=== PATIENT | female | born 1985 | race Caucasian/White ===

== ENCOUNTER 2024-10-08 09:02 | Outpatient (OUT) | payer BC, SELFPAY ==
--- NOTE | 2024-10-08 09:07 | US_ITS ---
[address] [address] Patient Name: JUAREZ LIMON MRN: [id number] date: 1985 Sex: F Assigned Patient Location: [facility] Current Patient Location: Accession/Order Number: [id number] Exam Date: 10/08/2024 09:07 Report Date: 10/09/2024 04:32 At the request of: GRACE LOVELL Procedure: US OB transvaginal EXAMINATION: US OB transvaginal HISTORY: MISSED MENSES COMPARISON: No relevant comparison available. FINDINGS: GESTATIONAL SAC: Present and normal appearing. YOLK SAC: Present and normal appearing. POLE: Present and normal appearing. CARDIAC: Present. UTERUS: Normal size and appearance. OVARIES: Right: Normal. Left: Not seen. CERVIX: 5.0 cm in length and closed. CUL-DE-SAC: Normal. OTHER: None. AGE BY LMP: 9 weeks 4 days MARIBETH BY LMP: 05/09/2025 AGE BY US CRL: 10 weeks 2 days MARIBETH BY US CRL: 05/04/2025 US/US OB transvaginal IMPRESSION: 1. Single live intrauterine . Electronically authenticated by: ANDREA AVERY Date: 10/09/2024 04:32
== END 2024-10-08 09:03 | disposition home or self-care (01) ==
LOC: NOMS 09:02
PROVIDERS: Visit Provider Obstetrics & Gynecology
DX: Z34.91 Encounter for supervision of normal pregnancy, unspecified, first trimester (principal); N92.6 Irregular menstruation, unspecified; Z3A.09 9 weeks gestation of pregnancy
CPT/HCPCS: 76817

== ENCOUNTER 2024-11-23 11:42 | Outpatient (OUT) | payer BC, SELFPAY ==
--- OUTSIDE RECORDS SUMMARY | 2024-11-23 11:59 | XMS_ITS | CCD ---
Author Organization [facility] Care Team Providers [employer] Name Role Phone GLENNA MCINTYRE Admitting Unavailable GLENNA MCINTYRE Attending Unavailable GLENNA MCINTYRE Consulting Unavailable NORM ASENCIO Admitting Unavailable NORM ASENCIO Attending Unavailable NORM ASENCIO Consulting Unavailable ANDREA AVERY Consulting Unavailable Norm Asencio MD Primary Care Provider [phone] GRACE REDDING Attending Unavailable Allergies Allergy Classification Reported Allergen(s) Allergy Type Date of Onset Reaction(s) Facility (1 source) Desonide Drug Allergy [facility] Rep[facility] Medications Current Medications Medication Drug Class(es) Dates Sig (Normalized) Sig (Original) ondansetron 4 mg disintegrating oral tablet (1 source) Serotonin-3 Receptor Antagonist Start: 09-20-2024 End: 10-20-2024 take 1 tablet by mouth every six hours as needed for nausea and vomiting and nausea and nausea ondansetron ODT (Zofran-ODT) 4 MG disintegrating tablet Indications: Nausea Take 1 tablet (4 mg) by mouth every 6 (six) hours if needed for nausea or vomiting 30 tablet 2 09/20/2024 10/20/2024 Active phenazopyridine hydrochloride 100 mg oral tablet (3 sources) Start: 10-25-2024 End: 11-09-2024 phenazopyridine (Pyridium) 100 MG tablet Indications: Urinary tract infection without hematuria, site unspecified Take 1 tablet (100 mg) by mouth 3 (three) times a day as needed for bladder spasms for up to 9 doses 9 tablet 10/25/2024 11/09/2024 Discontinued (Therapy completed) Problems Active Problems Problem Classification Problem Date Documented Date Episodic/Chronic Contraceptive and procreative management (2 sources) Sterilization requested; Translations: [Encounter for sterilization] 11-09-2024 Episodic Menstrual disorders (1 source) Missed period; Translations: [Irregular menstruation, unspecified] 10-08-2024 Chronic Other connective tissue disease (4 sources) Pain in left lower leg; Translations: [PAIN IN LEFT LOWER LEG] Onset: 05-15-2020 Episodic Other and delivery including normal (4 sources) ; Translations: [Encounter for supervision of normal , unspecified, unspecified trimester] 10-08-2024 Episodic Residual codes; unclassified (2 sources) Gestation period, 14 weeks; Translations: [14 weeks gestation of ] 11-09-2024 Episodic Urinary tract infections (3 sources) Urinary tract infectious disease; Translations: [Urinary tract infection, site not specified] Onset: 10-25-2024 10-25-2024 Episodic Past or Other Problems Problem Classification Problem Date Documented Date Episodic/Chronic Other female genital disorders (4 sources) Other specified noninflammatory disorders of vagina; Translations: [OTH SPEC NONINFLAMMATORY D/O VAGINA] Onset: 08-06-2019 Episodic Results Test Name Value Interpretation Reference Range Facil ity Urinalysis macro (dipstick) panel (U)on 11-09-2024 Bilirubin, UA Negative Negative - 4(70) +++ mg/dL [facility] Blood, UA Negative Negative - 50 Venu/mcL [facility] Clarity, UA Clear [facility] re Color, UA Yellow [facility] Glucose, UA Negative Negative - 1999(110) ++++ mg/dL [facility] Interpretation and review of laboratory results Normal [facility] Ketones, UA Negative Negative - 160(16) ++++ mg/dL [facility] Leukocytes, UA Negative Negative - 500+++ Michael/mcL [facility] Nitrite, UA Negative Negative - Positive [facility] pH, UA 6.5 5 - 9 [facility] e Protein, UA Negative Negative - 1999(20) ++++ mg/dL [facility] Spec Grav, UA 1.015 1 - 1.03 [facility] Urobilinogen, UA 0.2 0.2 - 12 mg/dL [facility] HCG ( test) Ql (U)o n 10-08-2024 Interpretation and review of laboratory results Abnormal [facility] Preg Test, Ur Positive Negative [facility] Urinalysis macro (dipstick) panel (U)on 10-08-2024 Bilirubin, UA Negative Negative - 4(70) +++ mg/dL [facility] Blood, UA Negative Negative - 50 Venu/mcL [facility] Clarity, UA Clear [facility] re Color, UA Yellow [facility] Glucose, UA Negative Negative - 1999(110) ++++ mg/dL [facility] Interpretation and review of laboratory results Normal [facility] Ketones, UA Negative Negative - 160(16) ++++ mg/dL [facility] Leukocytes, UA Negative Negative - 500+++ Michael/mcL [facility] Nitrite, UA Negative Negative - Positive [facility] pH, UA 5.5 5 - [address] [facility] e Protein, UA Negative Negative - 1999(20) ++++ mg/dL [facility] Spec Grav, UA 1.01 1 - 1.03 [facility] Urobilinogen, UA 0.2 0.2 - 12 mg/dL [facility] US CARROLL DOP LEG LTon 05-15-20 20 US CARROLL DOP LEG LT EXAMINATION: US CARROLL DOP LEG LT HISTORY: Pain in limb COMPARISON: No relevant comparison available. FINDINGS: REGION: THROMBI: None. COMPRESSIBILITY: Normal compressibility. FLOW: Normal waveform and antegrade flow between 5 and 20 cm/s. OTHER: None. IMPRESSION: 1. No deep vein thrombus within the left lower extremity. Electronically authenticated by: ANDREA AVERY Date: 2020-05-15 15:51 Normal [facility] VAGINITIS/VAGINOSIS DNA PROB Will 08-07-2019 Coreen species Positive Abnormal Negative [facility] Comment on above: Performed By: #### V AGINT #### [facility] [address] [place] [address] Tolu Schultz Gardnerella vaginalis Negative Normal Negative [facility] Comment on above: Performed By: #### V AGINT #### [facility] [address] [address] Tolu Schultz Trichomonas vaginalis Negative Normal Negative [facility] Comment on above: Performed By: #### V AGINT #### [facility] [address] [id number] Tolu Schultz Vital Signs Date Time Vital Sign Value Performing Clinician Faci lity 11-09-2024 11:10-0500 Body weight 67.13 kg Grace Miladis DO Work Phone: [facility] 11-09-2024 11:10-0500 Diastolic blood pressure 68 mm[Hg] Grace Miladis DO Work Phone: [facility] 11-09-2024 11:10-0500 Systolic blood pressure 108 mm[Hg] Grace Miladis DO Work Phone: [facility] 10-08-2024 10:17-0500 Body weight 64.86 kg [facility] Healthcare Encounters Encounter Date Encounter Type Care Provider Facility Start: 11-09-2024 End: 11-09-2024 Bamboo flowsheet Grace Miladis DO Work Phone: [facility] Start: 11-09-2024 End: 11-09-2024 Bamboo flowsheet Grace Miladis DO Work Phone: [facility] Start: 11-09-2024 End: 11-09-2024 flow sheet Grace Miladis DO Work Phone: [facility] Comment on above: Second trimester pre gnancy; 14 weeks gestation of ; Request for sterilization Start: 11-09-2024 End: 11-09-2024 ambulatory GRACE MILADIS Not Available Start: 10-08-2024 End: 10-08-2024 ambulatory [facility] Miladis Nurse [facility] Start: 05-15-2020 End: 05-16-2020 Patient encounter procedure NORM ASENCIO Facility:[facility] Start: 08-06-2019 End: 08-06-2019 Patient encounter procedure GLENNA MCINTYRE Facility:[facility] Procedures Date Procedure Procedure Detail Performing Clinician Start: 11-09-2024 Urnls dip stick/tabl et rgnt non-auto w/o micrscp Grace Miladis DO Work Phone: Start: 10-08-2024 End: 10-08-2024 Urnls dip stick/tablet rgnt non-auto w/o micrscp Grace Miladis DO Work Phone: Plan of Treatment Date Care Activity Detail Author Start: 12-08-2024 End: 12-08-2024 Patient encounter procedure 12/08/2024 3:10 PM EST Routine [facility] [address] [place] [id number] Monika Figueroa PA [address] [place] [address] [facility] Start: 11-09-2024 End: 11-09-2024 Patient encounter procedure [facility] Comment on above: Arrived Start: 10-08-2024 End: 10-08-2025 ABO/Rh ABO/Rh Lab Routine Missed menses , unspecified gestational age Expected: 10/08/2024 (Approximate), Expires: 10/08/2025 [facility] Healthcare Comment on above: Expected: 10/08/2024 (Approximate), Expires: 10/08/2025 Start: 10-08-2024 End: 10-08-2025 Blood type and Indirect antibody screen panel - Blood Type and screen Lab Routine Missed menses , unspecified gestational age Expected: 10/08/2024 (Approximate), Expires: 10/08/2025 [facility] Work Phone: Comment on above: Expected: 10/08/2024 (Approximate), Expires: 10/08/2025 Start: 10-08-2024 End: 10-08-2025 Drugs of abuse panel - Urine by Screen method Rapid drug screen, urine Lab Routine , unspecified gestational age Encounter for supervision of normal first in first trimester Expected: 10/08/2024 (Approximate), Expires: 10/08/2025 [facility] Comment on above: Expected: 10/08/2024 (Approximate), Expires: 10/08/2025 Start: 10-08-2024 End: 10-08-2025 US Pelvis transvaginal US OB transvaginal Imaging Routine Missed menses Expected: 10/08/2024 (Approximate), Expires: 10/08/2025 [facility] Comment on above: Expected: 10/08/2024 (Approximate), Expires: 10/08/2025 Bacteria identified in Urine by Culture Urine culture Microbiology Routine Missed menses Ordered: 10/08/2024 [facility] Comment on above: Ordered: 10/08/2024 CBC W Auto Different ial panel - Blood CBC and differential Lab Routine Missed menses , unspecified gestational age Ordered: 10/08/2024 [facility] Comment on above: Ordered: 10/08/2024 Hemoglobin A1c/Hemoglobin.total in Blood Hemoglobin A1c Lab Routine Missed menses , unspecified gestational age Ordered: 10/08/2024 [facility] Comment on above: Ordered: 10/08/2024 Hepatitis B virus surface Ag [Presence] in Serum or Plasma by Immunoassay Hepatitis B surface antigen Lab Routine Missed menses , unspecified gestational age Ordered: 10/08/2024 [facility] Comment on above: Ordered: 10/08/2024 Hepatitis C virus Ab [Presence] in Serum or Plasma by Immunoassay Hepatitis C antibody Lab Routine Missed menses , unspecified gestational age Ordered: 10/08/2024 [facility] Comment on above: Ordered: 10/08/2024 HIV-1/HIV-2 antigen/antibody combination immunoassay HIV-1 and HIV-2 antibodies Lab Routine Missed menses , unspecified gestational age Ordered: 10/08/2024 [facility] Comment on above: Ordered: 10/08/2024 Reagin Ab [Presence] in Serum by RPR RPR Lab Routine Missed menses , unspecified gestational age Ordered: 10/08/2024 [facility] Comment on above: Ordered: 10/08/2024 Rubella antibody, IgG Rubella an tibody, IgG Lab Routine Missed menses , unspecified gestational age Ordered: 10/08/2024 [facility] Comment on above: Ordered: 10/08/2024 Payers Date Payer Category [facility] [id number] 2021 Unknown [id number] 1985 Unknown [id number] 1985 Unknown [id number] 1985 Unknown [id number] 1985 Unknown [id number] 1957 Private Health Insurance [id number] Social History Date Type Detail Facility Tobacco smoking stat [facility] Tobacco smoking consumption unknown [facility] Start: 1985 Sex assigned at Not on file [facility] Gender identity Not on file [facility] Start: 08-16-2024 [facility] History of Present illness Narrative 11-09-2024 Marion Lerner LPN - 11/09/2024 10:50 AM EST Note Date & Type Note Facility 11-09-2024 History of Presen t illness Narrative Reason for Appointment: Patient ID: Yessi Limon is a 39 y.o. female who presents for Routine Visit Patient presents today for Return OB appointment. MEDICATIONS No current outpatient medications ALLERGIES No Known Allergies PROBLEMS Active Ambulatory Problems Diagnosis Date Noted Urinary tract infection without hematuria 10/25/2024 Resolved Ambulatory Problems Diagnosis Date Noted No Resolved Ambulatory Problems No Additional Past Medical History HISTORY PAST MEDICAL HISTORY SOCIAL HISTORY No past medical history on file. Social History Tobacco Use Smoking status: Not on file Smokeless tobacco: Not on file Substance Use Topics Alcohol use: Not on file Drug use: Not on file FAMILY HISTORY No family history on file. SURGICAL HISTORY History reviewed. No pertinent surgical history. REVIEW OF SYSTEMS Review of Systems: Review of Systems Constitutional: Negative. HENT: Negative. Eyes: Negative. Respiratory: Negative. Cardiovascular: Negative. Gastrointestinal: Negative. Genitourinary: Negative. Musculoskeletal: Negative. Skin: Negative. Neurological: Negative. All other systems reviewed and are negative. Hematological: Negative. Endocrine: Negative. Allergic/Immunologic: Negative. OBJECTIVE Objective: Physical Exam Constitutional: Appearance: Normal appearance. She is well-developed. Cardiovascular: Rate and Rhythm: Normal rate and regular rhythm. Pulmonary: Effort: Pulmonary effort is normal. Breath sounds: Normal breath sounds. Abdominal: General: Bowel sounds are normal. There is no distension. Palpations: Abdomen is soft. Tenderness: There is no abdominal tenderness. There is no guarding or rebound. Musculoskeletal: General: No swelling. Normal range of motion. Right lower leg: No edema. Left lower leg: No edema. Neurological: Mental Status: She is alert and oriented to person, place, and time. Skin: General: Skin is warm and dry. Psychiatric: Mood and Affect: Mood normal. Behavior: Behavior normal. Vitals and nursing note reviewed. Exam conducted with a change advisor present. Vitals: There is no height or weight on file to calculate BMI. BP: 108/68 Patient's last menstrual period was 08/02/2024 (exact date). ASSESSMENT & PLAN ICD-10-CM 1. Second trimester Z34.92 POCT urinalysis dipstick manually resulted 2. 14 weeks gestation of Z3A.14 3. Request for sterilization Z30.2 New OB: Patient presents today for 1st time obstetrics appointment with provider. Patient is currently 14w1d . Patients history has been reviewed in great detail including any potential risks. Patient stated she currently has no complaints. Expectations throughout regarding labs, ultrasounds, and appointments have been discussed with the patient in detail. It was reiterated that the patient is to drink 6-8 glasses of water a day, eat 6 small meals a day, do not consume raw or undercooked meat, and stay away from [facility]. Patient has been consulted regarding any further do's and don'ts of . Patient voiced understanding and all questions and concerns were answered. D/t AMA MFM referral for level II ultrasound offered- pt declined. Pt advised to take 81 mg aspirin daily. Orders Placed This Encounter Procedures POCT urinalysis dipstick manually resulted Follow Up: Patient is to return in 4 weeks for routine OB appointment. Documented by Marion Lerner LPN on behalf of: Grace Redding DO documented in this encounter [facility] History of Present illness Narrative 10-08-2024 Maria Guadalupe Hernandez MA - 10/08/2024 9:30 AM EST Note Date & Type Note Facility 10-08-2024 History of Presen t illness Narrative Reason for Appointment: Patient ID: Yessi Petros Limon is a 39 y.o. female who presents for Amenorrhea Patient presents today for a Nurse OB Intake appointment. Patient is Unknown with a Estimated Date of Delivery: None noted. OB History Para Term AB Living 7 6 7 SAB IAB Ectopic Multiple Live Births 1 7 # Outcome Date GA Lbr Shoaib/2nd Weight Sex Type Anes PTL Lv 7 Current 6 Para 04/06/18 M CS-LTranv MIMI 5A Para 03/16/15 7 lb F CS-LTranv N MIMI 5B Para 03/16/15 7 lb M CS-LTranv N MIMI 4 Para 07/10/12 M Vag-Spont MIMI 3 Para 11/12/10 F Vag-Spont MIMI 2 Para 07/12/08 M Vag-Spont MIMI 1 Para 02/18/07 Vag-Spont MIMI Current Medications: has a current medication list which includes the following prescription(s): ondansetron odt. Medical History: Active Ambulatory Problems Diagnosis Date Noted No Active Ambulatory Problems Resolved Ambulatory Problems Diagnosis Date Noted No Resolved Ambulatory Problems No Additional Past Medical History No family history on file. Social History Tobacco Use Smoking status: Not on file Smokeless tobacco: Not on file Substance Use Topics Alcohol use: Not on file Drug use: Not on file No past surgical history on file. No Known Allergies Vitals: There is no height or weight on file to calculate BMI. BP: No LMP recorded. Patient is . Assessment/Plan Diagnoses and all orders for this visit: Missed menses - Type and screen; Future - ABO/Rh; Future - CBC and differential - Hemoglobin A1c - RPR - Rubella antibody, IgG - Hepatitis B surface antigen - Hepatitis C antibody - HIV-1 and HIV-2 antibodies - Urine culture - US OB transvaginal; Future - POCT , urine manually resulted - POCT urinalysis dipstick manually resulted , unspecified gestational age - Type and screen; Future - ABO/Rh; Future - CBC and differential - Hemoglobin A1c - RPR - Rubella antibody, IgG - Hepatitis B surface antigen - Hepatitis C antibody - HIV-1 and HIV-2 antibodies - Rapid drug screen, urine; Future Encounter for supervision of normal first in first trimester - Rapid drug screen, urine; Future Nurse Note: OB Intake: Patient presents today for first OB visit. Patients history has been reviewed in great detail including any potential risks. Patient signed consent forms and patient desires testing in both trimesters. Patient currently has no complaints and has been advised to drink 6-8 glasses of water a day, eat no raw or undercooked meat, and stay away from [facility]. Patient has also been advised to not change litter boxes and eat 6 small meals a day. Patient has been consulted regarding the do's and don'ts of . Patient was given labs and all questions and concerns were answered. Follow Up: Patient is to return in 4 weeks for routine OB appointment. Follow Up: Patient is to have labs drawn at directed and return to office for initial OB appointment with provider. Patient may call office as needed with any concerns or questions. Nurse Visit Completed by: Maria Guadalupe Hernandez MA documented in this encounter [facility] Evaluation note Note Date & Type Note Facility Evaluation note Diagnosis Missed menses , unspecified gestational age Encounter for supervision of normal first in first trimester documented in this encounter [facility] Evaluation note Note Date & Type Note Facility Evaluation note Diagnosis Second trimester state, incidental 14 weeks gestation of Request for sterilization documented in this encounter [facility] Summary Purpose Family History No Family History Records FoundNo Family History Records Found Advance Directives No Advanced Directives Records FoundNo Advanced Directives Records Found Additional Source Comments INFORMATION SOURCE (unrecogn ized section and content) DATE CREATED AUTHOR 05/26/2020 Ermelinda patterson DATE CREATED AUTHOR AUTHOR'S ORGANIZ ATION 11/15/2024 [facility] EPIC Reason for Visit (unrecogniz ed section and content) Reason Comments Amenorrhea Reason Comments Routine Visit Care Teams (unrecognized sec tion and content) [employer] Relationship Specialty Start Date End Date Norm Asencio MD [address] [place] [facility] [address] PCP - General Family Medicine 10/08/24 [employer] Relationship Specialty Start Date End Date Norm Asencio MD [address] [place] [facility] [address] PCP - General Family Medicine 10/08/24 [employer] Relationship Specialty Start Date End Date Norm Asencio MD [address] [place] [facility] [phone] PCP - General Family Medicine 10/08/24 FOR RECORDS PERTAINING TO PATIENTS WHO ARE OR HAVE BEEN ENROLLED IN A CHEMICAL DEPENDENCY/SUBSTANCEABUSE PROGRAM, SOME INFORMATION MAY BE OMITTED. This clinical summary was aggregated from multiple sources. Caution should be exercised in using it in the provision of clinical care. This summary normalizes information from multiple sources, and as a consequence, information in this document may materially change the coding, format and clinical context of patient data. In addition, data may be omitted in some cases. CLINICAL DECISIONS SHOULD BE BASED ON THE PRIMARY CLINICAL RECORDS. [employer] [facility] provides no warranty or guarantee of the accuracy or completeness of information in this document.
[2024-11-23 12:28] LABS: Basophils Percent Auto 0.2 % (0.2-2.0); Eosinophils Absolute Auto 0.1 10^3/uL (0.0-0.7); Hematocrit 37.5 % (36.0-48.0); Hemoglobin 12.5 g/dL (12.0-16.0); Immature Granulocytes Abs Auto 0.15 10^3/uL (0.00-0.03); Immature Granulocytes Pct Auto 1.9 % (0.0-0.5); Lymphocytes Absolute Auto 1.7 10^3/uL (1.2-3.8); Lymphocytes Percent Auto 20.4 % (20.5-60.0); Mean Corpuscular HGB Conc 33.3 g/dL (29.9-35.2); Mean Corpuscular Hemoglobin 30.3 pg (26.7-34.0); Mean Corpuscular Volume 90.8 fL (81.0-99.0); Mean Platelet Volume 9.9 fL (9.5-13.5); Monocytes Absolute Auto 0.5 10^3/uL (0.3-0.8); Monocytes Percent Auto 5.6 % (1.7-12.0); Neutrophils Absolute Auto 5.8 10^3/uL (1.4-6.5); Neutrophils Percent Auto 70.9 % (43.0-75.0); Platelet Count 170 10^3/uL (150-450); Red Blood Count 4.13 10^6/uL (4.20-5.40); Red Cell Distribution Width 13.6 % (11.0-15.0); White Blood Count 8.1 10^3/uL (4.0-11.0)
[2024-11-23 13:12] LABS: Amphetamine Screen Urine NEGATIVE (NEGATIVE); Barbiturates Screen Urine NEGATIVE (NEGATIVE); Benzodiazepines Screen Urine NEGATIVE (NEGATIVE); Buprenorphine Screen Urine NEGATIVE (NEGATIVE); Cannabinoid Screen Urine NEGATIVE (NEGATIVE); Cocaine Screen Urine NEGATIVE (NEGATIVE); Methadone Screen Urine NEGATIVE (NEGATIVE); Methamphetamines Screen Urine NEGATIVE (NEGATIVE); Opiate Screen Urine NEGATIVE (NEGATIVE); Oxycodone Screen Urine NEGATIVE (NEGATIVE); Phencyclidine Screen Urine NEGATIVE (NEGATIVE); Tricyclic Antidepressant Urine NEGATIVE (NEGATIVE)
[2024-11-23 14:01] LABS: Estimated Average Glucose 85 mg/dL; Glycohemoglobin A1C 4.6 % (4.5-6.2)
[2024-11-24 06:08] LABS: HBsAg Screen Negative (Negative); HCV Ab Non Reactive (Non Reactive); HIV Ab/p24 Ag Screen Non Reactive (Non Reactive)
[2024-11-24 07:07] LABS: Rubella Antibodies, IgG 2.49 index (Immune >0.99)
[2024-11-24 12:07] LABS: Rapid Plasma Reagin, Quant Non Reactive titer (NonRea<1:1)
== END 2024-11-23 11:43 | disposition home or self-care (01) ==
LOC: LAB 11:43
PROVIDERS: Visit Provider Obstetrics & Gynecology
DX: Z34.01 Encounter for supervision of normal first pregnancy, first trimester (principal); N92.6 Irregular menstruation, unspecified
CPT/HCPCS: 36415; 80307; 83036; 85025; 86592; 86762; 86803; 86850; 86900; 86901; 87086; 87150; 87340; 87389

== ENCOUNTER 2024-12-23 16:54 | Outpatient (OUT) | payer BC, SELFPAY ==
--- NOTE | 2024-12-23 16:56 | US_ITS ---
The [address] [address] Patient Name: JUAREZ LIMON MRN: [id number] date: 1985 Sex: F Assigned Patient Location: Current Patient Location: Accession/Order Number: [id number] Exam Date: 12/24/2024 09:49 Report Date: 12/24/2024 10:03 At the request of: VIMAL FRIED Procedure: US OB cervical length CLINICAL DATA: anatomy and cervix screening ULTRASOUND OB ANATOMY COMPARISON: 10/08/2024 There is a single live intrauterine gestation in variable presentation. The amniotic fluid volume is subjectively normal. The placenta is anterior and within normal limits for appearance and position. There is cardiac and somatic activity with heart rate of 145 bpm. The cervix is closed with estimated length of 4.6 cm using transvaginal probe. The neural axis and all 4 extremities were surveyed by the vessel scrapper helper. No abnormalities were detected. The stomach, kidneys, bladder, three-vessel cord with insertion, diaphragm, four-chamber heart and facial features are seen. The following measurements were obtained: Biparietal diameter 4.8 cm 20 weeks 4 days 53% Head circumference 18.1 cm 20 weeks 3 days 44% Abdominal circumference 16.2 cm 20 weeks 2 days 72% Femur length 3.6 cm 21 weeks 2 days 71% The composite ultrasound age based on these measurements is 20 weeks 6 days +/- 1 week 3 days. US/US OB cervical length IMPRESSION: SINGLE LIVE INTRAUTERINE GESTATION WITH ULTRASOUND AGE OF 20 WEEKS 6 DAYS. UNREMARKABLE ANATOMY SURVEY. OB CERVICAL LENGTH COMPARISON: 10/08/2024 The cervix was evaluated using a transvaginal probe. The cervix is closed and the length is estimated at 4.6 cm. IMPRESSION: NORMAL APPEARANCE OF THE CERVIX. Impression dictated by: Marion Flaherty M.D.12/24/2024 10:03 AM Dictation Location: [email or web address] Electronically authenticated by: [id number] Date: 12/24/2024 10:03
--- OUTSIDE RECORDS SUMMARY | 2024-12-23 17:05 | XMS_ITS | CCD ---
Author Organization [facility] Care Team Providers Care Director [facility] Name Role Phone GLENNA MCINTYRE Admitting Unavailable GLENNA MCINTYRE Attending Unavailable GLENNA MCINTYRE Consulting Unavailable NORM ASENCIO Admitting Unavailable NORM ASENCIO Attending Unavailable NORM ASENCIO Consulting Unavailable ANDREA AVERY Consulting Unavailable Norm Asencio MD Primary Care Provider [phone] MONIKA FRIED Attending Unavailable GRACE REDDING Attending Unavailable Allergies Allergy Classification Reported Allergen(s) Allergy Type Date of Onset Reaction(s) Facility (1 source) Desonide Drug Allergy [facility] Repository Medications Current Medications Medication Drug [...] 05-15-2020 Episodic Other and delivery including normal (6 sources) ; Translations: [Encounter for supervision of normal , unspecified, unspecified trimester] 10-08-2024 Episodic Other screening for suspected conditions (not mental disorders or infectious disease) (2 sources) Patient encounter status; Translations: [Encounter for other specified screening] 12-08-2024 Episodic Residual codes; unclassified (2 sources) Gestation period, 14 weeks; Translations: [14 weeks gestation of ] 11-09-2024 Episodic Residual codes; unclassified (2 sources) Gestation period, 18 weeks; Translations: [18 weeks gestation of ] 12-08-2024 Episodic Urinary tract infections (7 sources) Urinary tract infectious disease; Translations: [Urinary tract infection, site not specified] Onset: 10-25-2024 10-25-2024 Episodic Past or Other Problems Problem Classification Problem Date Documented Date Episodic/Chronic Other female genital disorders (4 sources) Other specified noninflammatory disorders of vagina; Translations: [OTH SPEC NONINFLAMMATORY D/O VAGINA] Onset: 08-06-2019 Episodic Results Test Name Value Interpretation Reference Range Facil ity Urinalysis macro (dipstick) panel (U)on 12-08-2024 Bilirubin, UA Negative Negative - 4(70) +++ mg/dL [facility] Blood, UA Negative Negative - 50 Venu/mcL [facility] Clarity, UA Clear [facility] Color, UA Yellow [facility] Glucose, UA Negative Negative - 1999(110) ++++ mg/dL [facility] Interpretation and review of laboratory results Normal [facility] Ketones, UA Negative Negative - 160(16) ++++ mg/dL [facility] Leukocytes, UA Negative Negative - 500+++ Michael/mcL [facility] Nitrite, UA Negative Negative - Positive [facility] pH, UA 7 5 - 9 [facility], UA Negative Negative - 1999(20) ++++ mg/dL [facility] Spec Grav, UA 1.025 1 - 1.03 [facility] Urobilinogen, UA 1.0 0.2 - 12 mg/dL [facility] e ALL CBC WITH AUTO DIFFon BASOPHILS ABSOLUTE AUTO 0 [facility] Basophils/100 WBC (Bld) 0.2 % 0.2 - 2.0 % [facility] Eosinophils/100 WBC (Bld) 1 % 0.9 - 7.0 % [facility] Erythrocyte distribution width (RBC) [Ratio] 13.6 % 11.0 - 15.0 % [facility] Hematocrit (Bld) [Volume fraction] 37.5 % 36.0 - 48.0 % [facility] e Hemoglobin (Bld) [Mass/Vol] 12.5 g/dL 12.0 - 16.0 g/dL [facility] IMMATURE GRANULOCYTES ABS AUTO 0.15 High [facility] Immature granulocytes/100 WBC (Bld) 1.9 % High 0.0 - 0.5 % [facility] Interpretation and review of laboratory results Abnormal [facility] LYMPHOCYTES ABSOLUTE AUTO 1.7 [facility] Lymphocytes/100 WBC (Bld) 20.4 % Low 20.5 - 60.0 % [facility] MCH (RBC) [Entitic mass] 30.3 pg 26.7 - 34.0 pg [facility] MCHC (RBC) [Mass/Vol] 33.3 g/dL 29.9 - 35.2 g/dL [facility] MCV (RBC) [Entitic vol] 90.8 fL 81.0 - 99.0 fL [facility] MONOCYTES ABSOLUTE AUTO 0.5 [facility] Monocytes/100 WBC (Bld) 5.6 % 1.7 - 12.0 % [facility] NEUTROPHILS ABSOLUTE AUTO 5.8 [facility] Neutrophils/100 WBC (Bld) 70.9 % 43.0 - 75.0 % [facility] Platelet mean volume (Bld) [Entitic vol] 9.9 fL 9.5 - 13.5 fL [facility] EO # 0.1 [facility] TB PLT 170 [facility] e TB RBC 4.13 Low [facility] e TB WBC 8.1 [facility] Urinalysis macro (dipstick) panel (U)on 11-09-2024 Bilirubin, UA Negative Negative - 4(70) +++ mg/dL [facility] Healthcare Blood, UA Negative Negative - 50 Venu/mcL [facility] Healthcare Clarity, UA Clear [facility] re Color, UA Yellow [facility] Health[facility] Glucose, UA Negative Negative - 1999(110) ++++ mg/dL [facility] Interpretation and review of laboratory results Normal [facility] Ketones, UA Negative Negative - 160(16) ++++ mg/dL [facility] Healthcare Leukocytes, UA Negative Negative - 500+++ Michael/mcL [facility] Healthcare Nitrite, UA Negative Negative - Positive [facility] pH, UA 6.5 5 - 9 [facility] Protein, UA Negative Negative - 1999(20) ++++ mg/dL [facility] Healthcare Spec Grav, UA 1.015 1 - 1.03 [facility] Health care Urobilinogen, UA 0.2 0.2 - 12 mg/dL [facility] HCG ( test) Ql (U)o n 10-08-2024 Interpretation and review of laboratory results Abnormal [facility] Preg Test, Ur Positive Negative [facility] Health care [facility] Urinalysis macro (dipstick) panel (U)on 10-08-2024 Bilirubin, UA Negative Negative - 4(70) +++ mg/dL [facility] Blood, UA Negative Negative - 50 Venu/mcL [facility] Healthcare Clarity, UA Clear [facility] re Color, UA Yellow [facility] Glucose, UA Negative Negative - 1999(110) ++++ mg/dL [facility] Interpretation and review of laboratory results Normal [facility] Ketones, UA Negative Negative - 160(16) ++++ mg/dL [facility] Leukocytes, UA Negative Negative - 500+++ Michael/mcL [facility] Healthcare Nitrite, UA Negative Negative - Positive [facility] pH, UA 5.5 5 - 9 [facility] Protein, UA Negative Negative - 1999(20) ++++ mg/dL [facility] Healthcare Spec Grav, UA 1.01 1 - 1.03 [facility] Health care Urobilinogen, UA 0.2 0.2 - 12 mg/dL [facility] US CARROLL DOP LEG LTon [...] ANDREA AVERY Date: 2020-05-15 15:51 Normal [facility] VAGINITIS/VAGINOSIS DNA PROB Will 08-07-2019 Coreen species Positive Abnormal Negative [facility] Comment on above: Performed By: #### V AGINT #### [facility] [address] [place] [address] Gardnerella vaginalis Negative Normal Negative [facility] Comment on above: Performed By: #### V AGINT #### [facility] [address] [place] [address] Tolu Marion Trichomonas vaginalis Negative Normal Negative [facility] Comment on above: Performed By: #### V AGINT #### [facility] [address] [place], [place] [id number] Tolu Marion Vital Signs Date Time Vital Sign Value Performing Clinician Faci lity 12-08-2024 15:59-0500 Body weight 70.94 kg Monika WEEKS Work Phone: [facility] 12-08-2024 15:59-0500 Diastolic blood pressure 72 mm[Hg] Monika WEEKS Work Phone: [facility] 12-08-2024 15:59-0500 Systolic blood pressure 110 mm[Hg] Monika WEEKS Work Phone: [facility] 11-09-2024 11:10-0500 Body weight 67.13 kg Grace Miladis DO Work Phone: [facility] 11-09-2024 11:10-0500 Diastolic blood pressure 68 mm[Hg] Grace Miladis DO Work Phone: [facility] 11-09-2024 11:10-0500 Systolic blood pressure 108 mm[Hg] Grace Miladis DO Work Phone: [facility] 10-08-2024 10:17-0500 Body weight 64.86 kg Noms Nurse [facility] Encounters Encounter Date Encounter Type Care Provider Facility Start: 12-08-2024 End: 12-08-2024 flow sheet Monika WEEKS Work Phone: [facility] Comment on above: Second trimester pre gnancy; 18 weeks gestation of ; Screening, , for anatomic survey Start: 12-08-2024 End: 12-08-2024 ambulatory MONIKA FRIED Not Available Start: 12-08-2024 End: 12-08-2024 Bamboo flowsheet Monika WEEKS Work Phone: [facility] Start: 12-08-2024 End: 12-08-2024 Bamboo flowsheet Monika WEEKS Work Phone: [facility] Start: 11-23-2024 End: 11-23-2024 [facility] Result Encounter Grace Miladis DO Work Phone: [facility] Unsolicited Start: 11-23-2024 End: 11-23-2024 [facility] Result Encounter Grace Miladis DO Work Phone: [facility] Unsolicited Start: 11-09-2024 End: 11-09-2024 Bamboo flowsheet Grace Miladis DO Work Phone: [facility] Start: 11-09-2024 End: 11-09-2024 Bamboo flowsheet Grace Miladis DO Work Phone: [facility] Start: 11-09-2024 End: 11-09-2024 flow sheet Grace Miladis DO Work Phone: [facility] Comment on above: Second trimester pre gnancy; 14 weeks gestation of ; Request for sterilization Start: 11-09-2024 End: 11-09-2024 ambulatory GRACE MILADIS Not Available Start: 10-08-2024 End: 10-08-2024 ambulatory [facility] Miladis Nurse [facility] Start: 05-15-2020 End: 05-16-2020 Patient encounter procedure NORM ASENCIO Facility: Start: 08-06-2019 End: 08-06-2019 Patient encounter procedure GLENNA MCINTYRE Facility:[facility]1 Procedures Date Procedure Procedure Detail Performing Clinician Start: 12-08-2024 Urnls dip stick/tabl et rgnt non-auto w/o micrscp Monika WEEKS Work Phone: Start: 11-23-2024 ALL CBC WITH AUTO DIFF Grace Miladis DO Work Phone: Start: 11-09-2024 Urnls dip stick/tabl et rgnt non-auto w/o micrscp Grace Miladis DO Work Phone: Start: 10-08-2024 End: 10-08-2024 Urnls dip stick/tablet rgnt non-auto w/o micrscp Grace Miladis DO Work Phone: Plan of Treatment Date Care Activity Detail Author Start: 01-05-2025 End: 01-05-2025 Patient encounter procedure 01/05/2025 3:50 PM EST Routine [facility] [address] [place] [id number] Grace Redding, DO [address] [place] [address] [facility] Start: 12-08-2024 End: 12-08-2024 Patient encounter procedure [facility] Comment on above: Arrived Start: 12-08-2024 End: 06-07-2025 Alpha fetoprotein, maternal Alpha fetoprotein, maternal Lab Routine Second trimester 18 weeks gestation of Expected: 12/08/2024 (Approximate), Expires: 06/07/2025 [facility] Comment on above: Expected: 12/08/2024 (Approximate), Expires: 06/07/2025 Start: 12-08-2024 End: 12-08-2025 US for US OB 14+ weeks anatomy scan Imaging Routine Screening, , for anatomic survey Expected: 12/08/2024, Expires: 12/08/2025 [facility] Work Phone: Comment on above: Expected: 12/08/2024 , Expires: 12/08/2025 Start: 11-09-2024 End: 11-09-2024 Patient encounter procedure [facility] Comment on above: Arrived Start: 10-08-2024 End: 10-08-2025 ABO/Rh ABO/Rh Lab Routine Missed menses , unspecified gestational age Expected: 10/08/2024 (Approximate), Expires: 10/08/2025 [facility] Comment on above: Expected: 10/08/2024 (Approximate), Expires: 10/08/2025 Start: 10-08-2024 End: 10-08-2025 Blood type and Indirect antibody screen panel - Blood Type and screen Lab Routine Missed menses , unspecified gestational age Expected: 10/08/2024 (Approximate), Expires: 10/08/2025 [facility] Work Phone: Comment on above: Expected: 10/08/2024 (Approximate), Expires: 10/08/2025 Start: 10-08-2024 End: 10-08-2025 Drugs of abuse panel - Urine by Screen method Rapid drug screen, urine Lab Routine , unspecified gestational age Encounter for supervision of normal first in first trimester Expected: 10/08/2024 (Approximate), Expires: 10/08/2025 [facility] Comment on above: Expected: 10/08/2024 (Approximate), Expires: 10/08/2025 Start: 10-08-2024 End: 10-08-2025 US Pelvis transvaginal US OB transvaginal Imaging Routine Missed menses Expected: 10/08/2024 (Approximate), Expires: 10/08/2025 [facility] Comment on above: Expected: 10/08/2024 (Approximate), Expires: 10/08/2025 Bacteria identified in Urine by Culture Urine culture Microbiology Routine Missed menses Ordered: 10/08/2024 [facility] Comment on above: Ordered: 10/08/2024 CBC W Auto Different ial panel - Blood CBC and differential Lab Routine Missed menses , unspecified gestational age Ordered: 10/08/2024 [facility] Comment on above: Ordered: 10/08/2024 Hemoglobin A1c/Hemoglobin.total in Blood Hemoglobin A1c Lab Routine Missed menses , unspecified gestational age Ordered: 10/08/2024 [facility] Comment on above: Ordered: 10/08/2024 Hepatitis B virus surface Ag [Presence] in Serum or Plasma by Immunoassay Hepatitis B surface antigen Lab Routine Missed menses , unspecified gestational age Ordered: 10/08/2024 [facility] Comment on above: Ordered: 10/08/2024 Hepatitis C virus Ab [Presence] in Serum or Plasma by Immunoassay Hepatitis C antibody Lab Routine Missed menses , unspecified gestational age Ordered: 10/08/2024 [facility] Comment on above: Ordered: 10/08/2024 HIV-1/HIV-2 antigen/antibody combination immunoassay HIV-1 and HIV-2 antibodies Lab Routine Missed menses , unspecified gestational age Ordered: 10/08/2024 [facility] Comment on above: Ordered: 10/08/2024 Reagin Ab [Presence] in Serum by RPR RPR Lab Routine Missed menses , unspecified gestational age Ordered: 10/08/2024 [facility] Comment on above: Ordered: 10/08/2024 Rubella antibody, IgG Rubella an tibody, IgG Lab Routine Missed menses , unspecified gestational age Ordered: 10/08/2024 [facility] Comment on above: Ordered: 10/08/2024 Payers Date Payer Category Payer [facility] er [id number] 2021 Unknown [id number] 1987 Unknown [id number] 1987 Unknown [id number] 1987 Unknown [id number] 1987 Unknown [id number] 1987 Unknown [id number] 1959 Private Health Insurance [id number] Social History Date Type Detail Facility Tobacco smoking stat [facility] Tobacco smoking consumption unknown [facility] Start: 1985 Sex assigned at Not on file [facility] Gender identity Not on file [facility] Start: 08-16-2024 [facility] History of Present illness Narrative 12-08-2024 DESI Wilson - 12/08/2024 3:20 PM EST Note Date & Type Note Facility 12-08-2024 History of Presen t illness Narrative Reason [...] No family history on file. SURGICAL HISTORY No past surgical history on file. REVIEW OF SYSTEMS Review of Systems: Review of Systems Constitutional: Negative. HENT: Negative. Eyes: Negative. Respiratory: Negative. Cardiovascular: Negative. Gastrointestinal: Negative. Genitourinary: Negative. Musculoskeletal: Negative. Skin: Negative. Neurological: Negative. All other systems reviewed and are negative. Hematological: Negative. Endocrine: Negative. Allergic/Immunologic: Negative. OBJECTIVE Objective: Physical Exam Constitutional: Appearance: Normal appearance. She is normal weight. HENT: Head: Normocephalic. Cardiovascular: Rate and Rhythm: Normal rate. Pulses: Normal pulses. Pulmonary: Effort: Pulmonary effort is normal. Breath sounds: Normal breath sounds. Abdominal: Palpations: Abdomen is soft. Musculoskeletal: General: Normal range of motion. Neurological: General: No focal deficit present. Mental Status: She is alert and oriented to person, place, and time. Psychiatric: Mood and Affect: Mood normal. Behavior: Behavior normal. Thought Content: Thought content normal. Judgment: Judgment normal. Vitals and nursing note reviewed. Vitals: There is no height or weight on file to calculate BMI. BP: 110/72 Patient's last menstrual period was 08/02/2024 (exact date). ASSESSMENT & PLAN ICD-10-CM 1. Second trimester Z34.92 POCT urinalysis dipstick manually resulted Alpha fetoprotein, maternal Alpha fetoprotein, maternal 2. 18 weeks gestation of Z3A.18 POCT urinalysis dipstick manually resulted Alpha fetoprotein, maternal Alpha fetoprotein, maternal 3. Screening, , for anatomic survey Z36.89 US OB 14+ weeks anatomy scan Return OB: Patient presents today for a routine obstetrics appointment. Patient is currently 18w2d . Patient states she is doing well but has complaints of being tired due to current . Orders Placed This Encounter Procedures US OB 14+ weeks anatomy scan Alpha fetoprotein, maternal POCT urinalysis dipstick manually resulted Follow Up: Patient is to return to office in 2 week for routine OB appointment. Documented by DESI Wilson on behalf of: DESI Wilson documented in this encounter [facility] History of Present illness Narrative 11-09-2024 Marion [...] nursing note reviewed. Exam conducted with a industrial sociologist present. Vitals: There is no height or [...] or undercooked meat, and stay away from [facility]. Patient has been consulted regarding any [...] of Present illness Narrative 10-08-2024 Maria Guadalupe HernandezRAFITA - 10/08/2024 9:30 AM EST Note Date [...] or undercooked meat, and stay away from [facility]. Patient has also been advised to [...] Guadalupe Hernandez MA documented in this encounter [facility] Evaluation note Note Date & Type Note Facility Evaluation note Diagnosis Missed menses , unspecified gestational age Encounter for supervision of normal first in first trimester documented in this encounter [facility] Evaluation note Note Date & Type Note Facility Evaluation note Diagnosis Second trimester state, incidental 14 weeks gestation of Request for sterilization documented in this encounter [facility] Evaluation note Note Date & Type Note Facility Evaluation note Diagnosis Second trimester state, incidental 18 weeks gestation of Screening, , for anatomic survey Encounter for anatomic survey documented in this encounter [facility] Summary Purpose Family History No Family History Records FoundNo Family History Records Found Advance Directives No Advanced Directives Records FoundNo Advanced Directives Records Found Additional Source Comments INFORMATION SOURCE (unrecogn ized section and content) DATE CREATED AUTHOR 05/26/2020 [facility] DATE CREATED AUTHOR AUTHOR'S ORGANMAILE ATION 12/11/2024 [facility] EPIC Reason for Visit (unrecogniz ed section and content) Reason Comments Amenorrhea Reason Comments Routine Visit Care Teams (unrecognized sec tion and content) [facility] Relationship Specialty Start Date End Date Norm Asencio MD [address] [place] [address] PCP - General Family Medicine 10/08/24 [facility] Relationship Specialty Start Date End Date Norm Asencio MD [address] [place] [facility] [place] [address] PCP - General Family Medicine 10/08/24 [facility] Relationship Specialty Start Date End Date Norm Asencio MD [address] [place] [place] [address] PCP - General Family Medicine 10/08/24 [facility] Relationship Specialty Start Date End Date Norm Asencio MD [address] [place] [place] [address] PCP - General Family Medicine 10/08/24 [facility] Relationship Specialty Start Date End Date Norm Asencio MD [address] [place] [place] [address] PCP - General Family Medicine 10/08/24 FOR [...] BE BASED ON THE PRIMARY CLINICAL RECORDS. [employer] [facility]. provides no warranty or guarantee of the accuracy or completeness of information in this document.
== END 2024-12-23 16:55 | disposition home or self-care (01) ==
LOC: US 16:54
PROVIDERS: Visit Provider Physician Assistant
DX: Z36.89 Encounter for other specified antenatal screening (principal); Z3A.20 20 weeks gestation of pregnancy
CPT/HCPCS: 76805; 76817

== ENCOUNTER 2025-01-05 19:44 | Outpatient (REF) | payer BC, SELFPAY ==
--- OUTSIDE RECORDS SUMMARY | 2025-01-05 19:48 | XMS_ITS | CCD ---
Author Organization [facility] Care Team Providers Care Process Maintenance Technician Name Role Phone GLENNA MCINTYRE Admitting Unavailable GLENNA MCINTYRE Attending Unavailable GLENNA MCINTYRE Consulting Unavailable NORM ASENCIO Admitting Unavailable NORM ASENCIO Attending Unavailable NORM ASENCIO Consulting Unavailable ANDREA AVERY Consulting Unavailable Norm Asencio MD Primary Care Provider [phone] MONIKA FRIED Attending Unavailable GRACE REDDING Attending Unavailable Allergies Allergy Classification Reported Allergen(s) Allergy Type Date of Onset Reaction(s) Facility (1 source) Desonide Drug Allergy [facility] Repository Medications Current Medications Medication [...] of ] 12-08-2024 Episodic Urinary tract infections (9 sources) Urinary tract infectious disease; Translations: [Urinary tract infection, site not specified] Onset: 10-25-2024 10-25-2024 Episodic Past or Other Problems Problem Classification Problem Date Documented Date Episodic/Chronic Other female genital disorders (4 sources) Other specified noninflammatory disorders of vagina; Translations: [OTH SPEC NONINFLAMMATORY D/O VAGINA] Onset: 08-06-2019 Episodic Results Test Name Value Interpretation Reference Range Facil ity US OB ANATOMYon 12-29-2024 [place] [id number] Ultrasound Report Signed Patient: YESSI LIMON MR#: [id number] : 1985 Acct:[id number] Age/Sex: 39 / F ADM Date: 12/23/24 Loc: US Attending Dr: Monika Fried Ordering Physician: Monika Fried Date of Service: 12/23/24 Procedure(s): US OB anatomy Accession Number(s): [id number] cc: Monika Fried; Physician,Non-Staff [facility] [address] [address] Patient Name: YESSI LIMON MRN: [id number]:[id number] date: 1985 Sex: F Assigned Patient Location: US Current Patient Location: US Accession/Order Number: [id number] Exam Date: 12/24/2024 09:49 Report Date: 12/24/2024 10:03 At the request of: MONIKA FRIED Procedure: US OB cervical length CLINICAL DATA: anatomy and cervix screening ULTRASOUND OB ANATOMY COMPARISON: 10/08/2024 There is a single live intrauterine gestation in variable presentation. The amniotic fluid volume is subjectively normal. The placenta is anterior and within normal limits for appearance and position. There is cardiac and somatic activity with heart rate of 145 bpm. The cervix is closed with estimated length of 4.6 cm using transvaginal probe. The neural axis and all 4 extremities were surveyed by the arc and gas welder. No abnormalities were detected. The stomach, kidneys, bladder, three-vessel cord with insertion, diaphragm, four-chamber heart and facial features are seen. The following measurements were obtained: Biparietal diameter 4.8 cm 20 weeks 4 days 53% Head circumference 18.1 cm 20 weeks 3 days 44% Abdominal circumference 16.2 cm 20 weeks 2 days 72% Femur length 3.6 cm 21 weeks 2 days 71% The composite ultrasound age based on these measurements is 20 weeks 6 days +/- 1 week 3 days. US/US OB anatomy IMPRESSION: SINGLE LIVE INTRAUTERINE GESTATION WITH ULTRASOUND AGE OF 20 WEEKS 6 DAYS. UNREMARKABLE ANATOMY SURVEY. OB CERVICAL LENGTH COMPARISON: 10/08/2024 The cervix was evaluated using a transvaginal probe. The cervix is closed and the length is estimated at 4.6 cm. IMPRESSION: NORMAL APPEARANCE OF THE CERVIX. Impression dictated by: Marion Flaherty M.D.12/24/2024 10:03 AM Dictation Location: [place] [address] Electronically authenticated by: [id number] Y Date: 12/24/2024 10:03 Dictated By: Marion Flaherty M.D. Signed By: 12/29/24 1035 DD/ 1003 TD/TT: Corporate Auditor: [facility] Radiology, Radiologist, - 12/29/2024 [place] [address] Ultrasound Report Signed Patient: YESSI LIMON MR#: [id number] : 1985 Acct:[id number] Age/Sex: 39 / F ADM Date: 12/23/24 Loc: US Attending Dr: Monika Fried Ordering Physician: Monika Fried Date of Service: 12/23/24 Procedure(s): US OB anatomy Accession Number(s): [id number] cc: Monika Fried; Physician,Non-Staff [place] [id number] Patient Name: YESSI LIMON MRN: [facility]:[id number] date: 1985 Sex: F Assigned Patient Location: US Current Patient Location: US Accession/Order Number: [id number] Exam Date: 12/24/2024 09:49 Report Date: 12/24/2024 10:03 At the request of: MONIKA FRIED Procedure: US OB cervical length CLINICAL DATA: anatomy and cervix screening ULTRASOUND OB ANATOMY COMPARISON: 10/08/2024 There is a single live intrauterine gestation in variable presentation. The amniotic fluid volume is subjectively normal. The placenta is anterior and within normal limits for appearance and position. There is cardiac and somatic activity with heart rate of 145 bpm. The cervix is closed with estimated length of 4.6 cm using transvaginal probe. The neural axis and all 4 extremities were surveyed by the arc and gas welder. No abnormalities were detected. The stomach, kidneys, bladder, three-vessel cord with insertion, diaphragm, four-chamber heart and facial features are seen. The following measurements were obtained: Biparietal diameter 4.8 cm 20 weeks 4 days 53% Head circumference 18.1 cm 20 weeks 3 days 44% Abdominal circumference 16.2 cm 20 weeks 2 days 72% Femur length 3.6 cm 21 weeks 2 days 71% The composite ultrasound age based on these measurements is 20 weeks 6 days +/- 1 week 3 days. US/US OB anatomy IMPRESSION: SINGLE LIVE INTRAUTERINE GESTATION WITH ULTRASOUND AGE OF 20 WEEKS 6 DAYS. UNREMARKABLE ANATOMY SURVEY. OB CERVICAL LENGTH COMPARISON: 10/08/2024 The cervix was evaluated using a transvaginal probe. The cervix is closed and the length is estimated at 4.6 cm. IMPRESSION: NORMAL APPEARANCE OF THE CERVIX. Impression dictated by: Marion Flaherty M.D.12/24/2024 10:03 AM Dictation Location: [place] [address] Electronically authenticated by: [id number] Y Date: 12/24/2024 10:03 Dictated By: Marion Flaherty M.D. Signed By: 12/29/24 1035 DD/ 1003 TD/TT: Corporate Auditor: [facility] Phorest US OB ANATOMYOrdered By: Lul kesslerogyesenia Radiology on 12-29-2024 [facility]: No Panel Informationon 12-24 Radiology Study observation (narrative) [facility] US OB CERVICAL LENGTHon 12-[address] [address] Ultrasound Report Signed Patient: YESSI LIMON MR#: [id number] : 1985 Acct:[id number] Age/Sex: 39 / F ADM Date: 12/23/24 Loc: US Attending Dr: Monika Fried Ordering Physician: Monika Fried Date of Service: 12/23/24 Procedure(s): US OB cervical length Accession Number(s): [id number] cc: Monika Fried; Physician,Non-Staff Marielle [address] [address] Patient Name: YESSI LIMON MRN: [id number]:[id number] date: 1985 Sex: F Assigned Patient Location: Current Patient Location: Accession/Order Number: [id number] Exam Date: 12/24/2024 09:49 Report Date: 12/24/2024 10:03 At the request of: MONIKA FRIED Procedure: US OB cervical length CLINICAL DATA: anatomy and cervix screening ULTRASOUND OB ANATOMY COMPARISON: 10/08/2024 There is a single live intrauterine gestation in variable presentation. The amniotic fluid volume is subjectively normal. The placenta is anterior and within normal limits for appearance and position. There is cardiac and somatic activity with heart rate of 145 bpm. The cervix is closed with estimated length of 4.6 cm using transvaginal probe. The neural axis and all 4 extremities were surveyed by the arc and gas welder. No abnormalities were detected. The stomach, kidneys, bladder, three-vessel cord with insertion, diaphragm, four-chamber heart and facial features are seen. The following measurements were obtained: Biparietal diameter 4.8 cm 20 weeks 4 days 53% Head circumference 18.1 cm 20 weeks 3 days 44% Abdominal circumference 16.2 cm 20 weeks 2 days 72% Femur length 3.6 cm 21 weeks 2 days 71% The composite ultrasound age based on these measurements is 20 weeks 6 days +/- 1 week 3 days. US/US OB cervical length IMPRESSION: SINGLE LIVE INTRAUTERINE GESTATION WITH ULTRASOUND AGE OF 20 WEEKS 6 DAYS. UNREMARKABLE ANATOMY SURVEY. OB CERVICAL LENGTH COMPARISON: 10/08/2024 The cervix was evaluated using a transvaginal probe. The cervix is closed and the length is estimated at 4.6 cm. IMPRESSION: NORMAL APPEARANCE OF THE CERVIX. Impression dictated by: Marion Flaherty M.D.12/24/2024 10:03 AM Dictation Location: [place] [address] Electronically authenticated by: [id number] Y Date: 12/24/2024 10:03 Dictated By: Marion Flaherty M.D. Signed By: 12/24/24 1005 DD/ 1003 TD/TT: Corporate Auditor: [facility] Radiology, Radiologist, MD - 12/24/[address] [address] Ultrasound Report Signed Patient: YESSI LIMON MR#: [id number] : 1985 Acct:[id number] Age/Sex: 39 / F ADM Date: 12/23/24 Loc: US Attending Dr: Monika Fried Ordering Physician: Monika Fried Date of Service: 12/23/24 Procedure(s): US OB cervical length Accession Number(s): [id number] cc: Monika Fried; Physician,Non-Staff Marielle The [address] [address] Patient Name: YESSI LIMON MRN: [facility]:[id number] date: 1985 Sex: F Assigned Patient Location: US Current Patient Location: Accession/Order Number: [id number] Exam Date: 12/24/2024 09:49 Report Date: 12/24/2024 10:03 At the request of: MONIKA FRIED Procedure: US OB cervical length CLINICAL DATA: anatomy and cervix screening ULTRASOUND OB ANATOMY COMPARISON: 10/08/2024 There is a single live intrauterine gestation in variable presentation. The amniotic fluid volume is subjectively normal. The placenta is anterior and within normal limits for appearance and position. There is cardiac and somatic activity with heart rate of 145 bpm. The cervix is closed with estimated length of 4.6 cm using transvaginal probe. The neural axis and all 4 extremities were surveyed by the arc and gas welder. No abnormalities were detected. The stomach, kidneys, bladder, three-vessel cord with insertion, diaphragm, four-chamber heart and facial features are seen. The following measurements were obtained: Biparietal diameter 4.8 cm 20 weeks 4 days 53% Head circumference 18.1 cm 20 weeks 3 days 44% Abdominal circumference 16.2 cm 20 weeks 2 days 72% Femur length 3.6 cm 21 weeks 2 days 71% The composite ultrasound age based on these measurements is 20 weeks 6 days +/- 1 week 3 days. US/US OB cervical length IMPRESSION: SINGLE LIVE INTRAUTERINE GESTATION WITH ULTRASOUND AGE OF 20 WEEKS 6 DAYS. UNREMARKABLE ANATOMY SURVEY. OB CERVICAL LENGTH COMPARISON: 10/08/2024 The cervix was evaluated using a transvaginal probe. The cervix is closed and the length is estimated at 4.6 cm. IMPRESSION: NORMAL APPEARANCE OF THE CERVIX. Impression dictated by: Marion Flaherty M.D.12/24/2024 10:03 AM Dictation Location: [place] [address] Electronically authenticated by: [id number] Y Date: 12/24/2024 10:03 Dictated By: Marion Flaherty M.D. Signed By: 12/24/24 1005 DD/ 1003 TD/TT: Corporate Auditor: [facility] Phorest OB CERVICAL LENGTHOrdered By: Radiologist Radiology on 12-24-2024 [facility] SABIA e Work Phone: Urinalysis macro (dipstick) panel (U)on 12-08-2024 Bilirubin, UA Negative Negative - 4(70) +++ mg/dL [facility] Blood, UA Negative Negative - 50 Venu/mcL [facility] Clarity, UA Clear [facility] re Color, UA Yellow [facility] Glucose, UA Negative Negative - 1999(110) ++++ mg/dL [facility] Interpretation and review of laboratory results Normal [facility] Ketones, UA Negative Negative - 160(16) ++++ mg/dL [facility] Leukocytes, UA Negative Negative - 500+++ Michael/mcL [facility] Nitrite, UA Negative Negative - Positive [facility] pH, UA 7 5 - 9 [facility] e Protein, UA Negative Negative - 1999(20) ++++ mg/dL [facility] Spec Grav, UA 1.025 1 - 1.03 [facility] Urobilinogen, UA 1.0 0.2 - 12 mg/dL [facility] ALL CBC WITH AUTO DIFFon BASOPHILS ABSOLUTE AUTO 0 [facility] Basophils/100 WBC (Bld) 0.2 % 0.2 - 2.0 % [facility] Eosinophils/100 WBC (Bld) 1 % 0.9 - 7.0 % [facility] Erythrocyte distribution width (RBC) [Ratio] 13.6 % 11.0 - 15.0 % [facility] Hematocrit (Bld) [Volume fraction] 37.5 % 36.0 - 48.0 % [facility] Hem[facility] (Bld) [Mass/Vol] 12.5 g/dL 12.0 - 16.0 g/dL [facility] IMMATURE GRANULOCYTES ABS AUTO 0.15 High [facility] Immature granulocytes/100 WBC (Bld) 1.9 % High 0.0 - 0.5 % [facility] Interpretation and review of laboratory results Abnormal [facility] LYMPHOCYTES ABSOLUTE AUTO 1.7 [facility] Lymphocytes/100 WBC (Bld) 20.4 % Low 20.5 - 60.0 % [facility] MCH (RBC) [Entitic mass] 30.3 pg 26.7 - 34.0 pg [facility] MCHC (RBC) [Mass/Vol] 33.3 g/dL 29.9 - 35.2 g/dL [facility] MCV (RBC) [Entitic vol] 90.8 fL 81.0 - 99.0 fL [facility] MONOCYTES ABSOLUTE AUTO 0.5 [facility] Monocytes/100 WBC (Bld) 5.6 % 1.7 - 12.0 % [facility] NEUTROPHILS ABSOLUTE AUTO 5.8 [facility] Neutrophils/100 WBC (Bld) 70.9 % 43.0 - 75.0 % [facility] Platelet mean volume (Bld) [Entitic vol] 9.9 fL 9.5 - 13.5 fL [facility] are [facility] EO # 0.1 [facility] e TB PLT 170 [facility] e TB RBC 4.13 Low [facility] e TB WBC 8.1 [facility] Urinalysis macro (dipstick) panel (U)on 11-09-2024 Bilirubin, UA Negative Negative - 4(70) +++ mg/dL [facility] Blood, UA Negative Negative - 50 Venu/mcL [facility] Clarity, UA Clear [facility], UA Yellow [facility] e Glucose, UA Negative Negative - 1999(110) ++++ mg/dL [facility] Interpretation and review of laboratory results Normal [facility] Ketones, UA Negative Negative - 160(16) ++++ mg/dL [facility] Leukocytes, UA Negative Negative - 500+++ Michael/mcL [facility] Nitrite, UA Negative Negative - Positive [facility] pH, UA 6.5 5 - 9 [facility] Protein, UA Negative Negative - 1999(20) ++++ mg/dL [facility] Spec Grav, UA 1.015 1 - 1.03 [facility] Urobilinogen, UA 0.2 0.2 - 12 mg/dL [facility] HCG ( test) Ql (U)o n 10-08-2024 Interpretation and review of laboratory results Abnormal [facility] Preg Test, Ur Positive Negative [facility] Urinalysis macro (dipstick) panel (U)on 10-08-2024 Bilirubin, UA Negative Negative - 4(70) +++ mg/dL [facility] Blood, UA Negative Negative - 50 Venu/mcL [facility] Clarity, UA Clear [facility] re Color, UA Yellow [facility] e Glucose, UA Negative Negative - 1999(110) ++++ mg/dL [facility] Interpretation and review of laboratory results Normal [facility] Ketones, UA Negative Negative - 160(16) ++++ mg/dL [facility] Leukocytes, UA Negative Negative - 500+++ Michael/mcL [facility] Nitrite, UA Negative Negative - Positive [facility] pH, UA 5.5 5 - 9 [facility] e Protein, UA Negative Negative - 1999(20) ++++ mg/dL [facility] Spec Grav, UA 1.01 1 - 1.03 [facility] Urobilinogen, UA 0.2 0.2 - 12 mg/dL [facility] US CARROLL DOP LEG LTon [...] left lower extremity. Electronically authenticated by: ANDREA AVREY Date: 2020-05-15 15:51 Normal [facility] VAGINITIS/VAGINOSIS DNA PROB Will 08-07-2019 Coreen species Positive Abnormal Negative [facility] Comment on above: Performed By: #### V AGINT #### [facility] [address] Gardnerella vaginalis Negative Normal Negative [facility] Comment on above: Performed By: #### V AGINT #### [facility] [address] Trichomonas vaginalis Negative Normal Negative [facility] Comment on above: Performed By: #### V AGINT #### [facility] [address] Vital Signs Date Time Vital Sign Value Performing Clinician Faci lity 12-08-2024 15:59-0500 Body weight 70.94 kg Monika WEEKS Work Phone: [facility] 12-08-2024 15:59-0500 Diastolic blood pressure 72 mm[Hg] Monika WEEKS Work Phone: [facility] 12-08-2024 15:59-0500 Systolic blood pressure 110 mm[Hg] Monika WEEKS Work Phone: [facility] 11-09-2024 11:10-0500 Body weight 67.13 kg Grace Miladis DO Work Phone: [facility] 11-09-2024 11:10-0500 Diastolic blood pressure 68 mm[Hg] Grace Miladis DO Work Phone: [facility] 11-09-2024 11:10-0500 Systolic blood pressure 108 mm[Hg] Grace Miladis DO Work Phone: [facility] 10-08-2024 10:17-0500 Body weight 64.86 kg Noms Nurse [facility] Encounters Encounter Date Encounter Type Care Provider Facility Start: 12-24-2024 End: 12-29-2024 Clinisync Result Encounter Monika WEEKS Work Phone: [facility] External Department Unsolicited Start: 12-24-2024 End: 12-29-2024 Clinisync Result Encounter Monika WEEKS Work Phone: [facility] External Department Unsolicited Start: 12-08-2024 End: 12-08-2024 flow sheet Monika WEEKS Work Phone: [facility] Comment on above: Second trimester pre gnancy; 18 weeks gestation of ; Screening, , for anatomic survey Start: 12-08-2024 End: 12-08-2024 ambulatory MONIKA FRIED Not Available Start: 12-08-2024 End: 12-08-2024 Bamboo flowsheet Monika WEEKS Work Phone: [facility] Start: 12-08-2024 End: 12-08-2024 Bamboo flowsheet Monika WEEKS Work Phone: [facility] Start: 11-23-2024 End: 11-23-2024 Clinisync [...] 05-15-2020 End: 05-16-2020 Patient encounter procedure NORM ELIF Facility: Start: 08-06-2019 End: 08-06-2019 Patient encounter procedure GLENNA MCINTYRE Facility:[facility]1 Procedures Date Procedure Procedure Detail Performing Clinician Start: 12-24-2024 US OB ANATOMY Monika WEEKS Work Phone: Start: 12-24-2024 US OB CERVICAL LENGTH A derick WEEKS Work Phone: Start: 12-08-2024 Urnls dip stick/tabl et rgnt [...] PM EST Routine [facility] [address] [place] [id number] Grace Redding DO [address] [place] [address] [facility] Start: 12-08-2024 End: 12-08-2024 Patient encounter procedure [facility] Comment on above: Arrived Start: 12-08-2024 End: 06-07-2025 Alpha fetoprotein, maternal Alpha fetoprotein, maternal Lab Routine Second trimester 18 weeks gestation of Expected: 12/08/2024 (Approximate), Expires: 06/07/2025 [facility] Comment on above: Expected: 12/08/2024 (Approximate), Expires: 06/07/2025 Start: 12-08-2024 End: 12-08-2025 US for US OB 14+ weeks anatomy scan Imaging Routine Screening, , for anatomic survey Expected: 12/08/2024, Expires: 12/08/2025 [facility] Work Phone: Comment on above: Expected: 12/08/2024 , Expires: 12/08/2025 Start: 11-09-2024 End: 11-09-2024 Patient encounter procedure [facility] Comment on above: Arrived Start: 10-08-2024 End: 10-08-2025 ABO/Rh ABO/Rh Lab Routine Missed menses , unspecified gestational age Expected: 10/08/2024 (Approximate), Expires: 10/08/2025 [facility] Comment on above: Expected: 10/08/2024 (Approximate), [...] first trimester Expected: 10/08/2024 (Approximate), Expires: 10/08/2025 [facility] Comment on above: Expected: 10/08/2024 (Approximate), Expires: 10/08/2025 Start: 10-08-2024 End: 10-08-2025 US Pelvis transvaginal US OB transvaginal Imaging Routine Missed menses Expected: 10/08/2024 (Approximate), Expires: 10/08/2025 [facility] Comment on above: Expected: 10/08/2024 (Approximate), Expires: 10/08/2025 Bacteria identified in Urine by Culture Urine culture Microbiology Routine Missed menses Ordered: 10/08/2024 [facility] Comment on above: Ordered: 10/08/2024 CBC W Auto Different ial panel - Blood CBC and differential Lab Routine Missed menses , unspecified gestational age Ordered: 10/08/2024 [facility] Comment on above: Ordered: 10/08/2024 Hemoglobin A1c/Hemoglobin.total in Blood Hemoglobin A1c Lab Routine Missed menses , unspecified gestational age Ordered: 10/08/2024 [facility] Comment on above: Ordered: 10/08/2024 Hepatitis B virus surface Ag [Presence] in Serum or Plasma by Immunoassay Hepatitis B surface antigen Lab Routine Missed menses , unspecified gestational age Ordered: 10/08/2024 [facility] Comment on above: Ordered: 10/08/2024 Hepatitis C virus Ab [Presence] in Serum or Plasma by Immunoassay Hepatitis C antibody Lab Routine Missed menses , unspecified gestational age Ordered: 10/08/2024 [facility] Comment on above: Ordered: 10/08/2024 HIV-1/HIV-2 antigen/antibody combination immunoassay HIV-1 and HIV-2 antibodies Lab Routine Missed menses , unspecified gestational age Ordered: 10/08/2024 [facility] Comment on above: Ordered: 10/08/2024 Reagin Ab [Presence] in Serum by RPR RPR Lab Routine Missed menses , unspecified gestational age Ordered: 10/08/2024 [facility] Comment on above: Ordered: 10/08/2024 Rubella antibody, IgG Rubella an tibody, IgG Lab Routine Missed menses , unspecified gestational age Ordered: 10/08/2024 [facility] Comment on above: Ordered: 10/08/2024 Payers Date Payer Category Payer [facility] BCBS [id number] 2021 Unknown [id number] 1985 Unknown [id number] 1985 Unknown [id number] 1985 Unknown [id number] 1985 Unknown [id number] 1985 Unknown [id number] 1957 Private Health Insurance [id number] Social History Date Type Detail Facility Tobacco smoking stat [facility] Tobacco smoking consumption unknown [facility] Start: [...] of: DESI Wilson documented in this encounter [facility] History of Present illness Narrative 11-09-2024 Marion Lerner, [employer] OPERATOR - 11/09/2024 10:50 AM EST Note Date [...] nursing note reviewed. Exam conducted with a plastic process technician present. Vitals: There is no height or [...] or undercooked meat, and stay away from [facility]. Patient has been consulted regarding any further [...] illness Narrative Reason for Appointment: Patient ID: February Petros Limon is a 39 y.o. female [...] or undercooked meat, and stay away from [facility]. Patient has also been advised to not [...] Guadalupe Hernandez MA documented in this encounter [facility] Evaluation note Note Date & Type Note Facility Evaluation note Diagnosis Missed menses , unspecified gestational age Encounter for supervision of normal first in first trimester documented in this encounter [facility] Evaluation note Note Date & Type Note Facility Evaluation note Diagnosis Second trimester state, incidental 14 weeks gestation of Request for sterilization documented in this encounter [facility] Evaluation note Note Date & Type Note Facility Evaluation note Diagnosis Second trimester state, incidental 18 weeks gestation of Screening, , for anatomic survey Encounter for anatomic survey documented in this encounter [facility] Summary Purpose Family History No Family History Records FoundNo Family History Records Found Advance Directives No Advanced Directives Records FoundNo Advanced Directives Records Found Additional Source Comments INFORMATION SOURCE (unrecogn ized section and content) DATE CREATED AUTHOR 05/26/2020 [facility] DATE CREATED AUTHOR AUTHOR'S ORGANIZ ATION 12/11/2024 [facility] EPIC Reason for Visit (unrecogniz ed section and content) Reason Comments Amenorrhea Reason Comments Routine Visit Care Teams (unrecognized sec tion and content) Process Maintenance Technician Relationship Specialty Start Date End Date Norm Asencio MD [address] [facility] [place] [address] PCP - General Family Medicine 10/08/24 Process Maintenance Technician Relationship Specialty Start Date End Date Norm Asencio MD [address] [facility] [place] [address] PCP - General Family Medicine 10/08/24 Process Maintenance Technician Relationship Specialty Start Date End Date Norm Asencio MD [address] [place] [address] PCP - General [facility] 10/08/24 Process Maintenance Technician Relationship Specialty Start Date End Date Norm Asencio MD [address] [place] [address] PCP - General Family [facility] 10/08/24 Process Maintenance Technician Relationship Specialty Start Date End Date Norm Asencio MD [address] [place] [address] PCP - General Family Medicine 10/08/24 FOR [...] BE BASED ON THE PRIMARY CLINICAL RECORDS. [facility]. provides no warranty or guarantee of the accuracy or completeness of information in this document.
[2025-01-10 15:08] LABS: Age Gdln ACOG Testing Note (.); HPV Aptima Negative (Negative); IGP, Aptima HPV, rfx 16/18,45 Note (.)
== END 2025-01-05 19:45 | disposition home or self-care (01) ==
LOC: LAB 19:44
PROVIDERS: Visit Provider Obstetrics & Gynecology
DX: Z01.419 Encounter for gynecological examination (general) (routine) without abnormal findings (principal)
CPT/HCPCS: 87624; 88175

== ENCOUNTER 2025-03-11 20:57 | Emergency (ER) | payer BC, SELFPAY ==
[2025-03-11 21:02] VITALS: BP 119/80; PULSE 100; TEMP 36.6; O2SAT 98; BMI 28.7
--- OUTSIDE RECORDS SUMMARY | 2025-03-11 21:04 | XMS_ITS | CCD ---
Author Organization [facility] Care Team Providers Care Deck Hand Name Role Phone GLENNA MCINTYRE Admitting Unavailable GLENNA MCINTYRE Attending Unavailable GLENNA MCINTYRE Consulting Unavailable NORM PONCE Admitting Unavailable NORM PONCE Attending Unavailable NORM PONCE Consulting Unavailable ANDREA AVERY Consulting Unavailable Norm Ponce MD Primary Care Provider [phone] Norm Ponce MD Primary Care Provider [phone] MONIKA FRIED Attending Unavailable GRACE REDDING Attending Unavailable MONIKA FRIED Attending Unavailable GRACE REDDING Attending Unavailable GRACE REDDING Attending Unavailable GRACE REDDING Attending Unavailable Allergies Allergy Classification Reported Allergen(s) Allergy Type Date of Onset Reaction(s) Facility (1 source) Desonide Drug Allergy [facility] Repository Medications Current Medications Medication Drug Class(es) Dates Sig (Normalized) Sig (Original) azithromycin 250 mg oral tablet (2 sources) Macrolide Antimicrobial Start: 03-07-2025 azithromycin (Zithromax Z-Francis) 250 MG tablet Indications: Upper respiratory tract infection, unspecified type As directed 6 tablet 03/07/2025 Active codeine phosphate 2 mg/ml / guaiFENesin 20 mg/ml oral solution (2 sources) Opioid Agonist Start: 03-07-2025 End: 03-12-2025 take 5 mL by mouth four times daily as needed for cough guaiFENesin-codeine (Robitussin-AC) 100-10 MG/5ML syrup Indications: Upper respiratory tract infection, unspecified type Take 5 mL by mouth 4 (four) times a day as needed for cough for up to 5 days 237 mL 03/07/2025 03/12/2025 Active ondansetron 4 mg disintegrating oral tablet (1 [...] requested; Translations: [Encounter for sterilization] 11-09-2024 Episodic Immunizations and screening for infectious disease (2 sources) Exposure to sexually transmissible disorder; Translations: [Contact with and (suspected) exposure to infections with a predominantly sexual mode of transmission] 01-05-2025 Episodic Menstrual disorders (1 source) Missed period; Translations: [Irregular menstruation, unspecified] 10-08-2024 Chronic Other complications of (2 sources) size does not accord with dates; Translations: [Uterine size-date discrepancy, third trimester] 02-21-2025 Episodic Other complications of (2 sources) Multigravida of advanced maternal age; Translations: [Supervision of elderly multigravida, third trimester] 03-07-2025 Episodic Other connective tissue disease (4 sources) Pain in left lower leg; Translations: [PAIN IN LEFT LOWER LEG] Onset: 05-15-2020 Episodic Other and delivery including normal (14 sources) ; Translations: [Encounter for supervision of normal , unspecified, unspecified trimester] 10-08-2024 Episodic Other screening for suspected conditions (not mental disorders or infectious disease) (4 sources) Patient encounter status; Translations: [Encounter for other specified screening] 12-08-2024 Episodic Other upper respiratory infections (2 sources) Upper respiratory infection; Translations: [Acute upper respiratory infection, unspecified] 03-07-2025 Episodic Residual codes; unclassified (2 sources) Gestation period, 14 weeks; Translations: [14 weeks gestation of ] 11-09-2024 Episodic Residual codes; unclassified (2 sources) Gestation period, 18 weeks; Translations: [18 weeks gestation of ] 12-08-2024 Episodic Residual codes; unclassified (2 sources) Gestation period, 22 weeks; Translations: [22 weeks gestation of ] 01-05-2025 Episodic Residual codes; unclassified (2 sources) Gestation period, 26 weeks; Translations: [26 weeks gestation of ] 02-02-2025 Episodic Residual codes; unclassified (2 sources) Gestation period, 29 weeks; Translations: [29 weeks gestation of ] 02-21-2025 Episodic Residual codes; unclassified (2 sources) Gestation period, 31 weeks; Translations: [31 weeks gestation of ] 03-07-2025 Episodic Past or Other Problems Problem Classification Problem Date Documented Date Episodic/Chronic Other female genital disorders (4 sources) Other specified noninflammatory disorders of vagina; Translations: [OTH SPEC NONINFLAMMATORY D/O VAGINA] Onset: 08-06-2019 Episodic Urinary tract infections (20 sources) Urinary tract infectious disease; Translations: [Urinary tract infection, site not specified] Onset: 10-25-2024 10-25-2024 Episodic Results Test Name Value Interpretation Reference Range Facility US OB FOLLOW UP TRANSABDOMIN AL APPROACHon 03-07-2025 OB FOLLOW UP TRANSABDOMINAL APPROACH EXAM: US OB FOLLOW UP TRANSABDOMINAL APPROACH HISTORY: Inconsistent size. MARIBETH 05/09/2025. - twins. x3. Vaginal delivery x4. COMPARISON: U/S OB 10/08/2024 TECHNIQUE: Two-dimensional transabdominal grayscale ultrasound imaging of the pelvis was performed. FINDINGS: Gestation: Single Presentation: Breech Cardiac Activity: 138 beats per minute Placental Location: Anterior with no sonographic abnormalities identified. Distance from Placental Tip to Cervix: Not visualized Cervical Length: Obscured by overlying fetus Amniotic Fluid Index: 16.6 cm; MVP 5.3 cm MEASUREMENTS: BPD: 7.6 cm EGA: 30 weeks 2 days HC: 28.8 cm EGA: 31 weeks 5 days AC: 27.2 cm EGA: 31 weeks 2 days FL: 6.1 cm EGA: 31 weeks 4 days HC/AC Ratio: 1.06 (0.96 -1.16) Gestational age by today's ultrasound is 31 weeks 2 days (+/- 15 days gestation). Estimated Weight: 1739 grams, +/- 261 grams ( 3 lb 13 oz). Weight Percentile for gestational age: 48 % IMPRESSION: 1. Single, live intrauterine gestation 31 weeks, 0 days by LMP. Today's ultrasound measurements correlate with a gestational age of 31 weeks 2 days. Fetus is in the 48th percentile for weight. Interpreted by: Electronically signed by BENSON NELSON II, MD, PHD at 09-Mar-2025 08:42:20 AM [facility] Normal Not Available Comment on above: Order Comment: US OB SCAN FOR GROWTH Estimated Date of Delivery: 05/09/25 Gestational Age as of 02/21/2025: 29w0d Urinalysis macro (dipstick) panel (U)on 03-07-2025 Bilirubin, UA Negative Negative - 4(70) +++ mg/dL [facility] Blood, UA Negative Negative - 50 Venu/mcL [facility] Clarity, UA Clear [facility] re Color, UA Yellow [facility] Glucose, UA Negative Negative - 1999(110) ++++ mg/dL [facility] Interpretation and review of laboratory results Normal [facility] Ketones, UA Negative Negative - 160(16) ++++ mg/dL [facility] Leukocytes, UA Negative Negative - 500+++ Michael/mcL [facility] Nitrite, UA Negative Negative - Positive [facility] pH, UA 6 5 - 9 [facility] Protein, UA Negative Negative - 1999(20) ++++ mg/dL [facility] Spec Grav, UA 1.015 1 - 1.03 [facility] care Urobilinogen, UA 0.2 0.2 - 12 mg/dL [facility] Urinalysis macro (dipstick) panel (U)on 02-21-2025 Bilirubin, UA Negative Negative - 4(70) +++ mg/dL [facility] Blood, UA Negative Negative - 50 Venu/mcL [facility] Clarity, UA Clear [facility] re Color, UA Yellow [facility] Glucose, UA Negative Negative - 1999(110) ++++ mg/dL [facility] Interpretation and review of laboratory results Abnormal [facility] Ketones, UA Negative Negative - 160(16) ++++ mg/dL [facility] Leukocytes, UA Trace Negative - 500+++ Michael/mcL [facility] Nitrite, UA Negative Negative - Positive [facility] pH, UA 7 5 - 9 [facility] Protein, UA Positive Negative - 1999(20) ++++ mg/dL [facility] Comment on above: 30mg/dL Spec Grav, UA 1.025 1 - 1.03 [facility] Urobilinogen, UA 4.0 0.2 - 12 mg/dL [facility] Urinalysis macro (dipstick) panel (U)on 02-02-2025 Bilirubin, UA Negative Negative - 4(70) +++ mg/dL [facility] Blood, UA Negative Negative - 50 Venu/mcL [facility] Clarity, UA Clear [facility] re Color, UA Yellow [facility] e Glucose, UA Negative Negative - 1999(110) ++++ mg/dL [facility] Interpretation and review of laboratory results Abnormal [facility] Ketones, UA Negative Negative - 160(16) ++++ mg/dL [facility] Leukocytes, UA Trace Negative - 500+++ Michael/mcL [facility] Nitrite, UA Negative Negative - Positive [facility] pH, UA 7 5 - 9 [facility] e Protein, UA Negative Negative - 1999(20) ++++ mg/dL [facility] Spec Grav, UA 1.02 1 - 1.03 [facility] Urobilinogen, UA 1.0 0.2 - 12 mg/dL [facility] IGP,APTIMA HPV,AGE GDLNon AGE GDLN ACOG TESTING Note . [facility] Comment on above: TESTS RESULT FLAG UN ITS REF RANGE LAB Clinician Provided Cytology Information Source.............Cervix No. of containers..01 ThinPrep Vial Age Frances DENG Sushma... 32 FLAG LEGEND: L-Low Normal,H-High Normal,LL-Alert Low,HH-Alert High <-Panic Low,>-Panic High,A-Abnormal,AA-Critical Abnormal Performed at: 01 =[address] [address] Enma Todd MD, HPV APTIMA Negative Negative [facility] Comment on above: This nucleic acid am plification test detects fourteen high- risk HPV types (16,18,31,33,35,39,45,51,52,56,58,59,66,68) without differentiation. Performed at: =[address] [id number] Landing Support Specialist: Enma Todd MD, Phone: [phone] Performed at: [address] [id number] Landing Support Specialist: Enma Todd MD, Phone: [phone] IGP, APTIMA HPV, RFX 16/18,45 Note . [facility] Comment on above: TESTS RESULT FLAG UN ITS REF RANGE LAB DIAGNOSIS: 02 NEGATIVE FOR INTRAEPITHELIAL LESION OR MALIGNANCY. FUNGAL ORGANISMS MORPHOLOGICALLY CONSISTENT WITH COREEN SPECIES ARE PRESENT. Specimen adequacy: 02 Satisfactory for evaluation. No endocervical component is identified. Performed by: 02 Breanna Hollie Lucero, Card Boxer . 02 Note: Note 02 The Pap smear is a screening test designed to aid in the detection of premalignant and malignant conditions of the uterine cervix. It is not a diagnostic procedure and should not be used as the sole means of detecting cervical cancer. Both false-positive and false-negative reports do occur. Test Methodology: Note 02 This liquid based ThinPrep(R) pap test was screened with the use of an image guided system. HPV Genotype Reflex Note 02 Criteria not met, HPV Genotype not performed. FLAG LEGEND: L-Low Normal,H-High Normal,LL-Alert Low,HH-Alert High <-Panic Low,>-Panic High,A-Abnormal,AA-Critical Abnormal Performed at: [address] [address] Enma Todd MD, SPATULA-ALONE CERVIX [facility] Urinalysis macro (dipstick) panel (U)on 01-05-2025 Bilirubin, UA Negative Negative - 4(70) +++ mg/dL [facility] Blood, UA Negative Negative - 50 Venu/mcL [facility] Clarity, UA Clear [facility] re Color, UA Yellow [facility] Glucose, UA Negative Negative - 1999(110) ++++ mg/dL [facility] Interpretation and review of laboratory results Normal [facility] [employer] Ketones, UA Negative Negative - 160(16) ++++ mg/dL [facility] Leukocytes, UA Negative Negative - 500+++ Michael/mcL [facility] [employer] [employer] [facility] Nitrite, UA Negative Negative - Positive [facility] pH, UA 5.5 5 - 9 [facility] Protein, UA Negative Negative - 1999(20) ++++ mg/dL [facility] Spec Grav, UA 1.01 1 - 1.03 [facility] Urobilinogen, UA 0.2 0.2 - 12 mg/dL [facility] US OB ANATOMYon 12-29-[address] [address] Ultrasound Report Signed Patient: YESSI AGEE MR#: [id number] : 1985 Acct:[id number] Age/Sex: 39 / F ADM Date: 12/23/24 Loc: US Attending Dr: Monika Fried Ordering Physician: Monika Fried Date of Service: 12/23/24 Procedure(s): US OB anatomy Accession Number(s): [id number] cc: Monika Fried; Physician,Non-Staff Marielle [address] [address] Patient Name: YESSI AGEE MRN: [id number] date: 1985 Sex: F Assigned Patient Location: US Current Patient Location: US Accession/Order Number: [id number] Exam Date: 12/24/2024 09:49 Report Date: 12/24/2024 [...] all 4 extremities were surveyed by the drill runner helper. No abnormalities were detected. The stomach, kidneys, [...] Marion Flaherty M.D.12/24/2024 10:03 AM Dictation [facility] Electron[facility] authenticated by: [id number] Y Date: 12/24/2024 10:03 Dictated By: Marion Flaherty M.D. Signed By: 12/29/24 1035 DD/ 1003 TD/TT: Lodging Facilities Attendant: [facility] Radiology, Radiologist, MD - 12/29/2024 [place] [address] Ultrasound Report Signed Patient: YESSI AGEE MR#: [id number] : 1985 Acct:[id number] Age/Sex: 39 / F ADM Date: 12/23/24 Loc: US Attending Dr: Monika Fried Ordering Physician: Monika Fried Date of Service: 12/23/24 Procedure(s): US OB anatomy Accession Number(s): [id number] cc: Monika Fried; Physician,Non-Staff Marielle The [address] [address] Patient Name: YESSI AGEE MRN: [facility]:[id number] date: 1985 Sex: F Assigned Patient Location: US Current Patient Location: US Accession/Order Number: [id number] Exam Date: 12/24/2024 09:49 Report Date: 12/24/2024 [...] all 4 extremities were surveyed by the drill runner helper. No abnormalities were detected. The stomach, kidneys, [...] Marion Flaherty M.D.12/24/2024 10:03 AM Dictation Location: [employer] Electronically authenticated by: [id number] Y Date: 12/24/2024 10:03 Dictated By: Marion Flaherty M.D. Signed By: 12/29/24 1035 DD/ 1003 TD/TT: Lodging Facilities Attendant: [facility] OB ANATOMYOrdered By: Lul kesslerogyesenia Radiology on 12-29-2024 [facility] Work Phone: No Panel Informationon 12-24 Radiology Study observation (narrative) [facility] OB CERVICAL LENGTHon 12-05 [place] [address] Ultrasound Report Signed Patient: YESSI AGEE MR#: [id number] : 1985 Acct:[id number] Age/Sex: 39 / F ADM Date: 12/23/24 Loc: US Attending Dr: Monika Fried Ordering Physician: Monika Fried Date of Service: 12/23/24 Procedure(s): US OB cervical length Accession Number(s): [id number] cc: Monika Fried; Physician,Non-Staff Marielle The [place] [id number] Patient Name: YESSI AGEE MRN: [id number] date: 1985 Sex: F Assigned Patient Location: Current Patient Location: Accession/Order Number: [id number] Exam Date: 12/24/2024 09:49 Report Date: 12/24/2024 [...] all 4 extremities were surveyed by the drill runner helper. No abnormalities were detected. The stomach, kidneys, [...] Marion Flaherty M.D.12/24/2024 10:03 AM Dictation [facility] authenticated by: [id number] Y Date: 12/24/2024 10:03 Dictated By: Marion Flaherty M.D. Signed By: 12/24/24 1005 DD/ 1003 TD/TT: Lodging Facilities Attendant: [facility] Radiology, Radiologist, MD - 12/24/[address] [address] Ultrasound Report Signed Patient: YESSI AGEE MR#: [id number] : 1985 Acct:[id number] Age/Sex: 39 / F ADM Date: 12/23/24 Loc: US Attending Dr: Monika Fried Ordering Physician: Monika Fried Date of Service: 12/23/24 Procedure(s): US OB cervical length Accession Number(s): [id number] cc: Monika Fried; Physician,Non-Staff [facility] The [address] [address] Patient Name: YESSI AGEE MRN: [facility]:[id number] date: 1985 Sex: F Assigned Patient Location: US Current Patient Location: Accession/Order Number: [id number] Exam Date: 12/24/2024 09:49 Report Date: 12/24/2024 [...] all 4 extremities were surveyed by the drill runner helper. No abnormalities were detected. The stomach, kidneys, [...] Marion Flaherty M.D.12/24/2024 10:03 AM Dictation Location: [employer] Electronically authenticated by: [id number] Y Date: 12/24/2024 10:03 Dictated By: Marion Flaherty M.D. Signed By: 12/24/24 1005 DD/ 1003 TD/TT: Lodging Facilities Attendant: [facility] OB CERVICAL LENGTHOrdered By: Radiologist Radiology on 12-24-2024 [facility] Work Phone: Urinalysis macro (dipstick) panel (U)on 12-08-2024 Bilirubin, UA Negative Negative - 4(70) +++ mg/dL [facility] Blood, UA Negative Negative - 50 Venu/mcL [facility] Clarity, UA Clear [facility] re Color, UA Yellow [facility] Glucose, UA Negative Negative - 1999(110) ++++ mg/dL [facility] Interpretation and review of laboratory results Normal [facility] Ketones, UA Negative Negative - 160(16) ++++ mg/dL [facility] Leukocytes, UA Negative Negative - 500+++ Michael/mcL [facility] Nitrite, UA Negative Negative - Positive [facility] pH, UA 7 5 - 9 [facility] Protein, UA Negative Negative - 1999(20) ++++ mg/dL [facility] Spec Grav, UA 1.025 1 - 1.03 [facility] Urobilinogen, UA 1.0 0.2 - 12 mg/dL [facility] ALL CBC WITH AUTO DIFFon BASOPHILS ABSOLUTE AUTO 0 [facility] Basophils/100 WBC (Bld) 0.2 % 0.2 - 2.0 % [facility] Eosinophils/100 WBC (Bld) 1 % 0.9 - 7.0 % [facility] Erythrocyte distribution width (RBC) [Ratio] 13.6 % 11.0 - 15.0 % [facility] Hematocrit (Bld) [Volume fraction] 37.5 % 36.0 - 48.0 % [facility] Hemoglobin (Bld) [Mass/Vol] 12.5 g/dL 12.0 - 16.0 g/dL [facility] IMMATURE GRANULOCYTES ABS AUTO 0.15 High [facility] Immature granulocytes/100 WBC (Bld) 1.9 % High 0.0 - 0.5 % [facility] Interpretation and review of laboratory results Abnormal [facility] LYMPHOCYTES ABSOLUTE AUTO 1.7 [facility] Lymphocytes/100 WBC (Bld) 20.4 % Low 20.5 - 60.0 % [facility] MCH (RBC) [Entitic mass] 30.3 pg 26.7 - 34.0 pg [facility] MCHC (RBC) [Mass/Vol] 33.3 g/dL 29.9 - 35.2 g/dL [facility] MCV (RBC) [Entitic vol] 90.8 fL 81.0 - 99.0 fL [facility] MONOCYTES ABSOLUTE AUTO 0.5 [facility] Monocytes/100 WBC (Bld) 5.6 % 1.7 - 12.0 % [facility] NEUTROPHILS ABSOLUTE AUTO 5.8 [facility] Neutrophils/100 WBC (Bld) 70.9 % 43.0 - 75.0 % [facility] Platelet mean volume (Bld) [Entitic vol] 9.9 fL 9.5 - 13.5 fL [facility] EO # 0.1 [facility] TB PLT 170 [facility] RBC 4.13 Low [facility] TB WBC 8.1 [facility] Urinalysis macro (dipstick) panel (U)on 11-09-2024 Bilirubin, UA Negative Negative - 4(70) +++ mg/dL [facility] Blood, UA Negative Negative - 50 Venu/mcL [facility] Clarity, UA Clear [facility] re Color, UA Yellow [facility] e Glucose, UA Negative Negative - 2000(110) ++++ mg/dL [facility] Interpretation and review of laboratory results Normal [facility] Ketones, UA Negative Negative - 160(16) ++++ mg/dL [facility] Leukocytes, UA Negative Negative - 500+++ Michael/mcL [facility] Nitrite, UA Negative Negative - Positive [facility] pH, UA 6.5 5 - 9 [facility] Protein, UA Negative Negative - 1999(20) ++++ mg/dL [facility] Spec Grav, UA 1.015 1 - 1.03 [facility] Urobilinogen, UA 0.2 0.2 - 12 mg/dL [facility] HCG ( test) Ql (U)o n 10-08-2024 Interpretation and review of laboratory results Abnormal [facility] Preg Test, Ur Positive Negative [facility] care [facility] Urinalysis macro (dipstick) panel (U)on 10-08-2024 Bilirubin, UA Negative Negative - 4(70) +++ mg/dL [facility] Blood, UA Negative Negative - 50 Venu/mcL [facility] Clarity, UA Clear [facility] re Color, UA Yellow [facility] Glucose, UA Negative Negative - 1999(110) ++++ mg/dL [facility] Interpretation and review of laboratory results Normal [facility] Ketones, UA Negative Negative - 160(16) ++++ mg/dL [facility] Leukocytes, UA Negative Negative - 500+++ Michael/mcL [facility] Nitrite, UA Negative Negative - Positive [facility] pH, UA 5.5 5 - 9 [facility] Protein, UA Negative Negative - 1999(20) ++++ mg/dL [facility] Spec Grav, UA 1.01 1 - 1.03 [facility] Urobilinogen, UA 0.2 0.2 - 12 mg/dL [facility] US CARROLL DOP LEG LTon [...] ANDREA AVERY Date: 2020-05-15 15:51 Normal [facility] VAGINITIS/VAGINOSIS DNA PROB Will 08-07-2019 Coreen species Positive Abnormal Negative The [facility] Comment on above: Performed By: #### V AGINT #### [facility] [address], [place] [address] Tolu Schultz Gardnerella vaginalis Negative Normal Negative [facility] Comment on above: Performed By: #### V AGINT #### [facility] [address] [place], [place] [address] Tolu Schultz Trichomonas vaginalis Negative Normal Negative [facility] Comment on above: Performed By: #### V AGINT #### [facility] [address] [place], [place] [address] Tolu Schultz Vital Signs Date Time Vital Sign Value Performing Clinician Faci lity 03-07-2025 15:44-0400 Body weight 73.48 kg Grace Miladis DO Work Phone: [facility] 03-07-2025 15:44-0400 Diastolic blood pressure 72 mm[Hg] Grace Miladis DO Work Phone: [facility] 03-07-2025 15:44-0400 Systolic blood pressure 118 mm[Hg] Grace Miladis DO Work Phone: [facility] 02-21-2025 08:33-0400 Body weight 73.37 kg Grace Miladis DO Work Phone: [facility] 02-21-2025 08:33-0400 Diastolic blood pressure 74 mm[Hg] Grace Miladis DO Work Phone: [facility] 02-21-2025 08:33-0400 Systolic blood pressure 116 mm[Hg] Grace Miladis DO Work Phone: [facility] 02-02-2025 15:42-0400 Body weight 73.14 kg Monika WEEKS Work Phone: [facility] 02-02-2025 15:42-0400 Diastolic blood pressure 76 mm[Hg] Monika WEEKS Work Phone: [facility] 02-02-2025 15:42-0400 Systolic blood pressure 116 mm[Hg] Monika WEEKS Work Phone: [facility] 01-05-2025 16:05-0500 Body weight 71.22 kg Grace Miladis DO Work Phone: [facility] 01-05-2025 16:05-0500 Diastolic blood pressure 72 mm[Hg] Grace Miladis DO Work Phone: [facility] 01-05-2025 16:05-0500 Systolic blood pressure 118 mm[Hg] Grace Miladis DO Work Phone: [facility] 12-08-2024 15:59-0500 Body weight 70.94 kg Monika WEEKS Work Phone: [facility] 12-08-2024 15:59-0500 Diastolic blood pressure 72 mm[Hg] Monika WEEKS Work Phone: [facility] 12-08-2024 15:59-0500 Systolic blood pressure 110 mm[Hg] Monika WEEKS Work Phone: [facility] 11-09-2024 11:10-0500 Body weight 67.13 kg Grace Miladis DO Work Phone: [facility] 11-09-2024 11:10-0500 Diastolic blood pressure 68 mm[Hg] Grace Miladis DO Work Phone: [facility] 11-09-2024 11:10-0500 Systolic blood pressure 108 mm[Hg] Grace Miladis DO Work Phone: [facility] 10-08-2024 10:17-0500 Body weight 64.86 kg [facility] Encounters Encounter Date Encounter Type Care Provider Facility Start: 03-07-2025 End: 03-07-2025 flow sheet Grace Miladis DO Work Phone: [facility] Comment on above: Upper respiratory tr act infection, unspecified type (Primary Dx); Third trimester ; 31 weeks gestation of ; Multigravida of advanced maternal age in third trimester Start: 03-07-2025 End: 03-07-2025 ambulatory GRACE MILADIS Not Available Start: 02-21-2025 End: 02-21-2025 Bamboo flowsheet Grace Miladis DO Work Phone: [facility] Start: 02-21-2025 End: 02-21-2025 Bamboo flowsheet Grace Miladis DO Work Phone: [facility] Start: 02-21-2025 End: 02-21-2025 flow sheet Grace Miladis DO Work Phone: [facility] Comment on above: Third trimester preg brody; 29 weeks gestation of ; Size of fetus inconsistent with dates in third trimester Start: 02-21-2025 End: 02-21-2025 ambulatory GRACE MILADIS Not Available Start: 02-02-2025 End: 02-02-2025 flow sheet Monika WEEKS Work Phone: [facility] Comment on above: Second trimester pre gnancy; 26 weeks gestation of Start: 02-02-2025 End: 02-02-2025 ambulatory MONIKA FRIED Not Available Start: 02-02-2025 End: 02-02-2025 Bamboo flowsheet Monika WEEKS Work Phone: [facility] Start: 02-02-2025 End: 02-02-2025 Bamboo flowsheet Monika WEEKS Work Phone: [facility] Start: 01-05-2025 End: 01-05-2025 Patient encounter procedure Grace Miladis DO Work Phone: [facility] Start: 01-05-2025 End: 01-05-2025 Periodic preventive med est patient 18-39 yrs Grace Miladis DO Work Phone: [facility] Comment on above: Well woman exam with routine gynecological exam; Exposure to STD; Second trimester ; 22 weeks gestation of ; Diabetes mellitus screening Start: 01-05-2025 End: 01-05-2025 ambulatory GRACE MILADIS Not Available Start: 01-05-2025 End: 01-05-2025 Bamboo flowsheet Grace Miladis DO Work Phone: [facility] Start: 01-05-2025 End: 01-10-2025 Bamboo flowsheet Grace Miladis DO Work Phone: [facility] Start: 01-05-2025 End: 01-10-2025 Clinisync Result Encounter Grace Miladis DO Work Phone: [facility] Unsolicited Start: 12-24-2024 End: 12-29-2024 Clinisync Result Encounter Monika WEEKS Work Phone: [facility]solicited Start: 12-24-2024 End: 12-29-2024 Clinisync Result Encounter Monika WEEKS Work Phone: [facility] Unsolicited Start: 12-08-2024 End: 12-08-2024 flow sheet Monika WEEKS Work Phone: [facility] Comment on above: Second trimester pre gnancy; 18 weeks gestation of ; Screening, , for anatomic survey Start: 12-08-2024 End: 12-08-2024 ambulatory MONIKA FIRED Not Available Start: 12-08-2024 End: 12-08-2024 Bamboo [...] 05-15-2020 End: 05-16-2020 Patient encounter procedure NORM PONCE Facility:[facility] Start: 08-06-2019 End: 08-06-2019 Patient encounter procedure GLENNA MCINTYRE Facility:[facility] Procedures Date Procedure Procedure Detail Performing Clinician Start: 03-07-2025 Urnls dip stick/tabl et rgnt non-auto w/o micrscp Grace Miladis DO Work Phone: Start: 02-21-2025 Urnls dip stick/tabl et rgnt non-auto w/o micrscp Grace Miladis DO Work Phone: Start: 02-02-2025 Urnls dip stick/tabl et rgnt non-auto w/o micrscp Monika WEEKS Work Phone: Start: 01-05-2025 Urnls dip stick/tabl et rgnt non-auto w/o micrscp Grace Miladis DO Work Phone: Start: 01-05-2025 IGP,APTIMA HPV,AGE GDLN Grace Miladis DO Work Phone: Start: 12-24-2024 US OB ANATOMY Monika WEEKS [...] Treatment Date Care Activity Detail Author Start: 03-23-2025 End: 03-23-2025 Patient encounter procedure 03/23/2025 3:50 PM EDT Routine [facility] [address] [place] [address] Monika Fried PA [address] [place], [place] [id number] [facility] Start: 03-07-2025 End: 03-07-2025 Patient encounter procedure 03/07/2025 3:30 PM EDT Routine [facility] [address] [place] [id number] Grace Redding, DO [address] [place], [place] [id number] [facility] Start: 03-07-2025 End: 03-07-2025 Professional / ancillary services management 03/07/2025 3:00 PM EDT Ancillary Procedure [facility] [address] [place] [address] [facility] Start: 03-07-2025 End: 09-07-2025 US biophysical profile w non stress test US biophysical profile w non stress test Imaging Routine Multigravida of advanced maternal age in third trimester Expected: 03/07/2025 (Approximate), Expires: 09/07/2025 [facility] Work Phone: Comment on above: Expected: 03/07/2025 (Approximate), Expires: 09/07/2025 Start: 03-02-2025 End: 03-02-2025 Patient encounter procedure 03/02/2025 2:50 PM EDT Routine [facility] [address] [facility] [address] [address] [address] Grace Redding, [facility] [place] [address] [facility] Start: 02-21-2025 End: 06-23-2025 US for US OB follow up transabdominal approach Imaging Routine Size of fetus inconsistent with dates in third trimester Expected: 02/21/2025, Expires: 06/23/2025 [facility] Work Phone: Comment on above: Expected: 02/21/2025 , Expires: 06/23/2025 Start: 02-21-2025 End: 02-21-2025 Patient encounter procedure 02/21/2025 8:30 AM EDT Routine [facility] [address] [facility] [place] [address] Grace Redding, [address] [place] [address] Arrived [facility] Comment on above: Arrived Start: 02-02-2025 End: 02-02-2025 Patient encounter procedure [facility] Comment on above: Arrived Start: 01-05-2025 End: 01-05-2025 Patient encounter procedure [facility] Comment on above: Arrived Start: 01-05-2025 End: 01-05-2026 CBC panel - Blood by Automated count CBC Lab Routine Diabetes mellitus screening Expected: 01/05/2025 (Approximate), Expires: 01/05/2026 [facility] Comment on above: Expected: 01/05/2025 (Approximate), Expires: 01/05/2026 Start: 12-08-2024 End: 12-08-2024 Patient encounter procedure [facility] Comment on above: Arrived Start: 12-08-2024 End: 06-07-2025 Alpha fetoprotein, maternal Alpha fetoprotein, maternal Lab Routine Second trimester 18 weeks gestation of Expected: 12/08/2024 (Approximate), Expires: 06/07/2025 [facility] Comment on above: Expected: 12/08/2024 (Approximate), Expires: 06/07/2025 Start: 12-08-2024 End: 12-08-2025 US for US OB 14+ weeks anatomy scan Imaging Routine Screening, , for anatomic survey Expected: 12/08/2024, Expires: 12/08/2025 [facility] Work Phone: Comment on above: Expected: 12/08/2024 , Expires: 12/08/2025 Start: 11-09-2024 End: 11-09-2024 Patient encounter procedure [facility] Comment on above: Arrived Start: 10-08-2024 End: 10-08-2025 ABO/Rh ABO/Rh Lab Routine Missed menses , unspecified gestational age Expected: 10/08/2024 (Approximate), Expires: 10/08/2025 [facility] Comment on above: Expected: 10/08/2024 (Approximate), Expires: 10/08/2025 Start: 10-08-2024 End: 10-08-2025 Blood type and Indirect antibody screen panel - Blood Type and screen Lab Routine Missed menses , unspecified gestational age Expected: 10/08/2024 (Approximate), Expires: 10/08/2025 [facility] Work Phone: Comment on above: Expected: 10/08/2024 (Approximate), Expires: 10/08/2025 Start: 10-08-2024 End: 10-08-2025 Drugs of abuse panel - Urine by Screen method Rapid drug screen, urine Lab Routine , unspecified gestational age Encounter for supervision of normal first in first trimester Expected: 10/08/2024 (Approximate), Expires: 10/08/2025 [facility] Comment on above: Expected: 10/08/2024 (Approximate), Expires: 10/08/2025 Start: 10-08-2024 End: 10-08-2025 US Pelvis transvaginal US OB transvaginal Imaging Routine Missed menses Expected: 10/08/2024 (Approximate), Expires: 10/08/2025 [facility] Comment on above: Expected: 10/08/2024 (Approximate), Expires: 10/08/2025 Bacteria identified in Urine by Culture Urine culture Microbiology Routine Missed menses Ordered: 10/08/2024 [facility] Comment on above: Ordered: 10/08/2024 CBC W Auto Different ial panel - Blood CBC and differential Lab Routine Missed menses , unspecified gestational age Ordered: 10/08/2024 [facility] Comment on above: Ordered: 10/08/2024 CHLAMYDIA TRACHOMATI S (GENITO/STI) CHLAMYDIA TRACHOMATIS (GENITO/STI) Lab Routine Exposure to STD Ordered: 01/05/2025 [facility] Comment on above: Ordered: 01/05/2025 Cytology Cervical or vaginal smear or scraping study Pap Smear Pathology and Cytology Routine Well woman exam with routine gynecological exam Ordered: 01/05/2025 [facility] Comment on above: Ordered: 01/05/2025 Hemoglobin A1c/Hemoglobin.total in Blood Hemoglobin A1c Lab Routine Missed menses , unspecified gestational age Ordered: 10/08/2024 [facility] Comment on above: Ordered: 10/08/2024 Hemoglobin A1c/Hemoglobin.total in Blood Hemoglobin A1c Lab Routine Diabetes mellitus screening Ordered: 01/05/2025 [facility] Comment on above: Ordered: 01/05/2025 Hepatitis B virus surface Ag [Presence] in Serum or Plasma by Immunoassay Hepatitis B surface antigen Lab Routine Missed menses , unspecified gestational age Ordered: 10/08/2024 [facility] Comment on above: Ordered: 10/08/2024 Hepatitis C virus Ab [Presence] in Serum or Plasma by Immunoassay Hepatitis C antibody Lab Routine Missed menses , unspecified gestational age Ordered: 10/08/2024 [facility] Comment on above: Ordered: 10/08/2024 HIV-1/HIV-2 antigen/antibody combination immunoassay HIV-1 and HIV-2 antibodies Lab Routine Missed menses , unspecified gestational age Ordered: 10/08/2024 [facility] Comment on above: Ordered: 10/08/2024 Human papilloma viru s DNA [Presence] in Unspecified specimen by Probe with amplification HPV DNA probe, amplified Microbiology Routine Well woman exam with routine gynecological exam Ordered: 01/05/2025 [facility] Comment on above: Ordered: 01/05/2025 Neisseria gonorrhoea e DNA [Presence] in Unspecified specimen by NERIS with probe detection Neisseria gonorrhea DNA probe, direct Lab Routine Exposure to STD Ordered: 01/05/2025 [facility] Comment on above: Ordered: 01/05/2025 Reagin Ab [Presence] in Serum by RPR RPR Lab Routine Missed menses , unspecified gestational age Ordered: 10/08/2024 [facility] Comment on above: Ordered: 10/08/2024 Rubella antibody, IgG Rubella an tibody, IgG Lab Routine Missed menses , unspecified gestational age Ordered: 10/08/2024 [facility] Comment on above: Ordered: 10/08/2024 SURESWAB(R) ADVANCED VAGINITIS PLUS, TMA SURESWAB(R) ADVANCED VAGINITIS PLUS, TMA Pathology and Cytology Routine Exposure to STD Ordered: 01/05/2025 [facility] Work Phone: Comment on above: Ordered: 01/05/2025 Payers Date Payer Category [facility] [id number] 2021 Unknown [id number] 1987 Unknown [id number] .[id number] 1987 Unknown [id number] .[id number] 1987 Unknown [id number] 2..[id number] .[id number] 1987 Unknown [id number] [id number] .2.9 1987 Unknown [id number] [id number] .2.9 1987 Unknown [id number] [id number] .2.9 1987 Unknown [id number] [id number] .2.1258 1987 Unknown [id number] [id number] .2.9 1987 Unknown [id number] [id number] .2.9 1987 Unknown [id number] .[id number] 1959 Private Health Insurance [id number] Social History Date Type Detail Facility Tobacco smoking stat [facility] Tobacco smoking consumption unknown [facility] Start: 1985 Sex assigned at Not on file [facility] Gender identity Not [facility] file [facility] Start: 08-16-2024 [facility] Clinical Notes 10-08-2024 to 03-07-2025 Isabel Camara NP - 03/07/2025 3:30 PM Richard Lees LPN - 02/21/2025 8:30 AM Madison Camara NP - 02/02/2025 3:40 PM Ana Lerenr LPN - 01/05/2025 3:50 PM EST Note Date & Type Note Facility 03-07-2025 History of Presen t illness Narrative Reason for Appointment: Patient ID: Yessi Agee is a 40 y.o. female who presents for Routine Visit [...] SYSTEMS Review of Systems: Review of Systems HENT: Positive for congestion, postnasal drip, sinus pain and sneezing. OBJECTIVE Objective: OBGyn Exam Vitals: There is no height or weight on file to calculate BMI. BP: 118/72 Patient's last menstrual period was 08/02/2024 (exact date). ASSESSMENT & PLAN ICD-10-CM 1. Third trimester Z34.93 POCT urinalysis dipstick manually resulted 2. 31 weeks gestation of Z3A.31 Return OB: Patient presents today for a routine obstetrics appointment. Patient is currently 31w0d . Patient states she is doing well but has complaints of being tired due to current . Patient has verbalizes frequent movement. labor precautions was discussed/given and patient was instructed to perform kick counts three times a day. Orders Placed This Encounter Procedures POCT urinalysis dipstick manually resulted Follow Up: Patient with recent URI symptoms, cough, congestion, fatigue and difficulty sleeping. Azithromycin and Robitussin AC is sent in for the patient. Given her AMA she will also begin NST/BPP at 32 weeks. Patient to call if she is having any worsening URI symptoms or concerns. Patient is to return to office in 2 week for routine OB appointment. Documented by Isabel Camara NP on behalf of: Grace Redding DO documented in this encounter [facility] 02-21-2025 History of Presen t illness Narrative Reason for Appointment: Patient ID: Yessi Agee is a 40 y.o. female who presents for Routine Visit [...] nursing note reviewed. Exam conducted with a pin inserter regulator present. Vitals: There is no height or weight on file to calculate BMI. BP: 116/74 Patient's last menstrual period was 08/02/2024 (exact date). ASSESSMENT & PLAN ICD-10-CM 1. Third trimester Z34.93 POCT urinalysis dipstick manually resulted 2. 29 weeks gestation of Z3A.29 Patient presents today for a routine obstetrics appointment. Patient is currently 29w0d with a Estimated Date of Delivery: 05/09/25. Patient called [facility] once for elevated BP and pressures have since been good. Patient to return to clinic in 2 weeks for routine OB appointment. Discussed antibiotic at time of delivery along with tubal ligation. Patient to have growth scan prior to next appointment. Documented by Bekah Lees LPN on behalf of: Grace Redding DO documented in this encounter [facility] 02-02-2025 History of Presen t illness Narrative Reason for Appointment: Patient ID: Yessi Agee is a 39 y.o. female who presents [...] Cardiovascular: Negative. Gastrointestinal: Negative. Genitourinary: Negative. Musculoskeletal: Positive for back pain. Skin: Negative. Neurological: Negative. All other systems [...] nursing note reviewed. Exam conducted with a pin inserter regulator present. Vitals: There is no height or weight on file to calculate BMI. BP: 116/76 Patient's last menstrual period was 08/02/2024 (exact date). ASSESSMENT & PLAN ICD-10-CM 1. Second trimester Z34.92 POCT urinalysis dipstick manually resulted 2. 26 weeks gestation of Z3A.26 Return OB: Patient presents today for a routine obstetrics appointment. Patient is currently 26w2d . Patient states she is doing well but has complaints of being tired due to current . Patient has verbalizes frequent movement. labor precautions was discussed/given and patient was instructed to perform kick counts three times a day. Patient with complaints of low back pain and discomfort. Discussed use of belly band with shoulder supports and stretching. She is going to obtain belly band. Orders Placed This Encounter Procedures POCT urinalysis dipstick manually resulted Follow Up: Patient is to return to office in 4 week for routine OB appointment. Documented by Isabel Camara NP on behalf of: DESI Wilson documented in this encounter [facility] 01-05-2025 History of Presen t illness Narrative Reason for Appointment: Patient ID: Yessi Agee is a 39 y.o. female who presents for Routine Visit Patient presents today for Annual Exam., STD Check., and Return OB appointment. MEDICATIONS No current outpatient [...] Constitutional: Appearance: Normal appearance. She is well-developed. Genitourinary: Vulva normal. Cardiovascular: Rate and Rhythm: Normal rate and [...] nursing note reviewed. Exam conducted with a pin inserter regulator present. Vitals: There is no height or weight on file to calculate BMI. BP: 118/72 Patient's last menstrual period was 08/02/2024 (exact date). ASSESSMENT & PLAN ICD-10-CM 1. Well woman exam with routine gynecological exam Z01.419 Pap Smear HPV DNA probe, amplified 2. Exposure to STD Z20.2 SURESWAB(R) ADVANCED VAGINITIS PLUS, TMA CHLAMYDIA TRACHOMATIS (GENITO/STI) Neisseria gonorrhea DNA probe, direct 3. Second trimester Z34.92 4. 22 weeks gestation of Z3A.22 POCT urinalysis dipstick manually resulted 5. Diabetes mellitus screening Z13.1 CBC Glucose tolerance, 1 hour CBC Glucose tolerance, 1 hour Return OB/Annual Exam: Patient presents today for a annual exam/routine obstetrics appointment. Patient is currently 22w2d . Patient states she is doing well but has complaints of nausea in the morning. Pap and cultures was obtained without difficulty and patient was given orders for HGBA1C and CBC to be obtained. Pt refusing breast exam and refusing glucose and CBC. Orders Placed This Encounter Procedures HPV DNA probe, amplified CHLAMYDIA TRACHOMATIS (GENITO/STI) Neisseria gonorrhea DNA probe, direct CBC Hemoglobin A1c POCT urinalysis dipstick manually resulted Follow Up: Patient is to schedule annual exam for next year and return to office in 4 weeks for OB appointment. Documented by Marion Lerner LPN on behalf of: Grace Redding DO documented in this encounter [facility] 12-08-2024 History of Presen t illness Narrative Reason for Appointment: Patient ID: Yessi Agee is a 39 y.o. female who presents [...] of: DESI Wilson documented in this encounter [facility] 11-09-2024 History of Presen t illness Narrative Reason for Appointment: Patient ID: Yessi Agee is a 39 y.o. female who presents [...] nursing note reviewed. Exam conducted with a pin inserter regulator present. Vitals: There is no height or [...] or undercooked meat, and stay away from [facility]. Patient has been consulted regarding any [...] Grace Redding DO documented in this encounter [facility] 10-08-2024 History of Presen t illness Narrative Reason for Appointment: Patient ID: Yessi Agee is a 39 y.o. female who presents [...] or undercooked meat, and stay away from [facility]. Patient has also been advised to [...] in this encounter [facility] Evaluation note Diagnosis Missed menses , unspecified gestational age Encounter for supervision of normal first in first trimester [facility] Diagnosis Second trimester state, incidental 14 weeks gestation of Request for sterilization [facility] Diagnosis Second trimester state, incidental 18 weeks gestation of Screening, , for anatomic survey Encounter for anatomic survey [facility] Diagnosis Well woman exam with routine gynecological exam Routine gynecological examination Exposure to STD Second trimester state, incidental 22 weeks gestation of Diabetes mellitus screening Screening for diabetes mellitus [facility]* Diagnosis Second trimester state, incidental 26 weeks gestation of documented [facility]* Diagnosis Third trimester state, incidental 29 weeks gestation of Size of fetus inconsistent with dates in third trimester [facility] Diagnosis Upper respiratory tract infection, unspecified type- Primary Third trimester state, incidental 31 weeks gestation of Multigravida of advanced maternal age in third trimester documented in this encounter [facility] Summary Purpose Family History No Family History Records FoundNo Family History Records Found Advance Directives No Advanced Directives Records FoundNo Advanced Directives Records Found Additional Source Comments INFORMATION SOURCE (unrecogn ized section and content) DATE CREATED AUTHOR 05/26/2020 Malika Shah [facility] DATE CREATED AUTHOR AUTHOR'S ORGANIZ ATION 03/10/2025 [facility] EPIC Reason for Visit (unrecogniz ed section and content) Reason Comments Amenorrhea Reason Comments Routine Visit Care Teams (unrecognized sec tion and content) Deck Hand Relationship Specialty Start Date End Date Norm Ponce MD [address] [place] [address] PCP - General Family Medicine 10/08/24 Deck Hand Relationship Specialty Start Date End Date Norm Ponce MD [address] [place] [address] PCP - General Family Medicine 10/08/24 Deck Hand Relationship Specialty Start Date End Date Norm Ponce MD [address] [place] [facility] [place] [address] PCP - General Family Medicine 10/08/24 Deck Hand Relationship Specialty Start Date End Date Norm Ponce MD [address] [place] [facility] [place] [address] PCP - General Family Medicine 10/08/24 Deck Hand Relationship Specialty Start Date End Date Nomr Ponce MD [address] [place] [facility] [place] [address] PCP - General Family Medicine 10/08/24 Deck Hand Relationship Specialty Start Date End Date Norm Ponce MD [address] [place] [facility] [place] [address] PCP - General Family Medicine 10/08/24 Deck Hand Relationship Specialty Start Date End Date Norm Ponce MD [address] [place] [facility] [place] [address] PCP - General Family Medicine 10/08/24 Deck Hand Relationship Specialty Start Date End Date Norm Ponce MD [address] [place] [facility] [place] [address] PCP - General Family Medicine 10/08/24 Deck Hand Relationship Specialty Start Date End Date Norm Ponce MD PCP - General Family Medicine 10/08/24 FOR [...] BE BASED ON THE PRIMARY CLINICAL RECORDS. [facility] [employer] [facility]. provides no warranty or guarantee of the accuracy or completeness of information in this document.
--- NOTE | 2025-03-11 21:22 | ED.SOB1 ---
Documented by User: DESI Lott 03/11/25 21:33 HPI - SOB/Dyspnea General Chief Complaint: Shortness of Breath/Dyspnea Stated Complaint: SOB, COUGHING, WHEEZING Time Seen by Provider: 03/11/25 21:02 Source: patient Mode of arrival: walk-in Limitations: no limitations History of Present Illness HPI Narrative: Patient is a 40-year-old female with a history of asthma who presents to the emergency department for increasing shortness of breath, coughing and wheezing. She has been sick for the last week. She saw her ASSISTED LIVING HOUSEKEEPER for regular checkup on Friday, she is 32 weeks . She states she finished a Z-Francis yesterday that she was prescribed for walking pneumonia . No diagnostics were performed from the office. She has not had any fevers, chest pain, hemoptysis. She states she feels tight and can hear herself wheezing. She has been using her rescue inhaler without improvement. She was also given Robitussin with codeine and Sudafed which she states she stopped yesterday because they were making her feel drowsy. She states today the cough seems to be breaking up sputum in her chest although she is not having any significant sputum production. Related Data Allergies Allergy/AdvReac Type Severity Reaction Status Date / Time No Known Drug Allergies Allergy Verified 03/11/25 21:02 Review of Systems ROS Constitutional Denies: fever or chills Ears, nose, mouth, and throat Reports: nasal congestion; Denies: throat pain Cardiovascular Denies: chest pain Respiratory Reports: shortness of breath, cough, wheezing and chest congestion; Denies: change in phlegm color or coughing up blood Gastrointestinal Denies: abdominal pain, nausea or vomiting Integumentary/Breast Denies: rash Neurological Denies: numbness in extremities or weakness in extremities Hematologic/Lymphatic Denies: easy bruising or easy bleeding PFSH PFSH Social History Little interest or pleasure in doing things: not at all Feeling down, depressed, or hopeless: not at all Exam Narrative Exam Narrative: Gen.: Awake, alert, in no distress Head: Normocephalic, atraumatic ENT: Moist mucous membranes Respiratory: No respiratory distress, faint expiratory wheeze in the bilateral bases. Patient speaking in full sentences Cardio: Regular rate and rhythm Gastrointestinal: Gravid abdomen Extremities: Moves extremities equally Psych: Normal mood and affect Neuro: No focal neuro deficit Skin: Warm, dry, intact Constitutional Vital Signs, click to edit/add: Last Vital Signs Temp 97.9 F 03/11/25 21:02 Pulse 96 H 03/11/25 22:50 Resp 16 03/11/25 22:50 BP 98/70 03/11/25 22:50 Pulse Ox 99 03/11/25 22:50 O2 Del Method Room Air 03/11/25 22:50 Course Vital Signs Vital signs: Vital Signs Temperature 97.9 F 03/11/25 21:02 Pulse Rate 100 H 03/11/25 21:02 Respiratory Rate 19 03/11/25 21:02 Blood Pressure 119/80 03/11/25 21:02 Pulse Oximetry 98 03/11/25 21:02 Oxygen Delivery Method Room Air 03/11/25 21:02 Temperature 97.9 F 03/11/25 21:02 Pulse Rate 96 H 03/11/25 22:50 Respiratory Rate 16 03/11/25 22:50 Blood Pressure 98/70 03/11/25 22:50 Pulse Oximetry 99 03/11/25 22:50 Oxygen Delivery Method Room Air 03/11/25 22:50 MDM - SOB/Dyspnea MDM Narrative Medical decision making narrative: Discussed with Dr. Redding on arrival, he is comfortable with the patient receiving steroids. She was treated with Solu-Medrol, nebulizer treatment, workup ordered to include nasal swabs and blood work with chest x-ray. Patient refused respiratory swab testing. 2131: Labs, xrays and reevaluation pending. Case is turned over to attending physician at this time for reevaluation and disposition. SHARED APC VISIT, PHYSICIAN ATTESTATION: [id number] I performed a substantive part of the MDM during the patient?s E/M visit. I personally evaluated and examined the patient. I personally made or approved the documented management plan and acknowledge its risk of complications. Medical Records Attestation: I reviewed the patient's medical records. Lab Data Attestation: I reviewed the patient's lab results. Labs: Lab Results 03/11/25 Range/Units 21:26 WBC 4.7 (4.0-11.0) 10^3/uL RBC 3.72 L (4.20-5.40) 10^6/uL Hgb 11.5 L (12.0-16.0) g/dL Hct 33.9 L (36.0-48.0) % MCV 91.1 (81.0-99.0) fL MCH 30.9 (26.7-34.0) pg MCHC 33.9 (29.9-35.2) g/dL RDW 13.2 (11.0-15.0) % Plt Count 155 (150-450) 10^3/uL MPV 10.0 (9.5-13.5) fL Seg Neuts % (Manual) 60.0 (43.0-75.0) Lymphocytes % (Manual) 36.0 (20.5-60.0) % Monocytes % (Manual) 4.0 (1.7-12.0) % Eosinophils % (Manual) 0.0 L (0.9-7.0) % Basophils % (Manual) 0.0 L (0.2-2.0) % Neutrophils # (Manual) 2.82 (1.4-6.5) 10^3/uL Lymphocytes # (Manual) 1.69 (1.20-3.80) 10^3/uL Monocytes # (Manual) 0.18 L (0.30-0.80) 10^3/uL Eosinophils # (Manual) 0.00 (0.00-0.70) 10^3/uL Basophils # (Manual) 0.00 (0.00-0.10) 10^3/uL VBG pH 7.441 H (7.330-7.430) VBG pCO2 37.7 L (40.0-52.0) mmHg Sodium 135 L (136-145) mmol/L Potassium 3.1 L (3.5-5.1) mmol/L Chloride 101 (98-107) mmol/L Carbon Dioxide 25.0 (21.0-32.0) mmol/L Anion Gap 12.1 BUN 7.0 (7.0-18.0) mg/dL Creatinine 0.53 L (0.55-1.02) mg/dL Est GFR ( Amer) >60 (>=60 mL/min/1.73m^2) Est GFR (Non-Af Amer) >60 (>=60 mL/min/1.73m^2) BUN/Creatinine Ratio 13.2 Glucose 103 (74-106) mg/dL Calcium 8.3 L (8.5-10.1) mg/dL Total Bilirubin 0.3 (0.2-1.0) mg/dL AST 25 (15-37) U/L ALT 25 (14-59) U/L Alkaline Phosphatase 96 (46-116) U/L Troponin I High Sens <4.0 L (4.0-51.3) pg/mL NT-Pro-B Natriuret Pep 12.0 (<=450.0) pg/mL Total Protein 6.5 (6.4-8.2) g/dL Albumin 2.5 L (3.4-5.0) g/dL Globulin 4.0 g/dL Albumin/Globulin Ratio 0.6 Discharge Plan Discharge Chief Complaint: Shortness of Breath/Dyspnea Clinical Impression: Acute upper respiratory infection, Asthma exacerbation Patient Disposition: Home, Self-Care Condition: Good Mode of Transportation: Private Vehicle Print Language: Jordanian Instructions: Asthma (ED), Upper Respiratory Infection (ED) Additional Instructions: follow up with Dr Ponce in next 2-3 days Referrals: Codey Ponce MD [Primary Care Provider, Family Practice] - 1 week Discharge Date/Time: 03/11/25 23:08 Documented by User: Ronnie Delgadillo MD 03/12/25 21:22 HPI - SOB/Dyspnea General Chief Complaint: Shortness of Breath/Dyspnea Stated Complaint: SOB, COUGHING, WHEEZING Time Seen by Provider: 03/11/25 21:02 Related Data Allergies Allergy/AdvReac Type Severity Reaction Status Date / Time No Known Drug Allergies Allergy Verified 03/11/25 21:02 [facility] Social History Little interest or pleasure in doing things: not at all Feeling down, depressed, or hopeless: not at all Exam Constitutional Vital Signs, click to edit/add: Last Vital Signs Temp 97.9 F 03/11/25 21:02 Pulse 96 H 03/11/25 22:50 Resp 16 03/11/25 22:50 BP 98/70 03/11/25 22:50 Pulse Ox 99 03/11/25 22:50 O2 Del Method Room Air 03/11/25 22:50 Course Vital Signs Vital signs: Vital Signs Temperature 97.9 F 03/11/25 21:02 Pulse Rate 100 H 03/11/25 21:02 Respiratory Rate 19 03/11/25 21:02 Blood Pressure 119/80 03/11/25 21:02 Pulse Oximetry 98 03/11/25 21:02 Oxygen Delivery Method Room Air 03/11/25 21:02 Temperature 97.9 F 03/11/25 21:02 Pulse Rate 96 H 03/11/25 22:50 Respiratory Rate 16 03/11/25 22:50 Blood Pressure 98/70 03/11/25 22:50 Pulse Oximetry 99 03/11/25 22:50 Oxygen Delivery Method Room Air 03/11/25 22:50 MDM - SOB/Dyspnea MDM Narrative Medical decision making narrative: Discussed with Dr. Redding on arrival, he is comfortable with the patient receiving steroids. She was treated with Solu-Medrol, nebulizer treatment, workup ordered to include nasal swabs and blood work with chest x-ray. Patient refused respiratory swab testing. 2131: Labs, xrays and reevaluation pending. Case is turned over to attending physician at this time for reevaluation and disposition. cxray returned as normal. Patient states she is feeling better. Exam without wheeze but does cough with deep breath. History of asthma. Discharged with steroids and to continue her inhaler SHARED APC VISIT, PHYSICIAN ATTESTATION: [id number] I performed a substantive part of the MDM during the patient?s E/M visit. I personally evaluated and examined the patient. I personally made or approved the documented management plan and acknowledge its risk of complications. Lab Data Labs: Lab Results 03/11/25 Range/Units 21:26 WBC 4.7 (4.0-11.0) 10^3/uL RBC 3.72 L (4.20-5.40) 10^6/uL Hgb 11.5 L (12.0-16.0) g/dL Hct 33.9 L (36.0-48.0) % MCV 91.1 (81.0-99.0) fL MCH 30.9 (26.7-34.0) pg MCHC 33.9 (29.9-35.2) g/dL RDW 13.2 (11.0-15.0) % Plt Count 155 (150-450) 10^3/uL MPV 10.0 (9.5-13.5) fL Seg Neuts % (Manual) 60.0 (43.0-75.0) Lymphocytes % (Manual) 36.0 (20.5-60.0) % Monocytes % (Manual) 4.0 (1.7-12.0) % Eosinophils % (Manual) 0.0 L (0.9-7.0) % Basophils % (Manual) 0.0 L (0.2-2.0) % Neutrophils # (Manual) 2.82 (1.4-6.5) 10^3/uL Lymphocytes # (Manual) 1.69 (1.20-3.80) 10^3/uL Monocytes # (Manual) 0.18 L (0.30-0.80) 10^3/uL Eosinophils # (Manual) 0.00 (0.00-0.70) 10^3/uL Basophils # (Manual) 0.00 (0.00-0.10) 10^3/uL VBG pH 7.441 H (7.330-7.430) VBG pCO2 37.7 L (40.0-52.0) mmHg Sodium 135 L (136-145) mmol/L Potassium 3.1 L (3.5-5.1) mmol/L Chloride 101 (98-107) mmol/L Carbon Dioxide 25.0 (21.0-32.0) mmol/L Anion Gap 12.1 BUN 7.0 (7.0-18.0) mg/dL Creatinine 0.53 L (0.55-1.02) mg/dL Est GFR ( Amer) >60 (>=60 mL/min/1.73m^2) Est GFR (Non-Af Amer) >60 (>=60 mL/min/1.73m^2) BUN/Creatinine Ratio 13.2 Glucose 103 (74-106) mg/dL Calcium 8.3 L (8.5-10.1) mg/dL Total Bilirubin 0.3 (0.2-1.0) mg/dL AST 25 (15-37) U/L ALT 25 (14-59) U/L Alkaline Phosphatase 96 (46-116) U/L Troponin I High Sens <4.0 L (4.0-51.3) pg/mL NT-Pro-B Natriuret Pep 12.0 (<=450.0) pg/mL Total Protein 6.5 (6.4-8.2) g/dL Albumin 2.5 L (3.4-5.0) g/dL Globulin 4.0 g/dL Albumin/Globulin Ratio 0.6 Discharge Plan Discharge Chief Complaint: Shortness of Breath/Dyspnea Clinical Impression: Acute upper respiratory infection, Asthma exacerbation Patient Disposition: Home, Self-Care Condition: Good Mode of Transportation: Private Vehicle Print Language: Jordanian Instructions: Asthma (ED), Upper Respiratory Infection (ED) Additional Instructions: follow up with Dr Ponce in next 2-3 days Referrals: Codey Ponce MD [Primary Care Provider, Family Practice] - 1 week Discharge Date/Time: 03/11/25 23:08
[2025-03-11 21:33] LABS: PCO2 VBG 37.7 mmHg (40.0-52.0); pH VBG 7.441 (7.330-7.430)
--- NOTE | 2025-03-11 21:34 | PC.NURSE ---
Faint exp wheeze on right lee
[2025-03-11 21:38] LABS: Hematocrit 33.9 % (36.0-48.0); Hemoglobin 11.5 g/dL (12.0-16.0); Mean Corpuscular HGB Conc 33.9 g/dL (29.9-35.2); Mean Corpuscular Hemoglobin 30.9 pg (26.7-34.0); Mean Corpuscular Volume 91.1 fL (81.0-99.0); Platelet Count 155 10^3/uL (150-450); Red Blood Count 3.72 10^6/uL (4.20-5.40); Red Cell Distribution Width 13.2 % (11.0-15.0); White Blood Count 4.7 10^3/uL (4.0-11.0)
[2025-03-11] MEDS: ALBUTEROL SULFATE 2.5 MG/3 ML VIAL NEB IH (21:44)
[2025-03-11 21:46] VITALS: PULSE 110; O2SAT 97
[2025-03-11] MEDS: METHYLPREDNISOLONE SOD SUCC PF 125 MG/2 ML VIAL IVP (21:55)
[2025-03-11 21:57] LABS: Alanine Aminotransferase 25 U/L (14-59); Albumin Globulin Ratio 0.6; Albumin Level 2.5 g/dL (3.4-5.0); Alkaline Phosphatase 96 U/L (46-116); Anion Gap 12.1; Aspartate Amino Transferase 25 U/L (15-37); BUN Creatinine Ratio 13.2; Bilirubin Total 0.3 mg/dL (0.2-1.0); Calcium 8.3 mg/dL (8.5-10.1); Chloride 101 mmol/L (98-107); Estimated GFR (African America >60 (>=60 mL/min/1.73m^2); Estimated GFR (Non-African Ame >60 (>=60 mL/min/1.73m^2); Glucose 103 mg/dL (74-106); Potassium 3.1 mmol/L (3.5-5.1); Sodium 135 mmol/L (136-145); Total Protein 6.5 g/dL (6.4-8.2); Troponin I High Sensitivity <4.0 pg/mL (4.0-51.3)
[2025-03-11 21:59] LABS: Lymphocytes Absolute Manual 1.69 10^3/uL (1.20-3.80); Monocytes Absolute Manual 0.18 10^3/uL (0.30-0.80); Segmented Neut Absolute Manual 2.82 10^3/uL (1.4-6.5)
[2025-03-11 22:50] VITALS: BP 98/70; PULSE 96; O2SAT 99
--- NOTE | 2025-03-11 22:51 | PC.NURSE ---
Faint exp wheeze in left base
== END 2025-03-11 23:08 | disposition home or self-care (01) ==
PROVIDERS: Physician Assistant; Emergency Provider Internal Medicine; PCP Family Medicine
DX: O99.513 Diseases of the respiratory system complicating pregnancy, third trimester (principal); J45.901 Unspecified asthma with (acute) exacerbation; J06.9 Acute upper respiratory infection, unspecified; Z3A.32 32 weeks gestation of pregnancy
CPT/HCPCS: 36415; 71045; 80053; 82800; 83880; 84484; 85007; 85027; 87804; 87811; 94640; 96374; 99284; J2919

== ENCOUNTER 2025-03-23 20:43 | Observation (INO) | payer BC, SELFPAY ==
--- OUTSIDE RECORDS SUMMARY | 2024-09-28 04:50 | XMS_ITS ---
Author Organization The [facility] in [place] Address [address] [place] [address] Care Team Providers Care Semiconductor Wafer Inspector Name Role Phone Anuj Ponce Primary Care Provider REASON FOR VISIT Proair question Encounters Encounter Location Date Provider Diagnosis [facility] [address] [place] [address] 09/28/2024 Anuj Ponce Plan Of Treatment Medication Medication Name Sig Start Date Stop Date Notes ProAir RespiClick 108 (90 Base) MCG/ACT 1 puff as needed Inhalation every 4 hrs 09/24/2024 Progress Notes * LIMONFebruaryDOB:1985 ( 39 yo F)Acc No.[id number]:09/28/2024 Patient: Madison LARKIN February :1985 A ge:39 Y S ex:Female Address:[address], [place], [address] * Refills Stop ProAir RespiClick Aerosol Powder Breath Activated, 108 (90 Base) MCG/ACT, Inhalation, 1 puff as needed, every 4 hrs * true * Date: Generated for Printi ng/Faxing/eTransmitting on: 0 03/23/2025 04:44 PM EDT
--- OUTSIDE RECORDS SUMMARY | 2025-03-11 10:38 | XMS_ITS ---
Author Organization The [facility] in [place] Address [address] [place] [address] Care Team Providers Care Flue Dust Laborer Name Role Phone Anuj Ponce Primary Care Provider REASON FOR VISIT walking pneumonia Medications Medication SIG (Take, Route, Fr equency, Duration) Notes Start Date End Date Status Cefdinir 300 MG 2 capsules Orally on ce daily for 10 days 03/11/2025 Active Encounters Encounter Location Date Provider Diagnosis [facility] [address] [place] [address] 03/11/2025 Anuj Ponce Plan Of Treatment Medication Medication Name Sig Start Date Stop Date Notes Cefdinir 300 MG 2 capsules Orally once daily for 10 days 0 03/11/2025 Progress Notes * ASHLY FebruaryDOB:1985 ( 40 yo F)Acc No.[id number]:03/11/2025 Patient: Madison LARKIN February :1985 A ge:40 Y S ex:Female Address:[address], [place], [address] * Refills Start Cefdinir Capsule, 300 MG, Orally, 20, 2 capsules, once daily, 10 days, Refills=0 * true * Date: Generated for Abdoulaye ann/Maria Ines/eTransmitting on: 0 03/23/2025 04:43 PM EDT
--- OUTSIDE RECORDS SUMMARY | 2025-03-13 13:41 | XMS_ITS ---
Author Organization The [facility] in [place] Address [address] [place] [address] Care Team Providers Care Header Setup Operator Name Role Phone Anuj Ponce Primary Care Provider REASON FOR VISIT er fu Encounters Encounter Location Date Provider Diagnosis [facility] [address] [place] [address] 03/13/2025 Anuj Ponce Plan Of Treatment No Information Progress Notes * FebruaryDOB:1985 ( 40 yo F)Acc No.[id number]:03/13/2025 Patient: Madison LARKIN February :1985 A ge:40 Y S ex:Female Address:[address], [place], [address] * true * Date: Generated for Maryi ng/Faangg/eTransmitting on: 0 03/23/2025 03:42 PM EDT
--- OUTSIDE RECORDS SUMMARY | 2025-03-23 15:42 | XMS_ITS ---
Author Name Auto Generated Organization [facility] Care Team Providers Care Corporate Development Intern Name Role Phone VIMAL FRIED Attending Unavailable LILIYA, GRACE Attending Unavailable VIMAL FRIED Attending Unavailable LILIYA, GRACE Attending Unavailable LILIYA, GRACE Attending Unavailable LILIYA, GRACE Attending Unavailable VIMAL FRIED Attending Unavailable PROBLEMS No Problem Records Found PROCEDURES No Procedure Records Found RESULTS US OB FOLLOW UP TRANSABDOMINAL APPROACH Observed: 03/07/2025 2:48 PM Status: F Source: [facility] EPIC Order Comment: US OB [...] II, MD, PHD at 09-Mar-2025 08:42:20 AM [facility] ALLERGIES No Allergies Records Found ENCOUNTERS ADMIT/DISCHARGE ACCOUNT NUMBER ADMITTING ENCOUNTER CLASS LOCATION SOURCE 03/23/2025/ 5 [id number] Ambulatory Building:[facility] 03/07/2025/ 5 [id number] Ambulatory Building:[facility] 03/07/2025/ 5 [id number] Ambulatory Building:[facility] 02/21/2025/ 5 [id number] Ambulatory Building:[facility] 02/02/2025/ 5 [id number] Ambulatory Building:[facility] 01/05/2025/ 5 [id number] Ambulatory Building:[facility] 12/08/2024/ 5 [id number] Ambulatory Building:[facility] 11/09/2024/ 5 [id number] Ambulatory Building:[facility] 10/08/2024/ 4 [id number] Ambulatory Building:[facility] EPIC PAYERS ENCOUNTER GUARANTOR PAYER SUBSCRIBER SOURCE 03/23/2025February Petros LIMONDOB: [place], [place] [address]Dsp: (HP) Primary Insurance:BCBSPo licy Number: [id number] ctive Date:2021-12-10 CHRISTOPHER BARRETTKEYLADOB: [id number] [place] [address] [facility] EPIC 03/07/2025February Petros BAUERDOB: [place], [place] [address]Gdr: (HP) Primary Insurance:BCBSPo licy Number: [id number] ctive Date:2021-12-10 CHRISTOPHER BARRETTKEYLADOB: [id number] [place] [address] [facility] EPIC 03/07/2025February Petros BAUERDOB: [place], [place] [address]Ulw: (HP) Primary Insurance:BCBSPo licy Number: [id number] ctive Date:2021-12-10 CHRISTOPHER LIMONDOB: [id number] [place] [address] [facility] EPIC 02/21/2025February Petros BAUERDOB: [place], [place] [address]Lpw: (HP) Primary Insurance:BCBSPo licy Number: [id number] ctive Date:2021-12-10 CHRISTOPHER BARRETTUERDOB: [id number] [place] [address] [facility] EPIC 02/02/2025February Petros BAUERDOB: [place], [place] [address]Agc: (HP) Primary Insurance:BCBSPo licy Number: [id number] ctive Date:2021-12-10 CHRISTOPHER LIMONDOB: [id number] [place] [address] [facility] EPIC 01/05/2025February Petros BARRETTUERDOB: [place], [place] [address]Ffw: (HP) Primary Insurance:BCBSPo licy Number: [id number] ctive Date:2021-12-10 CHRISTOPHER BARRETTUERDOB: [id number] [place] [address] [facility] EPIC 12/08/2024February Petros BARRETTUERDOB: [place], [place] [address]Jhz: (HP) Primary Insurance:BCBSPo licy Number: [id number] ctive Date:2021-12-10 CHRISTOPHER LIMONDOB: [id number] [place] [address] [facility] EPIC 11/09/2024February Petros LIMONDOB: [place], [place] [address]Usm: (HP) Primary Insurance:BCBSPo licy Number: [id number] ctive Date:2021-12-10 CHRISTOPHER LIMONDOB: [id number] [place] [address] [facility] EPIC 10/08/2024February Petros BAUERDOB: [place], [place] [address]Fuv: (HP) Primary Insurance:BCBSPo licy Number: [id number] ctive Date:2021-12-10 CHRISTOPHER LIMONDOB: [id number] [place] [address] [facility] EPIC
--- OUTSIDE RECORDS SUMMARY | 2025-03-23 15:42 | XMS_ITS ---
Author Name Auto Generated Organization OHIP Care Team Providers Care Sider Name Role Phone VIMAL FRIED Attending Unavailable LILIYA, GRACE Attending Unavailable VIMAL FRIED Attending Unavailable LILIYA, GRACE Attending Unavailable LILIYA, GRACE Attending Unavailable LILIYA, GRACE Attending Unavailable VIMAL FRIED Attending Unavailable PROBLEMS No Problem Records Found PROCEDURES No Procedure Records Found RESULTS US OB FOLLOW UP TRANSABDOMINAL APPROACH Observed: 03/07/2025 2:48 PM Status: F Source: [facility] EPIC Order Comment: [...] II, MD, PHD at 09-Mar-2025 08:42:20 AM [facility] ALLERGIES No Allergies Records Found ENCOUNTERS ADMIT/DISCHARGE ACCOUNT NUMBER ADMITTING ENCOUNTER CLASS LOCATION SOURCE 03/23/2025/ 5 [id number] Ambulatory Building:[facility] 03/07/2025/ 5 [id number] Ambulatory Building:[facility] 03/07/2025/ 5 [id number] Ambulatory Building:[facility] 02/21/2025/ 5 [id number] Ambulatory Building:[facility] 02/02/2025/ 5 [id number] Ambulatory Building:[facility] 01/05/2025/ 5 [id number] Ambulatory Building:[facility] 12/08/2024/ 5 [id number] Ambulatory Building:[facility] 11/09/2024/ 5 [id number] Ambulatory Building:[facility] 10/08/2024/ 4 [id number] Ambulatory Building:[facility] EPIC PAYERS ENCOUNTER GUARANTOR PAYER SUBSCRIBER SOURCE 03/23/2025February Petros LIMONDOB: [place], [place] [address]Vdl: (HP) Primary Insurance:BCBSPo licy Number: [id number] ctive Date:2021-12-10 CHRISTOPHER BARRETTKEYLADOB: [id number] [place] [address] [facility] EPIC 03/07/2025February Petros BAUERDOB: [place], [place] [address]Uqz: (HP) Primary Insurance:BCBSPo licy Number: [id number] ctive Date:2021-12-10 CHRISTOPHER BARRETTKEYLADOB: [id number] [place] [address] [facility] EPIC 03/07/2025February Petros BAUERDOB: [place], [place] [address]Duo: (HP) Primary Insurance:BCBSPo licy Number: [id number] ctive Date:2021-12-10 CHRISTOPHER LIMONDOB: [id number] [place] [address] [facility] EPIC 02/21/2025February Petros BAUERDOB: [place], [place] [address]Bgr: (HP) Primary Insurance:BCBSPo licy Number: [id number] ctive Date:2021-12-10 CHRISTOPHER BARRETTUERDOB: [id number] [place] [address] [facility] EPIC 02/02/2025February Petros BAUERDOB: [place], [place] [address]Kpu: (HP) Primary Insurance:BCBSPo licy Number: [id number] ctive Date:2021-12-10 CHRISTOPHER LIMONDOB: [id number] [facility] [place] [address] [facility] EPIC 01/05/2025February Petros BARRETTUERDOB: [place], [place] [address]Puh: (HP) Primary Insurance:BCBSPo licy Number: [id number] ctive Date:2021-12-10 CHRISTOPHER BARRETTUERDOB: [id number] [place] [address] [facility] EPIC 12/08/2024February Petros BARRETTUERDOB: [place], [place] [address]Bar: (HP) Primary Insurance:BCBSPo licy Number: [id number] ctive Date:2021-12-10 CHRISTOPHER LIMONDOB: [id number] [facility] [place] [address] [facility] EPIC 11/09/2024February Petros LIMONDOB: [place], [place] [address]Sro: (HP) Primary Insurance:BCBSPo licy Number: [id number] ctive Date:2021-12-10 CHRISTOPHER LIMONDOB: [id number] [place] [address] [facility] EPIC 10/08/2024February Petros BAUERDOB: [place], [place] [address]Dzt: (HP) Primary Insurance:BCBSPo licy Number: [id number] ctive Date:2021-12-10 CHRISTOPHER LIMONDOB: [id number] [place] [address] [facility] EPIC
--- OUTSIDE RECORDS SUMMARY | 2025-03-23 15:50 | XMS_ITS | Encounter Summary ---
Author Organization [facility] Address [address] [place] [address] Care Team Providers Care Water Pump Installer Name Role Phone Codey Ponce MD Primary Care Provider [phone] Reason for Visit * Reason Comments Routine Visit Encounter Details Date Type Department Care Team (Late st Contact Info) Description 03/23/2025 3:50 PM EDT Routine [facility] B[facility] OB [address] [facility] [place] [phone] Monika Figueroa PA [address] [facility] [address] [place], [place] [phone] Third trimester ; 33 weeks gestation of [...] Index - - documented in this encounter Plan of Treatment [...] trimester documented in this encounter Care Teams Water Pump Installer Relationship Specialty Start Date End Date Codey Ponce MD PCP - General Family Medicine 10/08/24 documented as of this encounter
--- OUTSIDE RECORDS SUMMARY | 2025-03-23 16:44 | XMS_ITS | Patient Health Record ---
Author Organization [facility] [place] Address [address] [place] [address] Care Team Providers Care Director Nurses' Registry Name Role Phone Anuj Ponce Primary Care Provider Allergies No Known Allergies Results Component Value Reference Range Notes CBC AUTO DIFF Reviewed date:03/13/2025 05:41:45 PM Interpretation: Performing Lab: Notes/Report: [facility] , White Blood Count 4.7 4.0-11.0 10 3/uL Red Blood Count 3.72 4.20-5.40 10 6/uL Hemoglobin 11.5 12.0-16.0 g/dL Hematocrit 33.9 36.0-48.0 % Mean Corpuscular Volume 91.1 81.0-99.0 fL Mean Corpuscular Hemoglobin 30.9 26.7-34.0 pg Mean Corpuscular HGB Conc 33.9 29.9-35.2 g/dL Red Cell Distribution Width 13.2 11.0-15.0 % Platelet Count 155 150-450 10 3/uL Mean Platelet Volume 10.0 9.5-13.5 fL Performing Lab: see note ML - [facility] LB Manual Differential Reviewed date:03/13/2025 05:41:45 PM Interpretation: Performing Lab: Notes/Report: [facility] , Segmented Neutrophils % Manual 60.0 43.0-75.0 Lymphocytes Percent Manual 36.0 20.5-60.0 % F ew reactive lymphocytes Monocytes Percent Manual 4.0 1.7-12.0 % Eosinophils Percent Manual 0.0 0.9-7.0 % Basophils Percent Manual 0.0 0.2-2.0 % Segmented Neut Absolute Manual 2.82 1.4-6.5 10 3/uL Lymphocytes Absolute Manual 1.69 1.20-3.80 10 3/uL Monocytes Absolute Manual 0.18 0.30-0.80 10 3/ uL Eosinophils Absolute Manual 0.00 0.00-0.70 10 3/uL Basophils Abs Manual 0.00 0.00-0.10 10 3/uL Performing Lab: see note ML - [facility] LB Troponin I High Sensitivity Reviewed date:03/13/2025 05:41:45 PM Interpretation: Performing Lab: Notes/Report: [facility] , Troponin I High Sensitivity <4.0 4.0-51.3 pg/m L CUT-OFF POINTS HAVE BEEN ESTABLISHED BASED ON THE FOURTH UNIVERSAL DEFINITION OF MYOCARDIAL INFARCTION. THE UPPER REFERENCE LIMIT (URL) OF TROPONIN, DEFINED THE 99TH PERCENTILE OF cTnI DISTRIBUTION IN A REFERENCE POPULATION, HAS BEEN CONFIRMED THE DECISION THRESHOLD FOR ND DIAGNOSIS. 99TH PERCENTILE = 51.4 PG/ML NOTE: HIGH-SENSITIVITY TROPONIN ASSAY IS NOT INTENDED TO BE USED IN ISOLATION BUT SHOULD BE INTERPRETED IN CONJUNCTION WITH OTHER DIAGNOSTIC AND CLINICAL INFORMATION. Performing Lab: see note ML - [facility] Venous Blood Gas Reviewed date:03/13/2025 05:41:45 PM Interpretation: Performing Lab: Notes/Report: [facility] , pH VBG 7.441 7.330-7.430 PCO2 VBG 37.7 40.0-52.0 mmHg Performing Lab: see note - [facility] PROF 14(COMP METB) Reviewed date:03/13/2025 05:41:45 PM Interpretation: Performing Lab: Notes/Report: [facility] , Sodium 135 136-145 mmol/L Potassium 3.1 3.5-5.1 mmol/L Chloride 101 98-107 mmol/L Carbon Dioxide 25.0 21.0-32.0 mmol/L Anion Gap 12.1 Glucose 103 74-106 mg/dL Blood Urea Nitrogen 7.0 7.0-18.0 mg/dL Creatinine 0.53 0.55-1.02 mg/dL Estimated GFR ( Erika >60 >=60 mL/mi n/1.73m 2 Estimated GFR (Non- Vanna >60 >=60 mL/mi n/1.73m 2 BUN Creatinine Ratio 13.2 Calcium 8.3 8.5-10.1 mg/dL Bilirubin Total 0.3 0.2-1.0 mg/dL Aspartate Amino Transferase 25 15-37 U/L Alanine Aminotransferase 25 14-59 U/L Alkaline Phosphatase 96 46-116 U/L Total Protein 6.5 6.4-8.2 g/dL Albumin Level 2.5 3.4-5.0 g/dL Globulin 4.0 Albumin Globulin Ratio 0.6 Performing Lab: see note ML - [facility] LB BNP Reviewed date:03/13/2025 05:41:45 PM Interpretation: Performing Lab: Notes/Report: [facility] , NT Pro B Type Natriuretic Pept 12.0 <=450.0 pg /mL Performing Lab: see note ML - [facility] LB Reason For Referral No Information Medications Medication SIG (Take, Route, Frequency, Duration) Notes Start Date End Date Status Albuterol Sulfate HFA 108 (90 Base) MCG/ACT 1 puff as needed Inhalation every 4 hrs for 30 days Active Cephalexin 500 MG 2 capsule Orally twi ce daily for 10 days 09/22/2024 Active Cefdinir 300 MG 2 capsules Orally on ce daily for 10 days 03/11/2025 Active Social History Tobacco Use: Social History Observation Description Date Details (start date - stop date) Never Smoker NA - NA Tobacco Control (Standard) Question Answer Notes Tobacco use: Nonsmoker AUDIT-C (Standard) Question Answer Notes Did you have a drink containing alcohol in the p ast year? No Points 0 Interpretation Negative Vital Signs Blood pressure diastolic 70 mm Hg 09/22/2024 Height 63 in 09/22/2024 Blood pressure systolic 108 mm Hg 09/22/2024 Weight 144.6 lbs 09/22/2024 BMI 25.61 kg/m2 09/22/2024 Encounters Encounter Location Date Provider Diagnosis [facility] [address] [facility] [place] [address] 09/22/2024 Anuj Ponce [facility] [address] [place] [address] 09/22/2024 Anuj Ponce Acute bronchitis, unspecified organism J20.9 [facility] [address] [place] [address] 09/23/2024 Anuj Ponce [facility] [address] [place] [address] 09/23/2024 Anuj Hoanh Acute bronchitis, unspecified organism J20.9 [facility] [address] [facility] [place] [address] 09/24/2024 Anuj Hoy Acute bronchitis, unspecified organism J20.9 [facility] [address] [place] [place] [place] [address] 09/28/2024 Anuj Ponce [facility] [address] [place] [address] 03/11/2025 Anuj Ponce [facility] [address] [place] [address] 03/13/2025 Anuj Ponce [facility] [address] [place] [address] 09/22/2024 Anuj Hoy Acute bronchitis, unspecified organism J20.9 Assessments Encounter Date Diagnosis (ICD Code) Assessment Notes Treatment Notes Treatment Clinical Notes Section Notes 09/22/2024 Acute bronchitis, unspecified organism (ICD-10 - J20.9) Rest and drink more liquids, especially water. You may use a humidifier or vaporizer to help keep the drainage moist. Ssaw-asv-tmrjupa Nasal Saline may help the stuffy and runny nose. Use Ibuprofen and or Tylenol as needed for fever, chills, body aches or pain. Children 5 years old should not be given zbmv-dzx-snrbhaj cough and cold medications such as guaifenesin and dextromethorphan. If you're over age 5, you may try eabi-cus-sqrdlmo cold medications such as guaifenesin and dextromethorphan, or multi-symptom cold reliever such as Dayquil to help reduce the symptoms. Antibiotics have been prescribed. You should take these until completed and follow the directions. Antibiotics can sometimes cause upset stomach, and in rare cases, serious allergic reactions or serious gastrointestinal problems. If you start having severe abdominal pain, severe vomiting, or bloody diarrhea, you should be reevaluated by your physician or urgent care immediately. Follow up with your Primary Care Provider or return to clinic if symptoms do not improve within 3-5 days. If you develop severe symptoms such as shortness of breath, repeated vomiting, coughing up blood, or chest pain you should go to the emergency room or call 911 09/22/2024 Acute bronchitis, unspecified organism (ICD-10 - J20.9) 09/23/2024 Acute bronchitis, unspecified organism (ICD-10 - J20.9) 09/24/2024 Acute bronchitis, unspecified organism (ICD-10 - J20.9) Plan Of Treatment No Information Insurance Providers Payer Name Payer Address Payer Phone Subscriber Number Group Number Insured Name Patient Relationship to Insured Coverage Start Date Coverage End Date [employer] [address] [place] [phone] [id number] 8 February Self - patient is the insured Medical (General) History Surgical History Surgery Date(Month/Year) rt knee meniscus repair left eye surgery 1991
--- OUTSIDE RECORDS SUMMARY | 2025-03-23 16:44 | XMS_ITS | Encounter Summary ---
Author Organization [facility] Address [address] [place] [address] Care Team Providers Care Cattle Tester Name Role Phone Codey Ponce MD Primary Care Provider [phone] Encounter Details Date Type Department Care Team (Late st Contact Info) Description 10/09/2024 Clinisync Result Encounter [facility] External Department Unsolicited Grace Redding, DO [address] [facility] [place] [address] Social History Tobacco Use Types Packs/Day Years [...] on file documented as of this encounter Plan of Treatment Not on file documented as of this encounter Procedures Procedure Name Priority Date/Time Associated Diagnosis Comments US OB TRANSVAGINAL 10/09/2024 4: 32 AM EST documented in this encounter Results * US OB TRANSVAGINAL (10/09/2024 4:32 AM EST) Anatomical Region Laterality Modality Other 10/09/2024 4:32 AM EST Narrative 10/09/2024 4:35 AM EST The [address] [address] Ultrasound Report Signed Patient: Yessi Limon MR#: [id number] : 1985 Acct:[id number] Age/Sex: 39 / F ADM Date: 10/08/24 Loc: [facility] Attending Dr: Grace Redding D.O. Ordering Physician: Grace Redding D.O. Date of Service: 10/08/24 Procedure(s): US OB transvaginal Accession Number(s): [id number] cc: Grace Redding D.O.; Physician,Non-Staff Marielle The [address] [address] Patient Name: YESSI LIMON MRN: [id number] date: 1985 Sex: F Assigned Patient Location: [facility] Current Patient Location: Accession/Order Number: [id number] Exam Date: 10/08/2024 09:07 Report Date: 10/09/2024 04:32 At the request of: GRACE REDDING Procedure: US OB transvaginal EXAMINATION: US OB transvaginal HISTORY: MISSED MENSES COMPARISON: No relevant comparison available. FINDINGS: GESTATIONAL SAC: Present and normal appearing. YOLK SAC: Present and normal appearing. POLE: Present and normal appearing. CARDIAC: Present. UTERUS: Normal size and appearance. OVARIES: Right: Normal. Left: Not seen. CERVIX: 5.0 cm in length and closed. CUL-DE-SAC: Normal. OTHER: None. AGE BY LMP: 9 weeks 4 days MARIBETH BY LMP: 05/09/2025 AGE BY US CRL: 10 weeks 2 days MARIBETH BY US CRL: 05/04/2025 US/US OB transvaginal IMPRESSION: 1. Single live intrauterine . Electronically authenticated by: OLIVIER SANCHEZ Date: 10/09/2024 04:32 Dictated By: Olivier Sanchez M.D. Signed By: 10/09/24434 DD/ 1 TD/TT: Access Rn: Procedure Note Radiology, Radiologist, - 10/09/[address] [address] Ultrasound Report Signed Patient: Yessi Limon MMR#: [id number] : 1985Acct:[id number] Age/Sex: 39 / FADM Date: 10/08/24 Loc: [facility] Attending Dr: Grace Redding D.O. Ordering Physician: Grace Redding D.O. Date of Service: 10/08/24 Procedure(s): US OB transvaginal Accession Number(s): [id number] cc: Grace Redding D.O.; Physician,Non-Staff Marielle [place] [id number] Patient Name: YESSI LIMON MRN: [id number] date: 1985 Sex: F Assigned Patient Location: [facility] Current Patient Location: Accession/Order Number: [id number] Exam Date: 10/08/2024 09:07 Report Date: 10/09/2024 04:32 At the request of: GRACE REDDING Procedure: US OB transvaginal EXAMINATION: US OB transvaginal HISTORY: MISSED MENSES COMPARISON: No relevant comparison available. FINDINGS: GESTATIONAL SAC: Present and normal appearing. YOLK SAC: Present and normal appearing. POLE: Present and normal appearing. CARDIAC: Present. UTERUS: Normal size and appearance. OVARIES: Right: Normal. Left: Not seen. CERVIX: 5.0 cm in length and closed. CUL-DE-SAC: Normal. OTHER: None. AGE BY LMP: 9 weeks 4 days MARIBETH BY LMP: 05/09/2025 AGE BY US CRL: 10 weeks 2 days MARIBETH BY US CRL: 05/04/2025 US/US OB transvaginal IMPRESSION: 1. Single live intrauterine . Electronically authenticated by: OLIVIER SANCHEZ Date: 10/09/2024 04:32 Dictated By: Olivier Sanchez M.D. Signed By:10/09/24434 DD/ 1 TD/TT: Access Rn: us Grace Redding DO [facility] Final Result documented in this encounter Visit Diagnoses Not on filedocumented in this encounter Care Teams Cattle Tester Relationship Specialty Start Date End Date Codey Ponce MD PCP - General Family Medicine 10/08/24 documented as of this encounter
--- OUTSIDE RECORDS SUMMARY | 2025-03-23 16:44 | XMS_ITS | Encounter Summary ---
Author Organization [facility] Address [address] [facility] [place] [address] Care Team Providers Care Lockstitch Tunnel Elastic Operator Name Role Phone Codey Ponce MD Primary Care Provider [phone] Encounter Details Date Type Department Care Team (Late st Contact Info) Description 01/18/2025 Orders Only [facility] [address] [place] [id number] Maria Guadalupe Hernandez PR [address] [place] [address] Social History Tobacco Use Types Packs/Day Years [...] Procedure Name Priority Date/Time Associated Diagnosis Comments PAP SMEAR Routine 01/05/2025 12:00 AM EST documented in this encounter Results * Pap Smear (01/05/2025 12:00 AM EST) Swab Cervical swab / Unknown us Henry Miladis DO LAB CYTOLOGY ORDERABLES Final Re sult EXTERNAL LAB documented in this encounter Visit Diagnoses Not on filedocumented in this encounter Care Teams Lockstitch Tunnel Elastic Operator Relationship Specialty Start Date End Date Codey Ponce MD PCP - General Family Medicine 10/08/24 documented as of this encounter
--- OUTSIDE RECORDS SUMMARY | 2025-03-23 16:44 | XMS_ITS | Encounter Summary ---
Author Organization [facility] Address [address] [facility] [place] [address] Care Team Providers Care Stem Shaper Name Role Phone Codey Ponce MD Primary Care Provider [phone] Encounter Details Date Type Department Care Team (Late st Contact Info) Description 03/23/2025 Bamboo flowsheet [facility] [address] [facility] [place] [phone] Monika Figueroa PA [address] [facility] [address] [place], [place] [phone] Social History Tobacco Use Types Packs/Day Years [...] on file documented as of this encounter Visit Diagnoses Not on filedocumented in this encounter Care Teams Stem Shaper Relationship Specialty Start Date End Date Codey Ponce MD PCP - General Family Medicine 10/08/24 documented as of this encounter
--- OUTSIDE RECORDS SUMMARY | 2025-03-23 16:44 | XMS_ITS | Encounter Summary ---
Author Organization [facility] Address [address] [place] [address] Care Team Providers Care Fuel Agent Name Role Phone Codey Ponce MD Primary Care Provider [phone] Encounter Details Date Type Department Care Team (Late st Contact Info) Description 11/23/2024 Abstract [facility] [address] [place] [phone] Henry Redding, DO [address] [place], [place] [id number] Social History Tobacco Use Types Packs/Day Years [...] on filedocumented in this encounter Care Teams Fuel Agent Relationship Specialty Start Date End Date Codey Ponce MD PCP - General Family Medicine 10/08/24 documented as of this encounter
--- OUTSIDE RECORDS SUMMARY | 2025-03-23 16:44 | XMS_ITS | Encounter Summary ---
Author Organization [facility] Address [address] [place] [address] Care Team Providers Care Resident Care Director Name Role Phone Codey Ponce MD Primary Care Provider [phone] Encounter Details Date Type Department Care Team (Late st Contact Info) Description 10/08/2024 Abstract [facility] [address] [facility] [place] [phone] Henry Redding, DO [address] [place], [place] [id number] Social History Tobacco Use Types Packs/Day Years [...] on filedocumented in this encounter Care Teams Resident Care Director Relationship Specialty Start Date End Date Codey Ponce MD PCP - General Family Medicine 10/08/24 documented as of this encounter
[2025-03-23 16:54] VITALS: BP 133/86; PULSE 106
--- OUTSIDE RECORDS SUMMARY | 2025-03-23 16:58 | XMS_ITS | CCD ---
Author Organization [facility] Care Team Providers Care Supervisory Lifeguard Name Role Phone GLENNA MCINTYRE Admitting Unavailable GLENNA MCINTYRE Attending Unavailable GLENNA MCINTYRE Consulting Unavailable NORM PONCE Admitting Unavailable NORM PONCE Attending Unavailable NORM PONCE Consulting Unavailable ANDREA AVERY Consulting Unavailable Norm Ponce MD Primary Care Provider [phone] Norm Ponce MD Primary Care Provider [phone] MONIKA FRIED Attending Unavailable GRACE REDDING Attending Unavailable MONIKA FRIED Attending Unavailable GRACE REDDING Attending Unavailable GRACE REDDING Attending Unavailable GRACE REDDING Attending Unavailable Allergies Allergy Classification Reported Allergen(s) Allergy Type Date of Onset Reaction(s) Facility (1 source) Desonide Drug Allergy [facility] Repository Medications Current Medications Medication Drug [...] II, MD, PHD at 09-Mar-2025 08:42:[address] [facility] Normal Not Available Comment on above: Order Comment: US OB SCAN FOR GROWTH Estimated Date of Delivery: 05/09/25 Gestational Age as of 02/21/2025: 29w0d Urinalysis macro (dipstick) panel (U)on 03-07-2025 Bilirubin, UA Negative Negative - 4(70) +++ mg/dL [facility] Blood, UA Negative Negative - 50 Venu/mcL [facility] Healthcare Clarity, UA Clear [facility] re Color, UA Yellow [facility] Glucose, UA Negative Negative - 1999(110) ++++ mg/dL [facility] Interpretation and review of laboratory results Normal [facility] Ketones, UA Negative Negative - 160(16) ++++ mg/dL [facility] Leukocytes, UA Negative Negative - 500+++ Michael/mcL [facility] Nitrite, UA Negative Negative - Positive [facility] pH, UA 6 5 - 9 [facility] Protein, UA Negative Negative - 1999(20) ++++ mg/dL [facility] Spec Grav, UA 1.015 1 - 1.03 [facility] care Urobilinogen, UA 0.2 0.2 - 12 mg/dL [facility] Urinalysis macro (dipstick) panel (U)on 02-21-2025 Bilirubin, UA Negative Negative - 4(70) +++ mg/dL [facility] Blood, UA Negative Negative - 50 Venu/mcL [facility] Clarity, UA Clear [facility] re Color, UA Yellow [facility] Glucose, UA Negative Negative - 1999(110) ++++ mg/dL [facility] Interpretation and review of laboratory results Abnormal [facility] Ketones, UA Negative Negative - 160(16) ++++ mg/dL [facility] Leukocytes, UA Trace Negative - 500+++ Michael/mcL [facility] Nitrite, UA Negative Negative - Positive [facility] pH, UA 7 5 - 9 [facility] Protein, UA Positive Negative - 1999(20) ++++ mg/dL [facility] Comment on above: 30mg/dL Spec Grav, UA 1.025 1 - 1.03 [facility] Urobilinogen, UA 4.0 0.2 - 12 mg/dL [facility] Urinalysis macro (dipstick) panel (U)on 02-02-2025 Bilirubin, UA Negative Negative - 4(70) +++ mg/dL [facility] Blood, UA Negative Negative - 50 Venu/mcL [facility] Clarity, UA Clear [facility] re Color, UA Yellow [facility] e Glucose, UA Negative Negative - 1999(110) ++++ mg/dL [facility] Interpretation and review of laboratory results Abnormal [facility] Ketones, UA Negative Negative - 160(16) ++++ mg/dL [facility] Leukocytes, UA Trace Negative - 500+++ Michael/mcL [facility] Nitrite, UA Negative Negative - Positive [facility] pH, UA 7 5 - 9 [facility] e Protein, UA Negative Negative - 1999(20) ++++ mg/dL [facility] Spec Grav, UA 1.02 1 - 1.03 [facility] Urobilinogen, UA 1.0 0.2 - 12 mg/dL [facility] IGP,APTIMA HPV,AGE GDLNon AGE GDLN ACOG TESTING Note . [facility] Comment on above: TESTS RESULT FLAG UN ITS REF RANGE LAB Clinician Provided Cytology Information Source.............Cervix No. of containers..01 ThinPrep Vial Age Frances DENG Sushma... 32 FLAG LEGEND: L-Low Normal,H-High Normal,LL-Alert Low,HH-Alert High <-Panic Low,>-Panic High,A-Abnormal,AA-Critical Abnormal Performed at: 01 =[address] [address] Enma Todd MD, HPV APTIMA Negative Negative [facility] Comment on above: This nucleic acid am plification test detects fourteen high- risk HPV types (16,18,31,33,35,39,45,51,52,56,58,59,66,68) without differentiation. Performed at: =[address] [id number] Steel Box Toe Inserter: Enma Todd MD, Phone: [phone] Performed at: [address] [id number] [employer] Box [employer] Inserter: Enma Todd MD, Phone: [phone] IGP, APTIMA HPV, RFX 16/18,45 Note . [facility] Comment on above: TESTS RESULT FLAG UN ITS REF RANGE LAB DIAGNOSIS: 02 NEGATIVE FOR INTRAEPITHELIAL LESION OR MALIGNANCY. FUNGAL ORGANISMS MORPHOLOGICALLY CONSISTENT WITH COREEN SPECIES ARE PRESENT. Specimen adequacy: 02 Satisfactory for evaluation. No endocervical component is identified. Performed by: 02 Breanna Hollie Lucero, Employee Relations Consultant . 02 Note: Note 02 The Pap [...] Low,>-Panic High,A-Abnormal,AA-Critical Abnormal Performed at: [address] [address] nEma Todd MD, SPATULA-ALONE CERVIX [facility] Urinalysis macro (dipstick) panel (U)on 01-05-2025 Bilirubin, UA Negative Negative - 4(70) +++ mg/dL [facility] Blood, UA Negative Negative - 50 Venu/mcL [facility] Clarity, UA Clear [facility] re Color, UA Yellow [facility] Glucose, UA Negative Negative - 1999(110) ++++ mg/dL [facility] Interpretation and review of laboratory results Normal [facility] Ketones, UA Negative Negative - 160(16) ++++ mg/dL [facility] Leukocytes, UA Negative Negative - 500+++ Michael/mcL [facility] Nitrite, UA Negative Negative - Positive [facility] pH, UA 5.5 5 - 9 [facility] Protein, UA Negative Negative - 1999(20) ++++ mg/dL [facility] Spec Grav, UA 1.01 1 - 1.03 [facility] Urobilinogen, UA 0.2 0.2 - 12 mg/dL [facility] US OB ANATOMYon 12-29-[address] [address] Ultrasound Report Signed Patient: YESSI AGEE MR#: [id number] : 1985 Acct:[id number] Age/Sex: 39 / F ADM Date: 12/23/24 Loc: US Attending Dr: Monika Fried Ordering Physician: Monika Fried Date of Service: 12/23/24 Procedure(s): US OB anatomy Accession Number(s): [id number] cc: Monika Fried; Physician,Non-Staff Marielle [address] [address] Patient Name: YESSI AGEE MRN: [id number] date: 1985 Sex: F Assigned Patient Location: US Current Patient Location: US Accession/Order Number: [id number] Exam Date: 12/24/2024 09:49 Report Date: 12/24/2024 [...] all 4 extremities were surveyed by the coil connector repairer. No abnormalities were detected. The stomach, kidneys, [...] Marion Flaherty M.D.12/24/2024 10:03 AM Dictation Location[facility] Electronically authenticated by: [id number] Y Date: 12/24/2024 10:03 Dictated By: Marion Flaherty M.D. Signed By: 12/29/24 1035 DD/ 1003 TD/TT: Siebel Architect: [facility] Radiology, Radiologist, MD - 12/29/2024 [place] [address] Ultrasound Report Signed Patient: YESSI AGEE MR#: [id number] : 1985 Acct:[id number] Age/Sex: 39 / F ADM Date: 12/23/24 Loc: US Attending Dr: Monika Fried Ordering Physician: Monika Fried Date of Service: 12/23/24 Procedure(s): US OB anatomy Accession Number(s): [id number] cc: Monika Fried; Physician,Non-Staff Marielle The [address] [address] Patient Name: YESSI AGEE MRN: [facility]:[id number] date: 1985 Sex: F Assigned Patient Location: US Current Patient Location: US Accession/Order Number: [id number] Exam Date: 12/24/2024 09:49 Report Date: 12/24/2024 [...] all 4 extremities were surveyed by the coil connector repairer. No abnormalities were detected. The stomach, kidneys, [...] Marion Flaherty M.D.12/24/2024 10:03 AM Dictation Location: [facility] Electronically authenticated by: [id number] Y Date: 12/24/2024 10:03 Dictated By: Marion Flaherty M.D. Signed By: 12/29/24 1035 DD/ 1003 TD/TT: Siebel Architect: [facility] OB ANATOMYOrdered By: Lul kesslerogyesenia Radiology on 12-29-2024 [facility] Work Phone: No Panel Informationon 12-24 Radiology Study observation (narrative) [facility] OB CERVICAL LENGTHon 12-05 [place] [address] Ultrasound Report Signed Patient: YESSI AGEE MR#: [id number] : 1985 Acct:[id number] Age/Sex: 39 / F ADM Date: 12/23/24 Loc: US Attending Dr: Monika Fried Ordering Physician: Monika Fried Date of Service: 12/23/24 Procedure(s): US OB cervical length Accession Number(s): [id number] cc: Monika Fried; Physician,Non-Staff Marielle The [place] [id number] Patient Name: YESSI AGEE MRN: [id number] date: 1985 Sex: F Assigned Patient Location: Current Patient Location: Accession/Order Number: [id number] Exam Date: 12/24/2024 09:49 Report Date: 12/24/2024 [...] all 4 extremities were surveyed by the coil connector repairer. No abnormalities were detected. The stomach, kidneys, [...] Marion Flaherty M.D.12/24/2024 10:03 AM Dictation Location[facility] Electronically authenticated by: [id number] Y Date: 12/24/2024 10:03 Dictated By: Marion Flaherty M.D. Signed By: 12/24/24 1005 DD/ 1003 TD/TT: Siebel Architect: [facility] Radiology, Radiologist, MD - 12/24/[address] [address] Ultrasound Report Signed Patient: YESSI AGEE MR#: [id number] : 1985 Acct:[id number] Age/Sex: 39 / F ADM Date: 12/23/24 Loc: US Attending Dr: Monika Fried Ordering Physician: Monika Fried Date of Service: 12/23/24 Procedure(s): US OB cervical length Accession Number(s): [id number] cc: Monika Fried; Physician,Non-Staff [facility] The [address] [address] Patient Name: YESSI AGEE MRN: [facility]:[id number] date: 1985 Sex: F Assigned Patient Location: US Current Patient Location: Accession/Order Number: [id number] Exam Date: 12/24/2024 09:49 Report Date: 12/24/2024 [...] all 4 extremities were surveyed by the coil connector repairer. No abnormalities were detected. The stomach, kidneys, [...] Marion Flaherty M.D.12/24/2024 10:03 AM Dictation Location: [facility] Electronically authenticated by: [id number] Y Date: 12/24/2024 10:03 Dictated By: Marion Flaherty M.D. Signed By: 12/24/24 1005 DD/ 1003 TD/TT: Siebel Architect: [facility] OB CERVICAL LENGTHOrdered By: Radiologist Radiology on 12-24-2024 [facility] [employer] Work Phone: Urinalysis macro (dipstick) panel (U)on 12-08-2024 Bilirubin, UA Negative Negative - 4(70) +++ mg/dL [facility] Blood, UA Negative Negative - 50 Venu/mcL [facility] Clarity, UA Clear [facility] re Color, UA Yellow [facility] Glucose, UA Negative Negative - 1999(110) ++++ mg/dL [facility] Interpretation and review of laboratory results Normal [facility] Ketones, UA Negative Negative - 160(16) ++++ mg/dL [facility] Leukocytes, UA Negative Negative - 500+++ Michael/mcL [facility] Nitrite, UA Negative Negative - Positive [facility] pH, UA 7 5 - 9 [facility] Protein, UA Negative Negative - 1999(20) ++++ mg/dL [facility] Spec Grav, UA 1.025 1 - 1.03 [facility] Urobilinogen, UA 1.0 0.2 - 12 mg/dL [facility] ALL CBC WITH AUTO DIFFon BASOPHILS ABSOLUTE AUTO 0 [facility] Basophils/100 WBC (Bld) 0.2 % 0.2 - 2.0 % [facility] Eosinophils/100 WBC (Bld) 1 % 0.9 - 7.0 % [facility] Erythrocyte distribution width (RBC) [Ratio] 13.6 % 11.0 - 15.0 % [facility] Hematocrit (Bld) [Volume fraction] 37.5 % 36.0 - 48.0 % [facility] Hemoglobin (Bld) [Mass/Vol] 12.5 g/dL 12.0 - 16.0 g/dL [facility] IMMATURE GRANULOCYTES ABS AUTO 0.15 High [facility] Immature granulocytes/100 WBC (Bld) 1.9 % High 0.0 - 0.5 % [facility] Interpretation and review of laboratory results Abnormal [facility] LYMPHOCYTES ABSOLUTE AUTO 1.7 [facility] Lymphocytes/100 WBC (Bld) 20.4 % Low 20.5 - 60.0 % [facility] MCH (RBC) [Entitic mass] 30.3 pg 26.7 - 34.0 pg [facility] MCHC (RBC) [Mass/Vol] 33.3 g/dL 29.9 - 35.2 g/dL [facility] MCV (RBC) [Entitic vol] 90.8 fL 81.0 - 99.0 fL [facility] MONOCYTES ABSOLUTE AUTO 0.5 [facility] Monocytes/100 WBC (Bld) 5.6 % 1.7 - 12.0 % [facility] NEUTROPHILS ABSOLUTE AUTO 5.8 [facility] Neutrophils/100 WBC (Bld) 70.9 % 43.0 - 75.0 % [facility] Platelet mean volume (Bld) [Entitic vol] 9.9 fL 9.5 - 13.5 fL [facility] EO # 0.1 [facility] TB PLT 170 [facility] RBC 4.13 Low [facility] TB WBC 8.1 [facility] Urinalysis macro (dipstick) panel (U)on 11-09-2024 Bilirubin, UA Negative Negative - 4(70) +++ mg/dL [facility] Blood, UA Negative Negative - 50 Venu/mcL [facility] Clarity, UA Clear [facility] re Color, UA Yellow [facility] Glucose, UA Negative Negative - 2000(110) ++++ mg/dL [facility] Interpretation and review of laboratory results Normal [facility] Ketones, UA Negative Negative - 160(16) ++++ mg/dL [facility] Leukocytes, UA Negative Negative - 500+++ Michael/mcL [facility] Nitrite, UA Negative Negative - Positive [facility] pH, UA 6.5 5 - 9 [facility] Protein, UA Negative Negative - 1999(20) ++++ mg/dL [facility] Healthcare Spec Grav, UA 1.015 1 - 1.03 [facility] Urobilinogen, UA 0.2 0.2 - 12 mg/dL [facility] HCG ( test) Ql (U)o n 10-08-2024 Interpretation and review of laboratory results Abnormal [facility] Preg Test, Ur Positive Negative [facility] care [facility] Urinalysis macro (dipstick) panel (U)on 10-08-2024 Bilirubin, UA Negative Negative - 4(70) +++ mg/dL [facility] Blood, UA Negative Negative - 50 Venu/mcL [facility] Clarity, UA Clear [facility] re Color, UA Yellow [facility] Glucose, UA Negative Negative - 1999(110) ++++ mg/dL [facility] Interpretation and review of laboratory results Normal [facility] Ketones, UA Negative Negative - 160(16) ++++ mg/dL [facility] Leukocytes, UA Negative Negative - 500+++ Michael/mcL [facility] Nitrite, UA Negative Negative - Positive [facility] pH, UA 5.5 5 - 9 [facility] Protein, UA Negative Negative - 1999(20) ++++ mg/dL [facility] Spec Grav, UA 1.01 1 - 1.03 [facility] Urobilinogen, UA 0.2 0.2 - 12 mg/dL [facility] US CARROLL DOP LEG [...] ANDREA AVERY Date: 2020-05-15 15:51 Normal [facility] VAGINITIS/VAGINOSIS DNA PROB Will 08-07-2019 Coreen species Positive Abnormal Negative [facility] Comment on above: Performed By: #### V AGINT #### [facility] [address], [place] [address] Toul Schultz Gardnerella vaginalis Negative Normal Negative [facility] Comment on above: Performed By: #### V AGINT #### [facility] [address] [place], [place] [address] Tolu Schultz Trichomonas vaginalis Negative Normal Negative [facility] Comment on above: Performed By: #### V AGINT #### [facility] [address] [place], [place] [address] Tolu Schultz Vital Signs Date Time Vital Sign Value Performing Clinician Faci lity 03-07-2025 15:44-0400 Body weight 73.48 kg Grace Miladis DO Work Phone: [facility] 03-07-2025 15:44-0400 Diastolic blood pressure 72 mm[Hg] Grace Miladis DO Work Phone: [facility] 03-07-2025 15:44-0400 Systolic blood pressure 118 mm[Hg] Grace Miladis DO Work Phone: [facility] 02-21-2025 08:33-0400 Body weight 73.37 kg Grace Miladis DO Work Phone: [facility] 02-21-2025 08:33-0400 Diastolic blood pressure 74 mm[Hg] Grace Miladis DO Work Phone: [facility] 02-21-2025 08:33-0400 Systolic blood pressure 116 mm[Hg] Grace Miladis DO Work Phone: [facility] 02-02-2025 15:42-0400 Body weight 73.14 kg Monika WEEKS Work Phone: [facility] 02-02-2025 15:42-0400 Diastolic blood pressure 76 mm[Hg] Monika WEEKS Work Phone: [facility] 02-02-2025 15:42-0400 Systolic blood pressure 116 mm[Hg] Monika WEEKS Work Phone: [facility] 01-05-2025 16:05-0500 Body weight 71.22 kg Grace Miladis DO Work Phone: [facility] 01-05-2025 16:05-0500 Diastolic blood pressure 72 mm[Hg] Grace Miladis DO Work Phone: [facility] 01-05-2025 16:05-0500 Systolic blood pressure 118 mm[Hg] Grace Miladis DO Work Phone: [facility] 12-08-2024 15:59-0500 Body weight 70.94 kg Monika WEEKS Work Phone: [facility] 12-08-2024 15:59-0500 Diastolic blood pressure 72 mm[Hg] Monika WEEKS Work Phone: [facility] 12-08-2024 15:59-0500 Systolic blood pressure 110 mm[Hg] Monika WEEKS Work Phone: [facility] 11-09-2024 11:10-0500 Body weight 67.13 kg Grace Miladis DO Work Phone: [facility] 11-09-2024 11:10-0500 Diastolic blood pressure 68 mm[Hg] Grace Miladis DO Work Phone: [facility] 11-09-2024 11:10-0500 Systolic blood pressure 108 mm[Hg] Grace Miladis DO Work Phone: [facility] 10-08-2024 10:17-0500 Body weight 64.86 kg Noms Nurse [facility] Encounters Encounter Date Encounter Type Care Provider Facility Start: 03-07-2025 End: 03-07-2025 flow sheet Grace Miladis DO Work Phone: [facility] Comment on above: Upper respiratory [...] encounter procedure Grace Miladis DO Work Phone: [facility] Start: 01-05-2025 End: 01-05-2025 Periodic preventive med [...] Routine [facility] [address] [place] [address] Monika Fried PA [address] [place], [place] [id number] [facility] Start: 03-07-2025 End: 03-07-2025 Patient encounter procedure 03/07/2025 3:30 PM EDT Routine [facility] [address] [place] [id number] Grace Redding, DO [address] [place], [place] [id number] [facility] Start: 03-07-2025 End: 03-07-2025 Professional / ancillary services management 03/07/2025 3:00 PM EDT Ancillary Procedure [facility] [address] [place] [address] [facility] Start: 03-07-2025 End: [...] PM EDT Routine [facility] [address] [facility] [place] [address] Grace Redding, [facility] [place] [address] [facility] Start: 02-21-2025 End: 06-23-2025 US for US OB follow up transabdominal approach Imaging Routine Size of fetus inconsistent with dates in third trimester Expected: 02/21/2025, Expires: 06/23/2025 [facility] Work Phone: Comment on above: Expected: 02/21/2025 , Expires: 06/23/2025 Start: 02-21-2025 End: 02-21-2025 Patient encounter procedure 02/21/2025 8:30 AM EDT Routine [facility] [address] [facility] [place] [address] Grace Redding, [address] [place] [address] Arrived [facility] Comment on above: [...] gestation of Expected: 12/08/2024 (Approximate), Expires: 06/07/2025 [facility] Healthcare Comment on above: Expected: 12/08/2024 (Approximate), [...] gestational age Expected: 10/08/2024 (Approximate), Expires: 10/08/2025 [facility] Healthcare Comment on above: Expected: 10/08/2024 (Approximate), Expires: 10/08/2025 Start: 10-08-2024 End: 10-08-2025 Blood type and Indirect antibody screen panel - Blood Type and screen Lab Routine Missed menses , unspecified gestational age Expected: 10/08/2024 (Approximate), Expires: 10/08/2025 [facility] Work Phone: Comment on above: Expected: 10/08/2024 (Approximate), Expires: 10/08/2025 Start: 10-08-2024 End: 10-08-2025 Drugs of abuse panel - Urine by Screen method Rapid drug screen, urine Lab Routine , unspecified gestational age Encounter for supervision of normal first in first trimester Expected: 10/08/2024 (Approximate), Expires: 10/08/2025 [facility] Healthcare Comment on above: Expected: 10/08/2024 (Approximate), Expires: 10/08/2025 Start: 10-08-2024 End: 10-08-2025 US Pelvis transvaginal US OB transvaginal Imaging Routine Missed menses Expected: 10/08/2024 (Approximate), Expires: 10/08/2025 [facility] Healthcare Comment on above: Expected: 10/08/2024 (Approximate), Expires: 10/08/2025 Bacteria identified in Urine by Culture Urine culture Microbiology Routine Missed menses Ordered: 10/08/2024 [facility] Comment on above: Ordered: 10/08/2024 CBC W Auto Different ial panel - Blood CBC and differential Lab Routine Missed menses , unspecified gestational age Ordered: 10/08/2024 [facility] Comment on above: Ordered: 10/08/2024 CHLAMYDIA TRACHOMATI S (GENITO/STI) CHLAMYDIA TRACHOMATIS (GENITO/STI) Lab Routine Exposure to STD Ordered: 01/05/2025 [facility] Comment on above: Ordered: 01/05/2025 Cytology Cervical or vaginal smear or scraping study Pap Smear Pathology and Cytology Routine Well woman exam with routine gynecological exam Ordered: 01/05/2025 [facility] Comment on above: Ordered: 01/05/2025 Hemoglobin A1c/Hemoglobin.total in Blood Hemoglobin A1c Lab Routine Missed menses , unspecified gestational age Ordered: 10/08/2024 [facility] Comment on above: Ordered: 10/08/2024 Hemoglobin A1c/Hemoglobin.total in Blood Hemoglobin A1c Lab Routine Diabetes mellitus screening Ordered: 01/05/2025 [facility] Comment on above: Ordered: 01/05/2025 Hepatitis B virus surface Ag [Presence] in Serum or Plasma by Immunoassay Hepatitis B surface antigen Lab Routine Missed menses , unspecified gestational age Ordered: 10/08/2024 [facility] Comment on above: Ordered: 10/08/2024 Hepatitis C virus Ab [Presence] in Serum or Plasma by Immunoassay Hepatitis C antibody Lab Routine Missed menses , unspecified gestational age Ordered: 10/08/2024 [facility] [facility] Comment on above: Ordered: 10/08/2024 HIV-1/HIV-2 antigen/antibody combination immunoassay HIV-1 and HIV-2 antibodies Lab Routine Missed menses , unspecified gestational age Ordered: 10/08/2024 [facility] Comment on above: Ordered: 10/08/2024 Human papilloma viru s DNA [Presence] in Unspecified specimen by Probe with amplification HPV DNA probe, amplified Microbiology Routine Well woman exam with routine gynecological exam Ordered: 01/05/2025 [facility] Comment on above: Ordered: 01/05/2025 Neisseria gonorrhoea e DNA [Presence] in Unspecified specimen by NERIS with probe detection Neisseria gonorrhea DNA probe, direct Lab Routine Exposure to STD Ordered: 01/05/2025 [facility] Comment on above: Ordered: 01/05/2025 Reagin Ab [Presence] in Serum by RPR RPR Lab Routine Missed menses , unspecified gestational age Ordered: 10/08/2024 [facility] Comment on above: Ordered: 10/08/2024 Rubella antibody, IgG Rubella an tibody, IgG Lab Routine Missed menses , unspecified gestational age Ordered: 10/08/2024 [facility] Comment on above: Ordered: 10/08/2024 SURESWAB(R) ADVANCED VAGINITIS PLUS, TMA SURESWAB(R) ADVANCED VAGINITIS PLUS, TMA Pathology and Cytology Routine Exposure to STD Ordered: 01/05/2025 [facility] Work Phone: Comment on above: Ordered: 01/05/2025 Payers Date Payer Category Payer [facility] [id number] 2021 Unknown [id number] 1985 Unknown [id number] .2.593 1985 Unknown [id number] 2.840.1.491769.3.579 .2.593 1987 Unknown [id number] 2..840.1.034919.3.579 .2.1259 1987 Unknown [id number] 2.16.840.1.413288.3.579 .2.9 1987 Unknown [id number] 2.16.840.1.392205.3.579 .2.9 1987 Unknown [id number] 2.16.840.1.560271.3.579 .2.9 1987 Unknown [id number] 2.16.840.1.312638.3.579 .2.1258 1987 Unknown [id number] 2.16.840.1.388874.3.579 .2.9 1987 Unknown [id number] 2.16.840.1.897678.3.579 .2.9 1987 Unknown [id number] 2.16.840.1.588213.3.579 .2.1259 1957 Private Health Insurance [id number] Social History Date Type Detail Facility Tobacco smoking stat [facility] Tobacco smoking consumption unknown [facility] Start: 1985 Sex assigned at Not on file [facility] Gender identity Not [facility] Start: 08-16-2024 [facility] Clinical Notes 10-08-2024 to 03-07-2025 Isabel Camara NP - 03/07/2025 3:30 PM Richard Lees LPN - 02/21/2025 8:30 AM Madison Camara NP - 02/02/2025 3:40 PM Ana Lerner LPN - 01/05/2025 3:50 PM EST Note [...] Grace Redding DO documented in this encounter [facility] 02-21-2025 History of Presen t illness Narrative [...] nursing note reviewed. Exam conducted with a alarm adjuster present. Vitals: There is no height or [...] Grace Redding DO documented in this encounter [facility] 02-02-2025 History of Presen t illness Narrative [...] nursing note reviewed. Exam conducted with a alarm adjuster present. Vitals: There is no height or [...] of: DESI Wilson documented in this encounter [facility] 01-05-2025 History of Presen t illness Narrative [...] nursing note reviewed. Exam conducted with a alarm adjuster present. Vitals: There is no height or [...] Grace Redding DO documented in this encounter [facility] 12-08-2024 History of Presen t illness Narrative [...] of: DESI Wilson documented in this encounter [facility] 11-09-2024 History of Presen t illness Narrative [...] nursing note reviewed. Exam conducted with a alarm adjuster present. Vitals: There is no height or [...] undercooked meat, and stay away from [facility]. Patient has been consulted regarding any [...] Grace Redding DO documented in this encounter [facility] 10-08-2024 History of Presen t illness Narrative [...] undercooked meat, and stay away from [facility]. Patient has also been advised to [...] in third trimester documented in this encounter [facility] Healthcare Summary Purpose Family History No Family History Records FoundNo Family History Records Found Advance Directives No Advanced Directives Records FoundNo Advanced Directives Records Found Additional Source Comments INFORMATION SOURCE (unrecogn ized section and content) DATE CREATED AUTHOR 05/26/2020 Malika Shah [facility] DATE CREATED AUTHOR AUTHOR'S ORGANIZ ATION 03/10/2025 [facility] Reason for Visit (unrecogniz ed section and content) Reason Comments Amenorrhea Reason Comments Routine Visit Care Teams (unrecognized sec tion and content) Supervisory Lifeguard Relationship Specialty Start Date End Date Norm Ponce MD [address] [place] [address] PCP - General Family Medicine 10/08/24 Supervisory Lifeguard Relationship Specialty Start Date End Date Norm Ponce MD [address] [place] [address] PCP - General Family Medicine 10/08/24 Supervisory Lifeguard Relationship Specialty Start Date End Date Norm Ponce MD [address] [facility] [place] [address] PCP - General Family Medicine 10/08/24 Supervisory Lifeguard Relationship Specialty Start Date End Date Norm Ponce MD [address] [facility] [place] [address] PCP - General Family Medicine 10/08/24 Supervisory Lifeguard Relationship Specialty Start Date End Date Norm Ponce MD [address] [facility] [place] [address] PCP - General Family Medicine 10/08/24 Supervisory Lifeguard Relationship Specialty Start Date End Date Norm Ponce MD [address] [facility] [place] [address] PCP - General Family Medicine 10/08/24 Supervisory Lifeguard Relationship Specialty Start Date End Date Norm Ponce MD [address] [facility] [place] [address] PCP - General Family Medicine 10/08/24 Supervisory Lifeguard Relationship Specialty Start Date End Date Norm Ponce MD [address] [facility] [place] [address] PCP - General Family Medicine 10/08/24 Supervisory Lifeguard Relationship Specialty Start Date End Date Norm [...] BE BASED ON THE PRIMARY CLINICAL RECORDS. [facility] [employer] [facility]. provides no warranty or guarantee of the accuracy or completeness of information in this document.
[2025-03-23 17:14] LABS: Bilirubin Urine NEGATIVE (NEGATIVE); Blood Urine NEGATIVE (NEGATIVE); Clarity Urine CLEAR (CLEAR); Color Urine LT. YELLOW (YELLOW); Glucose Urine UA NEGATIVE (NEGATIVE); Ketones Urine NEGATIVE (NEGATIVE); Leukocyte Esterase Urine NEGATIVE (NEGATIVE); Nitrite Urine NEGATIVE (NEGATIVE); Protein Urine NEGATIVE (NEG/TRACE); Specific Gravity Urine <=1.005 (1.005-1.025); Urobilinogen Urine 0.2 EU/dL (0.2-1.0)
[2025-03-23] MEDS: 0.9 % SODIUM CHLORIDE 1,000 ML 999 ML IV (17:18)
[2025-03-23 17:25] VITALS: BP 123/73; PULSE 81
[2025-03-23 17:26] LABS: Urine Microscopic Indicated NO
--- NOTE | 2025-03-23 17:34 | US_ITS ---
[place] [id number] Patient Name: JUAREZ LIMON MRN: [id number] date: 1985 Sex: F Assigned Patient Location: [facility] Current Patient Location: [facility] Accession/Order Number: [id number] Exam Date: 03/23/2025 18:26 Report Date: 03/23/2025 18:27 At the request of: GRACE LOVELL DO Procedure: US OB cervical length Limited ultrasound HISTORY: Contractions since 4:15 PM Fetus in cephalic presentation with longitudinal lie. Amniotic fluid subjectively normal. heart rate 142 bpm. The cervical length is 3.9 cm. Cervical os is closed. US/US OB cervical length IMPRESSION: Single live intrauterine gestation. Cervical length 3.9 cm with os closed. Impression dictated by: Jhon Gould M.D. 03/23/2025 6:27 PM Dictation Location: [employer] Electronically authenticated by: [id number] Y Date: 03/23/2025 18:27
[2025-03-23] MEDS: NIFEdipine 10 MG CAPSULE PO (18:43)
[2025-03-23 20:53] VITALS: BP 107/65
[2025-03-23] MEDS: NIFEdipine 10 MG CAPSULE 20 MG PO (20:53)
[2025-03-23 20:55] VITALS: BP 107/65; PULSE 83
[2025-03-23] MEDS: BETAMETHASONE ACE/BETAMETHASONE SOD PHOS 30 MG/5 ML 12 MG IM (20:56)
[2025-03-23] MEDS: ACETAMINOPHEN 500 MG TABLET 1000 MG PO (22:38)
[2025-03-24 00:55] VITALS: BP 102/57; PULSE 84; TEMP 35.8
[2025-03-24 03:01] VITALS: BP 103/51
[2025-03-24] MEDS: NIFEdipine 10 MG CAPSULE 20 MG PO ×2 (03:01→09:06)
[2025-03-24 03:02] VITALS: BP 103/51; PULSE 74
[2025-03-24] MEDS: ACETAMINOPHEN 500 MG TABLET 1000 MG PO (05:10)
[2025-03-24 09:08] VITALS: BP 104/58; PULSE 84
== END 2025-03-24 12:44 | disposition home or self-care (01) ==
LOC: FBC 03-24 08:37 → FBCO 03-24 09:41 → FBC 03-24 09:42
PROVIDERS: Admitting Provider Obstetrics & Gynecology; PCP Family Medicine; Visit Provider Obstetrics & Gynecology
DX: O47.03 False labor before 37 completed weeks of gestation, third trimester (principal); Z3A.33 33 weeks gestation of pregnancy
CPT/HCPCS: 59025; 76817; 81003; 96372; G0378; G0379; J0702

== ENCOUNTER 2025-03-24 20:41 | Outpatient (OUT) | payer BC, SELFPAY ==
--- OUTSIDE RECORDS SUMMARY | 2024-09-28 04:50 | XMS_ITS ---
Author Organization The [facility] in [place] Address [address] [place] [address] Care Team Providers Care Tanning Salon Attendant Name Role Phone Anuj Ponce Primary Care Provider REASON FOR VISIT Proair question Encounters Encounter Location Date Provider Diagnosis [facility] [address] [place] [address] 09/28/2024 Anuj Ponce Plan Of Treatment Medication Medication Name Sig Start Date Stop Date Notes ProAir RespiClick 108 (90 Base) MCG/ACT 1 puff as needed Inhalation every 4 hrs 09/24/2024 Progress Notes * LIMONFebruaryDOB:1985 ( 39 yo F)Acc No.[id number]:09/28/2024 Patient: Madison LARKIN February :1985 A ge:39 Y S ex:Female Address:[address], [place], [address] * Refills Stop ProAir RespiClick Aerosol Powder Breath Activated, 108 (90 Base) MCG/ACT, Inhalation, 1 puff as needed, every 4 hrs * true * Date: Generated for Printi ng/Faxing/eTransmitting on: 0 03/24/2025 08:43 PM EDT
--- OUTSIDE RECORDS SUMMARY | 2025-03-11 10:38 | XMS_ITS ---
Author Organization [facility] in [place] Address [address] [place] [address] Care Team Providers Care Field Administrative Assistant Name Role Phone Anuj Ponce Primary Care Provider REASON FOR VISIT walking pneumonia Medications Medication SIG (Take, Route, Fr equency, Duration) Notes Start Date End Date Status Cefdinir 300 MG 2 capsules Orally on ce daily for 10 days 03/11/2025 Active Encounters Encounter Location Date Provider Diagnosis [facility] [address] [place] [address] 03/11/2025 Anuj Ponce Plan Of Treatment Medication Medication Name Sig Start Date Stop Date Notes Cefdinir 300 MG 2 capsules Orally once daily for 10 days 0 03/11/2025 Progress Notes * ASHLY FebruaryDOB:1985 ( 40 yo F)Acc No.[id number]:03/11/2025 Patient: Madison LARKIN February :1985 A ge:40 Y S ex:Female Address:[address], [place], [address] * Refills Start Cefdinir Capsule, 300 MG, Orally, 20, 2 capsules, once daily, 10 days, Refills=0 * true * Date: Generated for Abdoulaye ann/Maria Ines/eTransmitting on: 0 03/24/2025 08:43 PM EDT
--- OUTSIDE RECORDS SUMMARY | 2025-03-13 13:41 | XMS_ITS ---
Author Organization The [facility] in [place] Address [address] [place] [address] Care Team Providers Care Stake Driver Name Role Phone Anuj Ponce Primary Care Provider [phone] REASON FOR VISIT er fu Encounters Encounter Location Date Provider Diagnosis [facility] [address] [place] [address] 03/13/2025 Anuj Ponce Plan Of Treatment No Information Progress Notes * FebruaryDOB:1985 ( 40 yo F)Acc No.[id number]:03/13/2025 Patient: Madison LARKIN February :1985 A ge:40 Y S ex:Female Address:[address], [place], [address] * true * Date: Generated for Maryi ng/Faangg/eTransmitting on: 0 03/24/2025 08:43 PM EDT
--- OUTSIDE RECORDS SUMMARY | 2025-03-23 15:42 | XMS_ITS ---
Author Name Auto Generated Organization [facility] Care Team Providers Care Grinder Lap Name Role Phone VIMAL FIRED Attending Unavailable LILIYA, GRACE Attending Unavailable VIMAL FRIED Attending Unavailable LILIYA, GRACE Attending Unavailable LILIYA, GRACE Attending Unavailable LILIYA, GRACE Attending Unavailable VIMAL FRIED Attending Unavailable PROBLEMS No Problem Records Found PROCEDURES No Procedure Records Found RESULTS US OB FOLLOW UP TRANSABDOMINAL APPROACH Observed: 03/07/2025 2:48 PM Status: F Source: [facility] EPIC Order Comment: US OB SCAN FO R GROWTH Estimated Date of Delivery: 05/09/25 Gestational Age as of 02/21/2025: 29w0d EXAM: US OB FOLLOW UP TRANSA BDOMINAL APPROACH HISTORY: Inconsistent size. MARIBETH 05/09/2025. - [...] II, MD, PHD at 09-Mar-2025 08:42:20 AM [facility] ALLERGIES No Allergies Records Found ENCOUNTERS ADMIT/DISCHARGE ACCOUNT NUMBER ADMITTING ENCOUNTER CLASS LOCATION SOURCE 03/23/2025/ 5 [id number] Ambulatory Building:[facility] 03/07/2025/ 5 [id number] Ambulatory Building:[facility] 03/07/2025/ 5 [id number] Ambulatory Building:[facility] 02/21/2025/ 5 [id number] Ambulatory Building:[facility] 02/02/2025/ 5 [id number] Ambulatory Building:[facility] 01/05/2025/ 5 [id number] Ambulatory Building:[facility] 12/08/2024/ 5 [id number] Ambulatory Building:[facility] 11/09/2024/ 5 [id number] Ambulatory Building:[facility] 10/08/2024/ 4 [id number] Ambulatory Building:[facility] EPIC PAYERS ENCOUNTER GUARANTOR PAYER SUBSCRIBER SOURCE 03/23/2025February Petros LIMONDOB: [place], [place] [address]Oly: (HP) Primary Insurance:BCBSPo licy Number: [id number] ctive Date:2021-12-10 CHRISTOPHER BARRETTKEYLADOB: [id number] [place] [address] [facility] EPIC 03/07/2025February Petros BAUERDOB: [place], [place] [address]Ppy: (HP) Primary Insurance:BCBSPo licy Number: [id number] ctive Date:2021-12-10 CHRISTOPHER BARRETTKEYLADOB: [id number] [place] [address] [facility] EPIC 03/07/2025February Petros BAUERDOB: [place], [place] [address]Oss: (HP) Primary Insurance:BCBSPo licy Number: [id number] ctive Date:2021-12-10 CHRISTOPHER LIMONDOB: [id number] [place] [address] [facility] EPIC 02/21/2025February Petros BAUERDOB: [place], [place] [address]Rfs: (HP) Primary Insurance:BCBSPo licy Number: [id number] ctive Date:2021-12-10 CHRISTOPHER BARRETTUERDOB: [id number] [place] [address] [facility] EPIC 02/02/2025February Petros BAUERDOB: [place], [place] [address]Inz: (HP) Primary Insurance:BCBSPo licy Number: [id number] ctive Date:2021-12-10 CHRISTOPHER LIMONDOB: [id number] [place] [address] [facility] EPIC 01/05/2025February Petros BARRETTUERDOB: [place], [place] [address]Rxo: (HP) Primary Insurance:BCBSPo licy Number: [id number] ctive Date:2021-12-10 CHRISTOPHER BARRETTUERDOB: [id number] [place] [address] [facility] EPIC 12/08/2024February Petros BARRETTUERDOB: [place], [place] [address]Mzx: (HP) Primary Insurance:BCBSPo licy Number: [id number] ctive Date:2021-12-10 CHRISTOPHER LIMONDOB: [id number] [place] [address] [facility] EPIC 11/09/2024February Petros LIMONDOB: [place], [place] [address]Fdh: (HP) Primary Insurance:BCBSPo licy Number: [id number] ctive Date:2021-12-10 CHRISTOPHER LIMONDOB: [id number] [place] [address] [facility] EPIC 10/08/2024February Petros BAUERDOB: [place], [place] [address]Kis: (HP) Primary Insurance:BCBSPo licy Number: [id number] ctive Date:2021-12-10 CHRISTOPHER LIMONDOB: [id number] [place] [address] [facility] EPIC
--- OUTSIDE RECORDS SUMMARY | 2025-03-23 15:50 | XMS_ITS | Encounter Summary ---
Author Organization [facility] Address [address] [place] [address] Care Team Providers Care Brake Engineer Name Role Phone Codey Ponce MD Primary Care Provider [phone] Reason for Visit * Reason Comments Routine Visit Encounter Details Date Type Department Care Team (Late st Contact Info) Description 03/23/2025 3:50 PM EDT Routine [facility] B[facility] OB [address] [facility] [place] [phone] Monika Figueroa PA [address] [facility] [address] [place], [place] [phone] Third trimester ; 33 weeks gestation of [...] documented in this encounter Plan of Treatment Scheduled Orders Name Type Priority Associated Diagnoses [...] trimester documented in this encounter Care Teams Brake Engineer Relationship Specialty Start Date End Date Codey Ponce MD PCP - General Family Medicine 10/08/24 documented as of this encounter
--- OUTSIDE RECORDS SUMMARY | 2025-03-24 20:43 | XMS_ITS | Encounter Summary ---
Author Organization [facility] Address [address] [place] [address] Care Team Providers Care Chair Name Role Phone Codey Ponce MD Primary Care Provider [phone] Encounter Details Date Type Department Care Team (Late st Contact Info) Description 03/23/2025 Bamboo flowsheet [facility] [address] [id number] Monika Figueroa PA [address] [place], [place] [id number] Social History Tobacco Use Types Packs/Day Years [...] on filedocumented in this encounter Care Teams Chair Relationship Specialty Start Date End Date Codey Ponce MD PCP - General Family Medicine 10/08/24 documented as of this encounter
--- OUTSIDE RECORDS SUMMARY | 2025-03-24 20:43 | XMS_ITS | Encounter Summary ---
Author Organization [facility] Address [address] [place] [address] Care Team Providers Care Collet Making Machine Operator Name Role Phone Codey Ponce MD Primary Care Provider [phone] Encounter Details Date Type Department Care Team (Late st Contact Info) Description 10/08/2024 Abstract [facility] [address] [place] [phone] Henry Redding, DO [address] [place], [place] [id number] Social History Tobacco Use Types Packs/Day Years [...] on filedocumented in this encounter Care Teams Collet Making Machine Operator Relationship Specialty Start Date End Date Codey Ponce MD PCP - General Family Medicine 10/08/24 documented as of this encounter
--- OUTSIDE RECORDS SUMMARY | 2025-03-24 20:43 | XMS_ITS | Clinical Summary ---
Author Organization [facility] Address [address] [place] [address] Care Team Providers Care Medical Pathology Teacher Name Role Phone Codey Ponce MD Primary Care Provider [phone] Allergies No known active allergies Medications azithromycin (Zithromax Z-Francis) 250 MG tabletIndication s:Upper respiratory tract infection, unspecified type As directed 6 tablet 5 Active guaiFENesin-code ine (Robitussin-AC) 100-10 MG/5ML syrupIndications :Upper respiratory tract infection, unspecified type Take 5 mL by mouth 4 (four) times a day as needed for cough for up to 5 days 237 mL 5 03/12/20 25 Active Problems Problem Noted Date Diagnosed Date Urinary tract infection without hematuria 2023 Estimated Date of Delivery Comme nts Yes 05/09/2025 Based on last me nstrual period of 08/02/2024 (Exact Date) Encounters Date Type Department Care Team Description 03/23/2025 3:50 PM EDT Routine [facility] [address] [place] [address] Monika Figueroa PA Third trimester ; 33 weeks gestation of ; Multigravida of advanced maternal age in third trimester 03/23/2025 Clinisync Result Encounter [facility] External Department Unsolicited Grace Redding, DO 03/23/2025 Clinisync Result Encounter [facility] External Department Unsolicited MiladisGrace gotti, DO 03/23/2025 Bamboo flowsheet [facility] OB [address] [place] [address] Monika Figueroa PA 03/07/2025 3:30 PM EDT Routine [facility] OB [address] [facility] [place] [address] Grace Redding DO Upper respiratory tract infection, unspecified type (Primary Dx); Third trimester ; 31 weeks gestation of ; Multigravida of advanced maternal age in third trimester 03/07/2025 3:00 PM EDT Ancillary Procedure [facility] [address] [facility] [place] [address] Size of fetus inconsistent with dates in third trimester 02/21/2025 8:30 AM EDT Routine [facility] OB [address] [facility] [place] [address] Grace Redding DO Third trimester ; 29 weeks gestation of ; Size of fetus inconsistent with dates in third trimester 02/21/2025 Bamboo flowsheet [facility] OB [address] [facility] [place] [address] Grace Redding DO 02/15/2025 Telephone [facility] OB [address] [facility] [place] [address] Grace Redding DO 02/02/2025 3:40 PM EDT Routine [facility] OB [address] [facility] [place] [address] Monika Figueroa PA Second trimester ; 26 weeks gestation of 02/02/2025 Bamboo flowsheet [facility] OB [address] [facility] [place] [address] Monika Figueroa PA 01/18/2025 Orders Only [facility] OB [address] [facility] [place] [address] Maria Guadalupe Hernandez MA 01/07/2025 Telephone [facility] OB [address] [facility] [place] [address] Monika Figueroa PA 01/05/2025 3:50 PM EST Routine [facility] OB [address] [facility] [place] [address] Grace Redding DO Well woman exam with routine gynecological exam; Exposure to STD; Second trimester ; 22 weeks gestation of ; Diabetes mellitus screening 01/05/2025 Clinisync Result Encounter [facility] External Department Unsolicited Grace Redding, 01/05/2025 External Result Encounter [facility] External Department Unsolicited Grace Redding, 01/05/2025 Bamboo flowsheet [facility] OB [address] [place] [address] [place] [address] Grace Redding DO from Last 3 Months Social History Tobacco Use Types Packs/Day Years Used Date Smoking Tobacco: Never Assessed Estimated Date of Delivery Comme nts Yes 05/09/2025 Based on last me nstrual period of 08/02/2024 (Exact Date) Sex and Gender Information Value Date Recorded Sex Assigned at Not on file Legal Sex Female 7:12 PM EDT Gender Identity Not on file Sexual Orientation Not on file Last Filed Vital Signs Vital Sign Reading Time Taken Comments Blood Pressure 128/80 03/23/2025 4:22 PM EDT Pulse - - Temperature - - Respiratory Rate - - Oxygen Saturation - - Inhaled Oxygen Concentration - - Weight 74.4 kg (164 lb) 03/23/2025 4:22 PM EDT Height - - Body Mass Index - - Plan of Treatment Not on file Procedures Procedure Name Priority Date/Time Associated Diagnosis Comments US OB CERVICAL LENGTH 03/23/2025 6:27 PM EDT [facility] UA (CLEAN/CATCH) PROSECUTING ATTORNEY/MICRO IF IND. Routine 03/23/2025 4:55 PM EDT POCT URINALYSIS DIPSTICK Routine 03/23/2025 4:29 PM EDT Third trimester POCT URINALYSIS DIPSTICK Routine 03/07/2025 3:51 PM EDT Third trimester US OB FOLLOW UP TRANSABDOMINAL APPROACH Routine 03/07/2025 3:15 PM EDT Size of fetus inconsistent with dates in third trimester POCT URINALYSIS DIPSTICK Routine 02/21/2025 8:43 AM EDT Third trimester POCT URINALYSIS DIPSTICK Routine 02/02/2025 3:48 PM EDT Second trimester RECURRENT VAGINITIS (HTRX) Routine 01/05/2025 4:50 PM EST POCT URINALYSIS DIPSTICK Routine 01/05/2025 4:16 PM EST 22 weeks gestation of IGP,APTIMA HPV,AGE GDLN Routine 01/05/2025 3:57 PM EST PAP SMEAR Routine 01/05/2025 12:00 AM EST from Last 3 Months Results * US OB CERVICAL LENGTH (03/23/2025 6:27 PM EDT) Anatomical Region Laterality Modality Other 03/23/2025 6:27 PM EDT Narrative 03/23/2025 6:29 [place] [address] Ultrasound Report Signed Patient: YESSI LIMON MR#: [id number] : 1985 Acct:[id number] Age/Sex: 40 / F ADM Date: 03/23/25 Loc: [facility] 250-[address]: Grace Redding D.O. Ordering Physician: Grace Redding D.O. Date of Service: 03/23/25 Procedure(s): US OB cervical length Accession Number(s): [id number] cc: Grace Redding D.O.; Codey Ponce M.D. [address] [address] Patient Name: YESSI LIMON MRN: [id number] date: 1985 Sex: F Assigned Patient Location: [facility] Current Patient Location: [facility] Accession/Order Number: [id number] Exam Date: 03/23/2025 18:26 Report Date: 03/23/2025 18:27 At the request of: GRACE REDDING DO Procedure: US OB cervical length Limited ultrasound HISTORY: Contractions since 4:15 PM Fetus in cephalic presentation with longitudinal lie. Amniotic fluid subjectively normal. heart rate 142 bpm. The cervical length is 3.9 cm. Cervical os is closed. US/US OB cervical length IMPRESSION: Single live intrauterine gestation. Cervical length 3.9 cm with os closed. Impression dictated by: Jhon Gould M.D. 03/23/2025 6:27 PM Dictation Location: [place] [address] Electronically authenticated by: [id number] Y Date: 03/23/2025 18:27 Dictated By: Jhon Gould D.O. Signed By: 03/23/251828 DD/ 26 TD/TT: Margin Analyst: Procedure Note Radiology, Radiologist, MD - 03/23/2025 [place] [address] Ultrasound Report Signed Patient: YESSI LIMON#: [id number] : 1985Acct:[id number] Age/Sex: 40 / FADM Date: 03/23/25 Loc: [place] [address]: Grace Redding D.O. Ordering Physician: Grace Redding D.O. Date of Service: 03/23/25 Procedure(s): US OB cervical length Accession Number(s): [id number] cc: Grace Redding D.O.; Codey Ponce M.D. The [place] [id number] Patient Name: YESSI LIMON MRN: [id number] date: 1985 Sex: F Assigned Patient Location: [facility] Current Patient Location: [facility] Accession/Order Number: [id number] Exam Date: 03/23/2025 18:26 Report Date: 03/23/2025 18:27 At the request of: GRACE REDDING DO Procedure: US OB cervical length Limited ultrasound HISTORY: Contractions since 4:15 PM Fetus in cephalic presentation with longitudinal lie. Amniotic fluid subjectively normal. heart rate 142 bpm. Thecervical length is 3.9 cm. Cervical os is closed. US/US OB cervical length IMPRESSION: Single live intrauterine gestation. Cervical length 3.9 cmwith os closed. Impression dictated by: Jhon Gould M.D. 03/23/2025 6:27 PM [facility]ictation [facility] Electronically authenticated by: [id number] Y Date: 8:27 Dictated By: Jhon Guold D.O. Signed By:03/23/251828 DD/ 26 TD/TT: Margin Analyst: us Grace Miladis DO [facility] Final Result * (ABNORMAL) TBH UA (CLEAN/CATCH) PROSECUTING ATTORNEY/MICRO IF IND. (03/23/2025 4:55 PM EDT) COLOR URINE LT. YELLOW YELLOW TBH CLARITY URINE CLEAR CLEAR TBH SPECIFIC GRAVITY URINE <=1.005(A) 1.005 - 1.025 TBH PH URINE 7.0 5.0 - 9.0 TBH PROTEIN URINE NEGATIVE NEG/TRACE mg/dL TBH GLUCOSE URINE UA NEGATIVE NEGATIVE mg/dL TBH BILIRUBIN URINE NEGATIVE NEGATIVE TBH KETONES URINE NEGATIVE NEGATIVE mg/dL TBH BLOOD URINE NEGATIVE NEGATIVE TBH NITRITE URINE NEGATIVE NEGATIVE TBH UROBILINOGEN URINE 0.2 0.2 - 1.0 EU/dL TBH LEUKOCYTE ESTERASE URINE NEGATIVE NEGATIVE TBH URINE MICROSCOPIC INDICATED NO TBH 03/23/2025 4:55 PM EDT 03/23/2025 5:11 PM EDT Narrative [facility] - 03/23/2025 5:26 PM EDT us Grace Miladis DO [facility] Final Result [facility] TB * POCT urinalysis dipstick manually resulted (03/23/2025 4:29 PM EDT) Only the most recent of5 resultswithin the time period is included. Color, UA Yellow Clarity, UA Clear Glucose, UA Negative Negative - 2000(110) ++++ mg/dL Bilirubin, UA Negative Negative - 4(70) +++ mg/dL Ketones, UA Negative Negative - 160(16) ++++ mg/dL Spec Grav, UA 1.015 1 - 1.03 Blood, UA Negative Negative - 50 Venu/mcL pH, UA 7.0 5 - 9 Protein, UA Negative Negative - 1999(20) ++++ mg/dL Urobilinogen, UA 1.0 0.2 - 12 mg/dL Leukocytes, UA Negative Negative - 500+++ Michael/mcL Nitrite, UA Negative Negative - Positive Urine 03/23/2025 4:29 PM EDT Monika WEEKS POINT OF CARE TEST ENTER/EDIT OR DERABLES Final Result * US OB follow up transabdominal approach (03/07/2025 3:15 PM EDT) Anatomical Region Laterality Modality Body Ultrasound 03/09/2025 8:44 AM EDT Narrative 03/09/2025 8:44 AM EDT EXAM: US OB FOLLOW UP TRANSABDOMINAL APPROACH [...] II, MD, PHD at 09-Mar-2025 08:42:20 AM [facility] Procedure Note Benson Nelson MD - 03/09/2025 EXAM: US OB FOLLOW UP TRANSABDOMINAL APPROACH HISTORY: Inconsistent size. MARIBETH 05/09/2025. - twins. x3. Vaginal delivery x4. COMPARISON: U/S OB 10/08/2024 TECHNIQUE: Two-dimensional transabdominal grayscale ultrasound imaging ofthe pelvis was performed. FINDINGS: Gestation: Single Presentation: Breech Cardiac Activity: 138 beats per minute Placental Location: Anterior with no sonographic abnormalitiesidentified. Distance from Placental Tip to Cervix: Not [...] is 31 weeks 2 days (+/- 15 daysgestation). Estimated Weight: 1739 grams, +/- 261 grams ( 3 lb 13 oz). Weight Percentile for gestational age: 48 % IMPRESSION: 1. Single, live intrauterine gestation 31 weeks, 0 days by LMP. Today'sultrasound measurements correlate with a gestational age of 31 weeks 2days. Fetus is in the 48th percentile for weight. Interpreted by: Electronically signed by BENSON NELSON II, MD, PHD [id number] 08:42:20 AM [facility] us Grace Redding DO [facility] OB US PROCEDURES Final Resul t * (ABNORMAL) RECURRENT VAGINITIS (HTRX) (01/05/2025 4:50 PM EST) [facility] ATOPOBIUM VAGINAE 0.000 19.961 - 24.689 ppm 01/07/2025 7:11 AM EST [facility] ATOPOBIUM VAGINAE Not Detected 19.961 - 24.689 ppm 01/07/2025 7:11 AM EST [facility] BVAB 2,3 (BACTERIAL VAGINOSIS ASSOCIATED BACTERIA 2, 3); MOBILUNCUS SPP 0.000 19.961 - 24.689 ppm 01/07/2025 7:11 AM EST [facility] BVAB 2,3 (BACTERIAL VAGINOSIS ASSOCIATED BACTERIA 2, 3); MOBILUNCUS SPP Not Detected 19.961 - 24.689 ppm 01/07/2025 7:11 AM EST [facility] BOOKER ALBICANS, PARAPSILOSIS, TROPICALIS 28.029(A) 19.961 - 30.770 ppm 01/07/2025 7:11 AM EST [facility] BOOKER ALBICANS, PARAPSILOSIS, TROPICALIS Detected(A) 19.961 - 30.770 ppm 01/07/2025 7:11 AM EST [facility] BOOKER GLABRATA 0.000 23.000 - 32.138 ppm 01/07/2025 7:11 AM EST [facility] BOOKER GLABRATA Not Detected 23.000 - 32.138 ppm 01/07/2025 7:11 AM EST [facility] BOOKER KRUSEI 0.000 23.000 - 32.271 ppm 01/07/2025 7:11 AM EST [facility] BOOKER KRUSEI Not Detected 23.000 - 32.271 ppm 01/07/2025 7:11 AM EST [facility] CHLAMYDIA TRACHOMATIS 0.000 23.000 - 31.467 ppm 01/07/2025 7:11 AM EST [facility] CHLAMYDIA TRACHOMATIS Not Detected 23.000 - 31.467 ppm 01/07/2025 7:11 AM EST [facility] GARDNERELLA VAGINALIS 0.000 19.961 - 24.689 ppm 01/07/2025 7:11 AM EST [facility] GARDNERELLA VAGINALIS Not Detected 19.961 - 24.689 ppm 01/07/2025 7:11 AM EST [facility] MEGASPHAERA (TYPES 1, 2) 0.000 19.961 - 24.689 ppm 01/07/2025 7:11 AM EST [facility] MEGASPHAERA (TYPES 1, 2) Not Detected 19.961 - 24.689 ppm 01/07/2025 7:11 AM EST [facility] NEISSERIA GONORRHOEAE 0.000 23.000 - 32.117 ppm 01/07/2025 7:11 AM EST [facility] NEISSERIA GONORRHOEAE Not Detected 23.000 - 32.117 ppm 01/07/2025 7:11 AM EST [facility] TRICHOMONAS VAGINALIS 0.000 23.000 - 32.119 ppm 01/07/2025 7:11 AM EST [facility] TRICHOMONAS VAGINALIS Not Detected 23.000 - 32.119 ppm 01/07/2025 7:11 AM EST [facility] MYCOPLASMA GENITALIUM 0.000 19.961 - 24.689 ppm 01/07/2025 7:11 AM EST [facility] MYCOPLASMA GENITALIUM Not Detected 19.961 - 24.689 ppm 01/07/2025 7:11 AM EST [facility] Tissue 01/05/2025 4:50 PM EST 01/07/2025 2:22 AM EST us Grace Redding DO LAB BLOOD ORDERABLES Final Resul t [facility] [address] [place] [address] * IGP,APTIMA HPV,AGE GDLN (01/05/2025 3:57 PM EST) AGE GDLN ACOG TESTING Note . TB Comment: TESTS RESULT FLAG UNITS REF RANGE LAB Clinician Provided Cytology Information Source.............Cervix No. of containers..01 ThinPrep Vial Age Frances [facility] Sushma... 3065 FLAG LEGEND: L-Low Normal,H-High Normal,LL-Alert Low,HH-Alert High <-Panic Low,>-Panic High,A-Abnormal,AA-Critical Abnormal Performed at: 01 =G [facility] [address] [place] [address] Enma Todd MD, IGP, APTIMA HPV, RFX 16/18,45 Note . [facility] Comment: TESTS RESULT FLAG UNITS REF RANGE LAB DIAGNOSIS: 02 NEGATIVE FOR INTRAEPITHELIAL LESION OR MALIGNANCY. FUNGAL ORGANISMS MORPHOLOGICALLY CONSISTENT WITH BOOKER SPECIES ARE PRESENT. Specimen adequacy: 02 Satisfactory for evaluation. No endocervical component is identified. Performed by: 02 Breanna Lucero, Pull Up Hand . 02 Note: Note 02 The Pap [...] <-Panic Low,>-Panic High,A-Abnormal,AA-Critical Abnormal Performed at: [address] [address] Enma Todd MD, HPV APTIMA Negative Negative [facility] Comment: This nucleic acid amplification test detects fourteen high- risk HPV types (16,18,31,33,35,39,45,51,52,56,58,59,66,68) without differentiation. Performed at: =[address] [id number] Truck Manager: Enma Todd MD, Phone: [phone] Performed at: [address] [id number] Truck Manager: Enma Todd MD, Phone: [phone] 01/05/2025 3:57 PM EST 01/05/2025 8:18 PM EST Narrative JAIME - 01/10/2025 3:08 PM EDT SPATULA-ALONE CERVIX us Grace Redding DO LAB BLOOD ORDERABLES Final Resul t [facility] * Pap Smear (01/05/2025 12:00 AM EST) Swab Cervical swab / Unknown us Grace Redding DO LAB CYTOLOGY ORDERABLES Final Re sult EXTERNAL LAB from Last 3 Months Insurance Care Teams Medical Pathology Teacher Relationship Specialty Start Date End Date Codey Ponce MD PCP - General Family Medicine 10/08/24
--- OUTSIDE RECORDS SUMMARY | 2025-03-24 20:43 | XMS_ITS | Encounter Summary ---
Author Organization [facility] Address [address] [place] [address] Care Team Providers Care Surgical Technician Name Role Phone Codey Ponce MD Primary Care Provider [phone] Encounter Details Date Type Department Care Team (Late st Contact Info) Description 11/23/2024 Abstract [facility] OB [address] [place] [address] Henry Redding, DO [address] [place], [place] [id number] Social History Tobacco Use Types Packs/Day Years [...] on filedocumented in this encounter Care Teams Surgical Technician Relationship Specialty Start Date End Date Codey Ponce MD PCP - General Family Medicine 10/08/24 documented as of this encounter
--- OUTSIDE RECORDS SUMMARY | 2025-03-24 20:43 | XMS_ITS | Encounter Summary ---
Author Organization [facility] Address [address] [place] [address] Care Team Providers Care Sand Screener Operator Name Role Phone Codey Ponce MD Primary Care Provider [phone] Encounter Details Date Type Department Care Team (Late st Contact Info) Description 03/23/2025 Clinisync Result Encounter [facility] External Department Unsolicited Grace Redding, DO [address] [facility] [place] [address] Social History Tobacco Use Types Packs/Day Years [...] OB CERVICAL LENGTH 03/23/2025 6:27 PM EDT documented in this encounter Results * US OB CERVICAL LENGTH (03/23/2025 6:27 PM EDT) Anatomical Region Laterality Modality Other 03/23/2025 6:27 PM EDT Narrative 03/23/2025 6:29 PM EDT The [address] [address] Ultrasound Report Signed Patient: YESSI LIMON MR#: [id number] : 1985 Acct:[id number] Age/Sex: 40 / F ADM Date: 03/23/25 Loc: [facility] 250-[address]: Grace Redding D.O. Ordering Physician: Grace Redding D.O. Date of Service: 03/23/25 Procedure(s): US OB cervical length Accession Number(s): [id number] cc: Grace Redding D.O.; Codey Ponce M.D. The [address] [address] Patient Name: YESSI LIMON MRN: [id number] date: 1985 Sex: F Assigned Patient Location: [facility] Current Patient Location: [facility] Accession/Order Number: [id number] Exam Date: 03/23/2025 18:26 Report Date: 03/23/2025 [...] Gould M.D. 03/23/2025 6:27 PM Dictation Location: [place] [address] Electronically authenticated by: [id number] Y Date: 03/23/2025 18:27 Dictated By: Jhon Gould D.O. Signed By: 03/23/251828 DD/ 26 TD/TT: Poultry Boner: Procedure Note Radiology, Radiologist, MD - 03/23/2025 [place] [address] Ultrasound Report Signed Patient: YESSI LIMON#: [id number] : 1985Acct:[id number] Age/Sex: 40 / FADM Date: 03/23/25 Loc: [facility] 250-[address]: Grace Redding D.O. Ordering Physician: Grace Redding D.O. Date of Service: 03/23/25 Procedure(s): US OB cervical length Accession Number(s): [id number] cc: Grace Redding D.O.; Codey Ponce M.D. [place] [id number] Patient Name: YESSI LIMON MRN: [id number] date: 1985 Sex: F Assigned Patient Location: [facility] Current Patient Location: [facility] Accession/Order Number: [id number] Exam Date: 03/23/2025 18:26 Report Date: 03/23/2025 [...] Gould M.D. 03/23/2025 6:27 PM Dictation Location: [place] [address] Electronically authenticated by: [id number] Y Date: 8:27 Dictated By: Jhon Gould D.O. Signed By:03/23/251828 DD/ 26 TD/TT: Poultry Boner: Grace Redding DO [facility] Final Result documented in this encounter Visit Diagnoses Not on filedocumented in this encounter Care Teams Sand Screener Operator Relationship Specialty Start Date End Date Codey Ponce MD PCP - General Family Medicine 10/08/24 documented as of this encounter
--- OUTSIDE RECORDS SUMMARY | 2025-03-24 20:43 | XMS_ITS | Encounter Summary ---
Author Organization [facility] Address [address] [facility] [place] [address] Care Team Providers Care Steel Inspector Name Role Phone Codey Ponce MD Primary Care Provider [phone] Encounter Details Date Type Department Care Team (Late st Contact Info) Description 01/18/2025 Orders Only [facility] BCP OB [address] [facility] [address] Maria Guadalupe Hernandez [place] [address] [place] [address] Social History Tobacco Use Types Packs/Day Years [...] on filedocumented in this encounter Care Teams Steel Inspector Relationship Specialty Start Date End Date Codey Ponce MD PCP - General Family Medicine 10/08/24 documented as of this encounter
--- OUTSIDE RECORDS SUMMARY | 2025-03-24 20:43 | XMS_ITS | Patient Health Record ---
Author Organization The [facility] in [place] Address [address] [place] [address] Care Team Providers Care Seo Professional Name Role Phone Anuj Ponce Primary Care Provider Allergies No Known Allergies Results Component Value Reference Range Notes UA (CLEAN or CATCH) WINDOWS ARCHITECT or M ICRO IF IND. Reviewed date:03/23/2025 05:42:48 PM Interpretation: Performing Lab: Notes/Report: , [facility] Color Urine LT. YELLOW YELLOW Clarity Urine CLEAR CLEAR Specific Clemmons Urine <=1.005 1.005-1.025 pH Urine 7.0 5.0-9.0 Protein Urine NEGATIVE NEG/TRACE mg/dL Glucose Urine UA NEGATIVE NEGATIVE mg/dL Bilirubin Urine NEGATIVE NEGATIVE Ketones Urine NEGATIVE NEGATIVE mg/dL Blood Urine NEGATIVE NEGATIVE Nitrite Urine NEGATIVE NEGATIVE Urobilinogen Urine 0.2 0.2-1.0 EU/dL Leukocyte Esterase Urine NEGATIVE NEGATIVE Urine Microscopic Indicated NO Performing Lab: see note ML - The [facility] LB US OB cervical length Reviewed date:03/23/2025 06:32:52 PM Interpretation: Performing Lab: Notes/Report: Source Facility: [facility]-[address] [place] [address] Ultrasound Report Signed Patient: YESSI LIMON MR#: [id number] : 1985 Acct:[id number] Age/Sex: 40 / F ADM Date: 03/23/25 Loc: [facility] 250-[address]: Grace Redding D.O. Ordering Physician: Grace Redding D.O. Date of Service: 03/23/25 Procedure(s): US OB cervical length Accession Number(s): [id number] cc: Grace Redding D.O.; Codey Ponce M.D. [address] [address] Patient Name: YESSI LIMON MRN: [id number] date: 1985 Sex: F Assigned Patient Location: [facility] Current Patient Location: [facility] Accession/Order Number: [id number] Exam Date: 03/23/2025 18:26 Report Date: 03/23/2025 [...] Gould M.D. 03/23/2025 6:27 PM Dictation Location: [place] [address] Electronically authenticated by: [id number] Y Date: 03/23/2025 18:27 Dictated By: Jhon Gould D.O. Signed By: 03/23/251828 DD/ 26 TD/TT: Vessel Traffic Officer: [place] [address] Ultrasound Report Signed Patient: YESSI LIMON MR#: [id number] : 1985 Acct:[id number] Age/Sex: 40 / F ADM Date: 03/23/25 Loc: [facility] 250- Attending Dr: Grace Redding D.O. Ordering Physician: Grace Redding D.O. Date of Service: 03/23/25 Procedure(s): US OB cervical length Accession Number(s): [id number] cc: Grace Redding D.O. ; Codey Ponce M.D. [address] [address] Patient Name: YESSI LIMON MRN: [id number] date: 1985 Sex: F Assigned Patient Location: [facility] Current Patient Location: [facility] Accession/Order Numb er: [id number] Exam Date: 03/23/2025 18:26 Report Date: 03/23/2025 18:27 At the request of: GRACE REDDING DO Procedure: US OB cervical length Limited ultrasound HISTORY: Contraction s since 4:15 PM Fetus in cephalic presentation with longitudinal lie. Amniotic fluid subjectively normal. heart rate 142 bpm. The cervical length is 3.9 cm. Cervical os is closed. US/US OB cervical length IMPRESSION: Single l conrado intrauterine gestation. Cervical length 3.9 cm with os closed. Impression dictated by: Jhon Gould M.D. 03/23/2025 6:27 PM [facility] authenticated by: [id number] Y Date: 03/23/2025 18:27 Dictated By: Jhno Gould D.O. Signed By: 03/23/251828 DD/ 26 TD/TT: Vessel Traffic Officer: BNP Reviewed date:03/13/2025 05:41:45 PM Interpretation: Performing Lab: Notes/Report: , [facility] NT Pro B Type Natriuretic Pept 12.0 <=450.0 pg/mL Performing Lab: see note ML - [facility] PROF 14(COMP METB) Reviewed date:03/13/2025 05:41:45 PM Interpretation: Performing Lab: Notes/Report: The [facility] , Sodium 135 136-145 mmol/L Potassium 3.1 3.5-5.1 mmol/L Chloride 101 98-107 mmol/L Carbon Dioxide 25.0 21.0-32.0 mmol/L Anion Gap 12.1 Glucose 103 74-106 mg/dL Blood Urea Nitrogen 7.0 7.0-18.0 mg/dL Creatinine 0.53 0.55-1.02 mg/dL Estimated GFR ( Erika >60 >=60 mL/min/1.73m 2 Estimated GFR (Non- Vanna >60 >=60 mL/min/1.73m 2 BUN Creatinine Ratio 13.2 Calcium 8.3 8.5-10.1 mg/dL Bilirubin Total 0.3 0.2-1.0 mg/dL Aspartate Amino Transferase 25 15-37 U/L Alanine Aminotransferase 25 14-59 U/L Alkaline Phosphatase 96 46-116 U/L Total Protein 6.5 6.4-8.2 g/dL Albumin Level 2.5 3.4-5.0 g/dL Globulin 4.0 Albumin Globulin Ratio 0.6 Performing Lab: see note ML - [facility] LB Troponin I High Sensitivity Reviewed date:03/13/2025 05:41:45 PM Interpretation: Performing Lab: Notes/Report: [facility] , Troponin I High Sensitivity <4.0 4.0-51.3 pg/mL CUT-OFF POINTS HAVE BEEN ESTABLISHED BASED ON THE FOURTH UNIVERSAL DEFINITION OF MYOCARDIAL INFARCTION. THE UPPER REFERENCE LIMIT (URL) OF TROPONIN, DEFINED THE 99TH PERCENTILE OF cTnI DISTRIBUTION IN A REFERENCE POPULATION, HAS BEEN CONFIRMED THE DECISION THRESHOLD FOR NC DIAGNOSIS. 99TH PERCENTILE = 51.4 PG/ML NOTE: HIGH-SENSITIVITY TROPONIN ASSAY IS NOT INTENDED TO BE USED IN ISOLATION BUT SHOULD BE INTERPRETED IN CONJUNCTION WITH OTHER DIAGNOSTIC AND CLINICAL INFORMATION. Performing Lab: see note ML - [facility] LB CBC AUTO DIFF Reviewed date:03/13/2025 05:41:45 PM Interpretation: Performing Lab: Notes/Report: [facility] , White Blood Count 4.7 4.0-11.0 [...] fL Performing Lab: see note ML - [facility] Manual Differential Reviewed date:03/13/2025 05:41:45 PM Interpretation: Performing Lab: Notes/Report: [facility] , Segmented Neutrophils % Manual 60.0 43.0-75.0 Lymphocytes Percent Manual 36.0 20.5-60.0 % Few reactive lymphocytes Monocytes Percent Manual 4.0 1.7-12.0 % Eosinophils Percent Manual 0.0 0.9-7.0 % Basophils Percent Manual 0.0 0.2-2.0 % Segmented Neut Absolute Manual 2.82 1.4-6.5 10 3/uL Lymphocytes Absolute Manual 1.69 1.20-3.80 10 3/uL Monocytes Absolute Manual 0.18 0.30-0.80 10 3/ uL Eosinophils Absolute Manual 0.00 0.00-0.70 10 3/uL Basophils Abs Manual 0.00 0.00-0.10 10 3/uL Performing Lab: see note - [facility] Venous Blood Gas Reviewed date:03/13/2025 05:41:45 PM Interpretation: Performing Lab: Notes/Report: [facility] , pH VBG 7.441 7.330-7.430 PCO2 VBG 37.7 40.0-52.0 mmHg Performing Lab: see note - [facility] Reason For Referral No Information Medications [...] 09/22/2024 Encounters Encounter Location Date Provider Diagnosis [facility] Medicine [address] [place] [address] 09/22/2024 Anuj Ponce Acute bronchitis, unspecified organism J20.9 [facility] [address] [place] [address] 09/22/[address] [facility] [place] [address] [place] [facility] [place] [address] 09/22/2024 Anuj Hoy Acute bronchitis, unspecified organism J20.9 [facility] [place] [address] [place] [facility] [place] [address] 09/23/[address] [facility] [place] [address] [place] [facility] [place] [address] 09/23/2024 Anuj Hoy Acute bronchitis, unspecified organism J20.9 [facility] [place] [address] [place] [facility] [place] [address] 09/24/2024 Anuj Hoy Acute bronchitis, unspecified organism J20.9 [facility] [place] [address] [place] [facility] [place] [address] 09/28/[address] [facility] [place] [address] [place] [facility] [place] [address] 03/11/[address] [facility] [place] [address] [place] [facility] [place] [address] 03/13/2025 Anuj Ponce Assessments Encounter Date Diagnosis (ICD Code) Assessment Notes Treatment Notes Treatment Clinical Notes Section Notes 09/22/2024 Acute bronchitis, unspecified organism (ICD-10 - J20.9) Rest and drink more liquids, especially water. You may use a humidifier or vaporizer to help keep the drainage moist. Yhjg-rfm-vydhdpj Nasal Saline may help the stuffy and runny nose. Use Ibuprofen and or Tylenol as needed for fever, chills, body aches or pain. Children 5 years old should not be given wvcb-dww-zobnkdz cough and cold medications such as guaifenesin and dextromethorphan. If you're over age 5, you may try aife-cvk-irvzbmm cold medications such as guaifenesin and dextromethorphan, [...] Coverage End Date [employer] [address] [place] [address] [id number] 8 February Self - patient is the insured Medical (General) History Surgical History Surgery Date(Month/Year) rt knee meniscus repair left eye surgery 1991
--- OUTSIDE RECORDS SUMMARY | 2025-03-24 20:43 | XMS_ITS | Encounter Summary ---
Author Organization [facility] Address [address] [place] [address] Care Team Providers Care Residential Designer Name Role Phone Codey Ponce MD Primary Care Provider [phone] Encounter Details Date Type Department Care Team (Late st Contact Info) Description 10/09/2024 Clinisync Result Encounter [facility] External Department Unsolicited Grace Redding, DO [address] [facility] [address] [place] [address] Social History Tobacco Use Types Packs/Day Years [...] EST Narrative 10/09/2024 4:35 AM EST The [address] [address] Ultrasound Report Signed Patient: Yessi Limon MR#: [id number] : 1985 Acct:[id number] Age/Sex: 39 / F ADM Date: 10/08/24 Loc: [facility] Attending Dr: Grace Redding D.O. Ordering Physician: Grace Redding D.O. Date of Service: 10/08/24 Procedure(s): US OB transvaginal Accession Number(s): [id number] cc: Grace Redding D.O.; Physician,Non-Staff Marielle The [address] [address] Patient Name: YESSI LIMON MRN: [id number] date: 1985 Sex: F Assigned Patient Location: [facility] Current Patient Location: Accession/Order Number: [id number] Exam Date: 10/08/2024 09:07 Report Date: 10/09/2024 [...] M.D. Signed By: 10/09/24434 DD/ 1 TD/TT: Director Global Medical Affairs: Procedure Note Radiology, Radiologist, - 10/09/[address] [address] Ultrasound Report Signed Patient: Ysesi Limon MMR#: [id number] : 1985Acct:[id number] Age/Sex: 39 / FADM Date: 10/08/24 Loc: [facility] Attending Dr: Grace Redding D.O. Ordering Physician: Grace Redding D.O. Date of Service: 10/08/24 Procedure(s): US OB transvaginal Accession Number(s): [id number] cc: Grace Redding D.O.; Physician,Non-Staff Marielle [place] [id number] Patient Name: YESSI LIMON MRN: [id number] date: 1985 Sex: F Assigned Patient Location: [facility] Current Patient Location: Accession/Order Number: [id number] Exam Date: 10/08/2024 09:07 Report Date: 10/09/2024 [...] Sanchez M.D. Signed By:10/09/24434 DD/ 1 TD/TT: Director Global Medical Affairs: us Grace Redding DO [facility] Final Result documented in this encounter Visit Diagnoses Not on filedocumented in this encounter Care Teams Residential Designer Relationship Specialty Start Date End Date Codey Ponce MD PCP - General Family Medicine 10/08/24 documented as of this encounter
[2025-03-24 20:50] VITALS: TEMP 36.6
[2025-03-24 21:00] VITALS: BP 113/71; PULSE 77
[2025-03-24] MEDS: BETAMETHASONE ACE/BETAMETHASONE SOD PHOS 30 MG/5 ML 12 MG IM (21:00)
== END 2025-03-24 21:15 | disposition home or self-care (01) ==
LOC: FBCO 20:41 → FBC 20:43
PROVIDERS: PCP Family Medicine; Visit Provider Obstetrics & Gynecology
DX: O26.899 Other specified pregnancy related conditions, unspecified trimester (principal)
CPT/HCPCS: J0702

== ENCOUNTER 2025-04-01 02:28 | Observation (INO) | payer BC, SELFPAY ==
--- OUTSIDE RECORDS SUMMARY | 2024-09-28 04:50 | XMS_ITS ---
Author Organization The [facility] in [place] Address [address] [place] [address] Care Team Providers Care Primary Special Educator Name Role Phone Anuj Ponce Primary Care Provider REASON FOR VISIT Proair question Encounters Encounter Location Date Provider Diagnosis [facility] [address] [place] [address] 09/28/2024 Anuj Ponce Plan Of Treatment Medication Medication Name Sig Start Date Stop Date Notes ProAir RespiClick 108 (90 Base) MCG/ACT 1 puff as needed Inhalation every 4 hrs 09/24/2024 Progress Notes * LIMONFebruaryDOB:1985 ( 39 yo F)Acc No.[id number]:09/28/2024 Patient: Madison LARKIN February :1985 A ge:39 Y S ex:Female Address:[address], [place], [address] * Refills Stop ProAir RespiClick Aerosol Powder Breath Activated, 108 (90 Base) MCG/ACT, Inhalation, 1 puff as needed, every 4 hrs * true * Date: Generated for Printi ng/Faxing/eTransmitting on: 0 04/01/2025 02:32 AM EDT
--- OUTSIDE RECORDS SUMMARY | 2025-03-11 10:38 | XMS_ITS ---
Author Organization [facility] in [place] Address [address] [place] [address] Care Team Providers Care Hematologist Oncologist Name Role Phone Anuj Ponce Primary Care Provider REASON FOR VISIT walking pneumonia Medications Medication SIG (Take, Route, Fr equency, Duration) Notes Start Date End Date Status Cefdinir 300 MG 2 capsules Orally on ce daily for 10 days 03/11/2025 Active Encounters Encounter Location Date Provider Diagnosis [facility] [address] [place] [address] 03/11/2025 Anuj Ponce Plan Of Treatment Medication Medication Name Sig Start Date Stop Date Notes Cefdinir 300 MG 2 capsules Orally once daily for 10 days 0 03/11/2025 Progress Notes * ASHLY FebruaryDOB:1985 ( 40 yo F)Acc No.[id number]:03/11/2025 Patient: Madison LARKIN February :1985 A ge:40 Y S ex:Female Address:[address], [place], [address] * Refills Start Cefdinir Capsule, 300 MG, Orally, 20, 2 capsules, once daily, 10 days, Refills=0 * true * Date: Generated for Abdoulaye ann/Maria Ines/eTransmitting on: 0 04/01/2025 02:32 AM EDT
--- OUTSIDE RECORDS SUMMARY | 2025-03-13 13:41 | XMS_ITS ---
Author Organization The [facility] in [place] Address [address] [place] [address] Care Team Providers Care Nuclear Engineer Name Role Phone Anuj Ponce Primary Care Provider REASON FOR VISIT er fu Encounters Encounter Location Date Provider Diagnosis [facility] [address] [place] [address] 03/13/2025 Anuj Ponce Plan Of Treatment No Information Progress Notes * FebruaryDOB:1985 ( 40 yo F)Acc No.[id number]:03/13/2025 Patient: Madison LARKIN February :1985 A ge:40 Y S ex:Female Address:[address], [place], [address] * true * Date: Generated for Maryi ng/Faangg/eTransmitting on: 0 04/01/2025 02:32 AM EDT
--- OUTSIDE RECORDS SUMMARY | 2025-03-23 15:50 | XMS_ITS | Encounter Summary ---
Author Organization [facility] Address [address] [place] [address] Care Team Providers Care Electrical Estimator Name Role Phone Codey Ponce MD Primary Care Provider [phone] Reason for Visit * Reason Comments Routine Visit Encounter Details Date Type Department Care Team (Late st Contact Info) Description 03/23/2025 3:50 PM EDT Routine [facility] OB [address] [facility] [place] [phone] Monika Figueroa PA [address] [facility] [address] [place], [place] [phone] Third trimester ; 33 weeks gestation of [...] PM EDT Routine [facility] BCP OB [address] [facility] [place] [address] MiladisHenry gotti, DO [address] [facility] [place] [address] Scheduled Orders Name Type Priority Associated [...] trimester documented in this encounter Care Teams Electrical Estimator Relationship Specialty Start Date End Date Codey Ponce MD PCP - General Family Medicine 10/08/24 documented as of this encounter
--- OUTSIDE RECORDS SUMMARY | 2025-04-01 02:32 | XMS_ITS | Clinical Summary ---
Author Organization [facility] Address [address] [place] [address] Care Team Providers Care Research Food Technologist Name Role Phone Codey Ponce MD Primary Care Provider [phone] Allergies No known active allergies Medications azithromycin [...] Description 03/23/2025 3:50 PM EDT Routine [facility] OB [address] [place] [address] Monika [...] PM EDT Routine [facility] OB [address] [place] [place] [address] Grace Redding DO Upper respiratory tract infection, unspecified type (Primary Dx); Third trimester ; 31 weeks gestation of ; Multigravida of advanced maternal age in third trimester 03/07/2025 3:00 PM EDT Ancillary Procedure [facility] [address] [place] [address] Size of fetus inconsistent with dates in third trimester 02/21/2025 8:30 AM EDT Routine [facility] OB [address] [place] [place] [address] Grace Redding DO Third trimester ; 29 weeks gestation of ; Size of fetus inconsistent with dates in third trimester 02/21/2025 Bamboo flowsheet [facility] OB [address] [place] [place] [address] Grace Redding DO 02/15/2025 Telephone [facility] OB [address] [place] [address] Grace Redding DO 02/02/2025 3:40 PM EDT Routine [facility] OB [address] [place] [address] Monika Figueroa PA Second trimester ; 26 weeks gestation of 02/02/2025 Bamboo flowsheet [facility] [address] [place] [place] [address] Monika Figueroa PA 01/18/2025 Orders Only [facility] OB [address] [place] [address] Maria Guadalupe Hernandez MA 01/07/2025 Telephone [facility] OB [address] [place] [address] Monika Figueroa PA 01/05/2025 3:50 PM EST Routine [facility] OB [address] [place] [address] Grace Redding DO Well woman exam with routine gynecological exam; Exposure to STD; Second trimester ; 22 weeks gestation of ; Diabetes mellitus screening 01/05/2025 Clinisync Result Encounter [facility] External Department Unsolicited Grace Redding, 01/05/2025 External Result Encounter [facility] External Department Unsolicited Grace Redding DO 01/05/2025 Bamboo flowsheet [facility] OB [address] [place] [address] [place] [address] Grace Redding DO from Last 3 Months [...] Mass Index - - Plan of Treatment Upcoming Encounters Date Type Department Care Team (Late st Contact Info) Description 04/13/2025 2:10 PM EDT Routine [facility] OB [facility] [place] [address] Grace Redding DO [address] [place] [address] [place] [address] Procedures Procedure Name Priority Date/Time Associated Diagnosis Comments US OB CERVICAL LENGTH 03/23/2025 6:27 PM EDT [facility] UA (CLEAN/CATCH) PROFESSOR OF EARLY CHILDHOOD EDUCATION/MICRO IF IND. Routine 03/23/2025 4:55 PM EDT [...] PM EDT Narrative 03/23/2025 6:29 [place] [address] Ultrasound Report Signed Patient: YESSI LIMON MR#: [id number] : 1985 Acct:[id number] Age/Sex: 40 / F ADM Date: 03/23/25 Loc: [facility] 250-[address]: Grace Redding D.O. Ordering Physician: Grace Redding D.O. Date of Service: 03/23/25 Procedure(s): US OB cervical length Accession Number(s): [id number] cc: Grace Redding D.O.; Codey Ponce M.D. The [address] [address] Patient Name: YESSI LIMON MRN: [id number] date: 1985 Sex: F Assigned Patient Location: [facility] Current Patient Location: [facility] Accession/Order Number: [id number] Exam Date: 03/23/2025 18:26 Report Date: 03/23/2025 [...] Gould M.D. 03/23/2025 6:27 PM Dictation Location: [place] [address] Electronically authenticated by: [id number] Y Date: 03/23/2025 18:27 Dictated By: Jhon Gould D.O. Signed By: 03/23/251828 DD/ 26 TD/TT: Vacuum Cleaner Mechanic: Procedure Note Radiology, Radiologist, MD - 03/23/2025 [place] [address] Ultrasound Report Signed Patient: YESSI LIMON#: [id number] : 1985Acct:[id number] Age/Sex: 40 / FADM Date: 03/23/25 Loc: [facility] 250-[address]: Grace Redding D.O. Ordering Physician: Grace Redding D.O. Date of Service: 03/23/25 Procedure(s): US OB cervical length Accession Number(s): [id number] cc: Grace Redding D.O.; Codey Ponce M.D. The [address] [address] Patient Name: YESSI LIMON MRN: [id number] date: 1985 Sex: F Assigned Patient Location: [facility] Current Patient Location: [facility] Accession/Order Number: [id number] Exam Date: 03/23/2025 18:26 Report Date: 03/23/2025 [...] Gould M.D. 03/23/2025 6:27 PM Dictation Location: [place] [address] Electronically authenticated by: [id number] Y Date: 8:27 Dictated By: Jhon Gould D.O. Signed By:03/23/251828 DD/ 26 TD/TT: Vacuum Cleaner Mechanic: us Grace Redding DO [facility] Final Result * (ABNORMAL) [facility] UA (CLEAN/CATCH) PROFESSOR OF EARLY CHILDHOOD EDUCATION/MICRO IF IND. (03/23/2025 4:55 PM EDT) COLOR [...] us Grace Miladis DO [facility] Final Result AJIME [facility] * POCT urinalysis dipstick manually resulted (03/23/2025 [...] II, MD, PHD at 09-Mar-2025 08:42:20 AM [facility] Procedure Note Benson Nelson MD - [...] signed by BENSON NELSON II, MD, PHD [id number] 08:42:20 AM [facility] us Grace Miladis DO IMG OB US PROCEDURES Final Resul t * (ABNORMAL) RECURRENT VAGINITIS (HTRX) (01/05/2025 4:50 PM EST) [facility] ATOPOBIUM VAGINAE 0.000 19.961 - 24.689 ppm 01/07/2025 7:11 AM EST [facility] ATOPOBIUM VAGINAE Not Detected 19.961 - 24.689 ppm 01/07/2025 7:11 AM EST [facility] BVAB 2,3 (BACTERIAL VAGINOSIS ASSOCIATED BACTERIA 2, 3); MOBILUNCUS SPP 0.000 19.961 - 24.689 ppm 01/07/2025 7:11 AM EST [facility] BVAB 2,3 (BACTERIAL VAGINOSIS ASSOCIATED BACTERIA 2, 3); MOBILUNCUS SPP Not Detected 19.961 - 24.689 ppm 01/07/2025 7:11 AM EST [facility] BOOKER ALBICANS, PARAPSILOSIS, TROPICALIS 28.029(A) 19.961 - 30.770 ppm 01/07/2025 7:11 AM EST [facility] BOOKER ALBICANS, PARAPSILOSIS, TROPICALIS Detected(A) 19.961 - 30.770 ppm 01/07/2025 7:11 AM EST [facility] BOOKER GLABRATA 0.000 23.000 - 32.138 ppm 01/07/2025 7:11 AM EST [facility] BOOKER GLABRATA Not Detected 23.000 - 32.138 ppm 01/07/2025 7:11 AM EST [facility] BOOKER KRUSEI 0.000 23.000 - 32.271 ppm 01/07/2025 7:11 AM EST [facility] BOOKER KRUSEI Not Detected 23.000 - 32.271 ppm 01/07/2025 7:11 AM EST [facility] CHLAMYDIA TRACHOMATIS 0.000 23.000 - 31.467 ppm 01/07/2025 7:11 AM EST [facility] CHLAMYDIA TRACHOMATIS Not Detected 23.000 - 31.467 ppm 01/07/2025 7:11 AM EST [facility] GARDNERELLA VAGINALIS 0.000 19.961 - 24.689 ppm 01/07/2025 7:11 AM EST [facility] GARDNERELLA VAGINALIS Not Detected 19.961 - 24.689 ppm 01/07/2025 7:11 AM EST [facility] MEGASPHAERA (TYPES 1, 2) 0.000 19.961 - 24.689 ppm 01/07/2025 7:11 AM EST [facility] MEGASPHAERA (TYPES 1, 2) Not Detected 19.961 - 24.689 ppm 01/07/2025 7:11 AM EST [facility] NEISSERIA GONORRHOEAE 0.000 23.000 - 32.117 ppm 01/07/2025 7:11 AM EST [facility] NEISSERIA GONORRHOEAE Not Detected 23.000 - 32.117 ppm 01/07/2025 7:11 AM EST [facility] TRICHOMONAS VAGINALIS 0.000 23.000 - 32.119 ppm 01/07/2025 7:11 AM EST [facility] TRICHOMONAS VAGINALIS Not Detected 23.000 - 32.119 ppm 01/07/2025 7:11 AM EST [facility] MYCOPLASMA GENITALIUM 0.000 19.961 - 24.689 ppm 01/07/2025 7:11 AM EST [facility] MYCOPLASMA GENITALIUM Not Detected 19.961 - 24.689 ppm 01/07/2025 7:11 AM EST [facility] Tissue 01/05/2025 4:50 PM EST 01/07/2025 2:22 AM EST Grace Miladis DO LAB BLOOD ORDERABLES Final Resul t [facility] [address] [place] [address] * IGP,APTIMA HPV,AGE GDLN (01/05/2025 3:57 PM EST) AGE GDLN ACOG TESTING Note . [facility] Comment: TESTS RESULT FLAG UNITS REF RANGE LAB Clinician Provided Cytology Information Source.............Cervix No. of containers..01 ThinPrep Vial Age Algo ACOG Sushma... 30-65 01 FLAG LEGEND: L-Low Normal,H-High Normal,LL-Alert Low,HH-Alert High <-Panic Low,>-Panic High,A-Abnormal,AA-Critical Abnormal Performed at: 01 =[address] [facility] [place] [address] Enma Todd MD, IGP, APTIMA HPV, RFX 16/18,45 Note . [facility] Comment: TESTS RESULT FLAG UNITS REF RANGE LAB DIAGNOSIS: 02 NEGATIVE FOR INTRAEPITHELIAL LESION OR MALIGNANCY. FUNGAL ORGANISMS MORPHOLOGICALLY CONSISTENT WITH BOOKER SPECIES ARE PRESENT. Specimen adequacy: 02 Satisfactory for evaluation. No endocervical component is identified. Performed by: 02 Breanna Lucero Human Services Supervisor . 02 Note: Note 02 The Pap [...] High <-Panic Low,>-Panic High,A-Abnormal,AA-Critical Abnormal Performed at: [address] [place] [id number] Enma Todd MD, HPV APTIMA Negative Negative [facility] Comment: This nucleic acid amplification test detects fourteen high- risk HPV types (16,18,31,33,35,39,45,51,52,56,58,59,66,68) without differentiation. Performed at: =[address] [id number] Railway Station Manager: Enma Todd MD, Phone: [phone] Performed at: [address] [id number] Railway Station Manager: Enma Todd MD, Phone: [phone] 01/05/2025 3:57 PM EST 01/05/2025 8:18 PM EST Narrative [facility] - 01/10/2025 3:08 PM EDT SPATULA-ALONE CERVIX us Grace Miladis DO LAB BLOOD ORDERABLES Final Resul t [facility] * Pap Smear (01/05/2025 12:00 AM EST) Swab Cervical swab / Unknown us Grace Miladis DO LAB CYTOLOGY ORDERABLES Final Re sult EXTERNAL LAB from Last 3 Months Insurance Care Teams Research Food Technologist Relationship Specialty Start Date End Date Codey Ponce MD PCP - General Family Medicine 10/08/24
--- OUTSIDE RECORDS SUMMARY | 2025-04-01 02:32 | XMS_ITS | Encounter Summary ---
Author Organization [facility] Address [address] [facility] [place] [address] Care Team Providers Care Medium Cycle Salesperson Name Role Phone Codey Ponce MD Primary Care Provider [phone] Encounter Details Date Type Department Care Team (Late st Contact Info) Description 03/23/2025 Bamboo flowsheet [facility] [address] [place] [address] Monika Figueroa PA [address] [place] [address] Dr [place], [facility]11 Social History Tobacco Use Types Packs/Day Years [...] as of this encounter Plan of Treatment Upcoming Encounters Date Type Department Care Team (Late st Contact Info) Description 04/13/2025 2:10 PM EDT Routine [facility] [address] [place] [address] Henry Redding DO [address] [place] [address] Dr [place], [facility]11 documented as of this encounter Visit Diagnoses Not on filedocumented in this encounter Care Teams Medium Cycle Salesperson Relationship Specialty Start Date End Date Codey Ponce MD PCP - General Family Medicine 12/6/24 documented as of this encounter
--- OUTSIDE RECORDS SUMMARY | 2025-04-01 02:32 | XMS_ITS | Encounter Summary ---
Author Organization [facility] Address [address] [place] [address] Care Team Providers Care Email Marketing Processor Name Role Phone Codey Ponce MD Primary Care Provider [phone] Encounter Details Date Type Department Care Team (Late st Contact Info) Description 03/23/2025 Clinisync Result Encounter [facility] External Department Unsolicited Grace Redding, DO [address] [place] [address] Social History Tobacco Use Types Packs/Day Years [...] Routine [facility] [address] [place] [phone] Grace Redding DO [address] [place] [address] documented as of this encounter Procedures Procedure Name Priority Date/Time Associated Diagnosis Comments US OB CERVICAL LENGTH 03/23/2025 6:27 PM EDT documented in this encounter Results * US OB CERVICAL LENGTH (03/23/2025 6:27 PM EDT) Anatomical Region Laterality Modality Other 03/23/2025 6:27 PM EDT Narrative 03/23/2025 6:29 PM EDT [address] [address] Ultrasound Report Signed Patient: YESSI LIMON MR#: [id number] : 1985 Acct:[id number] Age/Sex: 40 / F ADM Date: 03/23/25 Loc: [facility] 250-[address]: Grace Redding D.O. Ordering Physician: Grace Redding D.O. Date of Service: 03/23/25 Procedure(s): US OB cervical length Accession Number(s): [id number] cc: Grace Redding D.O.; Codey Ponce M.D. The [address] [address] Patient Name: YESSI LIMON MRN: [id number] date: 1985 Sex: F Assigned Patient Location: [facility] Current Patient Location: [facility] Accession/Order Number: [id number] Exam Date: 03/23/2025 18:26 Report Date: 03/23/2025 [...] Gould M.D. 03/23/2025 6:27 PM Dictation Location: [place] [address] Electronically authenticated by: [id number] Y Date: 03/23/2025 18:27 Dictated By: Jhon Gould D.O. Signed By: 03/23/25 182 DD/ 26 TD/TT: Director Global Sales: Procedure Note Radiology, Radiologist, - 03/23/[address] [address] Ultrasound Report Signed Patient: YESSI LIMON#: [id number] : 1985Acct:[id number] Age/Sex: 40 / FADM Date: 03/23/25 Loc: [facility] 250-[address]: Grace Redding D.O. Ordering Physician: Grace Redding D.O. Date of Service: 03/23/25 Procedure(s): US OB cervical length Accession Number(s): [id number] cc: Grace Redding D.O.; Codey Ponce M.D. The [address] [id number] Patient Name: YESSI LIMON MRN: [id number] date: 1985 Sex: F Assigned Patient Location: [facility] Current Patient Location: [facility] Accession/Order Number: [id number] Exam Date: 03/23/2025 18:26 Report Date: 03/23/2025 [...] Gould M.D. 03/23/2025 6:27 PM Dictation Location: [place] [address] Electronically authenticated by: [id number] Y Date: 8:27 Dictated By: Jhon Gould D.O. Signed By:03/23/251828 DD/ 26 TD/TT: Director Global Sales: Grace Redding DO [facility] Final Result documented in this encounter Visit Diagnoses Not on filedocumented in this encounter Care Teams Email Marketing Processor Relationship Specialty Start Date End Date Codey Ponce MD PCP - General Family Medicine 10/08/24 documented as of this encounter
--- OUTSIDE RECORDS SUMMARY | 2025-04-01 02:32 | XMS_ITS | CCD ---
Author Organization [facility] Care Team Providers Care Manufacturing Maintenance Technician Name Role Phone GLENNA MCINTYRE Admitting Unavailable GLENNA MCINTYRE Attending Unavailable GLENNA MCINTYRE Consulting Unavailable NORM PONEC Admitting Unavailable NORM PONCE Attending Unavailable NORM PONCE Consulting Unavailable ANDREA AVERY Consulting Unavailable Norm Ponce MD Primary Care Provider [phone] Norm Ponce MD Primary Care Provider [phone] MONIKA FRIED Attending Unavailable GRACE REDDING Attending Unavailable MONIKA FRIED Attending Unavailable GRACE REDDING Attending Unavailable GRACE REDDING Attending Unavailable GRACE REDDING Attending Unavailable MONIKA FRIED Attending Unavailable Allergies Allergy Classification Reported Allergen(s) Allergy Type Date of Onset Reaction(s) Facility (1 source) Desonide Drug Allergy [facility] Repository Medications Current Medications Medication Drug Class(es) Dates Sig (Normalized) Sig (Original) azithromycin 250 mg oral tablet (7 sources) Macrolide Antimicrobial Start: 03-07-2025 azithromycin (Zithromax [...] third trimester] 02-21-2025 Episodic Other complications of (4 sources) Multigravida of advanced maternal age; Translations: [Supervision of elderly multigravida, third trimester] 03-07-2025 Episodic Other connective tissue disease (4 sources) Pain in left lower leg; Translations: [PAIN IN LEFT LOWER LEG] Onset: 05-15-2020 Episodic Other and delivery including normal (16 sources) ; Translations: [Encounter for supervision of [...] [31 weeks gestation of ] 03-07-2025 Episodic Residual codes; unclassified (2 sources) Gestation period, 33 weeks; Translations: [33 weeks gestation of ] 03-23-2025 Episodic Past or Other Problems Problem Classification Problem Date Documented Date Episodic/Chronic Other female genital disorders (4 sources) Other specified noninflammatory disorders of vagina; Translations: [OTH SPEC NONINFLAMMATORY D/O VAGINA] Onset: 08-06-2019 Episodic Urinary tract infections (20 sources) Urinary tract infectious disease; Translations: [Urinary tract infection, site not specified] Onset: 10-25-2024 10-25-2024 Episodic Results Test Name Value Interpretation Reference Range Facility [facility] UA (CLEAN/CATCH) HAND MOLDER/EILEEN RO IF IND.on 03-23-2025 BILIRUBIN URINE Negative NEGATIVE [facility]care BLOOD URINE Negative NEGATIVE [facility] Clarity (U) CLEAR CLEAR [facility] Color (U) LT. YELLOW YELLOW [facility] GLUCOSE URINE UA Negative NEGATIVE mg/dL [facility] Interpretation and review of laboratory results Abnormal [facility] Ketones Ql (U) Negative NEGATIVE mg/dL [facility] Leukocyte esterase Test strip Ql (U) Negative NEGATIVE [facility] NITRITE URINE Negative NEGATIVE [facility] pH (U) 7.0 [pH] 5.0 - 9.0 [facility] PROTEIN URINE Negative NEG/TRACE mg/dL [facility] SPECIFIC GRAVITY URINE <=1.005 Abnormal 1.005 - 1.025 [facility] URINE MICROSCOPIC INDICATED NO [facility] UROBILINOGEN URINE 0.2 EU/dL 0.2 - 1.0 EU/dL [facility] US OB CERVICAL LENGTHon 03-04 [place] [address] Ultrasound Report Signed Patient: YESSI AGEE MR#: [id number] : 1985 Acct:[id number] Age/Sex: 40 / F ADM Date: 03/23/25 Loc: [facility] 250-[address]: Graec Redding D.O. Ordering Physician: Graec Redding D.O. Date of Service: 03/23/25 Procedure(s): US OB cervical length Accession Number(s): [id number] cc: Grace Redding D.O.; Norm Ponce M.D. [place] [address] Patient Name: YESSI AGEE MRN: [id number]:[id number] date: 1985 Sex: F Assigned Patient Location: [facility] Current Patient Location: [facility] Accession/Order Number: [id number] Exam Date: 03/23/2025 18:26 Report Date: 03/23/2025 [...] Gould M.D. 03/23/2025 6:27 PM Dictation Location: [facility] [employer] Electronically authenticated by: [id number] Y Date: 03/23/2025 18:27 Dictated By: Jhon Gould D.O. Signed By: 03/23/251828 DD/ 26 TD/TT: Delivery Sales Worker: [facility] Radiology, Radiologist, - 03/23/2025 [place] [address] Ultrasound Report Signed Patient: YESSI AGEE MR#: [id number] : 1985 Acct:[id number] Age/Sex: 40 / F ADM Date: 03/23/25 Loc: [place] [address]- Attending Dr: Grace Redding D.O. Ordering Physician: Grace Redding D.O. Date of Service: 03/23/25 Procedure(s): US OB cervical length Accession Number(s): [id number] cc: Grace Redding D.O.; oNrm Ponce M.D. The [place] [address] Patient Name: YESSI AGEE MRN: [facility]:[id number] date: 1985 Sex: F Assigned Patient Location: [facility] Current Patient Location: [facility] Accession/Order Number: [id number] Exam Date: 03/23/2025 18:26 Report Date: 03/23/2025 [...] Gould M.D. 03/23/2025 6:27 PM Dictation Location: [place] [address] Electronically authenticated by: [id number] Y Date: 03/23/2025 18:27 Dictated By: Jhon Gould D.O. Signed By: 03/23/251828 DD/ 26 TD/TT: Delivery Sales Worker: [facility] Radiology Study observation (narrative) [facility] US OB CERVICAL LENGTHOrdered By: Radiologist Radiology on 03-23-2025 [facility] Work Phone: Urinalysis macro (dipstick) panel (U)on 03-23-2025 Bilirubin, UA Negative Negative - 4(70) +++ mg/dL [facility] Blood, UA Negative Negative - 50 Venu/mcL [facility] Clarity, UA Clear [facility] [employer] re Color, UA Yellow [facility] [employer] [facility] Glucose, UA Negative Negative - 1999(110) ++++ mg/dL [facility] Interpretation and review of laboratory results Normal [facility] Ketones, UA Negative Negative - 160(16) ++++ mg/dL [facility] Leukocytes, UA Negative Negative - 500+++ Michael/mcL [facility] Nitrite, UA Negative Negative - Positive [facility] pH, UA 7 5 - 9 [facility] [employer] e Protein, UA Negative Negative - 1999(20) ++++ mg/dL [facility] Spec Grav, UA 1.015 1 - 1.03 [facility] Urobilinogen, UA 1.0 0.2 - 12 mg/dL [facility] US OB FOLLOW UP TRANSABDOMIN AL APPROACHon 03-07-2025 US OB FOLLOW UP TRANSABDOMINAL APPROACH EXAM: US [...] II, MD, PHD at 09-Mar-2025 08:42:20 AM [facility] Normal Not Available Comment on above: Order Comment: US OB SCAN FOR GROWTH Estimated Date of Delivery: 05/09/25 Gestational Age as of 02/21/2025: 29w0d Urinalysis macro (dipstick) panel (U)on 03-07-2025 Bilirubin, UA Negative Negative - 4(70) +++ mg/dL [facility] Blood, UA Negative Negative - 50 Venu/mcL [facility] Healthcare Clarity, UA Clear [facility] Color, UA Yellow [facility] Glucose, UA Negative Negative - 1999(110) ++++ mg/dL [facility] Interpretation and review of laboratory results Normal [facility] Ketones, UA Negative Negative - 160(16) ++++ mg/dL [facility] Leukocytes, UA Negative Negative - 500+++ Michael/mcL [facility] Healthcare Nitrite, UA Negative Negative - Positive [facility] pH, UA 6 5 - 9 [facility] Protein, UA Negative Negative - 1999(20) ++++ mg/dL [facility] Spec Grav, UA 1.015 1 - 1.03 [facility] care Urobilinogen, UA 0.2 0.2 - 12 mg/dL [facility] Urinalysis macro (dipstick) panel (U)on 02-21-2025 Bilirubin, UA Negative Negative - 4(70) +++ mg/dL [facility] Blood, UA Negative Negative - 50 Venu/mcL [facility] Healthcare Clarity, UA Clear [facility] Color, UA Yellow [facility] Glucose, UA Negative Negative - 1999(110) ++++ mg/dL [facility] Interpretation and review of laboratory results Abnormal [facility] Ketones, UA Negative Negative - 160(16) ++++ mg/dL [facility] Healthcare Leukocytes, UA Trace Negative - 500+++ Michael/mcL [facility] Healthcare Nitrite, UA Negative Negative - Positive [facility] pH, UA 7 5 - 9 [facility] Protein, UA Positive Negative - 1999(20) ++++ mg/dL [facility] Comment on above: 30mg/dL Spec Grav, UA 1.025 1 - 1.03 [facility] Urobilinogen, UA 4.0 0.2 - 12 mg/dL [facility] Urinalysis macro (dipstick) panel (U)on 02-02-2025 Bilirubin, UA Negative Negative - 4(70) +++ mg/dL [facility] Blood, UA Negative Negative - 50 Venu/mcL [facility] Clarity, UA Clear [facility] re Color, UA Yellow [facility] Glucose, UA Negative Negative - 1999(110) ++++ mg/dL [facility] Interpretation and review of laboratory results Abnormal [facility] Ketones, UA Negative Negative - 160(16) ++++ mg/dL [facility] Leukocytes, UA Trace Negative - 500+++ Michael/mcL [facility] Nitrite, UA Negative Negative - Positive [facility] pH, UA 7 5 - 9 [facility] Protein, UA Negative Negative - 1999(20) ++++ mg/dL [facility] Spec Grav, UA 1.02 1 - 1.03 [facility] Urobilinogen, UA 1.0 0.2 - 12 mg/dL [facility] IGP,APTIMA HPV,AGE GDLNon AGE GDLN ACOG TESTING Note . [facility] Comment on above: TESTS RESULT FLAG U NITS REF RANGE LAB Clinician Provided Cytology Information Source.............Cervix No. of containers..01 ThinPrep Vial Age Algo ACOG Sushma... FLAG LEGEND: L-Low Normal,H-High Normal,LL-Alert Low,HH-Alert High <-Panic Low,>-Panic High,A-Abnormal,AA-Critical Abnormal Performed at: 01 =[address] [address] Enma Todd MD, HPV APTIMA Negative Negative [facility] Comment on above: This nucleic acid am plification test detects fourteen high- risk HPV types (16,18,31,33,35,39,45,51,52,56,58,59,66,68) without differentiation. Performed at: =[facility] [id number] Stand Grinder: Enma Todd MD, Phone: [phone] Performed at: [facility] [id number] Stand Grinder: Enma Todd MD, Phone: [phone] IGP, APTIMA HPV, RFX 16/18,45 Note . [facility] Comment on above: TESTS RESULT FLAG UN ITS REF RANGE LAB DIAGNOSIS: 02 NEGATIVE FOR INTRAEPITHELIAL LESION OR MALIGNANCY. FUNGAL ORGANISMS MORPHOLOGICALLY CONSISTENT WITH COREEN SPECIES ARE PRESENT. Specimen adequacy: 02 Satisfactory for evaluation. No endocervical component is identified. Performed by: Christian Lucero, Account Resolution Specialist . 02 Note: Note 02 The Pap [...] Low,>-Panic High,A-Abnormal,AA-Critical Abnormal Performed at: [address] [facility] [address] [address] Enma Todd MD, SPATULA-ALONE CERVIX [facility] Urinalysis macro (dipstick) panel (U)on 01-05-2025 Bilirubin, UA Negative Negative - 4(70) +++ mg/dL [facility] Blood, UA Negative Negative - 50 Venu/mcL [facility] Clarity, UA Clear [facility] re Color, UA Yellow [facility] [employer] e Glucose, UA Negative Negative - 1999(110) ++++ mg/dL [facility] Interpretation and review of laboratory results Normal [facility] Ketones, UA Negative Negative - 160(16) ++++ mg/dL [facility] Leukocytes, UA Negative Negative - 500+++ Michael/mcL [facility] Nitrite, UA Negative Negative - Positive [facility] pH, UA 5.5 5 - 9 [facility] [employer] Protein, UA Negative Negative - 1999(20) ++++ mg/dL [facility] Spec Grav, UA 1.01 1 - 1.03 [facility] care Urobilinogen, UA 0.2 0.2 - 12 mg/dL [facility] US OB ANATOMYon 12-29-2024 The [place] [id number] Ultrasound Report Signed Patient: YESSI AGEE MR#: [id number] : 1985 Acct:[id number] Age/Sex: 39 / F ADM Date: 12/23/24 Loc: US Attending Dr: Monika Fried Ordering Physician: Monika Fried Date of Service: 12/23/24 Procedure(s): US OB anatomy Accession Number(s): [id number] cc: Monika Fried; Physician,Non-Staff M.D. [place] [address] Patient Name: YESSI AGEE MRN: [id number]:[id number] date: 1985 Sex: F Assigned Patient Location: US Current Patient Location: US Accession/Order Number: [id number] Exam Date: 12/24/2024 09:49 Report Date: 12/24/2024 [...] all 4 extremities were surveyed by the store mgr. No abnormalities were detected. The stomach, kidneys, [...] Marion Flaherty M.D.12/24/2024 10:03 AM Dictation Location: [place] [address] Electronically authenticated by: [id number] Y Date: 12/24/2024 10:03 Dictated By: Marion Flaherty M.D. Signed By: 12/29/24 1035 DD/ 1003 TD/TT: Delivery Sales Worker: [facility] Radiology, Radiologist, MD - 12/29/2024 [place] [address] Ultrasound Report Signed Patient: YESSI AGEE MR#: [id number] : 1985 Acct:[id number] Age/Sex: 39 / F ADM Date: 12/23/24 Loc: US Attending Dr: Monika Fried Ordering Physician: Monika Fried Date of Service: 12/23/24 Procedure(s): US OB anatomy Accession Number(s): [id number] cc: Monika Fried; Physician,Non-Staff Marielle The [place] [id number] Patient Name: YESSI AGEE MRN: [facility]:[id number] date: 1985 Sex: F Assigned Patient Location: Current Patient Location: US Accession/Order Number: [id number] Exam Date: 12/24/2024 09:49 Report Date: 12/24/2024 [...] all 4 extremities were surveyed by the store mgr. No abnormalities were detected. The stomach, kidneys, [...] Marion Flaherty M.D.12/24/2024 10:03 AM Dictation Location: [place] [address] Electronically authenticated by: [id number] Y Date: 12/24/2024 10:03 Dictated By: Marion Flaherty M.D. Signed By: 12/29/24 1035 DD/ 1003 TD/TT: Delivery Sales Worker: [facility] [employer] OB ANATOMYOrdered By: Lul anne Radiology on 12-29-2024 [facility] [employer] Work Phone: No Panel Informationon 12-24 Radiology Study observation (narrative) [facility] OB CERVICAL LENGTHon 12-05 The [place] [id number] Ultrasound Report Signed Patient: YESSI AGEE MR#: [id number] : 1985 Acct:[id number] Age/Sex: 39 / F ADM Date: 12/23/24 Loc: US Attending Dr: Monika Fried Ordering Physician: Monika Fried Date of Service: 12/23/24 Procedure(s): US OB cervical length Accession Number(s): [id number] cc: Monika Fried; Physician,Non-Staff Marielle The [address] [address] Patient Name: YESSI AGEE MRN: [facility]:[id number] date: 1985 Sex: F Assigned Patient Location: Current Patient Location: Accession/Order Number: [id number] Exam Date: 12/24/2024 09:49 Report Date: 12/24/2024 [...] all 4 extremities were surveyed by the store mgr. No abnormalities were detected. The stomach, kidneys, [...] Marion Flaherty M.D.12/24/2024 10:03 AM Dictation Location: [facility] Electronically authenticated by: [id number] Y Date: 12/24/2024 10:03 Dictated By: Marion Flaherty M.D. Signed By: 12/24/24 1005 DD/ 1003 TD/TT: Delivery Sales Worker: [facility] Radiology, Radiologist, - 12/24/2024 [place] [address] Ultrasound Report Signed Patient: YESSI AGEE MR#: [id number] : 1985 Acct:[id number] Age/Sex: 39 / F ADM Date: 12/23/24 Loc: US Attending Dr: Monika Fried Ordering Physician: Monika Fried Date of Service: 12/23/24 Procedure(s): US OB cervical length Accession Number(s): [id number] cc: Monika Fried; Physician,Non-Staff [place] [id number] Patient Name: YESSI AGEE MRN: [id number]:[id number] date: 1985 Sex: F Assigned Patient Location: US Current Patient Location: Accession/Order Number: [id number] Exam Date: 12/24/2024 09:49 Report Date: 12/24/2024 [...] all 4 extremities were surveyed by the store mgr. No abnormalities were detected. The stomach, kidneys, [...] Marion Flaherty M.D.12/24/2024 10:03 AM Dictation Location: [place] [address] Electronically authenticated by: [id number] Y Date: 12/24/2024 10:03 Dictated By: Marion Flaherty M.D. Signed By: 12/24/24 1005 DD/ 1003 TD/TT: Delivery Sales Worker: [facility] US OB CERVICAL LENGTHOrdered By: Radiologist Radiology on 12-24-2024 [facility] Work Phone: Urinalysis macro (dipstick) panel (U)on 12-08-2024 Bilirubin, UA Negative Negative - 4(70) +++ mg/dL [facility] Blood, UA Negative Negative - 50 Venu/mcL [facility] Clarity, UA Clear [facility] re Color, UA Yellow [facility] Glucose, UA Negative Negative - 2000(110) ++++ mg/dL [facility] Interpretation and review of laboratory results Normal [facility] Ketones, UA Negative Negative - 160(16) ++++ mg/dL [facility] Leukocytes, UA Negative Negative - 500+++ Michael/mcL [facility] Nitrite, UA Negative Negative - Positive [facility] pH, UA 7 5 - 9 [facility] e Protein, UA Negative Negative - 2000(20) ++++ mg/dL [facility] Spec Grav, UA 1.025 1 - 1.03 [facility] Urobilinogen, UA 1.0 0.2 - 12 mg/dL [facility] ALL CBC WITH AUTO DIFFon BASOPHILS ABSOLUTE AUTO 0 [facility] Basophils/100 WBC (Bld) 0.2 % 0.2 - 2.0 % [facility] Eosinophils/100 WBC (Bld) 1 % 0.9 - 7.0 % [facility] Erythrocyte distribution width (RBC) [Ratio] 13.6 % 11.0 - 15.0 % [facility] Hematocrit (Bld) [Volume fraction] 37.5 % 36.0 - 48.0 % [facility] Hemoglobin (Bld) [Mass/Vol] 12.5 g/dL 12.0 - 16.0 g/dL [facility] IMMATURE GRANULOCYTES ABS AUTO 0.15 High [facility] Immature granulocytes/100 WBC (Bld) 1.9 % High 0.0 - 0.5 % [facility] Interpretation and review of laboratory results Abnormal [facility] LYMPHOCYTES ABSOLUTE AUTO 1.7 [facility] Lymphocytes/100 WBC (Bld) 20.4 % Low 20.5 - 60.0 % [facility] MCH (RBC) [Entitic mass] 30.3 pg 26.7 - 34.0 pg [facility] MCHC (RBC) [Mass/Vol] 33.3 g/dL 29.9 - 35.2 g/dL [facility] MCV (RBC) [Entitic vol] 90.8 fL 81.0 - 99.0 fL [facility] MONOCYTES ABSOLUTE AUTO 0.5 [facility] Monocytes/100 WBC (Bld) 5.6 % 1.7 - 12.0 % [facility] NEUTROPHILS ABSOLUTE AUTO 5.8 [facility] Neutrophils/100 WBC (Bld) 70.9 % 43.0 - 75.0 % [facility] Platelet mean volume (Bld) [Entitic vol] 9.9 fL 9.5 - 13.5 fL [facility] EO # 0.1 [facility] TB PLT 170 [facility] e TB RBC 4.13 Low [facility] TB WBC 8.1 [facility] Urinalysis macro (dipstick) panel (U)on 11-09-2024 Bilirubin, UA Negative Negative - 4(70) +++ mg/dL [facility] Blood, UA Negative Negative - 50 Venu/mcL [facility] Clarity, UA Clear [facility] re Color, UA Yellow [facility] e Glucose, UA Negative Negative - 1999(110) ++++ mg/dL [facility] Interpretation and review of laboratory results Normal [facility] Ketones, UA Negative Negative - 160(16) ++++ mg/dL [facility] Leukocytes, UA Negative Negative - 500+++ Michael/mcL [facility] Nitrite, UA Negative Negative - Positive [facility] pH, UA 6.5 5 - 9 [facility] e Protein, UA Negative Negative - 1999(20) ++++ mg/dL [facility] Spec Grav, UA 1.015 1 - 1.03 [facility] Urobilinogen, UA 0.2 0.2 - 12 mg/dL [facility] HCG ( test) Ql (U)o n 10-08-2024 Interpretation and review of laboratory results Abnormal [facility] Preg Test, Ur Positive Negative [facility] Urinalysis macro (dipstick) panel (U)on 10-08-2024 Bilirubin, UA Negative Negative - 4(70) +++ mg/dL [facility] Blood, UA Negative Negative - 50 Venu/mcL [facility] Clarity, UA Clear [facility] re Color, UA Yellow [facility] [employer] Glucose, UA Negative Negative - 1999(110) ++++ mg/dL [facility] Interpretation and review of laboratory results Normal [facility] Ketones, UA Negative Negative - 160(16) ++++ mg/dL [facility] Leukocytes, UA Negative Negative - 500+++ Michael/mcL [facility] Nitrite, UA Negative Negative - Positive [facility] pH, UA 5.5 5 - 9 [facility] Protein, UA Negative Negative - 1999(20) ++++ mg/dL [facility] Spec Grav, UA 1.01 1 - 1.03 [facility] Urobilinogen, UA 0.2 0.2 - 12 mg/dL [facility] US CARROLL DOP LEG [...] ANDREA AVERY Date: 2020-05-15 15:51 Normal [facility] VAGINITIS/VAGINOSIS DNA PROB Will 08-07-2019 Coreen species Positive Abnormal Negative [facility] Comment on above: Performed By: #### V AGINT #### [facility] [address] [place] [address] Tolu Schultz Gardnerella vaginalis Negative Normal Negative [facility] Comment on above: Performed By: #### V AGINT #### [facility] [address] [place] [address] Tolu Schultz Trichomonas vaginalis Negative Normal Negative [facility] Comment on above: Performed By: #### V AGINT #### [facility] [address] [place], [place] [address] Tolu Schultz Vital Signs Date Time Vital Sign Value Performing Clinician Nighat vee 03-23-2025 16:22-0400 Body weight 74.39 kg Monika WEEKS Work Phone: [facility] 03-23-2025 16:22-0400 Diastolic blood pressure 80 mm[Hg] Monika WEEKS Work Phone: [facility] 03-23-2025 16:22-0400 Systolic blood pressure 128 mm[Hg] Monika WEEKS Work Phone: [facility] 03-07-2025 15:44-0400 Body weight 73.48 kg Grace Miladis DO Work Phone: [facility] 03-07-2025 15:44-0400 Diastolic blood pressure 72 mm[Hg] Grace Miladis DO Work Phone: [facility] 03-07-2025 15:44-0400 Systolic blood pressure 118 mm[Hg] Grace Miladis DO Work Phone: [facility] [facility] 02-21-2025 08:33-0400 Body weight 73.37 kg Grace Miladis DO Work Phone: [facility] 02-21-2025 08:33-0400 Diastolic blood pressure 74 mm[Hg] Grace Miladis DO Work Phone: [facility] 02-21-2025 08:33-0400 Systolic blood pressure 116 mm[Hg] Grace Miladis DO Work Phone: [facility] 02-02-2025 15:42-0400 Body weight 73.14 kg Monika WEEKS Work Phone: [facility] 02-02-2025 15:42-0400 Diastolic blood pressure 76 mm[Hg] Monika WEEKS Work Phone: [facility] 02-02-2025 15:42-0400 Systolic blood pressure 116 mm[Hg] Monika WEEKS Work Phone: [facility] 01-05-2025 16:05-0500 Body weight 71.22 kg Grace Miladis DO Work Phone: [facility] 01-05-2025 16:05-0500 Diastolic blood pressure 72 mm[Hg] Grace Miladis DO Work Phone: [facility] 01-05-2025 16:05-0500 Systolic blood pressure 118 mm[Hg] Grace Miladis DO Work Phone: [facility] 12-08-2024 15:59-0500 Body weight 70.94 kg Monika WEEKS Work Phone: [facility] 12-08-2024 15:59-0500 Diastolic blood pressure 72 mm[Hg] Monika WEEKS Work Phone: [facility] 12-08-2024 15:59-0500 Systolic blood pressure 110 mm[Hg] Monika WEEKS Work Phone: [facility] 11-09-2024 11:10-0500 Body weight 67.13 kg Grace Miladis DO Work Phone: [facility] 11-09-2024 11:10-0500 Diastolic blood pressure 68 mm[Hg] Grace Miladis DO Work Phone: [facility] 11-09-2024 11:10-0500 Systolic blood pressure 108 mm[Hg] Grace Miladis DO Work Phone: [facility] 10-08-2024 10:17-0500 Body weight 64.86 kg [facility] Nurse [facility] Encounters Encounter Date Encounter Type Care Provider Facility Start: 03-23-2025 End: 03-23-2025 flow sheet Monika WEEKS Work Phone: [facility] Comment on above: Third trimester preg brody; 33 weeks gestation of ; Multigravida of advanced maternal age in third trimester Start: 03-23-2025 End: 03-23-2025 ambulatory MONIKA FRIED Not Available Start: 03-23-2025 End: 03-23-2025 Bamboo flowsheet Monika WEEKS Work Phone: [facility] Start: 03-23-2025 End: 03-23-2025 Bamboo flowsheet Monika WEEKS Work Phone: [facility] Start: 03-23-2025 End: 03-23-2025 Clinisync Result Encounter Grace Miladis DO Work Phone: [facility] Unsolicited Start: 03-07-2025 End: 03-07-2025 flow sheet Grace Miladis DO Work Phone: [facility] Comment on above: Upper respiratory [...] encounter procedure Grace Miladis DO Work Phone: [facility] Start: 01-05-2025 End: 01-05-2025 Periodic preventive med [...] 01-05-2025 End: 01-10-2025 Clinisync Result Encounter Grace Escalerao DO Work Phone: [facility] Unsolicited [...] 10-08-2024 ambulatory [facility] Miladis Nurse [facility] Start: 05-15-2020 End: 05-16-2020 Patient encounter procedure NORM PONCE Facility:[facility]1 Start: 08-06-2019 End: 08-06-2019 Patient encounter procedure GLENNA MCINTYRE Facility:[facility] Procedures Date Procedure Procedure Detail Performing Clinician Start: 03-23-2025 OB CERVICAL LENGTH C orey Miladis DO Work Phone: Start: 03-23-2025 [facility] UA (CLEAN/CATCH) HAND MOLDER/MICRO IF IND. Grace Miladis DO Work Phone: Start: 03-23-2025 Urnls dip stick/tabl et rgnt non-auto w/o micrscp oMnika WEEKS Work Phone: Start: 03-07-2025 Urnls dip stick/tabl et rgnt [...] Start: 03-23-2025 End: 03-23-2025 Patient encounter procedure [facility] Comment on above: Arrived Start: 03-07-2025 End: 03-07-2025 Patient encounter procedure 03/07/2025 3:30 PM EDT Routine [facility] [address] [place] [id number] Grace Redding, DO [facility] [place] [address] [facility] Start: 03-07-2025 End: 03-07-2025 Professional / ancillary services management 03/07/2025 3:00 PM EDT Ancillary Procedure [facility] [address] [place] [id number] [facility] Start: 03-07-2025 End: 09-07-2025 [...] Routine [facility] [address] [place] [phone] Grace Redding, [place] [facility] [place] [address] [facility] Start: 02-21-2025 End: 06-23-2025 US for US OB follow up transabdominal approach Imaging Routine Size of fetus inconsistent with dates in third trimester Expected: 02/21/2025, Expires: 06/23/2025 [facility] Work Phone: Comment on above: Expected: 02/21/2025 , Expires: 06/23/2025 Start: 02-21-2025 End: 02-21-2025 Patient encounter procedure 02/21/2025 8:30 AM EDT Routine [facility] [address] [place] [id number] Grace Redding DO [address] [address] Arrived [facility] Comment on above: [...] for anatomic survey Expected: 12/08/2024, Expires: 12/08/2025 [facility] Work Phone: Comment on above: Expected: [...] gestational age Expected: 10/08/2024 (Approximate), Expires: 10/08/2025 [facility] Work Phone: Comment on above: Expected: 10/08/2024 (Approximate), Expires: 10/08/2025 Start: 10-08-2024 End: 10-08-2025 Drugs of abuse panel - Urine by Screen method Rapid drug screen, urine Lab Routine , unspecified gestational age Encounter for supervision of normal first in first trimester Expected: 10/08/2024 (Approximate), Expires: 10/08/2025 [facility] Comment on above: Expected: 10/08/2024 (Approximate), Expires: 10/08/2025 Start: 10-08-2024 End: 10-08-2025 US Pelvis transvaginal US OB transvaginal Imaging Routine Missed menses Expected: 10/08/2024 (Approximate), Expires: 10/08/2025 [facility] Comment on above: Expected: 10/08/2024 (Approximate), Expires: 10/08/2025 Bacteria identified in Urine by Culture Urine culture Microbiology Routine Missed menses Ordered: 10/08/2024 [facility] Comment on above: Ordered: 10/08/2024 CBC W Auto Different ial panel - Blood CBC and differential Lab Routine Missed menses , unspecified gestational age Ordered: 10/08/2024 [facility] Comment on above: Ordered: 10/08/2024 CBC W Auto Different ial panel - Blood CBC and differential Lab Routine Third trimester Multigravida of advanced maternal age in third trimester Ordered: 03/23/2025 [facility] Work Phone: Comment on above: Ordered: 03/23/2025 CHLAMYDIA TRACHOMATI S (GENITO/STI) CHLAMYDIA TRACHOMATIS (GENITO/STI) Lab Routine Exposure to STD Ordered: 01/05/2025 [facility] Comment on above: Ordered: 01/05/2025 Cytology Cervical or vaginal smear or scraping study Pap Smear Pathology and Cytology Routine Well woman exam with routine gynecological exam Ordered: 01/05/2025 [facility] Comment on above: Ordered: 01/05/2025 Hemoglobin A1c/Hemoglobin.total in Blood Hemoglobin A1c Lab Routine Missed menses , unspecified gestational age Ordered: 10/08/2024 [facility] Comment on above: Ordered: 10/08/2024 Hemoglobin A1c/Hemoglobin.total in Blood Hemoglobin A1c Lab Routine Diabetes mellitus screening Ordered: 01/05/2025 [facility] Comment on above: Ordered: 01/05/2025 Hepatitis B virus surface Ag [Presence] in Serum or Plasma by Immunoassay Hepatitis B surface antigen Lab Routine Missed menses , unspecified gestational age Ordered: 10/08/2024 [facility] Comment on above: Ordered: 10/08/2024 Hepatitis C virus Ab [Presence] in Serum or Plasma by Immunoassay Hepatitis C antibody Lab Routine Missed menses , unspecified gestational age Ordered: 10/08/2024 [facility] Comment on above: Ordered: 10/08/2024 HIV-1/HIV-2 antigen/antibody combination immunoassay HIV-1 and HIV-2 antibodies Lab Routine Missed menses , unspecified gestational age Ordered: 10/08/2024 [facility] Comment on above: Ordered: 10/08/2024 Human papilloma viru s DNA [Presence] in Unspecified specimen by Probe with amplification HPV DNA probe, amplified Microbiology Routine Well woman exam with routine gynecological exam Ordered: 01/05/2025 [facility] Comment on above: Ordered: 01/05/2025 Neisseria gonorrhoea e DNA [Presence] in Unspecified specimen by NERIS with probe detection Neisseria gonorrhea DNA probe, direct Lab Routine Exposure to STD Ordered: 01/05/2025 [facility] Comment on above: Ordered: 01/05/2025 Reagin Ab [Presence] in Serum by RPR RPR Lab Routine Missed menses , unspecified gestational age Ordered: 10/08/2024 [facility] Comment on above: Ordered: 10/08/2024 Rubella antibody, IgG Rubella an tibody, IgG Lab Routine Missed menses , unspecified gestational age Ordered: 10/08/2024 [facility] Comment on above: Ordered: 10/08/2024 SURESWAB(R) ADVANCED VAGINITIS PLUS, TMA SURESWAB(R) ADVANCED VAGINITIS PLUS, TMA Pathology and Cytology Routine Exposure to STD Ordered: 01/05/2025 [facility] Work Phone: Comment on above: Ordered: 01/05/2025 Payers Date Payer Category Payer [facility] BCBS [id number] 2021 Unknown [id number] 1985 Unknown [id number] .[id number] 1987 Unknown [id number] [id number] .2.59 1987 Unknown [id number] [id number] .2.1258 1987 Unknown [id number] [id number] .2.9 1987 Unknown [id number] [id number] .2.9 1987 Unknown [id number] [id number] .2.1258 1987 Unknown [id number] 2.16840.1.367056.3.579 .2.9 1987 Unknown [id number] 2.16840.1.372228.3.579 .2.1258 1987 Unknown [id number] [id number] .2.1259 1987 Unknown [id number] [id number] .2.1259 1987 Unknown [id number] [id number] .2.1259 1957 Private Health Insurance [id number] Social History Date Type Detail Facility Tobacco smoking stat [facility] Tobacco smoking consumption unknown [facility] Start: 1985 Sex assigned at Not on file [facility] Gender identity Not on file [facility] Start: 08-16-2024 [facility] Clinical Notes 10-08-2024 to 03-23-2025 DESI Wilson - 03/23/2025 3:50 PM Madison Camara NP - 03/07/2025 3:30 PM Richard Lees LPN - 02/21/2025 8:30 AM Madison Camara NP - 02/02/2025 3:40 PM EDT Note Date & Type Note Facility 03-23-2025 History of Presen t illness Narrative Reason [...] of: DESI Wilson documented in this encounter [facility] 03-07-2025 History of Presen t illness Narrative [...] Grace Redding DO documented in this encounter [facility] 02-21-2025 History of Presen t illness [...] nursing note reviewed. Exam conducted with a construction safety consultant present. Vitals: There is no height or [...] Grace Redding DO documented in this encounter [facility] 02-02-2025 History of Presen t illness [...] nursing note reviewed. Exam conducted with a construction safety consultant present. Vitals: There is no height or [...] of: DESI Wilson documented in this encounter [facility] 01-05-2025 History of Presen t illness [...] nursing note reviewed. Exam conducted with a construction safety consultant present. Vitals: There is no height or [...] Grace Redding DO documented in this encounter [facility] 12-08-2024 History of Presen t illness [...] of: DESI Wilson documented in this encounter [facility] 11-09-2024 History of Presen t illness [...] nursing note reviewed. Exam conducted with a construction safety consultant present. Vitals: There is no height or [...] meat, and stay away from [facility]. Patient has been consulted regarding any [...] Grace Redding DO documented in this encounter [facility] 10-08-2024 History of Presen t illness [...] lb F CS-LTranv N MIMI 5B Para 05/14/15 7 lb M CS-LTranv N MIMI 4 [...] meat, and stay away from [facility]. Patient has also been advised to [...] Guadalupe Hernandez MA documented in this encounter [facility] Evaluation note Diagnosis Missed menses , [...] HealthcareEvaluation note* Diagnosis Third trimester state, incidental 33 weeks gestation of Multigravida of advanced maternal age in third trimester documented in this encounter [facility] Summary Purpose Family History No Family History Records FoundNo Family History Records Found Advance Directives No Advanced Directives Records FoundNo Advanced Directives Records Found Additional Source Comments INFORMATION SOURCE (unrecogn ized section and content) DATE CREATED AUTHOR 05/26/2020 [facility] DATE CREATED AUTHOR AUTHOR'S ORGANIZ ATION 03/30/2025 [facility] EPIC Reason for Visit (unrecogniz ed section and content) Reason Comments Amenorrhea Reason Comments Routine Visit Care Teams (unrecognized sec tion and content) Manufacturing Maintenance Technician Relationship Specialty Start Date End Date Norm Ponce MD [address] [place] [address] PCP - General Family Medicine 10/08/24 Manufacturing Maintenance Technician Relationship Specialty Start Date End Date Norm Ponce MD [address] [place] [facility] [address] PCP - General Family Medicine 10/08/24 Manufacturing Maintenance Technician Relationship Specialty Start Date End Date Norm Ponce MD [address] [place] [facility] [address] PCP - General Family Medicine 10/08/24 Manufacturing Maintenance Technician Relationship Specialty Start Date End Date Norm Ponce MD [address] [place] [facility] [address] PCP - General Family Medicine 10/08/24 Manufacturing Maintenance Technician Relationship Specialty Start Date End Date Norm Ponce MD [address] [facility] [address] PCP - General Family Medicine 10/08/24 Manufacturing Maintenance Technician Relationship Specialty Start Date End Date Norm Ponce MD [address] [facility] [address] PCP - General Family Medicine 10/08/24 Manufacturing Maintenance Technician Relationship Specialty Start Date End Date Norm Ponce MD [address] [facility] [address] PCP - General Family Medicine 10/08/24 Manufacturing Maintenance Technician Relationship Specialty Start Date End Date Norm Ponce MD [address] [facility] [address] PCP - General Family Medicine 10/08/24 Manufacturing Maintenance Technician Relationship Specialty Start Date End Date Norm Ponce MD PCP - General Family Medicine 10/08/24 Manufacturing Maintenance Technician Relationship Specialty Start Date End Date Norm Ponce MD PCP - [facility] 10/08/24 Manufacturing Maintenance Technician Relationship Specialty Start Date End Date Norm Ponce MD PCP - [facility] 10/08/24 Manufacturing Maintenance Technician Relationship Specialty Start Date End Date Norm Ponce MD PCP - [facility] 10/08/24 FOR RECORDS PERTAINING TO PATIENTS WHO [...] BE BASED ON THE PRIMARY CLINICAL RECORDS. [employer] [facility]. provides no warranty or guarantee of the accuracy or completeness of information in this document.
--- OUTSIDE RECORDS SUMMARY | 2025-04-01 02:33 | XMS_ITS | Encounter Summary ---
Author Organization [facility] Address [facility] [place] [address] Care Team Providers Care Warehouse Shipping Associate Name Role Phone Codey Ponce MD Primary Care Provider [phone] Encounter Details Date Type Department Care Team (Late Contact Info) Description 11/23/2024 Abstract [facility] [address] [place] [address] Henry Redding DO [address] [place], [facility] Social History Tobacco Use Types Packs/Day Years [...] Encounters Date Type Department Care Team (Late Contact Info) Description 04/13/2025 2:10 PM EDT Routine [facility] [address] [place] [address] Henry Redding DO [address] [place], [place] [id number] documented as of this encounter Visit Diagnoses Not on filedocumented in this encounter Care Teams Warehouse Shipping Associate Relationship Specialty Start Date End Date Codey Ponce MD PCP - General Family Medicine 10/08/24 documented as of this encounter
--- OUTSIDE RECORDS SUMMARY | 2025-04-01 02:33 | XMS_ITS | Patient Health Record ---
Author Organization [facility] [place] Address [address] [place] [address] Care Team Providers Care Systems Testing Laboratory Technician Name Role Phone Anuj Ponce Primary Care Provider Allergies No Known Allergies Results Component Value Reference Range Notes US OB cervical length Reviewed date:03/23/2025 06:32:52 PM Interpretation: Performing Lab: Notes/Report: Source Facility: [place] [address] Ultrasound Report Signed Patient: YESSI LIMON MR#: [id number] : 1985 Acct:[id number] Age/Sex: 40 / F ADM Date: 03/23/25 Loc: [facility] 250-[address]: Grace Redding D.O. Ordering Physician: Grace Redding D.O. Date of Service: 03/23/25 Procedure(s): US OB cervical length Accession Number(s): [id number] cc: Grace Redding D.O.; Codey Ponce M.D. [place] [address] Patient Name: YESSI LIMON MRN: [id number] date: 1985 Sex: F Assigned Patient Location: [facility] Current Patient Location: [facility] Accession/Order Number: [id number] Exam Date: 03/23/2025 18:26 Report Date: 03/23/2025 [...] Gould M.D. 03/23/2025 6:27 PM Dictation Location: [place] [address] Electronically authenticated by: [id number] Y Date: 03/23/2025 18:27 Dictated By: Jhon Gould D.O. Signed By: 03/23/251828 DD/ 26 TD/TT: Rag Grader: [place] [address] Ultrasound Report Signed Patient: YESSI LIMON MR#: [id number] : 1985 Acct:[id number] Age/Sex: 40 / F ADM Date: 03/23/25 Loc: [place] [address]: Grace Redding D.O. Ordering Physician: Grace Redding D.O. Date of Service: 03/23/25 Procedure(s): US OB cervical length Accession Number(s): [id number] cc: Grace Redding D.O. ; Codey Ponce M.D. [place] [address] Patient Name: YESSI LIMON MRN: [id number] date: 1985 Sex: F Assigned Patient Location: [facility] Current Patient Location: [facility] Accession/Order Numb er: [id number] Exam Date: 03/23/2025 18:26 Report Date: 03/23/2025 [...] Gould M.D. 03/23/2025 6:27 PM Dictation Location: [place] [address] Electronically authenticated by: [id number] Y Date: 03/23/2025 18:27 Dictated By: Jhon Gould D.O. Signed By: 03/23/251828 DD/ 26 TD/TT: Rag Grader: UA (CLEAN or CATCH) EXPERIMENTAL ASSEMBLER or M ICRO IF IND. Reviewed date:03/23/2025 05:42:48 PM Interpretation: Performing Lab: Notes/Report: [facility] , Color Urine LT. YELLOW YELLOW Clarity Urine CLEAR CLEAR Specific [place] Urine <=1.005 1.005-1.025 pH Urine 7.0 5.0-9.0 Protein Urine NEGATIVE NEG/TRACE mg/dL Glucose Urine UA NEGATIVE NEGATIVE mg/dL Bilirubin Urine NEGATIVE NEGATIVE Ketones Urine NEGATIVE NEGATIVE mg/dL Blood Urine NEGATIVE NEGATIVE Nitrite Urine NEGATIVE NEGATIVE Urobilinogen Urine 0.2 0.2-1.0 EU/dL Leukocyte Esterase Urine NEGATIVE NEGATIVE Urine Microscopic Indicated NO Performing Lab: see note ML - [facility] LB Venous Blood Gas Reviewed date:03/13/2025 05:41:45 PM Interpretation: Performing Lab: Notes/Report: [facility] , pH VBG 7.441 7.330-7.430 PCO2 VBG 37.7 40.0-52.0 mmHg Performing Lab: see note ML - [facility] LB Troponin I High Sensitivity Reviewed date:03/13/2025 05:41:45 PM Interpretation: Performing Lab: Notes/Report: [facility] , Troponin I High Sensitivity <4.0 4.0-51.3 pg/mL CUT-OFF POINTS HAVE BEEN ESTABLISHED BASED ON THE FOURTH 99TH PERCENTILE = 51.4 PG/ML PERCENTILE OF cTnI DISTRIBUTION IN A REFERENCE POPULATION, DIAGNOSIS. WITH OTHER DIAGNOSTIC AND CLINICAL INFORMATION. UNIVERSAL DEFINITION OF MYOCARDIAL INFARCTION. THE UPPER REFERENCE LIMIT (URL) OF TROPONIN, DEFINED THE 99TH HAS BEEN CONFIRMED THE DECISION THRESHOLD FOR [place] NOTE: HIGH-SENSITIVITY TROPONIN ASSAY IS NOT INTENDED TO BE USED IN ISOLATION BUT SHOULD BE INTERPRETED IN CONJUNCTION Performing Lab: see note ML - [facility] LB Manual Differential Reviewed date:03/13/2025 05:41:45 PM Interpretation: Performing Lab: Notes/Report: [facility] , Segmented Neutrophils % Manual 60.0 43.0-75.0 [...] 3/uL Performing Lab: see note ML - [facility] LB PROF 14(COMP METB) Reviewed date:03/13/2025 05:41:45 PM Interpretation: Performing Lab: Notes/Report: [facility] , Sodium 135 136-145 mmol/L Potassium 3.1 [...] 0.6 Performing Lab: see note ML - [facility] LB CBC AUTO DIFF Reviewed date:03/13/2025 05:41:45 PM Interpretation: Performing Lab: Notes/Report: [facility] , White Blood Count 4.7 4.0-11.0 10 [...] fL Performing Lab: see note ML - [facility] BNP Reviewed date:03/13/2025 05:41:45 PM Interpretation: Performing Lab: Notes/Report: [facility] , NT Pro B Type Natriuretic Pept 12.0 <=450.0 pg/mL Performing Lab: see note ML - [facility] LB Reason For Referral No Information Medications [...] 09/22/2024 Encounters Encounter Location Date Provider Diagnosis [facility] [address] [place] [address] 09/22/2024 Anuj Ponce Acute bronchitis, unspecified organism J20.9 [facility] [address] [place] [address] 09/22/2024 Anuj Ponce [facility] [address] [place] [facility] [place] [address] 09/22/2024 Anuj Hoy Acute bronchitis, unspecified organism J20.9 [facility] [address] [place] [facility] [place] [address] 09/23/2024 Aunj Ponce [facility] [address] [place] [facility] [place] [address] 09/23/2024 Anuj Hoy Acute bronchitis, unspecified organism J20.9 [facility] [address] [place] [facility] [place] [address] 09/24/2024 Anuj Hoy Acute bronchitis, unspecified organism J20.9 [facility] [address] [place] [facility] [place] [address] 09/28/2024 Anuj Ponce [facility] [address] [place] [facility] [place] [address] 03/11/2025 Anuj Ponce [facility] [address] [place] [facility] [place] [address] 03/13/2025 Anuj Ponce Assessments Encounter Date Diagnosis (ICD Code) Assessment Notes Treatment Notes Treatment Clinical Notes Section Notes 09/22/2024 Acute bronchitis, unspecified organism (ICD-10 - J20.9) Rest and drink more liquids, especially water. You may use a humidifier or vaporizer to help keep the drainage moist. Oxiq-wkl-iuyiitx Nasal Saline may help the stuffy and runny nose. Use Ibuprofen and or Tylenol as needed for fever, chills, body aches or pain. Children 5 years old should not be given sfqi-gfz-flgxlpa cough and cold medications such as guaifenesin and dextromethorphan. If you're over age 5, you may try bjon-sbt-psxjoym cold medications such as guaifenesin and dextromethorphan, [...] Coverage End Date [employer] [address] [place] [address] [id number] February Self - patient is the insured Medical (General) History Surgical History Surgery Date(Month/Year) rt knee meniscus repair left eye surgery 1991
--- OUTSIDE RECORDS SUMMARY | 2025-04-01 02:33 | XMS_ITS | Encounter Summary ---
Author Organization [facility] Address [facility] [place] [address] Care Team Providers Care Toggler Name Role Phone Codey Ponce MD Primary Care Provider [phone] Encounter Details Date Type Department Care Team (Late Contact Info) Description 10/08/2024 Abstract [facility] OB [address] [facility] [place] [address] Henry Redding DO [address] [place], [facility]11 Social History Tobacco Use Types Packs/Day [...] Description 04/13/2025 2:10 PM EDT Routine [facility] OB [address] [facility] [place] [address] Henry Redding DO [address] [place], [place] [id number] documented as of this encounter Visit Diagnoses Not on filedocumented in this encounter Care Teams Toggler Relationship Specialty Start Date End Date Codey Ponce MD PCP - General Family Medicine 10/08/24 documented as of this encounter
--- OUTSIDE RECORDS SUMMARY | 2025-04-01 02:33 | XMS_ITS | Encounter Summary ---
Author Organization [facility] Address [address] [facility] [place] [address] Care Team Providers Care Public Affairs Director Name Role Phone Codey Ponce MD Primary Care Provider [phone] Encounter Details Date Type Department Care Team (Late st Contact Info) Description 01/18/2025 Orders Only [facility] [address] [facility] [place] [phone] Maria Guadalupe Hernandez [address] [place] [address] Social History Tobacco Use Types Packs/Day Years [...] PM EDT Routine [facility] [address] [facility] [phone] Henry Redding DO [address] [facility] [place] [address] documented as of this encounter Procedures Procedure Name Priority Date/Time Associated Diagnosis Comments PAP SMEAR Routine 01/05/2025 12:00 AM EST documented in this encounter Results * Pap Smear (01/05/2025 12:00 AM EST) Swab Cervical swab / Unknown Henry Redding DO LAB CYTOLOGY ORDERABLES Final Re sult EXTERNAL LAB documented in this encounter Visit Diagnoses Not on filedocumented in this encounter Care Teams Public Affairs Director Relationship Specialty Start Date End Date Codey Ponce MD PCP - General Family Medicine 10/08/24 documented as of this encounter
--- OUTSIDE RECORDS SUMMARY | 2025-04-01 02:33 | XMS_ITS | Encounter Summary ---
Author Organization [facility] Address [address] [place] [address] Care Team Providers Care Network Engineer Administrator Name Role Phone Codey Ponce MD Primary Care Provider [phone] Encounter Details Date Type Department Care Team (Late st Contact Info) Description 10/09/2024 Clinisync Result Encounter [facility] External Department Unsolicited Grace Redding, DO [address] [place] [address] Social History Tobacco Use Types Packs/Day Years [...] Routine [facility] OB [address] [place] [phone] Grace Redding DO [address] [place] [address] documented as of this encounter Procedures Procedure Name Priority Date/Time Associated Diagnosis Comments US OB TRANSVAGINAL 10/09/2024 4: 32 AM EST documented in this encounter Results * US OB TRANSVAGINAL (10/09/2024 4:32 AM EST) Anatomical Region Laterality Modality Other 10/09/2024 4:32 AM EST Narrative 10/09/2024 4:35 AM EST [address] [address] Ultrasound Report Signed Patient: Yessi Limon MR#: [id number] : 1985 Acct:[id number] Age/Sex: 39 / F ADM Date: 10/08/24 Loc: [facility] Attending Dr: Grace Redding D.O. Ordering Physician: Grace Redding D.O. Date of Service: 10/08/24 Procedure(s): US OB transvaginal Accession Number(s): [id number] cc: Grace Redding D.O.; Physician,Non-Staff Marielle [address] [address] Patient Name: YESSI LIMON MRN: [id number] date: 1985 Sex: F Assigned Patient Location: [facility] Current Patient Location: Accession/Order Number: [id number] Exam Date: 10/08/2024 09:07 Report Date: 10/09/2024 [...] Dictated By: Olivier Sanchez M.D. Signed By: 10/09/24 0435 DD/ 1 TD/TT: Casting Machine Adjuster: Procedure Note Radiology, Radiologist, MD - 10/09/[address] [address] Ultrasound Report Signed Patient: Yessi Limon#: [id number] : 1985Acct:[id number] Age/Sex: 39 / FADM Date: 10/08/24 Loc: [facility] Attending Dr: Grace Redding D.O. Ordering Physician: Grace Redding D.O. Date of Service: 10/08/24 Procedure(s): US OB transvaginal Accession Number(s): [id number] cc: Grace Redding D.O.; Physician,Non-Staff Marielle The [address] [address] Patient Name: YESSI LIMON MRN: [id number] date: 1985 Sex: F Assigned Patient Location: [facility] Current Patient Location: Accession/Order Number: [id number] Exam Date: 10/08/2024 09:07 Report Date: 10/09/2024 [...] AGE BY LMP: 9 weeks 4 days MAIRBETH BY LMP: 05/09/2025 AGE BY US CRL: 10 weeks 2 days MARIBETH BY US CRL: 05/04/2025 US/US OB transvaginal IMPRESSION: 1. Single live intrauterine . Electronically authenticated by: OLIVIER SANCHEZ Date: 10/09/2024 04:32 Dictated By: Olivier Sanchez M.D. Signed By:10/09/24434 DD/ 1 TD/TT: Casting Machine Adjuster: us Grace Redding DO [facility] Final Result documented in this encounter Visit Diagnoses Not on filedocumented in this encounter Care Teams Network Engineer Administrator Relationship Specialty Start Date End Date Codey Ponce MD PCP - General Family Medicine 10/08/24 documented as of this encounter
[2025-04-01 02:53] VITALS: BP 115/72; PULSE 89
[2025-04-01 02:56] LABS: Bilirubin Urine NEGATIVE (NEGATIVE); Blood Urine NEGATIVE (NEGATIVE); Clarity Urine CLEAR (CLEAR); Color Urine LT. YELLOW (YELLOW); Glucose Urine UA NEGATIVE (NEGATIVE); Ketones Urine NEGATIVE (NEGATIVE); Leukocyte Esterase Urine NEGATIVE (NEGATIVE); Nitrite Urine NEGATIVE (NEGATIVE); Protein Urine NEGATIVE (NEG/TRACE); pH Urine 6.5 (5.0-9.0)
[2025-04-01 02:57] LABS: Urine Microscopic Indicated NO
[2025-04-01 02:58] LABS: Amnisure NEGATIVE (NEGATIVE); Internal Control Within Normal Limits
== END 2025-04-01 03:18 | disposition home or self-care (01) ==
PROVIDERS: Admitting Provider Obstetrics & Gynecology Gynecology; PCP Family Medicine; Visit Provider Obstetrics & Gynecology Gynecology
DX: O47.03 False labor before 37 completed weeks of gestation, third trimester (principal); Z3A.34 34 weeks gestation of pregnancy
CPT/HCPCS: 59025; 81003; 84112; G0378; G0379

== ENCOUNTER 2025-04-04 13:54 | Outpatient (OUT) | payer BC, SELFPAY ==
--- OUTSIDE RECORDS SUMMARY | 2025-03-23 15:50 | XMS_ITS | Encounter Summary ---
Author Organization [facility] Address [address] [place] [address] Care Team Providers Care Soap Slabber Name Role Phone Codey Ponce MD Primary Care Provider [phone] Reason for Visit * Reason Comments Routine Visit Encounter Details Date Type Department Care Team (Late st Contact Info) Description 03/23/2025 3:50 PM EDT Routine [facility] [address] [facility] [phone] Monika Figueroa PA [address] [facility] [address] [place], [place] [phone] Third trimester ; 33 weeks gestation of ; Multigravida of advanced maternal age in third trimester Social History Tobacco Use Types Packs/Day Years Used Date Smoking Tobacco: Never Assessed Estimated Date of Delivery Comme nts Yes 05/09/2025 Based on last me nstrual period of 08/02/2024 (Exact Date) Sex and Gender Information Value Date Recorded Sex Assigned at Not on file Legal Sex Female 7:12 PM EDT Gender Identity Not on file Sexual Orientation Not on file documented as of this encounter Last Filed Vital Signs Vital Sign Reading Time Taken Comments Blood Pressure 128/80 03/23/2025 4:22 PM EDT Pulse - - Temperature - - Respiratory Rate - - Oxygen Saturation - - Inhaled Oxygen Concentration - - Weight 74.4 kg (164 lb) 03/23/2025 4:22 PM EDT Height - - Body Mass Index - - documented in this encounter Progress Notes * DESI Wilson - 03/23/2025 3:50 PM EDT Reason for Appointment: Patient ID: Yessi Agee is a 40 y.o. female who presents for Routine Visit Patient presents today for Return OB appointment. MEDICATIONS Current Outpatient Medications Medication Instructions azithromycin (Zithromax Z-Francis) 250 MG tablet As directed ALLERGIES No Known Allergies PROBLEMS Active Ambulatory [...] weight on file to calculate BMI. BP: 128/80 Patient's last menstrual period was 08/02/2024 (exact date). ASSESSMENT & PLAN ICD-10-CM 1. Third trimester Z34.93 POCT urinalysis dipstick manually resulted CBC and differential CANCELED: CBC and differential 2. 33 weeks gestation of Z3A.33 3. Multigravida of advanced maternal age in third trimester O09.523 CBC and differential CANCELED: CBC and differential Return OB: Patient presents today for a routine obstetrics appointment. Patient is currently 33w2d . Patient states she is doing well but has complaints of being tired due to current . Patient has verbalizes frequent movement. labor precautions was discussed/given and patient was instructed to perform kick counts three times a day. Pt feels nauseated and having consistent contractions since she got here. Pt being sent to [facility] for evaluation. Orders Placed This Encounter Procedures CBC and differential POCT urinalysis dipstick manually resulted Follow Up: Patient is to return to office in 2 week for routine OB appointment. Documented by Marion Lerner LPN on behalf of: DESI Wilson documented in this encounter Plan of Treatment Upcoming Encounters Date Type Department Care Team (Late st Contact Info) Description 04/13/2025 2:10 PM EDT Routine [facility] B[facility] OB [address] [facility] [phone] MiladisHenry gotti, DO [address] [facility] [place] [address] Scheduled Orders Name Type Priority Associated Diagnoses Orde r Schedule CBC and differential Lab Routine Third trimester Multigravida of advanced maternal age in third trimester Ordered: 03/23/2025 documented as of this encounter Procedures Procedure Name Priority Date/Time Associated Diagnosis Comments POCT URINALYSIS DIPSTICK Routine 03/23/2025 4:29 PM EDT Third trimester documented in this encounter Results * POCT urinalysis dipstick manually resulted (03/23/2025 4:29 PM EDT) Color, UA Yellow Clarity, UA Clear Glucose, UA Negative Negative - 2000(110) ++++ mg/dL Bilirubin, UA Negative Negative - 4(70) +++ mg/dL Ketones, UA Negative Negative - 160(16) ++++ mg/dL Spec Grav, UA 1.015 1 - 1.03 Blood, UA Negative Negative - 50 Venu/mcL pH, UA 7.0 5 - 9 Protein, UA Negative Negative - 2000(20) ++++ mg/dL Urobilinogen, UA 1.0 0.2 - 12 mg/dL Leukocytes, UA Negative Negative - 500+++ Michael/mcL Nitrite, UA Negative Negative - Positive Urine 03/23/2025 4:29 PM EDT Monika WEEKS POINT OF CARE TEST ENTER/EDIT OR DERABLES Final Result documented in this encounter Visit Diagnoses Diagnosis Third trimester state, incidental 33 weeks gestation of Multigravida of advanced maternal age in third trimester documented in this encounter Care Teams Soap Slabber Relationship Specialty Start Date End Date Codey Ponce MD PCP - General Family Medicine 10/08/24 documented as of this encounter
--- OUTSIDE RECORDS SUMMARY | 2025-04-04 13:56 | XMS_ITS | Clinical Summary ---
Author Organization [facility] Address [address] [place] [address] Care Team Providers Care Broach Operator Name Role Phone Codey Ponce MD Primary Care Provider [phone] Allergies No known active allergies Medications azithromycin (Zithromax Z-Francis) 250 MG tabletIndication s:Upper respiratory tract infection, unspecified type As directed 6 tablet Active guaiFENesin-code ine (Robitussin-AC) 100-10 MG/5ML syrupIndications [...] Description 03/23/2025 3:50 PM EDT Routine [facility] OB [address] [place] [address] Monika Figueroa PA Third trimester ; 33 weeks gestation of ; Multigravida of advanced maternal age in third trimester 03/23/2025 Clinisync Result Encounter [facility] External Department Unsolicited Grace Redding, DO 03/23/2025 Clinisync Result Encounter [facility]S External Department Unsolicited MiladisGrace gotti, DO 03/23/2025 Bamboo flowsheet [facility] OB [address] [place] [address] Monika Figueroa PA 03/07/2025 3:30 PM EDT Routine [facility] OB [address] [facility] [place] [address] Grace Redding DO Upper respiratory tract infection, unspecified type (Primary Dx); Third trimester ; 31 weeks gestation of ; Multigravida of advanced maternal age in third trimester 03/07/2025 3:00 PM EDT Ancillary Procedure [facility] OB [address] [facility] [place] [address] Size of fetus inconsistent with dates in third trimester 02/21/2025 8:30 AM EDT Routine [facility] [address] [facility] [address] Grace Redding DO Third trimester ; 29 weeks gestation of ; Size of fetus inconsistent with dates in third trimester 02/21/2025 Bamboo flowsheet [facility] OB [address] [facility] [address] Grace Redding DO 02/15/2025 Telephone [facility] OB [address] [facility] [place] [address] Grace Redding DO 02/02/2025 3:40 PM EDT Routine [facility] OB [address] [facility] [place] [address] Monika Figueroa PA Second trimester ; 26 weeks gestation of 02/02/2025 Bamboo flowsheet [facility] OB [address] [facility] [place] [address] Monika Figueroa PA 01/18/2025 Orders Only [facility] OB [address] [facility] [place] [address] Maria Guadalupe Hernandez MA 01/07/2025 Telephone [facility] OB [address] [facility] [place] [address] Monika Figueroa PA 01/05/2025 3:50 PM EST Routine [facility] OB [address] [facility] [address] Grace Redding DO Well woman exam with routine gynecological exam; Exposure to STD; Second trimester ; 22 weeks gestation of ; Diabetes mellitus screening 01/05/2025 Clinisync Result Encounter [facility] External Department Unsolicited Grace Redding, 01/05/2025 External Result Encounter [facility] External Department Unsolicited Grace Redding DO 01/05/2025 Bamboo flowsheet [facility] OB [address] [place] [address] [place] [address] Grace Redding DO from Last 3 Months [...] Description 04/13/2025 2:10 PM EDT Routine [facility] OB [facility] [place] [address] Grace Redding DO [address] [place] [address] [place] [address] Procedures Procedure Name Priority Date/Time Associated Diagnosis Comments US OB CERVICAL LENGTH 03/23/2025 6:27 PM EDT [facility] UA (CLEAN/CATCH) COIL INSPECTOR/MICRO IF IND. Routine 03/23/2025 4:55 PM EDT [...] PM EDT Narrative 03/23/2025 6:29 [place] [address] Ultrasound Report Signed Patient: YESSI LIMON MR#: [id number] : 1985 Acct:[id number] Age/Sex: 40 / F ADM Date: 03/23/25 Loc: [facility] 250-[address]: Grace Redding D.O. Ordering Physician: Grace Redding D.O. Date of Service: 03/23/25 Procedure(s): US OB cervical length Accession Number(s): [id number] cc: Grace Redding D.O.; Codey Ponce M.D. The [address] [address] Patient Name: YESSI LIMON MRN: [id number] date: 1985 Sex: F Assigned Patient Location: [facility] Current Patient Location: [facility] Accession/Order Number: [id number] Exam Date: 03/23/2025 18:26 Report Date: 03/23/2025 [...] Gould M.D. 03/23/2025 6:27 PM Dictation Location: [place] [address] Electronically authenticated by: [id number] Y Date: 03/23/2025 18:27 Dictated By: Jhon Gould D.O. Signed By: 03/23/251828 DD/ 26 TD/TT: Awnings Mechanic: Procedure Note Radiology, Radiologist, MD - 03/23/2025 [place] [address] Ultrasound Report Signed Patient: YESSI LIMON#: [id number] : 1985Acct:[id number] Age/Sex: 40 / FADM Date: 03/23/25 Loc: [facility] 250-[address]: Grace Redding D.O. Ordering Physician: Grace Redding D.O. Date of Service: 03/23/25 Procedure(s): US OB cervical length Accession Number(s): [id number] cc: Grace Redding D.O.; Codey Ponce M.D. The [address] [address] Patient Name: YESSI LIMON MRN: [id number] date: 1985 Sex: F Assigned Patient Location: [facility] Current Patient Location: [facility] Accession/Order Number: [id number] Exam Date: 03/23/2025 18:26 Report Date: 03/23/2025 [...] Gould M.D. 03/23/2025 6:27 PM Dictation Location: [place] [address] Electronically authenticated by: [id number] Y Date: 8:27 Dictated By: Jhon Gould D.O. Signed By:03/23/251828 DD/ 26 TD/TT: Awnings Mechanic: us Grace Redding DO [facility] Final Result * (ABNORMAL) [facility] UA (CLEAN/CATCH) COIL INSPECTOR/MICRO IF IND. (03/23/2025 4:55 PM EDT) COLOR [...] us Grace Miladis DO [facility] Final Result JAIME [facility] * POCT urinalysis dipstick manually resulted [...] II, MD, PHD at 09-Mar-2025 08:42:20 AM [facility] Procedure Note Benson Nelson MD - [...] signed by BENSON NELSON II, MD, PHD [id number] 08:42:20 AM [facility] us Grace Miladis DO IMG OB US PROCEDURES Final Resul t * (ABNORMAL) RECURRENT VAGINITIS (HTRX) (01/05/2025 4:50 PM EST) [facility] ATOPOBIUM VAGINAE 0.000 19.961 - 24.689 ppm 01/07/2025 7:11 AM EST [facility] ATOPOBIUM VAGINAE Not Detected 19.961 - 24.689 ppm 01/07/2025 7:11 AM EST [facility] BVAB 2,3 (BACTERIAL VAGINOSIS ASSOCIATED BACTERIA 2, 3); MOBILUNCUS SPP 0.000 19.961 - 24.689 ppm 01/07/2025 7:11 AM EST [facility] BVAB 2,3 (BACTERIAL VAGINOSIS ASSOCIATED BACTERIA 2, 3); MOBILUNCUS SPP Not Detected 19.961 - 24.689 ppm 01/07/2025 7:11 AM EST [facility] BOOKER ALBICANS, PARAPSILOSIS, TROPICALIS 28.029(A) 19.961 - 30.770 ppm 01/07/2025 7:11 AM EST [facility] BOOKER ALBICANS, PARAPSILOSIS, TROPICALIS Detected(A) 19.961 - 30.770 ppm 01/07/2025 7:11 AM EST [facility] BOOKER GLABRATA 0.000 23.000 - 32.138 ppm 01/07/2025 7:11 AM EST [facility] BOOKER GLABRATA Not Detected 23.000 - 32.138 ppm 01/07/2025 7:11 AM EST [facility] BOOKER KRUSEI 0.000 23.000 - 32.271 ppm 01/07/2025 7:11 AM EST [facility] BOOKER KRUSEI Not Detected 23.000 - 32.271 ppm 01/07/2025 7:11 AM EST [facility] CHLAMYDIA TRACHOMATIS 0.000 23.000 - 31.467 ppm 01/07/2025 7:11 AM EST [facility] CHLAMYDIA TRACHOMATIS Not Detected 23.000 - 31.467 ppm 01/07/2025 7:11 AM EST [facility] GARDNERELLA VAGINALIS 0.000 19.961 - 24.689 ppm 01/07/2025 7:11 AM EST [facility] GARDNERELLA VAGINALIS Not Detected 19.961 - 24.689 ppm 01/07/2025 7:11 AM EST [facility] MEGASPHAERA (TYPES 1, 2) 0.000 19.961 - 24.689 ppm 01/07/2025 7:11 AM EST [facility] MEGASPHAERA (TYPES 1, 2) Not Detected 19.961 - 24.689 ppm 01/07/2025 7:11 AM EST [facility] NEISSERIA GONORRHOEAE 0.000 23.000 - 32.117 ppm 01/07/2025 7:11 AM EST [facility] NEISSERIA GONORRHOEAE Not Detected 23.000 - 32.117 ppm 01/07/2025 7:11 AM EST [facility] TRICHOMONAS VAGINALIS 0.000 23.000 - 32.119 ppm 01/07/2025 7:11 AM EST [facility] TRICHOMONAS VAGINALIS Not Detected 23.000 - 32.119 ppm 01/07/2025 7:11 AM EST [facility] MYCOPLASMA GENITALIUM 0.000 19.961 - 24.689 ppm 01/07/2025 7:11 AM EST [facility] MYCOPLASMA GENITALIUM Not Detected 19.961 - 24.689 ppm 01/07/2025 7:11 AM EST [facility] Tissue 01/05/2025 4:50 PM EST 01/07/2025 2:22 AM EST Grace Miladis DO LAB BLOOD ORDERABLES Final Resul t [facility] [address] [place] [address] * IGP,APTIMA HPV,AGE GDLN (01/05/2025 3:57 PM EST) AGE GDLN ACOG TESTING Note . [facility] Comment: TESTS RESULT FLAG UNITS REF RANGE LAB Clinician Provided Cytology Information Source.............Cervix No. of containers..01 ThinPrep Vial Age Algo ACOG Sushma... 30-65 01 FLAG LEGEND: L-Low Normal,H-High Normal,LL-Alert Low,HH-Alert High <-Panic Low,>-Panic High,A-Abnormal,AA-Critical Abnormal Performed at: 01 =[facility] [place] [address] Enma Todd MD, IGP, APTIMA HPV, RFX 16/18,45 Note . [facility] Comment: TESTS RESULT FLAG UNITS REF RANGE LAB DIAGNOSIS: 02 NEGATIVE FOR INTRAEPITHELIAL LESION OR MALIGNANCY. FUNGAL ORGANISMS MORPHOLOGICALLY CONSISTENT WITH BOOKER SPECIES ARE PRESENT. Specimen adequacy: 02 Satisfactory for evaluation. No endocervical component is identified. Performed by: 02 Breanna Lucero Account Representative . 02 Note: Note 02 The Pap [...] High <-Panic Low,>-Panic High,A-Abnormal,AA-Critical Abnormal Performed at: [address] [place] [phone] Enma Todd MD, HPV APTIMA Negative Negative [facility] Comment: This nucleic acid amplification test detects fourteen high- risk HPV types (16,18,31,33,35,39,45,51,52,56,58,59,66,68) without differentiation. Performed at: =[address] [id number] Fire Eater: Enma Todd MD, Phone: [phone] Performed at: [address] [id number] Fire Eater: Enma Todd MD, Phone: [phone] 01/05/2025 3:57 PM EST 01/05/2025 8:18 PM EST Narrative [facility] - 01/10/2025 3:08 PM EDT SPATULA-ALONE CERVIX us Grace Miladis DO LAB BLOOD ORDERABLES Final Resul t [facility] * Pap Smear (01/05/2025 12:00 AM EST) Swab Cervical swab / Unknown us Grace Miladis DO LAB CYTOLOGY ORDERABLES Final Re sult EXTERNAL LAB from Last 3 Months Insurance Care Teams Broach Operator Relationship Specialty Start Date End Date Codey Ponce MD PCP - General Family Medicine 10/08/24
--- OUTSIDE RECORDS SUMMARY | 2025-04-04 13:56 | XMS_ITS | Encounter Summary ---
Author Organization [facility] Address [facility] [place] [address] Care Team Providers Care Guillotine Operator Name Role Phone Codey Ponce MD Primary Care Provider [phone] Encounter Details Date Type Department Care Team (Late Contact Info) Description 11/23/2024 Abstract [facility] OB [address] [facility] [address] Henry Redding DO [address] [place], [facility] Social History Tobacco Use Types Packs/Day Years [...] Description 04/13/2025 2:10 PM EDT Routine [facility] OB [address] [facility] [address] Henry Redding DO [address] [place], [place] [phone] documented as of this encounter Visit Diagnoses Not on filedocumented in this encounter Care Teams Guillotine Operator Relationship Specialty Start Date End Date Codey Ponce MD PCP - General Family Medicine 10/08/24 documented as of this encounter
--- OUTSIDE RECORDS SUMMARY | 2025-04-04 13:56 | XMS_ITS | Encounter Summary ---
Author Organization [facility] Address [address] [place] [address] Care Team Providers Care Scientific Publications Editor Name Role Phone Codey Ponce MD Primary Care Provider [phone] Encounter Details Date Type Department Care Team (Late st Contact Info) Description 03/23/2025 Clinisync Result Encounter [facility] External Department Unsolicited Grace Redding, DO [address] [place] [address] Social History Tobacco Use Types Packs/Day Years [...] Routine [facility] OB [address] [place] [address] Grace Redding DO [address] [place] [address] documented as of this encounter Procedures Procedure Name Priority Date/Time Associated Diagnosis Comments US OB CERVICAL LENGTH 03/23/2025 6:27 PM EDT documented in this encounter Results * US OB CERVICAL LENGTH (03/23/2025 6:27 PM EDT) Anatomical Region Laterality Modality Other 03/23/2025 6:27 PM EDT Narrative 03/23/2025 6:29 PM EDT [address] [address] Ultrasound Report Signed Patient: YESSI LIMON MR#: [id number] : 1985 Acct:[id number] Age/Sex: 40 / F ADM Date: 03/23/25 Loc: [facility] 250-[address]: Grace Redding D.O. Ordering Physician: Grace Redding D.O. Date of Service: 03/23/25 Procedure(s): US OB cervical length Accession Number(s): [id number] cc: Grace Redding D.O.; Codey Ponce M.D. The [address] [address] Patient Name: YESSI LIMON MRN: [id number] date: 1985 Sex: F Assigned Patient Location: [facility] Current Patient Location: [facility] Accession/Order Number: [id number] Exam Date: 03/23/2025 18:26 Report Date: 03/23/2025 [...] Gould M.D. 03/23/2025 6:27 PM Dictation Location: [place] [address] Electronically authenticated by: [id number] Y Date: 03/23/2025 18:27 Dictated By: Jhon Gould D.O. Signed By: 03/23/25 182 DD/ 26 TD/TT: Boat Builder: Procedure Note Radiology, Radiologist, - 03/23/[address] [address] Ultrasound Report Signed Patient: YESSI LIMON#: [id number] : 1985Acct:[id number] Age/Sex: 40 / FADM Date: 03/23/25 Loc: [facility] 250-[address]: Grace Redding D.O. Ordering Physician: Grace Redding D.O. Date of Service: 03/23/25 Procedure(s): US OB cervical length Accession Number(s): [id number] cc: Grace Redding D.O.; Codey Ponce M.D. The [address] [id number] Patient Name: YESSI LIMON MRN: [id number] date: 1985 Sex: F Assigned Patient Location: [facility] Current Patient Location: [facility] Accession/Order Number: [id number] Exam Date: 03/23/2025 18:26 Report Date: 03/23/2025 [...] Gould M.D. 03/23/2025 6:27 PM Dictation Location: [place] [address] Electronically authenticated by: [id number] Y Date: 8:27 Dictated By: Jhon Gould D.O. Signed By:03/23/251828 DD/ 26 TD/TT: Boat Builder: Grace Redding DO [facility] Final Result documented in this encounter Visit Diagnoses Not on filedocumented in this encounter Care Teams Scientific Publications Editor Relationship Specialty Start Date End Date Codey Ponce MD PCP - General Family Medicine 10/08/24 documented as of this encounter
--- OUTSIDE RECORDS SUMMARY | 2025-04-04 13:56 | XMS_ITS | Encounter Summary ---
Author Organization [facility] Address [facility] [place] [address] Care Team Providers Care Pumping Station Supervisor Name Role Phone Codey Ponce MD Primary Care Provider [phone] Encounter Details Date Type Department Care Team (Late Contact Info) Description 10/08/2024 Abstract [facility] OB [address] [facility] [place] [address] Henry Redding DO [address] [place] [address], [facility]11 Social History Tobacco Use Types Packs/Day Years [...] Description 04/13/2025 2:10 PM EDT Routine [facility] OB [address] [facility] [place] [address] Henry Redding DO [address] [place], [place] [phone] documented as of this encounter Visit Diagnoses Not on filedocumented in this encounter Care Teams Pumping Station Supervisor Relationship Specialty Start Date End Date Codey Ponce MD PCP - General Family Medicine 10/08/24 documented as of this encounter
--- OUTSIDE RECORDS SUMMARY | 2025-04-04 13:56 | XMS_ITS | Encounter Summary ---
Author Organization [facility] Address [address] [facility] [place] [address] Care Team Providers Care Field Service Tech Name Role Phone Codey Ponce MD Primary Care Provider [phone] Encounter Details Date Type Department Care Team (Late st Contact Info) Description 03/23/2025 Bamboo flowsheet [facility] [address] [place] [address] Monika Figueroa PA [address] [place] [address] Dr [place], [facility]11 Social History Tobacco Use Types Packs/Day Years [...] Description 04/13/2025 2:10 PM EDT Routine [facility] [address] [place] [address] Henry Redding DO [address] [place] [address] Dr [place], [facility]11 documented as of this encounter Visit Diagnoses Not on filedocumented in this encounter Care Teams Field Service Tech Relationship Specialty Start Date End Date Codey Ponce MD PCP - General Family Medicine 12/6/24 documented as of this encounter
--- OUTSIDE RECORDS SUMMARY | 2025-04-04 13:56 | XMS_ITS | Encounter Summary ---
Author Organization [facility] Address [address] [facility] [place] [address] Care Team Providers Care Parasitologist Name Role Phone Codey Ponce MD Primary Care Provider [phone] Encounter Details Date Type Department Care Team (Late st Contact Info) Description 01/18/2025 Orders Only [facility] [address] [facility] [place] [phone] Maria Guadalupe Hernandez [place] [address] [place] [address] Social History Tobacco Use Types Packs/Day Years [...] PM EDT Routine [facility] [address] [facility] [place] [address] Henry Redding DO [address] [facility] [place] [address] documented as of this encounter Procedures Procedure Name Priority Date/Time Associated Diagnosis Comments PAP SMEAR Routine 01/05/2025 12:00 AM EST documented in this encounter Results * Pap Smear (01/05/2025 12:00 AM EST) Swab Cervical swab / Unknown Henry Redding DO LAB CYTOLOGY ORDERABLES Final Re sult EXTERNAL LAB documented in this encounter Visit Diagnoses Not on filedocumented in this encounter Care Teams Parasitologist Relationship Specialty Start Date End Date Codey Ponce MD PCP - General Family Medicine 10/08/24 documented as of this encounter
--- OUTSIDE RECORDS SUMMARY | 2025-04-04 13:56 | XMS_ITS | Encounter Summary ---
Author Organization [facility] Address [address] [place] [address] Care Team Providers Care Automobile Accessories Installer Name Role Phone Codey Ponce MD Primary Care Provider [phone] Encounter Details Date Type Department Care Team (Late st Contact Info) Description 10/09/2024 Clinisync Result Encounter [facility] External Department Unsolicited Grace Redding, DO [address] [place] [address] Social History Tobacco Use Types Packs/Day Years [...] Routine [facility] BCP OB [address] [place] [address] Grace Redding DO [address] [place] [address] documented as of this encounter Procedures Procedure Name Priority Date/Time Associated Diagnosis Comments US OB TRANSVAGINAL 10/09/2024 4: 32 AM EST documented in this encounter Results * US OB TRANSVAGINAL (10/09/2024 4:32 AM EST) Anatomical Region Laterality Modality Other 10/09/2024 4:32 AM EST Narrative 10/09/2024 4:35 AM EST [address] [address] Ultrasound Report Signed Patient: Yessi Limon MR#: [id number] : 1985 Acct:[id number] Age/Sex: 39 / F ADM Date: 10/08/24 Loc: [facility] Attending Dr: Grace Redding D.O. Ordering Physician: Grace Redding D.O. Date of Service: 10/08/24 Procedure(s): US OB transvaginal Accession Number(s): [id number] cc: Grace Redding D.O.; Physician,Non-Staff Marielle [address] [address] Patient Name: YESSI LIMON MRN: [id number] date: 1985 Sex: F Assigned Patient Location: [facility] Current Patient Location: Accession/Order Number: [id number] Exam Date: 10/08/2024 09:07 Report Date: 10/09/2024 [...] Signed By: 10/09/24 0435 DD/ 1 TD/TT: Electric Cell Tender: Procedure Note Radiology, Radiologist, MD - 10/09/[address] [address] Ultrasound Report Signed Patient: Yessi Limon#: [id number] : 1985Acct:[id number] Age/Sex: 39 / FADM Date: 10/08/24 Loc: [facility] Attending Dr: Grace Redding D.O. Ordering Physician: Grace Redding D.O. Date of Service: 10/08/24 Procedure(s): US OB transvaginal Accession Number(s): [id number] cc: Grace Redding D.O.; Physician,Non-Staff Marielle The [address] [address] Patient Name: YESSI LIMON MRN: [id number] date: 1985 Sex: F Assigned Patient Location[facility] Current Patient Location: Accession/Order Number: [id number] Exam Date: 10/08/2024 09:07 Report Date: 10/09/2024 [...] Sanchez M.D. Signed By:10/09/24434 DD/ 1 TD/TT: Electric Cell Tender: us Grace Redding DO [facility] Final Result documented in this encounter Visit Diagnoses Not on filedocumented in this encounter Care Teams Automobile Accessories Installer Relationship Specialty Start Date End Date Codey Ponce MD PCP - General Family Medicine 10/08/24 documented as of this encounter
--- NOTE | 2025-04-04 13:57 | US_ITS ---
[place] [id number] Patient Name: JUAREZ LIMON MRN: [id number] date: 1985 Sex: F Assigned Patient Location: [facility] Current Patient Location: Accession/Order Number: [id number] Exam Date: 04/04/2025 14:51 Report Date: 04/04/2025 14:52 At the request of: GRACE LOVELL DO Procedure: US OB BPP w non-stress Ultrasound biophysical profile HISTORY: Multigravida. Advanced maternal age. Adequate breathing movement, gross body movement, tone and amniotic fluid volume for total score of 8 out of 8. The amniotic fluid index is 12.4 cm within normal limits. The heart rate 129 bpm. US/US OB BPP w non-stress IMPRESSION: Adequate ultrasound biophysical profile Impression dictated by: Jhon Gould M.D. 04/04/2025 2:52 PM Dictation Location: [place] Electronically authenticated by: [id number] Y Date: 04/04/2025 14:52
[2025-04-04 14:21] VITALS: BP 102/66; PULSE 72
== END 2025-04-04 14:45 | disposition home or self-care (01) ==
LOC: US 13:54 → FBC 13:56
PROVIDERS: PCP Family Medicine; Visit Provider Obstetrics & Gynecology
DX: O09.523 Supervision of elderly multigravida, third trimester (principal); Z3A.34 34 weeks gestation of pregnancy
CPT/HCPCS: 76818

== ENCOUNTER 2025-04-07 13:55 | Outpatient (OUT) | payer BC, SELFPAY ==
[2025-04-07 14:06] VITALS: BP 120/73; PULSE 83
== END 2025-04-07 14:30 | disposition home or self-care (01) ==
LOC: FBCO 13:55 → FBC 13:59
PROVIDERS: PCP Family Medicine; Visit Provider Obstetrics & Gynecology
DX: O09.529 Supervision of elderly multigravida, unspecified trimester (principal)
CPT/HCPCS: 59025

== ENCOUNTER 2025-04-11 13:54 | Outpatient (OUT) | payer BC, SELFPAY ==
--- NOTE | 2025-04-11 | US_ITS ---
[place] [id number] Patient Name: JUAREZ LIMON MRN: [id number] date: 1985 Sex: F Assigned Patient Location: [facility] Current Patient Location: Accession/Order Number: [id number] Exam Date: 04/11/2025 15:48 Report Date: 04/11/2025 15:49 At the request of: GRACE LOVELL DO Procedure: US OB BPP w non-stress Ultrasound biophysical profile HISTORY: Advanced maternal age. Multi . Adequate breathing movement, gross body movement, tone and amniotic fluid volume for total score of 8 out of 8. The amniotic fluid index is 15.1cm within normal limits. The heart rate 135 bpm. US/US OB BPP w non-stress IMPRESSION: Adequate ultrasound biophysical profile Impression dictated by: Jhon Gould M.D. 04/11/2025 3:49 PM Dictation Location: [place] [address] Electronically authenticated by: [id number] Y Date: 04/11/2025 15:49
[2025-04-11 14:20] VITALS: BP 120/78; PULSE 95
== END 2025-04-11 14:55 | disposition home or self-care (01) ==
LOC: US 13:54 → FBC 13:55
PROVIDERS: PCP Family Medicine; Visit Provider Obstetrics & Gynecology
DX: O09.523 Supervision of elderly multigravida, third trimester (principal); Z3A.36 36 weeks gestation of pregnancy
CPT/HCPCS: 76818

== ENCOUNTER 2025-04-13 14:59 | Observation (INO) | payer BC, SELFPAY ==
--- NOTE | 2025-04-13 15:46 | US_ITS ---
[place] [id number] Patient Name: JUAREZ LIMON MRN: [id number] date: 1985 Sex: F Assigned Patient Location: [facility] Current Patient Location: [facility] Accession/Order Number: [id number] Exam Date: 04/13/2025 20:12 Report Date: 04/13/2025 20:14 At the request of: GRACE LOVELL DO Procedure: US OB placenta Obstetrical ultrasound of the placenta HISTORY: Contractions. Anterior placenta identified. Normal appearance of the placenta noted. No placental abruption. heart rate 131 bpm. The gestational age 36 weeks 2 days. US/US OB placenta IMPRESSION: Normal-appearing placenta. Impression dictated by: Jhon Gould M.D. 04/13/2025 8:14 PM Dictation Location: [place] [address] Electronically authenticated by: [id number] Y Date: 04/13/2025 20:14
[2025-04-13 16:23] VITALS: BP 128/69; PULSE 80
[2025-04-13] MEDS: 0.9 % SODIUM CHLORIDE 1,000 ML 999 ML IV (16:23)
[2025-04-13 16:45] VITALS: TEMP 36.9
--- NOTE | 2025-04-13 16:54 | PC.NURSE ---
1638- Pt. calls out and said she thinks she peed herself. Bedding saturated with pale yellow fluid. Pt. assisted up to bathroom, states I'm continuing to pee with contractions .Linens and gown changed, patient assisted back to bed. Lola ALEMAN notified of leaking.
[2025-04-13 17:09] LABS: Amnisure NEGATIVE (NEGATIVE); Internal Control Within Normal Limits
== END 2025-04-13 18:05 | disposition home or self-care (01) ==
PROVIDERS: Admitting Provider Obstetrics & Gynecology; PCP Family Medicine; Visit Provider Obstetrics & Gynecology
DX: O47.03 False labor before 37 completed weeks of gestation, third trimester (principal); Z3A.36 36 weeks gestation of pregnancy
CPT/HCPCS: 76815; 84112; G0378; G0379

== ENCOUNTER 2025-04-18 16:17 | Inpatient (IN) | payer BC, SELFPAY ==
--- OUTSIDE RECORDS SUMMARY | 2025-04-13 14:10 | XMS_ITS | Encounter Summary ---
Author Organization [facility] Address [address] [facility] [place] [address] Care Team Providers Care Gear Finisher Name Role Phone Codey Ponce MD Primary Care Provider [phone] Reason for Visit * Reason Comments Routine Visit Encounter Details Date Type Department Care Team (Late st Contact Info) Description 04/13/2025 2:10 PM EDT Routine [facility] BCP OB [address] [facility] [place] [address] Henry Redding DO [address] [facility] [address] [place], [place] [phone] Third trimester ([facility]); 36 weeks gestation of ([facility]) Social History Tobacco Use Types Packs/Day Years [...] Sign Reading Time Taken Comments Blood Pressure 132/80 04/13/2025 2:24 PM EDT Pulse - - Temperature - - Respiratory Rate - - Oxygen Saturation - - Inhaled Oxygen Concentration - - Weight 76.2 kg (168 lb) 04/13/2025 2:24 PM EDT Height 160 cm (5' 3 ) 04/13/2025 2:24 PM EDT Body Mass Index 29.76 04/13/2025 2:24 PM EDT documented in this encounter Progress Notes * Marion [place]ner LPN - 04/13/2025 2:10 PM EDT Reason for Appointment: Patient ID: [...] nursing note reviewed. Exam conducted with a plaster machine tender present. Vitals: Estimated body mass index is 29.76 kg/m?? as calculated from the following: Height as of this encounter: 5' 3 . Weight as of this encounter: 168 lb. BP: 132/80 Patient's last menstrual period was 08/02/2024 (exact date). ASSESSMENT & PLAN ICD-10-CM 1. Third trimester Z34.93 POCT urinalysis dipstick manually resulted CULTURE, GROUP B STREP WITH SUSCEPTIBLITY CULTURE, GROUP B STREP WITH SUSCEPTIBLITY 2. 36 weeks gestation of Z3A.36 Pt having contractions every 1-2 minutes in severe pain pt being sent over to [facility] for evaluation. Pt voiced understanding. Documented by Marion Lerner LPN on behalf of: Henry Redding DO documented in this encounter Plan of Treatment Upcoming Encounters Date Type Department Care Team (Late st Contact Info) Description 04/18/2025 4:00 PM EDT Routine [facility] BCP OB [address] [facility] [place] [address] Henry Redding DO [address] [facility] [address] Scheduled Orders Name Type Priority Associated Diagnoses Orde r Schedule CULTURE, GROUP B STREP WITH SUSCEPTIBLITY Lab Routine Third trimester ([facility]) Expected: 04/13/2025, Expires: 04/13/2026 documented as of this encounter Procedures Procedure Name Priority Date/Time Associated Diagnosis Comments POCT URINALYSIS DIPSTICK Routine 04/13/2025 2:24 PM EDT Third trimester ([facility]) documented in this encounter Results * POCT urinalysis dipstick manually resulted (04/13/2025 2:24 PM EDT) Color, UA Yellow Clarity, UA Clear Glucose, UA Negative Negative - 1999(110) ++++ mg/dL Bilirubin, UA Negative Negative - 4(70) +++ mg/dL Ketones, UA Negative Negative - 160(16) ++++ mg/dL Spec Grav, UA 1.015 1 - 1.03 Blood, UA Positive Negative - 50 Venu/mcL pH, UA 6.0 5 - 9 Protein, UA Negative Negative - 2000(20) ++++ mg/dL Urobilinogen, UA 0.2 0.2 - 12 mg/dL Leukocytes, UA Negative Negative - 500+++ Michael/mcL Nitrite, UA Negative Negative - Positive Urine 04/13/2025 2:24 PM EDT Henry Redding DO POINT OF CARE TEST ENTER/EDIT OR DERABLES Final Result documented in this encounter Visit Diagnoses Diagnosis Third trimester ([facility]) state, incidental 36 weeks gestation of ([facility]) documented in this encounter Care Teams Gear Finisher Relationship Specialty Start Date End Date Codey Ponce MD [address] [place] [address] PCP - General Family Medicine 10/08/24 documented as of this encounter
[2025-04-18] VITALS (24 sets, daily range): BP systolic 90–143; BP diastolic 50–81; PULSE 64–92; TEMP 36.2–36.6; O2SAT 94–97
--- NOTE | 2025-04-18 13:56 | US_ITS ---
[place] [id number] Patient Name: JUAREZ LIMON MRN: [id number] date: 1985 Sex: F Assigned Patient Location: [facility] Current Patient Location: [facility] Accession/Order Number: [id number] Exam Date: 04/18/2025 14:54 Report Date: 04/18/2025 14:55 At the request of: GRACE LOVELL DO Procedure: US OB BPP w non-stress Ultrasound biophysical profile HISTORY: Advanced maternal age. Multi . Technique: Transabdominal imaging of the gravid uterus was obtained. COMPARISON: [facility] 04/11/2025. FINDINGS: Director Business Systems reports a BPP of 8 out of 8. heart rate 147 bpm. THEO is 8.5 cm. US/US OB BPP w non-stress IMPRESSION: BPP 8 out of 8. Impression dictated by: Luis Alfredo Truong Jr., D.O. 04/18/2025 2:55 PM Dictation Location: [place] [address] Electronically authenticated by: [id number] Y Date: 04/18/2025 14:55
--- OUTSIDE RECORDS SUMMARY | 2025-04-18 13:56 | XMS_ITS | Encounter Summary ---
Author Organization [facility] Address [address] [facility] [place] [address] Care Team Providers Care Cotton Weigher Operator Name Role Phone Codey Ponce MD Primary Care Provider [phone] Encounter Details Date Type Department Care Team (Late Contact Info) Description 11/23/2024 Abstract [facility] OB [address] [facility] [place] [phone] Henry Redding DO [address] [place] [address] [place], [place] [phone] Social History Tobacco Use Types Packs/Day Years [...] Department Care Team (Late Contact Info) Description 04/18/2025 4:00 PM EDT Routine [facility] OB [address] [facility] [place] [phone] Henry Redding DO [address] [place], [place] [phone] documented as of this encounter Visit Diagnoses Not on filedocumented in this encounter Care Teams Cotton Weigher Operator Relationship Specialty Start Date End Date Codey Ponce MD [address] [facility] [place] [address] PCP - General Family Medicine 10/08/24 documented as of this encounter
--- OUTSIDE RECORDS SUMMARY | 2025-04-18 13:56 | XMS_ITS | Encounter Summary ---
Author Organization [facility] Address [address] [facility] [place] [address] Care Team Providers Care Yeast Maker Name Role Phone Codey Ponce MD Primary Care Provider [phone] Encounter Details Date Type Department Care Team (Late Contact Info) Description 10/08/2024 Abstract [facility] OB [address] [facility] [place] [phone] Henry Redding DO [address] [place] [address] [place], [place] [phone] Social History Tobacco Use Types Packs/Day Years [...] Description 04/18/2025 4:00 PM EDT Routine [facility] OB [address] [facility] [place] [phone] Henry Redding DO [address] [place], [place] [phone] documented as of this encounter Visit Diagnoses Not on filedocumented in this encounter Care Teams Yeast Maker Relationship Specialty Start Date End Date Codey Ponce MD [address] [facility] [place] [address] PCP - General Family Medicine 10/08/24 documented as of this encounter
--- OUTSIDE RECORDS SUMMARY | 2025-04-18 13:56 | XMS_ITS | Encounter Summary ---
Author Organization [facility] Address [address] [place] [address] Care Team Providers Care Splitter Head Name Role Phone Codey Ponce MD Primary Care Provider [phone] Encounter Details Date Type Department Care Team (Late st Contact Info) Description 04/04/2025 Clinisync Result Encounter [facility] External Department Unsolicited Grace Redding, DO [address] [place] [address] Social History Tobacco Use Types Packs/Day Years [...] Routine [facility] BCP OB [address] [place] [phone] Grace Redding, DO [address] [place] [address] documented as of this encounter Procedures Procedure Name Priority Date/Time Associated Diagnosis Comments US OB BPP W NON-STRESS 04/04/2025 2:52 PM EDT documented in this encounter Results * US OB BPP W NON-STRESS (04/04/2025 2:52 PM EDT) Anatomical Region Laterality Modality Other 04/04/2025 2:52 PM EDT Narrative 04/04/2025 2:54 PM EDT [address] [address] Ultrasound Report Signed Patient: YESSI LIMON MR#: [id number] : 1985 Acct:[id number] Age/Sex: 40 / F ADM Date: 04/04/25 Loc: US Attending Dr: Grace Redding D.O. Ordering Physician: Grace Redding D.O. Date of Service: 04/04/25 Procedure(s): US OB BPP w non-stress Accession Number(s): [id number] cc: Grace Redding D.O.; Codey Ponce M.D. [place] [id number] Patient Name: YESSI LIMON MRN: [id number] date: 1985 Sex: F Assigned Patient Location: [facility] Current Patient Location: Accession/Order Number: [id number] Exam Date: 04/04/2025 14:51 Report Date: 04/04/2025 14:52 At the request of: GRACE REDDING DO Procedure: US OB BPP w non-stress Ultrasound biophysical profile HISTORY: Multigravida. Advanced maternal age. Adequate breathing movement, gross body movement, tone and amniotic fluid volume for total score of 8 out of 8. The amniotic fluid index is 12.4 cm within normal limits. The heart rate 129 bpm. US/US OB BPP w non-stress IMPRESSION: Adequate ultrasound biophysical profile Impression dictated by: Jhon Gould M.D. 04/04/2025 2:52 PM Dictation Location: [place] [address] Electronically authenticated by: [id number] Y Date: 04/04/2025 14:52 Dictated By: Jhon Gould D.O. Signed By: 04/04/25 1454 DD/ 145 TD/TT: Chef Head: Procedure Note Radiology, Radiologist, MD - 04/04/[address] [address] Ultrasound Report Signed Patient: YESSI LIMON#: [id number] : 1985Acct:[id number] Age/Sex: 40 / FADM Date: 04/04/25 Loc: US Attending Dr: Grace Redding D.O. Ordering Physician: Grace Redding D.O. Date of Service: 04/04/25 Procedure(s): US OB BPP w non-stress Accession Number(s): [id number] cc: Grace Redding D.O.; Codey Ponce M.D. The [address] [address] Patient Name: YESSI LIMON MRN: [id number] date: 1985 Sex: F Assigned Patient Location: [facility] Current Patient Location: Accession/Order Number: [id number] Exam Date: 04/04/2025 14:51 Report Date: 04/04/2025 14:52 At the request of: GRACE REDDING DO Procedure: US OB BPP w non-stress Ultrasound biophysical profile HISTORY: Multigravida. Advanced maternal age. Adequate breathing movement, gross body movement, tone and amniotic fluid volume for total score of 8 out of 8. The amniotic fluidindex is 12.4 cm within normal limits. The heart rate 129 bpm. US/US OB BPP w non-stress IMPRESSION: Adequate ultrasound biophysical profile Impression dictated by: Jhon Gould M.D. 04/04/2025 2:52 PM Dictation Location: [place] [address] Electronically authenticated by: [id number] Y Date: 4:52 Dictated By: Jhon Gould D.O. Signed By:04/04/25 1454 DD/ 145 TD/TT: Chef Head: us Grace Redding DO [facility] Final Result documented in this encounter Visit Diagnoses Not on filedocumented in this encounter Care Teams Splitter Head Relationship Specialty Start Date End Date Codey Ponce MD [address] [place] [phone] PCP - General Family Medicine 10/08/24 documented as of this encounter
--- OUTSIDE RECORDS SUMMARY | 2025-04-18 13:56 | XMS_ITS | Encounter Summary ---
Author Organization [facility] Address [address] [facility] [place] [address] Care Team Providers Care Director Of Infection Prevention Name Role Phone Codey Ponce MD Primary Care Provider [phone] Encounter Details Date Type Department Care Team (Late st Contact Info) Description 01/18/2025 Orders Only [facility] BCP OB [address] [facility] [place] [phone] Maria Guadalupe Hernandez [place] [address] [place] [address] Social History Tobacco Use Types Packs/Day Years [...] PM EDT Routine [facility] BCP OB [address] [facility] [place] [phone] Henry Redding DO [address] [facility] [place] [address] documented as of this encounter Procedures Procedure Name Priority Date/Time Associated Diagnosis Comments PAP SMEAR Routine 01/05/2025 12:00 AM EST documented in this encounter Results * Pap Smear (01/05/2025 12:00 AM EST) Swab Cervical swab / Unknown Henry Redding DO LAB CYTOLOGY ORDERABLES Final Re sult EXTERNAL LAB documented in this encounter Visit Diagnoses Not on filedocumented in this encounter Care Teams Director Of Infection Prevention Relationship Specialty Start Date End Date Codey Ponce MD [address] [place] [address] PCP - General Family Medicine 10/08/24 documented as of this encounter
--- OUTSIDE RECORDS SUMMARY | 2025-04-18 13:56 | XMS_ITS | Encounter Summary ---
Author Organization [facility] Address [address] [place] [address] Care Team Providers Care Cup Setter Lockstitch Name Role Phone Codey Ponce MD Primary Care Provider [phone] Encounter Details Date Type Department Care Team (Late st Contact Info) Description 10/09/2024 Clinisync Result Encounter [facility] External Department Unsolicited Grace Redding, DO [address] [place] [address] Social History Tobacco Use Types Packs/Day Years [...] Routine [facility] BCP OB [address] [place] [address] Grace Redding, [address] [place] [address] documented as of this encounter Procedures Procedure Name Priority Date/Time Associated Diagnosis Comments US OB TRANSVAGINAL 10/09/2024 4: 32 AM EST documented in this encounter Results * US OB TRANSVAGINAL (10/09/2024 4:32 AM EST) Anatomical Region Laterality Modality Other 10/09/2024 4:32 AM EST Narrative 10/09/2024 4:35 AM EST [address] [address] Ultrasound Report Signed Patient: Yessi Limon MR#: [id number] : 1985 Acct:[id number] Age/Sex: 39 / F ADM Date: 10/08/24 Loc: NOMS Attending Dr: Grace Redding D.O. Ordering Physician: Grace Redding D.O. Date of Service: 10/08/24 Procedure(s): US OB transvaginal Accession Number(s): [id number] cc: Grace Redding D.O.; Physician,Non-Staff Marielle [address] [address] Patient Name: YESSI LIMON MRN: [id number] date: 1985 Sex: F Assigned Patient [facility] Current Patient Location: Accession/Order Number: [id number] Exam Date: 10/08/2024 09:07 Report Date: 10/09/2024 [...] Signed By: 10/09/24 0435 DD/ 1 TD/TT: Galvanizer: Procedure Note Radiology, Radiologist, MD - 10/09/[address] [address] Ultrasound Report Signed Patient: Ysesi Limon#: [id number] : 1985Acct:[id number] Age/Sex: 39 / FADM Date: 10/08/24 Loc: [facility]OMS Attending Dr: Grace Redding D.O. Ordering Physician: Grace Redding D.O. Date of Service: 10/08/24 Procedure(s): US OB transvaginal Accession Number(s): [id number] cc: Grace Redding D.O.; Physician,Non-Staff Marielle The [address] [address] Patient Name: YESSI LIMON MRN: [id number] date: 1985 Sex: F Assigned Patient Location: [facility] Current Patient Location: Accession/Order Number: [id number] Exam Date: 10/08/2024 09:07 Report Date: 10/09/2024 [...] Sanchez M.D. Signed By:10/09/24434 DD/ 1 TD/TT: Galvanizer: us Grace Redding DO [facility] Final Result documented in this encounter Visit Diagnoses Not on filedocumented in this encounter Care Teams Cup Setter Lockstitch Relationship Specialty Start Date End Date Codey Ponce MD [address] [place] [address] PCP - General Family Medicine 10/08/24 documented as of this encounter
--- OUTSIDE RECORDS SUMMARY | 2025-04-18 13:56 | XMS_ITS | Encounter Summary ---
Author Organization [facility] Address [address] [place] [address] Care Team Providers Care Medical Record Consultant Name Role Phone Codey Ponce MD Primary Care Provider [phone] Encounter Details Date Type Department Care Team (Late st Contact Info) Description 04/11/2025 Clinisync Result Encounter [facility] External Department Unsolicited Grace Redding, DO [address] [place] [address] Social History Tobacco Use Types Packs/Day Years [...] [facility] BCP OB [address] [place] [phone] Grace Redding, [address] [place] [address] documented as of this encounter Procedures Procedure Name Priority Date/Time Associated Diagnosis Comments US OB BPP W NON-STRESS 04/11/2025 3:49 PM EDT documented in this encounter Results * US OB BPP W NON-STRESS (04/11/2025 3:49 PM EDT) Anatomical Region Laterality Modality Other 04/11/2025 3:49 PM EDT Narrative 04/11/2025 3:52 PM EDT [address] [address] Ultrasound Report Signed Patient: YESSI LIMON MR#: [id number] : 1985 Acct:[id number] Age/Sex: 40 / F ADM Date: 04/11/25 Loc: US Attending Dr: Grace Redding D.O. Ordering Physician: Grace Redding D.O. Date of Service: 04/11/25 Procedure(s): US OB BPP w non-stress Accession Number(s): [id number] cc: Grace Redding D.O.; Codey Ponce M.D. [address] [address] Patient Name: YESSI LIMON MRN: [id number] date: 1985 Sex: F Assigned Patient Location: [facility] Current Patient Location: Accession/Order Number: [id number] Exam Date: 04/11/2025 15:48 Report Date: 04/11/2025 15:49 At the request of: GRACE REDDING DO Procedure: US OB BPP w non-stress Ultrasound biophysical profile HISTORY: Advanced maternal age. Multi . Adequate breathing movement, gross body movement, tone and amniotic fluid volume for total score of 8 out of 8. The amniotic fluid index is 15.1cm within normal limits. The heart rate 135 bpm. US/US OB BPP w non-stress IMPRESSION: Adequate ultrasound biophysical profile Impression dictated by: Jhon Gould M.D. 04/11/2025 3:49 PM Dictation Location: [place] [address] Electronically authenticated by: [id number] Y Date: 04/11/2025 15:49 Dictated By: Jhon Gould D.O. Signed By: 04/11/25 1552 DD/ 1549 TD/TT: Branch Coordinator: Procedure Note Radiology, Radiologist, MD - 04/11/[address] [address] Ultrasound Report Signed Patient: YESSI LIMON#: [id number] : 1985Acct:[id number] Age/Sex: 40 / FADM Date: 04/11/25 Loc: US Attending Dr: Grace Redding D.O. Ordering Physician: Grace Redding D.O. Date of Service: 04/11/25 Procedure(s): US OB BPP w non-stress Accession Number(s): [id number] cc: Grace Redding D.O.; Codey Ponce M.D. The [place] [id number] Patient Name: YESSI LIMON MRN: [id number] date: 1985 Sex: F Assigned Patient Location: [facility] Current Patient Location: Accession/Order Number: [id number] Exam Date: 04/11/2025 15:48 Report Date: 04/11/2025 15:49 At the request of: GRACE REDDING DO Procedure: US OB BPP w non-stress Ultrasound biophysical profile HISTORY: Advanced maternal age. Multi . Adequate breathing movement, gross body movement, tone and amniotic fluid volume for total score of 8 out of 8. The amniotic fluidindex is 15.1cm within normal limits. The heart rate 135 bpm. US/US OB BPP w non-stress IMPRESSION: Adequate ultrasound biophysical profile Impression dictated by: Jhon Gould M.D. 04/11/2025 3:49 PM Dictation Location: [place] [address] Electronically authenticated by: [id number] Y Date: 5:49 Dictated By: Jhon Gould D.O. Signed By:04/11/25 1552 DD/ 1549 TD/TT: Branch Coordinator: Grace Redding DO [facility] Final Result documented in this encounter Visit Diagnoses Not on filedocumented in this encounter Care Teams Medical Record Consultant Relationship Specialty Start Date End Date Codey Ponce MD [address] [place] [address] PCP - General Family Medicine 10/08/24 documented as of this encounter
--- OUTSIDE RECORDS SUMMARY | 2025-04-18 13:56 | XMS_ITS | Encounter Summary ---
Author Organization [facility] Address [address] [place] [address] Care Team Providers Care Acidizer Name Role Phone Codey Ponce MD Primary Care Provider [phone] Encounter Details Date Type Department Care Team (Late st Contact Info) Description 04/13/2025 Clinisync Result Encounter [facility] External Department Unsolicited Grace Redding, DO [address] [place] [address] Social History Tobacco Use Types Packs/Day Years [...] [facility] B[facility] OB [address] [place] [phone] Grace Redding DO [address] [place] [address] documented as of this encounter Procedures Procedure Name Priority Date/Time Associated Diagnosis Comments US OB PLACENTA 04/13/2025 8:14 PM EDT documented in this encounter Results * US OB PLACENTA (04/13/2025 8:14 PM EDT) Anatomical Region Laterality Modality Other 04/13/2025 8:14 PM EDT Narrative 04/13/2025 8:17 [place] [address] Ultrasound Report Signed Patient: YESSI LIMON MR#: [id number] : 1985 Acct:[id number] Age/Sex: 40 / F ADM Date: Loc: [facility] 254-[address]: Grace Redding D.O. Ordering Physician: Grace Redding D.O. Date of Service: 04/13/25 Procedure(s): US OB placenta Accession Number(s): [id number] cc: Grace Redding D.O.; Codey Ponce M.D. [place] [id number] Patient Name: YESSI LIMON MRN: [id number] date: 1985 Sex: F Assigned Patient Location: [facility] Current Patient Location: [facility] Accession/Order Number: [id number] Exam Date: 04/13/2025 20:12 Report Date: 04/13/2025 20:14 At the request of: GRACE REDDING DO Procedure: US OB placenta Obstetrical ultrasound of the placenta HISTORY: Contractions. Anterior placenta identified. Normal appearance of the placenta noted. No placental abruption. heart rate 131 bpm. The gestational age 36 weeks 2 days. US/US OB placenta IMPRESSION: Normal-appearing placenta. Impression dictated by: Jhon Gould M.D. 04/13/2025 8:14 PM Dictation Location: [place] [address] Electronically authenticated by: [id number] Y Date: 04/13/2025 20:14 Dictated By: Jhon Gould D.O. Signed By: 04/13/252016 DD/ 13 TD/TT: Furniture Finisher: Procedure Note Radiology, Radiologist, - 04/13/2025 [place] [address] Ultrasound Report Signed Patient: YESSI LIMON MMR#: [id number] : 1985Acct:[id number] Age/Sex: 40 / FADM Date: Loc: [facility] 254-[address]: Grace Redding D.O. Ordering Physician: Grace Redding D.O. Date of Service: 04/13/25 Procedure(s): US OB placenta Accession Number(s): [id number] cc: Grace Reddnig D.O.; Codey Ponce M.D. [address] [id number] Patient Name: YESSI LIMON MRN: [id number] date: 1985 Sex: F Assigned Patient Location: [facility] Current Patient Location: [facility] Accession/Order Number: [id number] Exam Date: 04/13/2025 20:12 Report Date: 04/13/2025 20:14 At the request of: GRACE REDDING DO Procedure: US OB placenta Obstetrical ultrasound of the placenta HISTORY: Contractions. Anterior placenta identified. Normal appearance of the placenta noted.No placental abruption. heart rate 131 bpm. The gestational age 36weeks 2 days. US/US OB placenta IMPRESSION: Normal-appearing placenta. Impression dictated by: Jhon Gould M.D. 04/13/2025 8:14 PM Dictation Location: [place] [address] Electronically authenticated by: [id number] Y Date: 0:14 Dictated By: Jhon Gould D.O. Signed By:04/13/252016 DD/ 13 TD/TT: Furniture Finisher: Grace Redding DO [facility] Final Result documented in this encounter Visit Diagnoses Not on filedocumented in this encounter Care Teams Acidizer Relationship Specialty Start Date End Date Codey Ponce MD [address] [place] [phone] PCP - General Family Medicine 10/08/24 documented as of this encounter
--- OUTSIDE RECORDS SUMMARY | 2025-04-18 13:56 | XMS_ITS | Encounter Summary ---
Author Organization [facility] Address [address] [place] [address] Care Team Providers Care Parts Designer Name Role Phone Codey Ponce MD Primary Care Provider [phone] Encounter Details Date Type Department Care Team (Late st Contact Info) Description 04/13/2025 Clinisync Result Encounter [facility] External Department Unsolicited Henry Redding, DO [address] [place] [address] Social History Tobacco Use Types Packs/Day Years [...] Routine [facility] B[facility] OB [address] [place] [phone] Henry Redding, DO [address] [place] [address] documented as of this encounter Procedures Procedure Name Priority Date/Time Associated Diagnosis Comments AMNISURE Routine 04/13/2025 4:55 PM EDT documented in this encounter Results * AMNISURE (04/13/2025 4:55 PM EDT) Pathologist [facility] AMNISURE NEGATIVE NEGATIVE [facility] 04/13/2025 4:55 PM EDT 04/13/2025 4:57 PM EDT Narrative [facility] - 04/13/2025 5:09 PM EDT us Henry Miladis DO LAB BLOOD ORDERABLES Final Resul t [facility] documented in this encounter Visit Diagnoses Not on filedocumented in this encounter Care Teams Parts Designer Relationship Specialty Start Date End Date Codey Ponce MD [address] [place] [address] PCP - General Family Medicine 10/08/24 documented as of this encounter
--- OUTSIDE RECORDS SUMMARY | 2025-04-18 13:56 | XMS_ITS | Encounter Summary ---
Author Organization [facility] Address [address] [facility] [place] [address] Care Team Providers Care Tire Repairman Name Role Phone Codey Ponce MD Primary Care Provider [phone] Encounter Details Date Type Department Care Team (Late Contact Info) Description 04/13/2025 Bamboo flowsheet [facility] OB [address] [place] [phone] Henry Redding DO [address] [place] [phone] Social History Tobacco Use Types Packs/Day Years [...] Description 04/18/2025 4:00 PM EDT Routine [facility] OB [address] [place] [phone] Henry Redding DO [address] [place] [address] documented as of this encounter Visit Diagnoses Not on filedocumented in this encounter Care Teams Tire Repairman Relationship Specialty Start Date End Date Codey Ponce MD [address] [facility] [place] [address] PCP - General Family Medicine 10/08/24 documented as of this encounter
[2025-04-18] MEDS: 0.9 % SODIUM CHLORIDE 1,000 ML 1000 ML IV (17:10)
[2025-04-18 17:15] LABS: Basophils Percent Auto 0.3 % (0.2-2.0); Eosinophils Percent Auto 0.3 % (0.9-7.0); Hematocrit 34.2 % (36.0-48.0); Hemoglobin 11.5 g/dL (12.0-16.0); Immature Granulocytes Abs Auto 0.08 10^3/uL (0.00-0.03); Immature Granulocytes Pct Auto 0.9 % (0.0-0.5); Lymphocytes Absolute Auto 1.6 10^3/uL (1.2-3.8); Mean Corpuscular HGB Conc 33.6 g/dL (29.9-35.2); Mean Corpuscular Hemoglobin 30.3 pg (26.7-34.0); Mean Platelet Volume 10.5 fL (9.5-13.5); Monocytes Absolute Auto 0.5 10^3/uL (0.3-0.8); Monocytes Percent Auto 5.1 % (1.7-12.0); Neutrophils Percent Auto 76.4 % (43.0-75.0); Platelet Count 204 10^3/uL (150-450); Red Cell Distribution Width 14.8 % (11.0-15.0); White Blood Count 9.2 10^3/uL (4.0-11.0)
[2025-04-18] MEDS: FAMOTIDINE/PF 20 MG/2 ML VIAL IV (17:30)
[2025-04-18] MEDS: CITRIC ACID/SODIUM CITRATE 30 ML SOLUTION ORACIT SHOHL'S SOLN PO (17:30)
[2025-04-18] MEDS: CEFAZOLIN SODIUM/DEXTROSE,ISO 2 GM/50 ML PIGGYBACK IV (17:30)
[2025-04-18] MEDS: METOCLOPRAMIDE HCL 10 MG/2 ML VIAL IVP (17:30)
[2025-04-18 17:36] LABS: Amphetamine Screen Urine NEGATIVE (NEGATIVE); Barbiturates Screen Urine NEGATIVE (NEGATIVE); Benzodiazepines Screen Urine NEGATIVE (NEGATIVE); Buprenorphine Screen Urine NEGATIVE (NEGATIVE); Cannabinoid Screen Urine NEGATIVE (NEGATIVE); Cocaine Screen Urine NEGATIVE (NEGATIVE); Methadone Screen Urine NEGATIVE (NEGATIVE); Methamphetamines Screen Urine NEGATIVE (NEGATIVE); Opiate Screen Urine NEGATIVE (NEGATIVE); Oxycodone Screen Urine NEGATIVE (NEGATIVE); Phencyclidine Screen Urine NEGATIVE (NEGATIVE); Tricyclic Antidepressant Urine NEGATIVE (NEGATIVE)
[2025-04-18] MEDS: LACTATED RINGER'S SOLUTION 1,000 ML 50 ML IV ×3 (18:05→18:49)
--- NOTE | 2025-04-18 18:58 | P.ON_ITS ---
Brief Operative Note Date of procedure: 04/18/25 Pre-op diagnosis general: iup at 37 1/7wks, persistant contractions, mild pree clampsia Post-op diagnosis: same as pre-op Procedure: NAME OF PROCEDURE: [ section with bilateral salpingectomy ] PROCEDURE: Patient was taken back to the Operating Room where she was given a spinal anesthesia with Duramorph without difficulty. She was prepped and draped in the normal sterile fashion. A Pfannenstiel skin incision was then made 2?cm above the symphysis pubis and carried down to underlying rectus fascia using a Bovie. The fascia was incised in the midline and extended laterally using Ayoub scissors. Two Alexis clamps were placed on the superior aspect of the fascia and dissected off the underlying rectus muscles. The same was performed on the inferior aspect as well. The muscles were then in the midline. Peritoneum was identified and entered bluntly. The peritoneum was then extended superiorly and inferiorly with good visualization of the bladder. The bladder blade was inserted. Vesicouterine peritoneum was identified, tented up, and entered with Metzenbaum scissors. A bladder flap was then created digitally. The bladder blade was reinserted. A low transverse incision was made on the benjy ent's uterus and extended laterally digitally. The infant was then delivered atraumatically after the bladder blade was removed in the cephalic position. The cord was clamped and cut. Cord blood was obtained. The infant was handed off to awaiting team. The patient's placenta was spontaneously delivered. The uterus was then exteriorized. The uterus was cleared of all clots and debris. The bladder blade was reinserted. The patient's uterine incision was closed using #0 Vicryl in a running lock fashion. Excellent hemostasis was assured.? The rt tube was identified and grasped with babock, the ligasure was used to transect and ligate the tube in its entirity, this was done on the contralateral side as well. The uterus was then returned to the patient's abdomen. The patient's abdomen was copiously irrigated using warm saline. Peritoneal gutters were cleared of all clots and debris. Again excellent hemostasis was assured. The patient's fascia was closed using #0 Vicryl in a running fashion. The patient's skin was closed using 4-0 Vicryl subcuticularly. The patient tolerated the procedure well. Sponge, lap, and needle counts were correct x2. The patient was taken to the Recovery Room in stable condition. Anesthesia: spinal Surgeon: Henry Redding Block Breaker Operator: Laura Archer Estimated blood loss (mL): 575 Pathology: none sent Condition: stable Disposition: PACU Urinary Catheter Management Urinary Catheter Management Urethral: Cath placed during this visit: no
--- NOTE | 2025-04-18 18:59 | P.OBPRC_ITS ---
Procedure Pre-op/Post-op diagnoses: Pre-Op/Post-Op Diagnoses Operation Date: 04/18/25 16:20 <No data on this case meets the specified criteria> Procedure: Procedures Operation Date: 04/18/25 16:20 Actual Procedure Side Surgeon p with bilateral salpingectomy Not Applicable Henry Redding DO Pari Mutuel Clerk: Laura Archer Disposition: PACU Anesthesia type: Spinal
[2025-04-19] VITALS (7 sets, daily range): BP systolic 113–139; BP diastolic 67–76; PULSE 66–86; TEMP 36.6–37.1
[2025-04-19] MEDS: CEFAZOLIN SODIUM/DEXTROSE,ISO 2 GM/50 ML PIGGYBACK IV (00:08)
[2025-04-19] MEDS: KETOROLAC TROMETHAMINE 30 MG/ML VIAL IVP (05:31)
[2025-04-19] MEDS: SIMETHICONE 80 MG TAB.CHEW PO ×2 (05:39→10:41)
[2025-04-19] MEDS: ENOXAPARIN SODIUM 40 MG/0.4 ML SYRINGE SUBQ (06:24)
[2025-04-19 06:41] LABS: Basophils Percent Auto 0.2 % (0.2-2.0); Hematocrit 27.8 % (36.0-48.0); Hemoglobin 9.3 g/dL (12.0-16.0); Immature Granulocytes Abs Auto 0.09 10^3/uL (0.00-0.03); Immature Granulocytes Pct Auto 0.8 % (0.0-0.5); Lymphocytes Absolute Auto 0.7 10^3/uL (1.2-3.8); Lymphocytes Percent Auto 6.6 % (20.5-60.0); Mean Corpuscular HGB Conc 33.5 g/dL (29.9-35.2); Mean Corpuscular Hemoglobin 30.1 pg (26.7-34.0); Mean Platelet Volume 10.5 fL (9.5-13.5); Monocytes Absolute Auto 0.4 10^3/uL (0.3-0.8); Neutrophils Absolute Auto 9.5 10^3/uL (1.4-6.5); Neutrophils Percent Auto 88.4 % (43.0-75.0); Platelet Count 164 10^3/uL (150-450); Red Blood Count 3.09 10^6/uL (4.20-5.40); Red Cell Distribution Width 14.8 % (11.0-15.0); White Blood Count 10.8 10^3/uL (4.0-11.0)
--- NOTE | 2025-04-19 07:44 | P.NBHP_ITS ---
NB H&P: HPI Single History of Delivery method: section Indications for induction: repeat section Reason For Visit: Maternal Health Data Maternal Health : 7 Para: 6 Hx # pregnancies: 0 care: good care events: Previous complications: other Blood type: O+ Single Delivery method: section Labs Hepatitis B results: Negative Hepatitis C results: NR HIV results: NR Group B strep results: Positive Chlamydia results: Negative Gonorrhea results: Negative Rubella results: Immune Antibody screen: Negative Mother's Syphilis results: NR Additional Details Discussed care with mom, no issues in the , - Single Citation V. A proposal for a new method of evaluation of the . Curr.Res.Anesth.Analg. 1953;32(4): 260-267 NB Exam General Appearance: General Appearance: alert, active and nondysmorphic HEENT: HEENT: atraumatic Neck: Neck: full range of motion Respiratory: Respiratory: clear to auscultation bilaterally and normal air movement; no retractions Cardiovasular: Cardiovascular: regular rate and regular rhythm; no murmurs Abdomen: Abdomen: normal bowel sounds and soft; nontender and no hepatosplenomegaly Genitourinary: Genitourinary: normal genitalia and anus patent Extremities: Extremities: five fingers each hand, five toes each foot and leg lengths symmetric; sacral dimple absent Skin: Skin: warm and pink [facility] Social History Little interest or pleasure in doing things: not at all Feeling down, depressed, or hopeless: not at all
[2025-04-19] MEDS: DOCUSATE SODIUM 100 MG CAPSULE PO ×2 (09:28→22:05)
--- NOTE | 2025-04-19 09:30 | P.OBPN_ITS ---
OB - PN: Subj Subjective Patient comments: no complaints [place] status: doing well [place] feeding status: exclusively Exam Constitutional Vital Signs, click to edit/add: Last Vital Signs Temp 98.4 F 04/19/25 05:49 Pulse 72 04/19/25 05:49 Resp 14 04/19/25 05:49 BP 124/76 04/19/25 05:49 Pulse Ox 94 L 04/18/25 20:05 O2 Del Method Room Air 04/19/25 05:48 Documenting provider has reviewed patient's vital signs: yes Common normals: no apparent distress Exam limitations: altered mental status General appearance: cooperative Orientation/consciousness: Yes awake, Yes oriented to person, Yes oriented to place and Yes oriented to time HENMT Common normals: normocephalic Eye Common normals: EOMs intact bilaterally General eye: normal appearance of both eyes Neck & C-Spine Common normals: full ROM and no lymphadenopathy Lymph Lymphatic: no lymphadenopathy noted Chest Common normals: inspection of chest normal Respiratory Common normals: normal respiratory effort Effort & inspection: able to speak in complete sentences Auscultation: clear to auscultation bilaterally Cardio Common normals: regular rate and regular rhythm Rate: regular rate Rhythm: regular rhythm GI Inspection: normal to inspection Auscultation: normoactive bowel sounds Palpation: soft and firm Common normals: no CVA tenderness Back & Pelvis Common normals: no CVA tenderness Thoracic spine/upper back: normal to inspection Extremity Common normals: normal to inspection General: normal exam except as noted Neuro Common normals: oriented x3 Sensorium/orientation: awake, alert, oriented to person, oriented to place and oriented to time Psych Common normals: mental status grossly normal, thought process normal, cooperative, affect normal, speech normal, activity/motor behavior normal, denies hallucinations, denies homicidal ideation and denies suicidal ideation Appearance: grossly normal Attitude: calm Results Labs Labs: Short CBC 04/18/25 04/19/25 Range/Units 17:00 06:27 WBC 9.2 10.8 (4.0-11.0) 10^3/uL Hgb 11.5 L 9.3 L (12.0-16.0) g/dL Hct 34.2 L 27.8 L (36.0-48.0) % Plt Count 204 164 (150-450) 10^3/uL Urinary Catheter Management Urinary Catheter Management Urethral: Cath placed during this visit: yes, but has since been removed by the nurse Insertion date: 04/18/25 Insertion time: 18:00 Removal date: 04/19/25 Removal time: 00:20 OB - PN: A/P Plan - day: 1 Plan: routine postop care Time Spent with Patient Time: Total time spent is greater than 50% in coordination of care (as documented) at patient's floor/unit and/or counseling patient: Total time spent with greater than 50% in coordination of care (as documented) at patient's floor/unit and/or counseling patient: less than 15 minutes
[2025-04-19] MEDS: ACETAMINOPHEN 500 MG TABLET 1000 MG PO ×2 (10:40→16:19)
[2025-04-19] MEDS: IBUPROFEN 400 MG TABLET 800 MG PO ×2 (12:03→17:51)
[2025-04-19] MEDS: ONDANSETRON 4 MG RAPDIS TABLET PO (22:05)
[2025-04-19] MEDS: OXYCODONE HCL/ACETAMINOPHEN 5MG/325MG 1 TAB PO (22:06)
[2025-04-20] MEDS: IBUPROFEN 400 MG TABLET 800 MG PO ×3 (01:22→17:05)
[2025-04-20] MEDS: OXYCODONE HCL/ACETAMINOPHEN 5MG/325MG 1 TAB PO ×2 (02:08→06:15)
[2025-04-20] MEDS: ENOXAPARIN SODIUM 40 MG/0.4 ML SYRINGE SUBQ (06:16)
[2025-04-20] MEDS: ONDANSETRON 4 MG RAPDIS TABLET PO ×5 (06:54→22:41)
--- NOTE | 2025-04-20 08:53 | PM.OBPN ---
OB - PN: Subj Subjective Patient comments: no complaints and tolerating diet infant status: doing well Exam Constitutional Vital Signs, click to edit/add: Last Vital Signs Temp 97.9 F 04/19/25 23:11 Pulse 66 04/19/25 16:38 Resp 16 04/19/25 16:38 BP 113/67 04/19/25 23:11 Pulse Ox 94 L 04/18/25 20:05 O2 Del Method Room Air 04/19/25 23:30 Documenting provider has reviewed patient's vital signs: yes Common normals: no apparent distress Respiratory Common normals: normal respiratory effort and clear to auscultation bilaterally Cardio Common normals: regular rate and regular rhythm GI Common normals: Normal to inspection, nondistended, normoactive bowel sounds present Extremity Common normals: no clubbing, cyanosis or edema and no calf tenderness Urinary Catheter Management Urinary Catheter Management Urethral: Cath placed during this visit: yes, but has since been removed by the nurse Insertion date: 04/18/25 Insertion time: 18:00 Removal date: 04/19/25 Removal time: 00:20 OB - PN: A/P Plan - day: 2 Plan: routine postop care, discharge home and other (fu 1wk) Time Spent with Patient Time: Total time spent is greater than 50% in coordination of care (as documented) at patient's floor/unit and/or counseling patient: Total time spent with greater than 50% in coordination of care (as documented) at patient's floor/unit and/or counseling patient: less than 15 minutes
[2025-04-20] MEDS: DOCUSATE SODIUM 100 MG CAPSULE PO ×2 (09:01→22:41)
[2025-04-20 09:05] LABS: Basophils Percent Auto 0.2 % (0.2-2.0); Eosinophils Percent Auto 0.4 % (0.9-7.0); Hematocrit 26.9 % (36.0-48.0); Hemoglobin 8.8 g/dL (12.0-16.0); Mean Corpuscular HGB Conc 32.7 g/dL (29.9-35.2); Mean Corpuscular Hemoglobin 30.3 pg (26.7-34.0); Mean Corpuscular Volume 92.8 fL (81.0-99.0); Monocytes Absolute Auto 0.5 10^3/uL (0.3-0.8); Monocytes Percent Auto 4.9 % (1.7-12.0); Neutrophils Absolute Auto 7.2 10^3/uL (1.4-6.5); Neutrophils Percent Auto 73.5 % (43.0-75.0); Platelet Count 142 10^3/uL (150-450); Red Cell Distribution Width 15.3 % (11.0-15.0); White Blood Count 9.8 10^3/uL (4.0-11.0)
[2025-04-20 09:30] VITALS: PULSE 88; TEMP 36.9
[2025-04-20 09:39] VITALS: BP 106/62
[2025-04-20] MEDS: OXYCODONE HCL/ACETAMINOPHEN 5MG/325MG 2 TAB PO ×4 (10:45→22:41)
[2025-04-20 17:08] VITALS: BP 114/67; PULSE 78; TEMP 36.6; O2SAT 100
[2025-04-21 00:30] VITALS: BP 104/62; PULSE 64; TEMP 36.7
[2025-04-21] MEDS: IBUPROFEN 400 MG TABLET 800 MG PO ×2 (02:21→09:56)
[2025-04-21] MEDS: OXYCODONE HCL/ACETAMINOPHEN 5MG/325MG 1 TAB PO ×2 (02:21→06:37)
[2025-04-21] MEDS: ONDANSETRON 4 MG RAPDIS TABLET PO ×2 (02:22→06:37)
[2025-04-21 08:40] VITALS: BP 111/71; PULSE 84; TEMP 36.3
--- NOTE | 2025-04-21 08:58 | PM.OBPN ---
OB - PN: Subj Subjective Patient comments: no complaints [place] status: doing well [place] feeding status: exclusively Exam Constitutional Vital Signs, click to edit/add: Last Vital Signs Temp 98.1 F 04/21/25 00:30 Pulse 64 04/21/25 00:30 Resp 16 04/20/25 09:30 BP 104/62 04/21/25 00:30 Pulse Ox 100 04/20/25 17:08 O2 Del Method Room Air 04/21/25 00:30 Documenting provider has reviewed patient's vital signs: yes Common normals: no apparent distress General appearance: cooperative, comfortable, well kempt and well developed Orientation/consciousness: Yes awake, Yes oriented to person, Yes oriented to place and Yes oriented to time HENMT Common normals: normocephalic Eye Common normals: EOMs intact bilaterally General eye: normal appearance of both eyes Neck & C-Spine Common normals: full ROM General: normal visual inspection Lymph Lymphatic: no lymphadenopathy noted Chest Common normals: inspection of chest normal Respiratory Common normals: normal respiratory effort Effort & inspection: able to speak in complete sentences Auscultation: clear to auscultation bilaterally Cardio Common normals: regular rate and regular rhythm Rate: regular rate Rhythm: regular rhythm GI Common normals: Normal to inspection, nondistended, normoactive bowel sounds present Inspection: normal to inspection Palpation: soft Common normals: no CVA tenderness Back & Pelvis Common normals: no CVA tenderness Extremity Common normals: normal to inspection Neuro Common normals: oriented x3 Sensorium/orientation: awake, alert, oriented to person, oriented to place and oriented to time Psych Common normals: mental status grossly normal, thought process normal, cooperative, affect normal, speech normal, activity/motor behavior normal, denies hallucinations, denies homicidal ideation and denies suicidal ideation Appearance: grossly normal Attitude: calm Speech: normal speech Thought process: normal thought process Results Labs Labs: Short CBC 04/20/25 Range/Units 09:00 WBC 9.8 (4.0-11.0) 10^3/uL Hgb 8.8 L (12.0-16.0) g/dL Hct 26.9 L (36.0-48.0) % Plt Count 142 L (150-450) 10^3/uL Urinary Catheter Management Urinary Catheter Management Urethral: Cath placed during this visit: yes, but has since been removed by the nurse Insertion date: 04/18/25 Insertion time: 18:00 Removal date: 04/19/25 Removal time: 00:20 OB - PN: A/P Plan - day: 2 Plan: discharge home Time Spent with Patient Time: Total time spent is greater than 50% in coordination of care (as documented) at patient's floor/unit and/or counseling patient: Total time spent with greater than 50% in coordination of care (as documented) at patient's floor/unit and/or counseling patient: less than 15 minutes
[2025-04-21] MEDS: DOCUSATE SODIUM 100 MG CAPSULE PO (09:57)
== END 2025-04-21 10:15 | disposition home or self-care (01) | DRG 785 ==
LOC: US 16:21 → FBC 16:21
PROVIDERS: Admitting Provider Obstetrics & Gynecology; PCP Family Medicine; Visit Provider Obstetrics & Gynecology
PROC: 10D00Z1 Extraction of Products of Conception, Low, Open Approach (ICD-10-PCS; CPT 59514; principal; 2025-04-18 16:20)
DX: O14.04 Mild to moderate pre-eclampsia, complicating childbirth (principal); O34.211 Maternal care for low transverse scar from previous cesarean delivery; Z3A.37 37 weeks gestation of pregnancy; Z37.0 Single live birth; Z30.2 Encounter for sterilization; Z87.440 Personal history of urinary (tract) infections
CPT/HCPCS: 36415; 51702; 64488; 76818; 80307; 85025; 86850; 86900; 86901; 88305; 94667; 94668; J0131; J0665; J0690; J1100; J1650; J1885; J2274; J2405; J2590; J2765; J3490; Q0162

== ENCOUNTER 2025-05-03 07:44 | Outpatient (OUT) | payer BC, SELFPAY ==
--- OUTSIDE RECORDS SUMMARY | 2024-09-28 04:50 | XMS_ITS ---
Author Organization The [facility] in [place] Address [address] [place] [address] Care Team Providers Care Community Theater Actor Name Role Phone Anuj Ponce Primary Care Provider [phone] REASON FOR VISIT Proair question Encounters Encounter Location Date Provider Diagnosis [facility] [address] [place] [address] 09/28/2024 Anuj Ponce Plan Of Treatment Medication Medication Name Sig Start Date Stop Date Notes ProAir RespiClick 108 (90 Base) MCG/ACT 1 puff as needed Inhalation every 4 hrs 09/24/2024 Progress Notes * LIMONFebruaryDOB:1985 ( 39 yo F)Acc No.[id number]:09/28/2024 Patient: Madison LARKIN February :1985 A ge:39 Y S ex:Female Address:[address], [place], [address] * Refills Stop ProAir RespiClick Aerosol Powder Breath Activated, 108 (90 Base) MCG/ACT, Inhalation, 1 puff as needed, every 4 hrs * true * Date: Generated for Printi ng/Faxing/eTransmitting on: 0 05/03/2025 07:47 AM EDT
--- OUTSIDE RECORDS SUMMARY | 2025-03-11 10:38 | XMS_ITS ---
Author Organization [facility] in [place] Address [address] [place] [address] Care Team Providers Care Right Of Way Manager Name Role Phone Anuj Ponce Primary Care Provider REASON FOR VISIT walking pneumonia Medications Medication SIG (Take, Route, Fr equency, Duration) Notes Start Date End Date Status Cefdinir 300 MG 2 capsules Orally on ce daily for 10 days 03/11/2025 Active Encounters Encounter Location Date Provider Diagnosis [facility] [address] [place] [address] 03/11/2025 Anuj Ponce Plan Of Treatment Medication Medication Name Sig Start Date Stop Date Notes Cefdinir 300 MG 2 capsules Orally once daily for 10 days 0 03/11/2025 Progress Notes * ASHLY FebruaryDOB:1985 ( 40 yo F)Acc No.[id number]:03/11/2025 Patient: Madison LARKIN Yessi :1985 A ge:40 Y S ex:Female Address:[address], [place], [address] * Refills Start Cefdinir Capsule, 300 MG, Orally, 20, 2 capsules, once daily, 10 days, Refills=0 * true * Date: Generated for Abdoulaye ann/Maria Ines/eTlosmitting on: 0 05/03/2025 07:47 AM EDT
--- OUTSIDE RECORDS SUMMARY | 2025-03-13 13:41 | XMS_ITS ---
Author Organization The [facility] in [place] Address [address] [place] [address] Care Team Providers Care Director Of Midwifery/Staff Midwife Name Role Phone Anuj Ponce Primary Care Provider REASON FOR VISIT er fu Encounters Encounter Location Date Provider Diagnosis [facility] [address] [place] [address] 03/13/2025 Anuj Ponce Plan Of Treatment No Information Progress Notes * LIMONFebruaryDOB:1985 ( 40 yo F)Acc No.[id number]:03/13/2025 Patient: Madison LARKIN February :1985 A ge:40 Y S ex:Female Address:[address], [place], [address] * true * Date: Generated for Maryi seth/Faangg/eTransmitting on: 0 05/03/2025 07:47 AM EDT
--- OUTSIDE RECORDS SUMMARY | 2025-04-26 14:50 | XMS_ITS | Encounter Summary ---
Author Organization [facility] Address Formerly named [facility] [place] [address] Care Team Providers Care Battery Service Technician Name Role Phone Codey Ponce MD Primary Care Provider [phone] Reason for Visit * Reason Comments Care Encounter Details Date Type Department Care Team (Late st Contact Info) Description 04/26/2025 2:50 PM EDT Office Visit [facility] OB [address] [facility] [place] [address] Monika Figueroa PA [address] [facility] [address] [place], [place] [phone] Encounter for visit ([facility]); S/P section; Postop check Social History Tobacco Use Types Packs/Day Years Used Date Smoking Tobacco: Never Assessed Comments No Sex and Gender Information Value Date Recorded Sex Assigned at Not on file Legal Sex Female 7:12 PM EDT Gender Identity Not on file Sexual Orientation Not on file documented as of this encounter Last Filed Vital Signs Vital Sign Reading Time Taken Comments Blood Pressure 120/74 04/26/2025 3:16 PM EDT Pulse - - Temperature - - Respiratory Rate - - Oxygen Saturation - - Inhaled Oxygen Concentration - - Weight 74 kg (163 lb 1.9 oz) 04/26/2025 3:16 PM EDT Height - - Body Mass Index 28.9 04/13/2025 2:24 PM EDT documented in this encounter Progress Notes * DESI Wilson - 04/26/2025 2:50 PM EDT Reason for Appointment: Patient ID: Yessi Agee is a 40 y.o. female who presents for Care Patient presents today for Post Follow Up appointment. and 1 Week Post Op Follow Up appointment. MEDICATIONS No current outpatient medications ALLERGIES No Known Allergies PROBLEMS Active Ambulatory Problems Diagnosis Date Noted Urinary tract infection without hematuria 10/25/2024 Resolved Ambulatory Problems Diagnosis Date Noted No Resolved Ambulatory Problems No Additional Past Medical History HISTORY PAST MEDICAL HISTORY SOCIAL HISTORY History reviewed. No pertinent past medical history. Social History Tobacco Use Smoking status: Not [...] breath sounds. Abdominal: Palpations: Abdomen is soft. Comments: Pfannenstiel incision healing well Musculoskeletal: General: Normal range of motion. Neurological: General: No focal deficit present. Mental Status: She is alert and oriented to person, place, and time. Skin: General: Skin is warm. Psychiatric: Mood and Affect: Mood normal. Behavior: Behavior normal. Thought Content: Thought content normal. Judgment: Judgment normal. Vitals and nursing note reviewed. Vitals: Estimated body mass index is 28.9 kg/m?? as calculated from the following: Height as of 04/13/25: 5' 3 . Weight as of this encounter: 163 lb 1.9 oz. BP: 120/74 Patient's last menstrual period was 08/02/2024 (exact date). ASSESSMENT & PLAN ICD-10-CM 1. Encounter for visit ([facility]) Z39.2 2. S/P section Z98.891 3. Postop check Z09 Patient presents today for a one week postop section check. Patient is doing well with minor complaints of pain. Incision has been noted as healing well with no signs and symptoms of infection. Follow Up: Patient is to return in 5 weeks for 6 week evaluation. Documented by DESI Wilson on behalf of: DESI Wilson documented in this encounter Plan of Treatment Upcoming Encounters Date Type Department Care Team ([facility] st Contact Info) Description 05/31/2025 11:20 AM EDT Visit [facility] OB [address] [facility] [place] [address] Monika Figueroa PA [address] [facility] [place] [address] documented as of this encounter Visit Diagnoses Diagnosis Encounter for visit ([facility]) S/P section Other postprocedural status Postop check Follow-up examination, following unspecified surgery documented in this encounter Care Teams Battery Service Technician Relationship Specialty Start Date End Date Codey Ponce MD [address] [facility] [place] [address] PCP - General Family Medicine 10/08/24 documented as of this encounter
--- OUTSIDE RECORDS SUMMARY | 2025-05-03 07:47 | XMS_ITS | Encounter Summary ---
Author Organization [facility] Address [address] [place] [address] Care Team Providers Care Vitamin Manager Name Role Phone Codey Ponce MD Primary Care Provider [phone] Encounter Details Date Type Department Care Team (Late st Contact Info) Description 04/20/2025 Clinisync Result Encounter [facility] External Department Unsolicited Henry Redding DO [address] [facility] [place] [address] Social History Tobacco Use Types Packs/Day Years Used Date Smoking Tobacco: Never Assessed Comments Yes Sex and Gender Information Value Date Recorded Sex Assigned at Not on file Legal Sex Female 7:12 PM EDT Gender Identity Not on file Sexual Orientation Not on file documented as of this encounter Plan of Treatment Upcoming Encounters Date Type Department Care Team (Late st Contact Info) Description 05/31/2025 11:20 AM EDT Visit [facility] OB [address] [facility] [place] [address] Monika Figueroa PA [address] [facility] [place] [address] documented as of this encounter Procedures Procedure Name Priority Date/Time Associated Diagnosis Comments ALL CBC WITH AUTO DIFF Routine 04/20/2025 9:00 AM EDT documented in this encounter Results * (ABNORMAL) ALL CBC WITH AUTO DIFF (04/20/2025 9:00 AM EDT) TB WBC 9.8 4.0 - 11.0 10 3/uL TB TB RBC 2.90(L) 4.20 - 5.40 10 6/uL TBH TBH HGB 8.8(L) 12.0 - 16.0 g/dL TBH TBH HCT 26.9(L) 36.0 - 48.0 % TBH TBH MCV 92.8 81.0 - 99.0 fL TBH TBH MCH 30.3 26.7 - 34.0 pg TBH TBH MCHC 32.7 29.9 - 35.2 g/dL TBH TBH RDW 15.3(H) 11.0 - 15.0 % TBH TBH PLT 142(L) 150 - 450 10 3/uL TBH TBH MPV 10.0 9.5 - 13.5 fL TBH NEUTROPHILS PERCENT AUTO 73.5 43.0 - 75.0 % TBH LYMPHOCYTES PERCENT AUTO 20.0(L) 20.5 - 60.0 % TBH MONOCYTES PERCENT AUTO 4.9 1.7 - 12.0 % TBH TBH EO % 0.4(L) 0.9 - 7.0 % TBH BASOPHILS PERCENT AUTO 0.2 0.2 - 2.0 % TBH IMMATURE GRANULOCYTES PCT AUTO 1.0(H) 0.0 - 0.5 % TBH NEUTROPHILS ABSOLUTE AUTO 7.2(H) 1.4 - 6.5 10 3/uL TBH LYMPHOCYTES ABSOLUTE AUTO 2.0 1.2 - 3.8 10 3/uL TBH MONOCYTES ABSOLUTE AUTO 0.5 0.3 - 0.8 10 3/uL TBH TBH EO # 0.0 0.0 - 0.7 10 3/uL TBH BASOPHILS ABSOLUTE AUTO 0.0 0.0 - 0.1 10 3/uL TBH IMMATURE GRANULOCYTES ABS AUTO 0.10(H) 0.00 - 0.03 10 3/uL TBH 04/20/2025 9:00 AM EDT 04/20/2025 9:03 AM EDT Narrative [facility] - 04/20/2025 9:05 AM EDT us Henry Miladis DO CL[facility] Final Result [facility] documented in this encounter Visit Diagnoses Not on filedocumented in this encounter Care Teams Vitamin Manager Relationship Specialty Start Date End Date Codey Ponce MD [address] [place] [phone] PCP - General Family Medicine 10/08/24 documented as of this encounter
--- OUTSIDE RECORDS SUMMARY | 2025-05-03 07:47 | XMS_ITS | Encounter Summary ---
Author Organization [facility] Address [address] [place] [address] Care Team Providers Care Dough Scaler And Mixer Name Role Phone Codey Ponce MD Primary Care Provider [phone] Encounter Details Date Type Department Care Team (Late st Contact Info) Description 04/19/2025 Clinisync Result Encounter [facility] External Department Unsolicited Henry Redding DO [address] [facility] [place] [address] Social History Tobacco Use Types Packs/Day Years [...] AM EDT Visit [facility] OB [address] [facility] [place] [address] Monika Figueroa PA [address] [facility] [place] [address] documented as of this encounter Procedures Procedure Name Priority Date/Time Associated Diagnosis Comments ALL CBC WITH AUTO DIFF Routine 04/19/2025 6:27 AM EDT documented in this encounter Results * (ABNORMAL) ALL CBC WITH AUTO DIFF (04/19/2025 6:27 AM EDT) TB WBC 10.8 4.0 - 11.0 10 3/uL TB TB RBC 3.09(L) 4.20 - 5.40 10 6/uL TBH TBH HGB 9.3(L) 12.0 - 16.0 g/dL TBH TBH HCT 27.8(L) 36.0 - 48.0 % TBH TBH MCV 90.0 81.0 - 99.0 fL TBH TBH MCH 30.1 26.7 - 34.0 pg TBH TBH MCHC 33.5 29.9 - 35.2 g/dL TBH TBH RDW 14.8 11.0 - 15.0 % TBH TBH PLT 164 150 - 450 10 3/uL TBH TBH MPV 10.5 9.5 - 13.5 fL TBH NEUTROPHILS PERCENT AUTO 88.4(H) 43.0 - 75.0 % TBH LYMPHOCYTES PERCENT AUTO 6.6(L) 20.5 - 60.0 % TBH MONOCYTES PERCENT AUTO 4.0 1.7 - 12.0 % TBH TBH EO % 0.0(L) 0.9 - 7.0 % TBH BASOPHILS PERCENT AUTO 0.2 0.2 - 2.0 % TBH IMMATURE GRANULOCYTES PCT AUTO 0.8(H) 0.0 - 0.5 % TBH NEUTROPHILS ABSOLUTE AUTO 9.5(H) 1.4 - 6.5 10 3/uL TBH LYMPHOCYTES ABSOLUTE AUTO 0.7(L) 1.2 - 3.8 10 3/uL TBH MONOCYTES ABSOLUTE AUTO 0.4 0.3 - 0.8 10 3/uL TBH TBH EO # 0.0 0.0 - 0.7 10 3/uL TBH BASOPHILS ABSOLUTE AUTO 0.0 0.0 - 0.1 10 3/uL TBH IMMATURE GRANULOCYTES ABS AUTO 0.09(H) 0.00 - 0.03 10 3/uL TBH 04/19/2025 6:27 AM EDT 04/19/2025 6:37 AM EDT Narrative [facility] - 04/19/2025 6:45 AM EDT us Henry Miladis DO [facility] documented in this encounter Visit Diagnoses Not on filedocumented in this encounter Care Teams Dough Scaler And Mixer Relationship Specialty Start Date End Date Codey Ponce MD [address] [place] [address] PCP - General Family Medicine 10/08/24 documented as of this encounter
--- OUTSIDE RECORDS SUMMARY | 2025-05-03 07:47 | XMS_ITS | Encounter Summary ---
Author Organization [facility] Address [address] [facility] [place] [address] Care Team Providers Care Internal Revenue Agent Name Role Phone Codey Ponce MD Primary Care Provider [phone] Encounter Details Date Type Department Care Team (Late Contact Info) Description 11/23/2024 Abstract [facility] OB [address] [facility] [phone] Henry Redding DO [address] [facility] [address] [place], [place] [phone] Social History Tobacco Use Types Packs/Day Years [...] Description 05/31/2025 11:20 AM EDT Visit [facility] OB [address] [facility] [phone] Monika Figueroa PA [address] [facility] [place] [address] documented as of this encounter Visit Diagnoses Not on filedocumented in this encounter Care Teams Internal Revenue Agent Relationship Specialty Start Date End Date Codey Ponce MD [address] [facility] [place] [address] PCP - General Family Medicine 10/08/24 documented as of this encounter
--- OUTSIDE RECORDS SUMMARY | 2025-05-03 07:47 | XMS_ITS | Encounter Summary ---
Author Organization [facility] Address [address] [facility] [place] [address] Care Team Providers Care Soapstoner Name Role Phone Codey Ponce MD Primary Care Provider [phone] Encounter Details Date Type Department Care Team (Late Contact Info) Description 04/22/2025 Abstract [facility] OB [address] [facility] [place] [phone] Henry Redding DO [address] [facility] [address] [place], [place] [address] Social History Tobacco Use Types Packs/Day Years [...] Description 05/31/2025 11:20 AM EDT Visit [facility] OB [address] [facility] [place] [address] Monika Figueroa PA [address] [facility] [place] [address] documented as of this encounter Visit Diagnoses Not on filedocumented in this encounter Care Teams Soapstoner Relationship Specialty Start Date End Date Codey Ponce MD [address] [facility] [place] [address] PCP - General Family Medicine 10/08/24 documented as of this encounter
--- OUTSIDE RECORDS SUMMARY | 2025-05-03 07:47 | XMS_ITS | Encounter Summary ---
Author Organization [facility] Address [address] [facility] [place] [address] Care Team Providers Care Fluid Pump Operator Name Role Phone Codey Ponce MD Primary Care Provider [phone] Encounter Details Date Type Department Care Team (Late Contact Info) Description 04/18/2025 Abstract [facility] OB [address] [facility] [place] [address] Henry Redding DO [address] [facility] [address] [place], [place] [phone] Social History Tobacco Use Types Packs/Day Years [...] AM EDT Visit [facility] OB [address] [facility] [place] [phone] Monika Figueroa PA [address] [facility] [place] [address] documented as of this encounter Visit Diagnoses Not on filedocumented in this encounter Care Teams Fluid Pump Operator Relationship Specialty Start Date End Date Codey Ponce MD [address] [facility] [place] [address] PCP - General Family Medicine 10/08/24 documented as of this encounter
--- OUTSIDE RECORDS SUMMARY | 2025-05-03 07:47 | XMS_ITS | Encounter Summary ---
Author Organization [facility] Address [address] [facility] [place] [address] Care Team Providers Care Explosive Technician Name Role Phone Codey Ponce MD Primary Care Provider [phone] Encounter Details Date Type Department Care Team (Late Contact Info) Description 04/20/2025 Abstract [facility] OB [address] [facility] [place] [phone] Henry Redding DO [address] [facility] [address] [place], [place] [phone] Social History Tobacco Use Types Packs/Day Years [...] Description 05/31/2025 11:20 AM EDT Visit [facility] OB [address] [facility] [place] [address] Monika Figueroa PA [address] [facility] [place] [address] documented as of this encounter Visit Diagnoses Not on filedocumented in this encounter Care Teams Explosive Technician Relationship Specialty Start Date End Date Codey Ponce MD [address] [facility] [place] [address] PCP - General Family Medicine 10/08/24 documented as of this encounter
--- OUTSIDE RECORDS SUMMARY | 2025-05-03 07:47 | XMS_ITS | Encounter Summary ---
Author Organization [facility] Address [address] [facility] [place] [address] Care Team Providers Care Car Runner Name Role Phone Codey Ponce MD Primary Care Provider [phone] Encounter Details Date Type Department Care Team (Late st Contact Info) Description 04/26/2025 Bamboo flowsheet [facility] OB [address] [place] [address] Monika Figueroa PA [address] [place] [address] [place], [place] [phone] Social History Tobacco Use Types Packs/Day Years [...] Description 05/31/2025 11:20 AM EDT Visit [facility] OB [address] [place] [phone] Monika Figueroa PA [address] [place] [address] [place] [address] documented as of this encounter Visit Diagnoses Not on filedocumented in this encounter Care Teams Car Runner Relationship Specialty Start Date End Date Codey Ponce MD [address] [place] [address] PCP - General Family Medicine 10/08/24 documented as of this encounter
--- OUTSIDE RECORDS SUMMARY | 2025-05-03 07:47 | XMS_ITS | Encounter Summary ---
Author Organization [facility] Address [address] [facility] [place] [address] Care Team Providers Care Social Security Specialist Name Role Phone Codey Ponce MD Primary Care Provider [phone] Encounter Details Date Type Department Care Team (Late Contact Info) Description 04/18/2025 Abstract [facility] OB [address] [facility] [place] [place] [address] Henry Redding DO [address] [facility] [address] [place], [place] [phone] Social History Tobacco Use Types Packs/Day Years [...] Description 05/31/2025 11:20 AM EDT Visit [facility] OB [address] [facility] [place] [address] Monika Figueroa PA [address] [facility] [place] [address] documented as of this encounter Visit Diagnoses Not on filedocumented in this encounter Care Teams Social Security Specialist Relationship Specialty Start Date End Date Codey Ponce MD [address] [facility] [place] [address] PCP - General Family Medicine 10/08/24 documented as of this encounter
--- OUTSIDE RECORDS SUMMARY | 2025-05-03 07:48 | XMS_ITS | Encounter Summary ---
Author Organization [facility] Address [address] [facility] [place] [address] Care Team Providers Care Divisional Human Resources Director Name Role Phone Codey Ponce MD Primary Care Provider [phone] Encounter Details Date Type Department Care Team (Late st Contact Info) Description 01/18/2025 Orders Only [facility] OB [address] [facility] [place] [address] Maria Guadalupe Hrenandez MA [address] [place] [address] [place] [address] Social History Tobacco Use Types Packs/Day Years [...] Description 05/31/2025 11:20 AM EDT Visit [facility] OB [address] [place] [address] [place] [phone] Monika Figueroa PA [address] [facility] [place] [address] documented as of this encounter Procedures Procedure Name Priority Date/Time Associated Diagnosis Comments PAP SMEAR Routine 01/05/2025 12:00 AM EST documented in this encounter Results * Pap Smear (01/05/2025 12:00 AM EST) Swab Cervical swab / Unknown us Henry Miladis DO LAB CYTOLOGY ORDERABLES Final Re sult EXTERNAL LAB documented in this encounter Visit Diagnoses Not on filedocumented in this encounter Care Teams Divisional Human Resources Director Relationship Specialty Start Date End Date Codey Ponce MD [address] [place] [address] PCP - General Family Medicine 10/08/24 documented as of this encounter
--- OUTSIDE RECORDS SUMMARY | 2025-05-03 07:48 | XMS_ITS | Patient Health Record ---
Author Organization [facility] [place] Address [address] [place] [address] Care Team Providers Care Parking Lot Attendant Name Role Phone RosarioAnuj Primary Care Provider Allergies No Known Allergies Results Component Value Reference Range Notes UA (CLEAN or CATCH) DIAMOND GRINDER or M ICRO IF IND. Reviewed date:03/23/2025 05:42:48 PM Interpretation: Performing Lab: Notes/Report: [facility] , Color Urine LT. YELLOW YELLOW Clarity Urine CLEAR CLEAR Specific [place] Urine <=1.005 1.005-1.025 pH Urine 7.0 5.0-9.0 Protein Urine NEGATIVE NEG/TRACE mg/dL Glucose Urine UA NEGATIVE NEGATIVE mg/dL Bilirubin Urine NEGATIVE NEGATIVE Ketones Urine NEGATIVE NEGATIVE mg/dL Blood Urine NEGATIVE NEGATIVE Nitrite Urine NEGATIVE NEGATIVE Urobilinogen Urine 0.2 0.2-1.0 EU/dL Leukocyte Esterase Urine NEGATIVE NEGATIVE Urine Microscopic Indicated NO Performing Lab: see note ML - [facility] LB US OB cervical length Reviewed date:03/23/2025 06:32:52 PM Interpretation: Performing Lab: Notes/Report: Source Facility: [facility]-[address] [place] [address] [place] [address] Ultrasound Report Signed Patient: YESSI LIMON MR#: [id number] : 1985 Acct:[id number] Age/Sex: 40 / F ADM Date: 03/23/25 Loc: [facility] 250-[address]: Grace Redding D.O. Ordering Physician: Grace Redding D.O. Date of Service: 03/23/25 Procedure(s): US OB cervical length Accession Number(s): [id number] cc: Grace Redding D.O.; Codey Ponce M.D. [address] [address] Patient Name: YESSI LIMON MRN: [id number]:[id number] date: 1985 Sex: F Assigned Patient Location: [facility] Current Patient Location: [facility] Accession/Order Number: [id number] Exam Date: 03/23/2025 18:26 Report Date: 03/23/2025 [...] Gould M.D. 03/23/2025 6:27 PM Dictation Location: [place] [address] Electronically authenticated by: [id number] Y Date: 03/23/2025 18:27 Dictated By: Jhon Gould D.O. Signed By: 03/23/251828 DD/ 26 TD/TT: Lace Stripper: [place] [address] Ultrasound Report Signed Patient: YESSI LIMON MR#: [id number] : 1985 Acct:[id number] Age/Sex: 40 / F ADM Date: 03/23/25 Loc: [facility] 250- Attending Dr: Grace Redding D.O. Ordering Physician: Grace Redding D.O. Date of Service: 03/23/25 Procedure(s): US OB cervical length Accession Number(s): [id number] cc: Grace Redding D.O. ; Codey Ponce M.D. [address] [address] Patient Name: YESSI LIMON MRN: [id number]:[id number] date: 1985 Sex: F Assigned Patient Location: [facility] Current Patient Location: [facility] Accession/Order Number: [id number] Exam Date: 03/23/2025 18:26 Report Date: 03/23/2025 [...] Gould M.D. 03/23/2025 6:27 PM Dictation Location: [place] [address] Electronically authenticated by: [id number] Y Date: 03/23/2025 18:27 Dictated By: Jhon Gould D.O. Signed By: 03/23/251828 DD/ 26 TD/TT: Lace Stripper: US OB placenta Reviewed date:04/14/2025 12:53:00 PM Interpretation: Performing Lab: Notes/Report: Source Facility: [place] [address] Ultrasound Report Signed Patient: YESSI LIMON MR#: [id number] : 1985 Acct:[id number] Age/Sex: 40 / F ADM Date: Loc: [facility] 254-[address]: Grace Redding D.O. Ordering Physician: Grace Redding D.O. Date of Service: 04/13/25 Procedure(s): US OB placenta Accession Number(s): [id number] cc: Grace Redding D.O.; Codey Ponce M.D. [place] [address] Patient Name: YESSI LIMON MRN: [id number] date: 1985 Sex: F Assigned Patient Location: [facility] Current Patient Location: [facility] Accession/Order Number: [id number] Exam Date: 04/13/2025 20:12 Report Date: 04/13/2025 [...] Gould M.D. 04/13/2025 8:14 PM Dictation Location: [place] [address] Electronically authenticated by: [id number] Y Date: 04/13/2025 20:14 Dictated By: Jhon Gould D.O. Signed By: 04/13/252016 DD/ 13 TD/TT: Lace Stripper: [place] [address] Ultrasound Report Signed Patient: YESSI LIMON MR#: [id number] : 1985 Acct:[id number] Age/Sex: 40 / F ADM Date: Loc: [facility] 254- Attending Dr: Grace Redding D.O. Ordering Physician: Grace Redding D.O. Date of Service: 04/13/25 Procedure(s): US OB placenta Accession Number(s): [id number] cc: Grace Redding D.O. ; Codey Ponce M.D. [place] [id number] Patient Name: YESSI LIMON MRN: [id number]:[id number] date: 1985 Sex: F Assigned Patient Location: [facility] Current Patient Location: [facility] Accession/Order Number: [id number] Exam Date: 04/13/2025 20:12 Report Date: 04/13/2025 20:14 At the request of: GRACE REDDING DO Procedure: US OB placenta Obstetrical ultrasou nd of the placenta HISTORY: Contractions. Anterior placenta identified. Normal appearance of the placenta noted. No placental abruption. heart rate 131 bpm. The gestational age 36 weeks 2 days. US/US OB placenta IMPRESSION: Normal-appearing placenta. Impression dictated by: Jhon Gould M.D. 04/13/2025 8:14 PM Dictation Location: [place] [address] Electronically authenticated by: [id number] Y Date: 04/13/2025 20:14 Dictated By: Jhon Gould D.O. Signed By: 04/13/252016 DD/ 13 TD/TT: Lace Stripper: Type and Screen Reviewed date:04/18/2025 06:39:35 PM Interpretation: Performing Lab: Notes/Report: [facility] , Blood Type O Positive Antibody Screen NEGATIVE CBC AUTO DIFF Reviewed date:04/20/2025 05:20:47 PM Interpretation: Performing Lab: Notes/Report: [facility] , White Blood Count 9.8 4.0-11.0 10 3/uL Red Blood Count 2.90 4.20-5.40 10 6/uL Hemoglobin 8.8 12.0-16.0 g/dL Hematocrit 26.9 36.0-48.0 % Mean Corpuscular Volume 92.8 81.0-99.0 fL Mean Corpuscular Hemoglobin 30.3 26.7-34.0 pg Mean Corpuscular HGB Conc 32.7 29.9-35.2 g/dL Red Cell Distribution Width 15.3 11.0-15.0 % Platelet Count 142 150-450 10 3/uL Mean Platelet Volume 10.0 9.5-13.5 fL Neutrophils Percent Auto 73.5 43.0-75.0 % Lymphocytes Percent Auto 20.0 20.5-60.0 % Monocytes Percent Auto 4.9 1.7-12.0 % Eosinophils Percent Auto 0.4 0.9-7.0 % Basophils Percent Auto 0.2 0.2-2.0 % Immature Granulocytes Pct Auto 1.0 0.0-0.5 % Neutrophils Absolute Auto 7.2 1.4-6.5 10 3/uL Lymphocytes Absolute Auto 2.0 1.2-3.8 10 3/uL Monocytes Absolute Auto 0.5 0.3-0.8 10 3/uL Eosinophils Absolute Auto 0.0 0.0-0.7 10 3/uL Basophils Absolute Auto 0.0 0.0-0.1 10 3/uL Immature Granulocytes Abs Auto 0.10 0.00-0.03 10 3/uL Performing Lab: see note ML - [facility] LB DRUG SCREEN RAPID (URINE) Reviewed date:04/18/2025 06:39:35 PM Interpretation: Performing Lab: Notes/Report: [facility] , Cannabinoid Screen Urine NEGATIVE NEGATIVE Phencyclidine Screen Urine NEGATIVE NEGATIVE Cocaine Screen Urine NEGATIVE NEGATIVE Methamphetamines Screen Urine NEGATIVE NEGATIVE Opiate Screen Urine NEGATIVE NEGATIVE Amphetamine Screen Urine NEGATIVE NEGATIVE Benzodiazepines Screen Urine NEGATIVE NEGATIVE Tricyclic Antidepressant Urine NEGATIVE NEGATIVE Methadone Screen Urine NEGATIVE NEGATIVE Barbiturates Screen Urine NEGATIVE NEGATIVE Oxycodone Screen Urine NEGATIVE NEGATIVE Buprenorphine Screen Urine NEGATIVE NEGATIVE DRUG CLASS TEST SYSTEM CUT-OFF CONCENTRATIONS ARE FOLLOWS: AMP (Amphetamine): 500 ng/mL BAR (Barbiturates): 200 ng/mL BZO (Benzodiazepines): 150 ng/mL BUP (Buprenorphine): 10 ng/mL ZAID (Cocaine): 150 ng/mL mAMP (Methamphetamine): 500 ng/mL MTD (Methadone): 200 ng/mL OPI (Opiates): 100 ng/mL OXY (Oxycodone): 100 ng/mL PCP (Phencyclidine): 25 ng/mL THC (Cannabinoids): 50 ng/mL TCA (Trycyclic Antidepressants): 300 ng/mL Performing Lab: see note ML - [facility] LB CBC AUTO DIFF Reviewed date:04/18/2025 06:39:35 PM Interpretation: Performing Lab: Notes/Report: [facility] , White Blood Count 9.2 4.0-11.0 10 3/uL Red Blood Count 3.80 4.20-5.40 10 6/uL Hemoglobin 11.5 12.0-16.0 g/dL Hematocrit 34.2 36.0-48.0 % Mean Corpuscular Volume 90.0 81.0-99.0 fL Mean Corpuscular Hemoglobin 30.3 26.7-34.0 pg Mean Corpuscular HGB Conc 33.6 29.9-35.2 g/dL Red Cell Distribution Width 14.8 11.0-15.0 % Platelet Count 204 150-450 10 3/uL Mean Platelet Volume 10.5 9.5-13.5 fL Neutrophils Percent Auto 76.4 43.0-75.0 % Lymphocytes Percent Auto 17.0 20.5-60.0 % Monocytes Percent Auto 5.1 1.7-12.0 % Eosinophils Percent Auto 0.3 0.9-7.0 % Basophils Percent Auto 0.3 0.2-2.0 % Immature Granulocytes Pct Auto 0.9 0.0-0.5 % Neutrophils Absolute Auto 7.0 1.4-6.5 10 3/uL Lymphocytes Absolute Auto 1.6 1.2-3.8 10 3/uL Monocytes Absolute Auto 0.5 0.3-0.8 10 3/uL Eosinophils Absolute Auto 0.0 0.0-0.7 10 3/uL Basophils Absolute Auto 0.0 0.0-0.1 10 3/uL Immature Granulocytes Abs Auto 0.08 0.00-0.03 10 3/uL Performing Lab: see note - [facility]* Reviewed date:04/13/2025 05:46:29 PM Interpretation: Performing Lab: Notes/Report: [facility] , [facility] NEGATIVE NEGATIVE Performing Lab: see note - [facility] US OB BPP w non-stress Reviewed date:04/11/2025 08:27:45 PM Interpretation: Performing Lab: Notes/Report: Source Facility: [place] [address] Ultrasound Report Signed Patient: YESSI LIMON MR#: [id number] : 1985 Acct:[id number] Age/Sex: 40 / F ADM Date: 04/11/25 Loc: US Attending Dr: Grace Redding D.O. Ordering Physician: Grace Redding D.O. Date of Service: 04/11/25 Procedure(s): US OB BPP w non-stress Accession Number(s): [id number] cc: Grace Redding D.O.; Codey Ponce M.D. [place] [address] Patient Name: YESSI LIMON MRN: [facility]:[id number] date: 1985 Sex: F Assigned Patient Location: [facility] Current Patient Location: Accession/Order Number: [id number] Exam Date: 04/11/2025 15:48 Report Date: 04/11/2025 [...] Gould M.D. 04/11/2025 3:49 PM Dictation Location: [place] [address] Electronically authenticated by: [id number] Y Date: 04/11/2025 15:49 Dictated By: Jhon Gould D.O. Signed By: 04/11/25 1552 DD/ 1549 TD/TT: Lace Stripper: [place] [address] Ultrasound Report Signed Patient: YESSI LIMON MR#: [id number] : 1985 Acct:[id number] Age/Sex: 40 / F ADM Date: 04/11/25 Loc: US Attending Dr: Grace Redding D.O. Ordering Physician: Grace Redding D.O. Date of Service: 04/11/25 Procedure(s): US OB BPP w non-stress Accession Number(s): [id number] cc: Grace Redding D.O. ; Codey Ponce M.D. [address] [address] Patient Name: YESSI LIMON MRN: [id number] date: 1985 Sex: F Assigned Patient Location: [facility] Current Patient Location: Accession/Order Number: [id number] Exam Date: 04/11/2025 15:48 Report Date: 04/11/2025 15:49 At the request of: GRACE REDDING DO Procedure: US OB fet al BPP w non-stress Ultrasound biophysic al profile HISTORY: Advanced maternal age. Multi . Adequate breathing movement, gross body movement, tone and amniotic fluid volum e for total score of 8 out of 8. The amniotic fluid index is 15.1cm within normal limits. The heart rate 135 bpm. US/US OB BPP w non-stress IMPRESSION: Adequate ultrasound biophysical profile Impression dictated by: Jhon Gould M.D. 04/11/2025 3:49 PM Dictation Location: [place] [address] Electronically authenticated by: [id number] Y Date: 04/11/2025 15:49 Dictated By: Jhon Gould D.O. Signed By: 04/11/25 1552 DD/ 1549 TD/TT: Lace Stripper: US OB BPP w non-stress Reviewed date:04/04/2025 08:47:46 PM Interpretation: Performing Lab: Notes/Report: Source Facility: [place] [address] Ultrasound Report Signed Patient: YESSI LIMON MR#: [id number] : 1985 Acct:[id number] Age/Sex: 40 / F ADM Date: 04/04/25 Loc: US Attending Dr: Grace Redding D.O. Ordering Physician: Grace Redding D.O. Date of Service: 04/04/25 Procedure(s): US OB BPP w non-stress Accession Number(s): [id number] cc: Grace Redding D.O.; Codey Ponce M.D. The [place] [id number] Patient Name: YESSI LIMON MRN: TBH:[id number] date: 1985 Sex: F Assigned Patient Location: [facility] Current Patient Location: Accession/Order Number: [id number] Exam Date: 04/04/2025 14:51 Report Date: 04/04/2025 [...] Gould M.D. 04/04/2025 2:52 PM Dictation Location[facility] Electronically authenticated by: [id number] Y Date: 04/04/2025 14:52 Dictated By: Jhon Gould D.O. Signed By: 04/04/254 DD/ 51 TD/TT: Lace Stripper: [place] [address] Ultrasound Report Signed Patient: YESSI LIMON MR#: [id number] : 1985 Acct:[id number] Age/Sex: 40 / F ADM Date: 04/04/25 Loc: US Attending Dr: Grace Redding D.O. Ordering Physician: Grace Redding D.O. Date of Service: 04/04/25 Procedure(s): US OB BPP w non-stress Accession Number(s): [id number] cc: Grace Redding D.O. ; Codey Ponce M.D. [place] [id number] Patient Name: YESSI LIMON MRN: [id number]:[id number] date: 1985 Sex: F Assigned Patient Location: [facility] Current Patient Location: Accession/Order Number: [id number] Exam Date: 04/04/2025 14:51 Report Date: 04/04/2025 14:52 At the request of: GRACE REDDING DO Procedure: US OB fet al BPP w non-stress Ultrasound biophysic al profile HISTORY: Multigravid a. Advanced maternal age. Adequate breathing movement, gross body movement, tone and amniotic fluid volum e for total score of 8 out of 8. The amniotic fluid index is 12.4 cm within normal limits. The heart rate 129 bpm. US/US OB BPP w non-stress IMPRESSION: Adequate ultrasound biophysical profile Impression dictated by: Jhon Gould M.D. 04/04/2025 2:52 PM Dictation Location: [place] [address] Electronically authenticated by: [id number] Y Date: 04/04/2025 14:52 Dictated By: Jhon Gould D.O. Signed By: 04/04/25 1454 DD/ 1452 TD/TT: Lace Stripper: [facility]* Reviewed date:04/03/2025 04:08:39 PM Interpretation: Performing Lab: Notes/Report: [facility] , [facility] NEGATIVE NEGATIVE Performing Lab: see note ML - [facility] LB UA (CLEAN or CATCH) DIAMOND GRINDER or M ICRO IF IND. Reviewed date:04/03/2025 04:08:39 PM Interpretation: Performing Lab: Notes/Report: [facility] , Color Urine LT. YELLOW YELLOW Clarity Urine CLEAR CLEAR Specific [place] Urine 1.010 1.005-1.025 pH Urine 6.5 5.0-9.0 Protein Urine NEGATIVE NEG/TRACE mg/dL Glucose Urine UA NEGATIVE NEGATIVE mg/dL Bilirubin Urine NEGATIVE NEGATIVE Ketones Urine NEGATIVE NEGATIVE mg/dL Blood Urine NEGATIVE NEGATIVE Nitrite Urine NEGATIVE NEGATIVE Urobilinogen Urine 1.0 0.2-1.0 EU/dL Leukocyte Esterase Urine NEGATIVE NEGATIVE Urine Microscopic Indicated NO Performing Lab: see note ML - [facility] LB Venous Blood Gas Reviewed date:03/13/2025 05:41:45 PM Interpretation: Performing Lab: Notes/Report: [facility] , pH VBG 7.441 7.330-7.430 PCO2 VBG 37.7 40.0-52.0 mmHg Performing Lab: see note ML - [facility] LB Troponin I High Sensitivity Reviewed date:03/13/2025 05:41:45 PM Interpretation: Performing Lab: Notes/Report: [facility] , Troponin I High Sensitivity <4.0 4.0-51.3 pg/mL CUT-OFF POINTS HAVE BEEN ESTABLISHED BASED ON THE FOURTH UNIVERSAL DEFINITION OF MYOCARDIAL INFARCTION. THE UPPER REFERENCE LIMIT (URL) OF TROPONIN, DEFINED THE 99TH PERCENTILE OF cTnI DISTRIBUTION IN A REFERENCE POPULATION, HAS BEEN CONFIRMED THE DECISION THRESHOLD FOR OK DIAGNOSIS. 99TH PERCENTILE = 51.4 PG/ML NOTE: HIGH-SENSITIVITY TROPONIN ASSAY IS NOT INTENDED TO BE USED IN ISOLATION BUT SHOULD BE INTERPRETED IN CONJUNCTION WITH OTHER DIAGNOSTIC AND CLINICAL INFORMATION. Performing Lab: see note ML - [facility] LB Manual Differential Reviewed date:03/13/2025 05:41:45 PM Interpretation: Performing Lab: Notes/Report: [facility] , Segmented Neutrophils % Manual 60.0 43.0-75.0 Lymphocytes Percent Manual 36.0 20.5-60.0 % Few reactive lymphocytes Monocytes Percent Manual 4.0 1.7-12.0 % Eosinophils Percent Manual 0.0 0.9-7.0 % Basophils Percent Manual 0.0 0.2-2.0 % Segmented Neut Absolute Manual 2.82 1.4-6.5 10 3/uL Lymphocytes Absolute Manual 1.69 1.20-3.80 10 3/uL Monocytes Absolute Manual 0.18 0.30-0.80 10 3/uL Eosinophils Absolute Manual 0.00 0.00-0.70 10 3/uL Basophils Abs Manual 0.00 0.00-0.10 10 3/uL Performing Lab: see note ML - [facility] LB PROF 14(COMP METB) Reviewed date:03/13/2025 05:41:45 PM Interpretation: Performing Lab: Notes/Report: [facility] , Sodium 135 136-145 mmol/L Potassium [...] 0.6 Performing Lab: see note ML - [facility] LB CBC AUTO DIFF Reviewed date:03/13/2025 05:41:45 PM Interpretation: Performing Lab: Notes/Report: [facility] , White Blood Count 4.7 4.0-11.0 [...] fL Performing Lab: see note ML - [facility] LB BNP Reviewed date:03/13/2025 05:41:45 PM Interpretation: Performing Lab: Notes/Report: [facility] , NT Pro B Type Natriuretic Pept 12.0 <=450.0 pg/mL Performing Lab: see note ML - [facility] LB CBC AUTO DIFF Reviewed date:04/19/2025 08:17:24 AM Interpretation: Performing Lab: Notes/Report: [facility] , White Blood Count 10.8 4.0-11.0 10 3/uL Red Blood Count 3.09 4.20-5.40 10 6/uL Hemoglobin 9.3 12.0-16.0 g/dL Hematocrit 27.8 36.0-48.0 % Mean Corpuscular Volume 90.0 81.0-99.0 fL Mean Corpuscular Hemoglobin 30.1 26.7-34.0 pg Mean Corpuscular HGB Conc 33.5 29.9-35.2 g/dL Red Cell Distribution Width 14.8 11.0-15.0 % Platelet Count 164 150-450 10 3/uL Mean Platelet Volume 10.5 9.5-13.5 fL Neutrophils Percent Auto 88.4 43.0-75.0 % Lymphocytes Percent Auto 6.6 20.5-60.0 % Monocytes Percent Auto 4.0 1.7-12.0 % Eosinophils Percent Auto 0.0 0.9-7.0 % Basophils Percent Auto 0.2 0.2-2.0 % Immature Granulocytes Pct Auto 0.8 0.0-0.5 % Neutrophils Absolute Auto 9.5 1.4-6.5 10 3/uL Lymphocytes Absolute Auto 0.7 1.2-3.8 10 3/uL Monocytes Absolute Auto 0.4 0.3-0.8 10 3/uL Eosinophils Absolute Auto 0.0 0.0-0.7 10 3/uL Basophils Absolute Auto 0.0 0.0-0.1 10 3/uL Immature Granulocytes Abs Auto 0.09 0.00-0.03 10 3/uL Performing Lab: see note ML - [facility] US OB BPP w non-stress Reviewed date:04/18/2025 03:02:33 PM Interpretation: Performing Lab: Notes/Report: Source Facility: [place] [address] Ultrasound Report Signed Patient: YESSI LIMON MR#: [id number] : 1985 Acct:[id number] Age/Sex: 40 / F ADM Date: 04/18/25 Loc: [facility] 250-[address]: Grace Redding D.O. Ordering Physician: Grace Redding D.O. Date of Service: 04/18/25 Procedure(s): US OB BPP w non-stress Accession Number(s): [id number] cc: Grace Redding D.O.; Codey Ponce M.D. [place] [id number] Patient Name: YESSI LIMON MRN: [id number]:[id number] date: 1985 Sex: F Assigned Patient Location: [facility] Current Patient Location: [facility] Accession/Order Number: [id number] Exam Date: 04/18/2025 14:54 Report Date: 04/18/2025 14:55 At the request of: GRACE REDDING DO Procedure: US OB BPP w non-stress Ultrasound biophysical profile HISTORY: Advanced maternal age. Multi . Technique: Transabdominal imaging of the gravid uterus was obtained. COMPARISON: BDP 04/11/2025. FINDINGS: Inspecting And Testing Lead Hand reports a BPP of 8 out of 8. heart rate 147 bpm. THEO is 8.5 cm. US/US OB BPP w non-stress IMPRESSION: BPP 8 out of 8. Impression dictated by: Luis Alfredo Truong Jr., D.O. 04/18/2025 2:55 PM Dictation Location: [place] [address] Electronically authenticated by: [id number] Y Date: 04/18/2025 14:55 Dictated By: Luis Alfredo Truong M.D. Signed By: 04/18/257 DD/ 54 TD/TT: Lace Stripper: [place] [address] Ultrasound Report Signed Patient: YESSI LIMON MR#: [id number] : 1985 Acct:[id number] Age/Sex: 40 / F ADM Date: 04/18/25 Loc: [place] [address]: Grace Redding D.O. Ordering Physician: Grace Redding D.O. Date of Service: 04/18/25 Procedure(s): US OB BPP w non-stress Accession Number(s): [id number] cc: Grace Redding D.O. ; Codey Ponce M.D. [place] [address] Patient Name: YESSI LIMON MRN: [id number]:[id number] date: 1985 Sex: F Assigned Patient Location: [facility] Current Patient Location: [facility] Accession/Order Number: [id number] Exam Date: 04/18/2025 14:54 Report Date: 04/18/2025 14:55 At the request of: GRACE REDDING DO Procedure: US OB fet al BPP w non-stress Ultrasound biophysic al profile HISTORY: Advanced maternal age. Multi . Technique: Transabdominal imaging of the gravid uterus was obtained. COMPARISON: BDP 04/11/2025. FINDINGS: Sonographe r reports a BPP of 8 out of 8. heart rate 147 bpm. THEO is 8.5 cm. US/US OB BPP w non-stress IMPRESSION: BPP 8 ou t of 8. Impression dictated by: Luis Alfredo Truong Jr., D.O. 04/18/2025 2:55 PM Dictation Location: [place] [address] Electronically authenticated by: [id number] Y Date: 04/18/2025 14:55 Dictated By: Luis Alfredo Truong M.D. Signed By: 04/18/257 DD/ 54 TD/TT: Lace Stripper: Reason For Referral No Information Medications Medication [...] 09/22/2024 Encounters Encounter Location Date Provider Diagnosis [facility] [address] [place] [address] 09/22/2024 Anuj Ponce Acute bronchitis, unspecified organism J20.9 [facility] [address] [place] [address] 09/22/2024 Anuj Ponce [facility] [address] [place] [address] 09/22/2024 Anuj Ponce Acute bronchitis, unspecified organism J20.9 [facility] [address] [place] [address] 09/23/2024 Anuj Ponce [facility] [address] [place] [address] 09/23/2024 Anuj Ponce Acute bronchitis, unspecified organism J20.9 [facility] [address] [place] [address] 09/24/2024 Anuj Ponce Acute bronchitis, unspecified organism J20.9 [facility] [address] [place] [address] 09/28/2024 Anuj Ponce [facility] [address] [place] [address] 03/11/2025 Anuj Ponce [facility] [address] [place] [address] 03/13/2025 Anuj Ponce Assessments Encounter Date Diagnosis (ICD Code) Assessment Notes Treatment Notes Treatment Clinical Notes Section Notes 09/22/2024 Acute bronchitis, unspecified organism (ICD-10 - J20.9) Rest and drink more liquids, especially water. You may use a humidifier or vaporizer to help keep the drainage moist. Pryd-ioi-qspnidc Nasal Saline may help the stuffy and runny nose. Use Ibuprofen and or Tylenol as needed for fever, chills, body aches or pain. Children 5 years old should not be given bqcl-ljz-atsgrwo cough and cold medications such as guaifenesin and dextromethorphan. If you're over age 5, you may try nlqa-fxv-zbrlrpd cold medications such as guaifenesin and dextromethorphan, [...] Start Date Coverage End Date [employer] [address] [place] [address] [id number] February Self - patient is the insured Medical (General) History Surgical History Surgery Date(Month/Year) rt knee meniscus repair left eye surgery 1991 Section and tubal ligation- Dr Redding 04/19/25
--- OUTSIDE RECORDS SUMMARY | 2025-05-03 07:48 | XMS_ITS | Clinical Summary ---
Author Organization [facility] Address [address] [place] [address] Care Team Providers Care Rip Machine Operator Name Role Phone Codey Ponce MD Primary Care Provider [phone] Allergies No known active allergies Medications azithromycin (Zithromax Z-Francis) 250 MG tabletIndication s:Upper respiratory tract infection, unspecified type As directed 6 tablet 5 04/13/20 25 Discontinu ed(Therapy completed) Active Problems Problem Noted Date Diagnosed Date Urinary tract infection without hematuria 2023 Encounters Date Type Department Care Team Description 04/26/2025 2:50 PM EDT Office Visit [facility] [address] [place] [address] Monika Figueroa PA Encounter for visit ([facility]); S/P section; Postop check 04/26/2025 Bamboo flowsheet [facility] [address] [place] [address] Monika Figueroa PA 04/22/2025 Abstract [facility] [address] [place] [address] Grace Redding, DO 04/20/2025 Abstract [facility] [address] [place] [address] Grace Redding, DO 04/20/2025 Clinisync Result Encounter [facility] External Department Unsolicited Grace Redding, DO 04/19/2025 Clinisync Result Encounter [facility] External Department Unsolicited Grace Redding, DO 04/18/2025 Abstract [facility] [address] [place] [address] MiladisGrace, DO 04/18/2025 Abstract [facility] [address] [place] [address] Grace Redding, DO 04/18/2025 Clinisync Result Encounter [facility] External Department Unsolicited Miladis, Grace, DO 04/13/2025 2:10 PM EDT Routine [facility] [address] [place] [address] Grace Redding, DO Third trimester ([facility]); 36 weeks gestation of ([facility]) 04/13/2025 Clinisync Result Encounter [facility] External Department Unsolicited MiladisJby, DO 04/13/2025 Clinisync Result Encounter [facility] External Department Unsolicited Miladis, Grace, DO 04/13/2025 Bamboo flowsheet [facility] [address] [place] [address] MiladisGrace, DO 04/11/2025 Clinisync Result Encounter [facility] External Department Unsolicited Miladis, Grace, DO 04/04/2025 Clinisync Result Encounter [facility] External Department Unsolicited Miladis, Grace, DO 03/23/2025 3:50 PM EDT Routine [facility] [address] [place] [address] Monika Figueroa PA Third trimester ([facility]); 33 weeks gestation of ([facility]); Multigravida of advanced maternal age in third trimester ([facility]) 03/23/2025 Clinisync Result Encounter [facility] External Department Unsolicited Miladis, Grace, DO 03/23/2025 Clinisync Result Encounter [facility] External Department Unsolicited Miladis, Grace, DO 03/23/2025 Bamboo flowsheet [facility] [address] [place] [address] Monika Figueroa PA 03/07/2025 3:30 PM EDT Routine [facility] [address] [place] [address] Grace Redding DO Upper respiratory tract infection, unspecified type (Primary Dx); Third trimester ([facility]); 31 weeks gestation of ([facility]); Multigravida of advanced maternal age in third trimester ([facility]) 03/07/2025 3:00 PM EDT Ancillary Procedure [facility] [address] [place] [address] Size of fetus inconsistent with dates in third trimester ([facility]) 02/21/2025 8:30 AM EDT Routine [facility] [address] [place] [address] Grace Redding, Third trimester ([facility]); 29 weeks gestation of ([facility]); Size of fetus inconsistent with dates in third trimester ([facility]) 02/21/2025 Bamboo flowsheet [facility] [address] [place] [address] Grace Redding, 02/15/2025 Telephone [facility] [address] [place] [address] Grace Redding, 02/02/2025 3:40 PM EDT Routine [facility] [address] [place] [address] Monika Figueroa PA Second trimester ([facility]); 26 weeks gestation of ([facility]) 02/02/2025 Bamboo flowsheet [facility] [address] [place] [address] Monika Figueroa PA from Last 3 Months Social History Tobacco [...] 1.9 oz) 04/26/2025 3:16 PM EDT Height 160 cm (5' 3 ) 04/13/2025 2:24 PM EDT Body Mass Index 28.9 04/13/2025 2:24 PM EDT Plan of Treatment Upcoming Encounters Date Type Department Care Team (Late st Contact Info) Description 05/31/2025 11:20 AM EDT Visit [facility] [address] [place] [address] Monika Figueroa PA [address] [facility] [place] [address] Procedures Procedure Name Priority Date/Time Associated Diagnosis Comments ALL CBC WITH AUTO DIFF Routine 5 9:00 AM EDT ALL CBC WITH AUTO DIFF Routine 5 6:27 AM EDT ALL CBC WITH AUTO DIFF Routine 5 5:00 PM EDT TBH DRUG SCREEN RAPID (URINE) Routine 04/18/2025 4:45 PM EDT US OB BPP W NON-STRESS 04/18/2025 2:55 PM EDT US OB PLACENTA 04/13/2025 8:14 PM EDT AMNISURE Routine 04/13/2025 4:55 PM EDT POCT URINALYSIS DIPSTICK Routine 04/13/2025 2:24 PM EDT Third trimester ([facility]) US OB BPP W NON-STRESS 04/11/2025 3:49 PM EDT US OB BPP W NON-STRESS 04/04/2025 2:52 PM EDT US OB CERVICAL LENGTH 03/23/2025 6:27 PM EDT TBH UA (CLEAN/CATCH) WINDOWS SECURITY ANALYST/MICRO IF IND. Routine 03/23/2025 4:55 PM EDT POCT URINALYSIS DIPSTICK Routine 03/23/2025 4:29 PM EDT Third trimester ([facility]) POCT URINALYSIS DIPSTICK Routine 03/07/2025 3:51 PM EDT Third trimester ([facility]) US OB FOLLOW UP TRANSABDOMINAL APPROACH Routine 03/07/2025 3:15 PM EDT Size of fetus inconsistent with dates in third trimester ([facility]) POCT URINALYSIS DIPSTICK Routine 02/21/2025 8:43 AM EDT Third trimester ([facility]) POCT URINALYSIS DIPSTICK Routine 02/02/2025 3:48 PM EDT Second trimester ([facility]) from Last 3 Months Results * (ABNORMAL) ALL CBC WITH AUTO DIFF (04/20/2025 9:00 AM EDT) Only the most recent of3 resultswithin the time period is included. [facility] WBC 9.8 4.0 - 11.0 10 3/uL TBH TBH RBC 2.90(L) 4.20 - 5.40 10 6/uL [...] CLINISYNC - 04/20/2025 9:05 AM EDT us Grace Redding DO CLINISYNC Final Result [facility] * TB DRUG SCREEN RAPID (URINE) (04/18/2025 4:45 PM EDT) Pathologist [facility] CANNABINOID SCREEN URINE NEGATIVE NEGATIVE TBH PHENCYCLIDINE SCREEN URINE NEGATIVE NEGATIVE TBH COCAINE SCREEN URINE NEGATIVE NEGATIVE TBH METHAMPHETAMINES SCREEN URINE NEGATIVE NEGATIVE TBH OPIATE SCREEN URINE NEGATIVE NEGATIVE TBH AMPHETAMINE SCREEN URINE NEGATIVE NEGATIVE TBH BENZODIAZEPINES SCREEN URINE NEGATIVE NEGATIVE TBH TRICYCLIC ANTIDEPRESSANT URINE NEGATIVE NEGATIVE TBH METHADONE SCREEN URINE NEGATIVE NEGATIVE TBH BARBITURATES SCREEN URINE NEGATIVE NEGATIVE TBH OXYCODONE SCREEN URINE NEGATIVE NEGATIVE TBH BUPRENORPHINE SCREEN URINE NEGATIVE NEGATIVE TBH Comment: DRUG CLASS TEST SYSTEM CUT-OFF CONCENTRATIONS ARE FOLLOWS: AMP (Amphetamine): 500 ng/mL BAR (Barbiturates): 200 ng/mL BZO (Benzodiazepines): 150 ng/mL BUP (Buprenorphine): 10 ng/mL ZAID (Cocaine): 150 ng/mL mAMP (Methamphetamine): 500 ng/mL MTD (Methadone): 200 ng/mL OPI (Opiates): 100 ng/mL OXY (Oxycodone): 100 ng/mL PCP (Phencyclidine): 25 ng/mL THC (Cannabinoids): 50 ng/mL TCA (Trycyclic Antidepressants): 300 ng/mL 04/18/2025 4:45 PM EDT 04/18/2025 5:15 PM EDT Narrative CLINISYNC - 04/18/2025 5:36 PM EDT Grace Redding DO CLINISYNC Final Result Performing Organization Address City/State/[facility] Co de Phone Number [facility] * US OB BPP W NON-STRESS (04/18/2025 2:55 PM EDT) Only the most recent of3 resultswithin the time period is included. Anatomical Region Laterality Modality Other 04/18/2025 2:55 PM EDT Narrative 04/18/2025 2:57 PM EDT [address] [address] Ultrasound Report Signed Patient: YESSI LIMON MR#: [id number] : 1985 Acct:[id number] Age/Sex: 40 / F ADM Date: 04/18/25 Loc: [facility] 250-[address]: Grace Redding D.O. Ordering Physician: Grace Redding D.O. Date of Service: 04/18/25 Procedure(s): US OB BPP w non-stress Accession Number(s): [id number] cc: Grace Redding D.O.; Codey Ponce M.D. [address] [address] Patient Name: YESSI LIMON MRN: [id number] date: 1985 Sex: F Assigned Patient Location: [facility] Current Patient Location: [facility] Accession/Order Number: [id number] Exam Date: 04/18/2025 14:54 Report Date: 04/18/2025 14:55 At the request of: GRACE REDDING DO Procedure: US OB BPP w non-stress Ultrasound biophysical profile HISTORY: Advanced maternal age. Multi . Technique: Transabdominal imaging of the gravid uterus was obtained. COMPARISON: BDP 04/11/2025. FINDINGS: Attending Physician reports a BPP of 8 out of 8. heart rate 147 bpm. THEO is 8.5 cm. US/US OB BPP w non-stress IMPRESSION: BPP 8 out of 8. Impression dictated by: Luis Alfredo Truong Jr., D.O. 04/18/2025 2:55 PM Dictation Location: [place] [address] Electronically authenticated by: [id number] Y Date: 04/18/2025 14:55 Dictated By: Luis Alfredo Truong M.D. Signed By: 04/18/25 1457 DD/ 54 TD/TT: Die Cutting Machine Operator: Procedure Note Radiology, Radiologist, - 04/18/2025 [place] [address] Ultrasound Report Signed Patient: YESSI LIMON MMR#: [id number] : 1985Acct:[id number] Age/Sex: 40 / FADM Date: 04/18/25 Loc: [facility] 250-[address]: Grace Redding D.O. Ordering Physician: Grace Redding D.O. Date of Service: 04/18/25 Procedure(s): US OB BPP w non-stress Accession Number(s): [id number] cc: Grace Redding D.O.; Codey Ponce M.D. The [place] [address] Patient Name: YESSI LIMON MRN: [id number] date: 1985 Sex: F Assigned Patient Location: [facility] Current Patient Location: [facility] Accession/Order Number: [id number] Exam Date: 04/18/2025 14:54 Report Date: 04/18/2025 14:55 At the request of: GRACE REDDING DO Procedure: US OB BPP w non-stress Ultrasound biophysical profile HISTORY: Advanced maternal age. Multi . Technique: Transabdominal imaging of the gravid uterus was obtained. COMPARISON: BDP 04/11/2025. FINDINGS: Attending Physician reports a BPP of 8 out of 8. heart rate 147bpm. THEO is 8.5 cm. US/US OB BPP w non-stress IMPRESSION: BPP 8 out of 8. Impression dictated by: Luis Alfredo Truong Jr., D.O. 04/18/2025 2:55 PM Dictation Location: [place] [address] Electronically authenticated by: [id number] Y Date: 4:55 Dictated By: Luis Alfredo Truong M.D. Signed By:04/18/25 1457 DD/ TD/TT: Die Cutting Machine Operator: us Grace Redding DO CLIN[facility]NC IMAGING Final Result * US OB PLACENTA (04/13/2025 8:14 PM EDT) Anatomical Region Laterality Modality Other 04/13/2025 8:14 PM EDT Narrative 04/13/2025 8:17 [place] [address] Ultrasound Report Signed Patient: YESSI LIMON MR#: [id number] : 1985 Acct:[id number] Age/Sex: 40 / F ADM Date: Loc: [facility] 254- Attending Dr: Grace Redding D.O. Ordering Physician: Grace Redding D.O. Date of Service: 04/13/25 Procedure(s): US OB placenta Accession Number(s): [id number] cc: Grace Redding D.O.; Codey Ponce M.D. [address] [id number] Patient Name: YESSI LIMON MRN: [id number] date: 1985 Sex: F Assigned Patient Location: [facility] Current Patient Location: [facility] Accession/Order Number: [id number] Exam Date: 04/13/2025 20:12 Report Date: 04/13/2025 [...] Gould M.D. 04/13/2025 8:14 PM Dictation Location: [place] [address] Electronically authenticated by: [id number] Y Date: 04/13/2025 20:14 Dictated By: Jhon Gould D.O. Signed By: 04/13/252016 DD/ 13 TD/TT: Die Cutting Machine Operator: Procedure Note Radiology, Radiologist, MD - 04/13/2025 [place] [address] Ultrasound Report Signed Patient: YESSI LIMON#: [id number] : 1985Acct:[id number] Age/Sex: 40 / FADM Date: Loc: [facility] 254-[address]: Grace Redding D.O. Ordering Physician: Grace Redding D.O. Date of Service: 04/13/25 Procedure(s): US OB placenta Accession Number(s): [id number] cc: Grace Redding D.O.; Codey Ponce M.D. [place] [id number] Patient Name: YESSI LIMON MRN: [id number] date: 1985 Sex: F Assigned Patient Location: [facility] Current Patient Location: [facility] Accession/Order Number: [id number] Exam Date: 04/13/2025 20:12 Report Date: 04/13/2025 [...] Gould M.D. 04/13/2025 8:14 PM Dictation Location: [place] [address] Electronically authenticated by: [id number] Y Date: 0:14 Dictated By: Jhon Gould D.O. Signed By:04/13/252016 DD/ 13 TD/TT: Die Cutting Machine Operator: Grace Redding [facility] IMAGING Final Result * AMNISURE (04/13/2025 4:55 PM EDT) Pathologist [facility] AMNISURE NEGATIVE NEGATIVE [facility] 04/13/2025 4:55 PM EDT 04/13/2025 4:57 PM EDT Narrative CLINISYNC - 04/13/2025 5:09 PM EDT Grace Redding DO LAB BLOOD ORDERABLES Final Resul t [facility] * POCT urinalysis dipstick manually resulted (04/13/2025 2:24 PM EDT) Only the most recent of5 [...] - Positive Urine 04/13/2025 2:24 PM EDT us Grace Redding DO POINT OF CARE TEST ENTER/EDIT OR DERABLES Final Result * US OB CERVICAL LENGTH (03/23/2025 6:27 PM EDT) Anatomical Region Laterality Modality Other 03/23/2025 6:27 PM EDT Narrative 03/23/2025 6:29 [place] [address] Ultrasound Report Signed Patient: YESSI LIMON MR#: [id number] : 1985 Acct:[id number] Age/Sex: 40 / F ADM Date: 03/23/25 Loc: [facility] 250-[address]: Grace Redding D.O. Ordering Physician: Grace Redding D.O. Date of Service: 03/23/25 Procedure(s): US OB cervical length Accession Number(s): [id number] cc: Grace Redding D.O.; Codey Ponce M.D. The [address] [address] Patient Name: YESSI LIMON MRN: [id number] date: 1985 Sex: F Assigned Patient Location: [facility] Current Patient Location: [facility] Accession/Order Number: [id number] Exam Date: 03/23/2025 18:26 Report Date: 03/23/2025 [...] Gould M.D. 03/23/2025 6:27 PM Dictation Location: [place] [address] Electronically authenticated by: [id number] Y Date: 03/23/2025 18:27 Dictated By: Jhon Gould D.O. Signed By: 03/23/251828 DD/ 26 TD/TT: Die Cutting Machine Operator: Procedure Note Radiology, Radiologist, MD - 03/23/2025 [place] [address] Ultrasound Report Signed Patient: YESSI LIMON#: [id number] : 1985Acct:[id number] Age/Sex: 40 / FADM Date: 03/23/25 Loc: [facility] 250-[address]: Grace Redding D.O. Ordering Physician: Grace Redding D.O. Date of Service: 03/23/25 Procedure(s): US OB cervical length Accession Number(s): [id number] cc: Grace Redding D.O.; Codey Ponce M.D. The [place] [address] Patient Name: YESSI LIMON MRN: [id number] date: 1985 Sex: F Assigned Patient Location: [facility] Current Patient Location: [facility] Accession/Order Number: [id number] Exam Date: 03/23/2025 18:26 Report Date: 03/23/2025 [...] Gould M.D. 03/23/2025 6:27 PM Dictation Location: [place] [address] Electronically authenticated by: [id number] Y Date: 8:27 Dictated By: Jhon Gould D.O. Signed By:03/23/251828 DD/ 26 TD/TT: Die Cutting Machine Operator: us Grace Miladis DO [facility] IMAGING Final Result * (ABNORMAL) TBH UA (CLEAN/CATCH) WINDOWS SECURITY ANALYST/MICRO IF IND. (03/23/2025 4:55 PM EDT) COLOR [...] DO CLINISYNC Final Result CLINISYNC TB * US OB follow up transabdominal approach [...] II, MD, PHD at 09-Mar-2025 08:42:20 AM [facility] Procedure Note Benson Nelson MD - [...] signed by BENSON NELSON II, MD, PHD [id number] 08:42:20 AM [facility] us Grace Miladis DO IMG OB US PROCEDURES Final Resul t from Last 3 Months Insurance Care Teams Rip Machine Operator Relationship Specialty Start Date End Date Codey Ponce MD [address] [place] [address] PCP - General Family Medicine 10/08/24
--- OUTSIDE RECORDS SUMMARY | 2025-05-03 07:48 | XMS_ITS | Encounter Summary ---
Author Organization [facility] Address [address] [facility] [place] [address] Care Team Providers Care Slot Tag Inserter Name Role Phone Codey Ponce MD Primary Care Provider [phone] Encounter Details Date Type Department Care Team (Late Contact Info) Description 10/08/2024 Abstract [facility] OB [address] [facility] [place] [address] Henry Redding DO [address] [facility] [address] [place], [place] [address] Social History Tobacco Use Types Packs/Day Years [...] Description 05/31/2025 11:20 AM EDT Visit [facility] OB [address] [facility] [place] [address] Monika Figueroa PA [address] [place] [address] documented as of this encounter Visit Diagnoses Not on filedocumented in this encounter Care Teams Slot Tag Inserter Relationship Specialty Start Date End Date Codey Ponce MD [address] [facility] [place] [address] PCP - General Family Medicine 10/08/24 documented as of this encounter
--- OUTSIDE RECORDS SUMMARY | 2025-05-03 07:48 | XMS_ITS | Encounter Summary ---
Author Organization [facility] Address [address] [place] [address] Care Team Providers Care Hedis Review Nurse Name Role Phone Codey Ponce MD Primary Care Provider [phone] Encounter Details Date Type Department Care Team (Late st Contact Info) Description 10/09/2024 Clinisync Result Encounter [facility] External Department Unsolicited Grace Redding DO [address] [facility] [place] [address] Social History Tobacco Use Types Packs/Day Years [...] AM EDT Visit [facility] [address] [facility] [address] Monika Figueroa PA [address] [facility] [place] [address] documented as of this encounter Procedures Procedure Name Priority Date/Time Associated Diagnosis Comments US OB TRANSVAGINAL 10/09/2024 4: 32 AM EST documented in this encounter Results * US OB TRANSVAGINAL (10/09/2024 4:32 AM EST) Anatomical Region Laterality Modality Other 10/09/2024 4:32 AM EST Narrative 10/09/2024 4:35 [place] [address] Ultrasound Report Signed Patient: Yessi Limon MR#: [id number] : 1985 Acct:[id number] Age/Sex: 39 / F ADM Date: 10/08/24 Loc: [facility] Attending Dr: Grace Redding D.O. Ordering Physician: Grace Redding D.O. Date of Service: 10/08/24 Procedure(s): US OB transvaginal Accession Number(s): [id number] cc: Grace Redding D.O.; Physician,Non-Staff [place] [address] Patient Name: YESSI LIMON MRN: [id number] date: 1985 Sex: F Assigned Patient Location: [facility] Current Patient Location: Accession/Order Number: [id number] Exam Date: 10/08/2024 09:07 Report Date: 10/09/2024 [...] M.D. Signed By: 10/09/24434 DD/ 1 TD/TT: Tour Bus Driver: Procedure Note Radiology, Radiologist, MD - 10/09/2024 [place] [address] Ultrasound Report Signed Patient: Yessi Limon#: [id number] : 1985Acct:[id number] Age/Sex: 39 / FADM Date: 10/08/24 Loc: [facility] Attending Dr: Grace Redding D.O. Ordering Physician: Grace Redding D.O. Date of Service: 10/08/24 Procedure(s): US OB transvaginal Accession Number(s): [id number] cc: Grace Redding D.O.; Physician,Non-Staff [place] The [place] [address] Patient Name: YESSI LIMON MRN: [id number] date: 1985 Sex: F Assigned Patient Location: [facility] Current Patient Location: Accession/Order Number: [id number] Exam Date: 10/08/2024 09:07 Report Date: 10/09/2024 [...] Sanchez M.D. Signed By:10/09/24434 DD/ 1 TD/TT: Tour Bus Driver: us Grace Redding DO [facility] IMAGING Final Result documented in this encounter Visit Diagnoses Not on filedocumented in this encounter Care Teams Hedis Review Nurse Relationship Specialty Start Date End Date Codey Ponce MD [address] [place] [address] PCP - General Family Medicine 10/08/24 documented as of this encounter
== END 2025-05-03 13:54 | disposition home or self-care (01) ==
PROVIDERS: PCP Family Medicine; Visit Provider Obstetrics & Gynecology
DX: Z39.1 Encounter for care and examination of lactating mother (principal)

== ENCOUNTER 2025-05-10 08:26 | Outpatient (OUT) | payer BC, SELFPAY ==
--- OUTSIDE RECORDS SUMMARY | 2024-09-28 04:50 | XMS_ITS ---
Author Organization The [facility] in [place] Address [address] [place] [address] Care Team Providers Care Atm Manager Name Role Phone Anuj Ponce Primary Care Provider [phone] REASON FOR VISIT Proair question Encounters Encounter Location Date Provider Diagnosis [facility] [address] [place] [address] 09/28/2024 Anuj Ponce Plan Of Treatment Medication Medication Name Sig Start Date Stop Date Notes ProAir RespiClick 108 (90 Base) MCG/ACT 1 puff as needed Inhalation every 4 hrs 09/24/2024 Progress Notes * LIMONFebruaryDOB:1985 ( 39 yo F)Acc No.[id number]:09/28/2024 Patient: Madison LARKIN February :1985 A ge:39 Y S ex:Female Address:[address], [place], [address] * Refills Stop ProAir RespiClick Aerosol Powder Breath Activated, 108 (90 Base) MCG/ACT, Inhalation, 1 puff as needed, every 4 hrs * true * Date: Generated for Printi ng/Faxing/eTransmitting on: 0 05/10/2025 08:30 AM EDT
--- OUTSIDE RECORDS SUMMARY | 2025-03-11 10:38 | XMS_ITS ---
Author Organization The [facility] in [place] Address [address] [place] [address] Care Team Providers Care Cleat Blanker Name Role Phone Anuj Ponce Primary Care Provider [phone] REASON FOR VISIT walking pneumonia Medications Medication SIG (Take, Route, Fr equency, Duration) Notes Start Date End Date Status Cefdinir 300 MG 2 capsules Orally on ce daily for 10 days 03/11/2025 Active Encounters Encounter Location Date Provider Diagnosis [facility] [address] [place] [address] 03/11/2025 Anuj Ponce Plan Of Treatment Medication Medication Name Sig Start Date Stop Date Notes Cefdinir 300 MG 2 capsules Orally once daily for 10 days 0 03/11/2025 Progress Notes * ASHLY FebruaryDOB:1985 ( 40 yo F)Acc No.[id number]:03/11/2025 Patient: Madison LARKIN Yessi :1985 A ge:40 Y S ex:Female Address:[address], [place], [address] * Refills Start Cefdinir Capsule, 300 MG, Orally, 20, 2 capsules, once daily, 10 days, Refills=0 * true * Date: Generated for Abdoulaye ann/Maria Ines/eTransmitting on: 0 05/10/2025 08:30 AM EDT
--- OUTSIDE RECORDS SUMMARY | 2025-03-13 13:41 | XMS_ITS ---
Author Organization The [facility] in [place] Address [address] [place] [address] Care Team Providers Care Plant Wrapper Name Role Phone Anuj Ponce Primary Care Provider [phone] REASON FOR VISIT er fu Encounters Encounter Location Date Provider Diagnosis [facility] [address] [place] [address] 03/13/2025 Anuj Ponce Plan Of Treatment No Information Progress Notes * LIMONFebruaryDOB:1985 ( 40 yo F)Acc No.[id number]:03/13/2025 Patient: Madison LARKIN February :1985 A ge:40 Y S ex:Female Address:[address], [place], [address] * true * Date: Generated for Maryi ng/Faangg/eTransmitting on: 0 05/10/2025 08:30 AM EDT
--- OUTSIDE RECORDS SUMMARY | 2025-04-26 14:50 | XMS_ITS ---
Author Name Auto Generated Organization [facility] Care Team Providers Care Development Administrator Name Role Phone VIMAL FRIED Attending Unavailable LILIYA, GRACE Attending Unavailable FARIHAVIMAL ACOSTA Attending Unavailable LILIYA, GRACE Attending Unavailable LILIYA, GRACE Attending Unavailable LILIYA, GRACE Attending Unavailable FARIHA, VIMAL Attending Unavailable LILIYA, GRACE Attending Unavailable FARIHA, VIMAL Attending Unavailable PROBLEMS No Problem Records Found PROCEDURES No Procedure Records Found RESULTS US OB FOLLOW UP TRANSABDOMINAL APPROACH Observed: 03/07/2025 2:48 PM Status: F Source: [facility] EPIC Order Comment: US OB [...] II, MD, PHD at 09-Mar-2025 08:42:20 AM [facility] ALLERGIES No Allergies Records Found ENCOUNTERS ADMIT/DISCHARGE ACCOUNT NUMBER ADMITTING ENCOUNTER CLASS LOCATION SOURCE 04/26/2025/ 5 [id number] Ambulatory Building:[facility] 04/13/2025/ 5 [id number] Ambulatory Building:[facility] 03/23/2025/ 5 [id number] Ambulatory Building:[facility] 03/07/2025/ 5 [id number] Ambulatory Building:[facility] 03/07/2025/ 5 [id number] Ambulatory Building:[facility] 02/21/2025/ 5 [id number] Ambulatory Building:[facility] 02/02/2025/ 5 [id number] Ambulatory Building:[facility] 01/05/2025/ 5 [id number] Ambulatory Building:[facility] EPIC 12/08/2024/ 5 [id number] Ambulatory Building:[facility] EPIC 11/09/2024/ 5 [id number] Ambulatory Building:[facility] EPIC 10/08/2024/ 4 [id number] Ambulatory Building:[facility] OB [facility] EPIC PAYERS ENCOUNTER GUARANTOR PAYER SUBSCRIBER SOURCE 04/26/2025February Petros ASHLYDOB: [place], [place] [address]Koi: (HP) Primary Insurance:BCBSPo licy Number: [id number] ctive Date:2021-12-10 CHRISTOPHER ASHLYDOB: [id number] [place], [place] [id number] [place] [address] [facility] EPIC 04/13/2025February Petros BAUERDOB: [place], [place] [address]Fyj: (HP) Primary Insurance:BCBSPo licy Number: [id number] ctive Date:2021-12-10 CHRISTOPHER ARNOLDUERDOB: [id number] [place] [address] [facility] EPIC 03/23/2025February Petros BAUERDOB: [place], [place] [address]Oib: (HP) Primary Insurance:BCBSPo licy Number: [id number] ctive Date:2021-12-10 CHRISTOPHER ARNOLDUERDOB: [id number] [place] [address] [facility] EPIC 03/07/2025February Petros BAUERDOB: [place], [place] [address]Hyj: (HP) Primary Insurance:BCBSPo licy Number: [id number] ctive Date:2021-12-10 CHRISTOPHER BARRETTUERDOB: [id number] [place] [address] [facility] EPIC 03/07/2025February Petros BAUERDOB: [place], [place] [address]Jgz: (HP) Primary Insurance:BCBSPo licy Number: [id number] ctive Date:2021-12-10 CHRISTOPHER BARRETTUERDOB: [id number] [place] [address] [facility] EPIC 02/21/2025February Petros BAUERDOB: [place], [place] [address]Ezp: (HP) Primary Insurance:BCBSPo licy Number: [id number] ctive Date:2021-12-10 CHRISTOPHER LIMONDOB: [id number] [place] [address] [facility] EPIC 02/02/2025February Petros BAUERDOB: [place], [place] [address]Ivy: (HP) Primary Insurance:BCBSPo licy Number: [id number] ctive Date:2021-12-10 CHRISTOPHER LIMONDOB: [id number] [place] [address] [facility] EPIC 01/05/2025February Petros BAUERDOB: [place], [place] [address]Wdi: (HP) Primary Insurance:BCBSPo licy Number: [id number] ctive Date:2021-12-10 CHRISTOPHER LIMONDOB: [id number] [place] [address] [facility] EPIC 12/08/2024February Petros BAUERDOB: [place], [place] [address]Shv: (HP) Primary Insurance:BCBSPo licy Number: [id number] ctive Date:2021-12-10 CHRISTOPHER JAY: [id number] [place] [address] [facility] EPIC 11/09/2024February Petros CARB: [place], [place] [address]Ril: () Primary Insurance:BCBSPo licy Number: [id number] ctive Date:2021-12-10 CHRISTOPHER JAY: [id number] [place] [address] [facility] EPIC 10/08/2024February Petros CARB: [place], [place] [address]Kob: () Primary Insurance:BCBSPo licy Number: [id number] ctive Date:2021-12-10 CHRISTOPHER JAY: [id number] [place] [address] [facility] EPIC
--- OUTSIDE RECORDS SUMMARY | 2025-05-10 08:30 | XMS_ITS | Encounter Summary ---
Author Organization [facility] Address [address] [place] [address] Care Team Providers Care Nail Making Machine Tender Name Role Phone Codey Ponce MD Primary Care Provider [phone] Encounter Details Date Type Department Care Team (Late st Contact Info) Description 10/09/2024 Clinisync Result Encounter [facility] External Department Unsolicited Grace Redding DO [address] [facility] [place] [address] Social History Tobacco Use Types Packs/Day Years [...] AM EDT Visit [facility] OB [address] [facility] [place] [address] Monika Figueroa PA [address] [facility] [place] [address] documented as of this encounter Procedures Procedure Name Priority Date/Time Associated Diagnosis Comments US OB TRANSVAGINAL 10/09/2024 4: 32 AM EST documented in this encounter Results * US OB TRANSVAGINAL (10/09/2024 4:32 AM EST) Anatomical Region Laterality Modality Other 10/09/2024 4:32 AM EST Narrative 10/09/2024 4:35 [place] [address] Ultrasound Report Signed Patient: Yessi Limon MR#: [id number] : 1985 Acct:[id number] Age/Sex: 39 / F ADM Date: 10/08/24 Loc: [facility] Attending Dr: Grace Redding D.O. Ordering Physician: Grace Redding D.O. Date of Service: 10/08/24 Procedure(s): US OB transvaginal Accession Number(s): [id number] cc: Grace Redding D.O.; Physician,Non-Staff [place] [address] Patient Name: YESSI LIMON MRN: [id number] date: 1985 Sex: F Assigned Patient Location: [facility] Current Patient Location: Accession/Order Number: [id number] Exam Date: 10/08/2024 09:07 Report Date: 10/09/2024 [...] M.D. Signed By: 10/09/24434 DD/ 1 TD/TT: Mental Health Clinician: Procedure Note Radiology, Radiologist, MD - 10/09/2024 [place] [address] Ultrasound Report Signed Patient: Yessi Limon#: [id number] : 1985Acct:[id number] Age/Sex: 39 / FADM Date: 10/08/24 Loc: [facility] Attending Dr: Grace Redding D.O. Ordering Physician: Grace Redding D.O. Date of Service: 10/08/24 Procedure(s): US OB transvaginal Accession Number(s): [id number] cc: Grace Redding D.O.; Physician,Non-Staff Marielle The [place] [address] Patient Name: YESSI LIMON MRN: [id number] date: 1985 Sex: F Assigned Patient Location: [facility] Current Patient Location: Accession/Order Number: [id number] Exam Date: 10/08/2024 09:07 Report Date: 10/09/2024 [...] Sanchez M.D. Signed By:10/09/24434 DD/ 1 TD/TT: Mental Health Clinician: us Grace Redding DO [facility] IMAGING Final Result documented in this encounter Visit Diagnoses Not on filedocumented in this encounter Care Teams Nail Making Machine Tender Relationship Specialty Start Date End Date Codey Ponce MD [address] [place] [address] PCP - General Family Medicine 10/08/24 documented as of this encounter
--- OUTSIDE RECORDS SUMMARY | 2025-05-10 08:30 | XMS_ITS | Encounter Summary ---
Author Organization [facility] Address [address] [place] [address] Care Team Providers Care Formulator Compounder Name Role Phone Codey Ponce MD Primary Care Provider [phone] Encounter Details Date Type Department Care Team (Late Contact Info) Description 11/23/2024 Abstract [facility] OB [address] [facility] [place] [address] Henry Redding DO [address] [facility] [address] [place], [place] [address] Social History Tobacco Use Types Packs/Day Years [...] Description 05/31/2025 11:20 AM EDT Visit [facility] OB [address] [facility] [place] [address] Monika Figueroa PA [address] [place] [address] documented as of this encounter Visit Diagnoses Not on filedocumented in this encounter Care Teams Formulator Compounder Relationship Specialty Start Date End Date Codey Ponce MD [address] [facility] [place] [address] PCP - General Family Medicine 10/08/24 documented as of this encounter
--- OUTSIDE RECORDS SUMMARY | 2025-05-10 08:30 | XMS_ITS | Encounter Summary ---
Author Organization [facility] Address [address] [facility] [place] [address] Care Team Providers Care Crossing Supervisor Name Role Phone Codey Ponce MD Primary Care Provider [phone] Encounter Details Date Type Department Care Team (Late Contact Info) Description 04/22/2025 Abstract [facility] OB [address] [place] [phone] Henry Redding DO [address] [facility] [address] [place], [place] [id number] Social History Tobacco Use Types Packs/Day Years [...] Description 05/31/2025 11:20 AM EDT Visit [facility] OB [address] [place] [phone] Monika Figueroa PA [address] [place] [address] documented as of this encounter Visit Diagnoses Not on filedocumented in this encounter Care Teams Crossing Supervisor Relationship Specialty Start Date End Date Codey Ponce MD [address] [facility] [place] [address] PCP - General Family Medicine 10/08/24 documented as of this encounter
--- OUTSIDE RECORDS SUMMARY | 2025-05-10 08:30 | XMS_ITS | Encounter Summary ---
Author Organization [facility] Address [address] [place] [address] Care Team Providers Care Medical Front Desk Coordinator Name Role Phone Codey Ponce MD Primary Care Provider [phone] Encounter Details Date Type Department Care Team (Late st Contact Info) Description 01/18/2025 Orders Only [facility] OB [address] [facility] [address] Maria Guadalupe Hernandez MA [address] [place] [address] [place] [address] Social History Tobacco Use Types Packs/Day Years [...] Description 05/31/2025 11:20 AM EDT Visit [facility] OB [address] [place] [address] [place] [phone] Monika Figueroa PA [address] [facility] [place] [address] documented as of this encounter Procedures Procedure [...] filedocumented in this encounter Care Teams Medical Front Desk Coordinator Relationship Specialty Start Date End Date Codey Ponce MD [address] [place] [address] PCP - General Family Medicine 10/08/24 documented as of this encounter
--- OUTSIDE RECORDS SUMMARY | 2025-05-10 08:30 | XMS_ITS | Encounter Summary ---
Author Organization [facility] Address [address] [facility] [place] [address] Care Team Providers Care Aquatic Physiotherapist Name Role Phone Codey Ponce MD Primary Care Provider [phone] Encounter Details Date Type Department Care Team (Late Contact Info) Description 04/20/2025 Abstract [facility] OB [address] [facility] [facility] [place] [phone] Henry Redding DO [address] [facility] [address] [facility] [address] [place], [place] [id number] Social History Tobacco Use Types Packs/Day Years [...] Description 05/31/2025 11:20 AM EDT Visit [facility] OB [address] [facility] [place] [address] Monika Figueroa PA [address] [facility] [place] [address] documented as of this encounter Visit Diagnoses Not on filedocumented in this encounter Care Teams Aquatic Physiotherapist Relationship Specialty Start Date End Date Codey Ponce MD [address] [facility] [place] [address] PCP - General Family Medicine 10/08/24 documented as of this encounter
--- OUTSIDE RECORDS SUMMARY | 2025-05-10 08:30 | XMS_ITS | Clinical Summary ---
Author Organization [facility] Address [address] [place] [address] Care Team Providers Care Utility Forester Name Role Phone Codey Ponce MD Primary Care Provider [phone] Allergies No known active allergies Medications azithromycin (Zithromax Z-Francis) 250 MG tabletIndication s:Upper respiratory tract infection, unspecified type As directed 6 tablet 5 04/13/20 25 Discontinu ed(Therapy completed) Active Problems Problem Noted Date Diagnosed Date Urinary tract infection without hematuria 2023 Encounters Date Type Department Care Team Description 04/26/2025 2:50 PM EDT Office Visit [facility] OB [address] [place] [address] Monika Figueroa PA Encounter for visit ([facility]); S/P section; Postop check 04/26/2025 Bamboo flowsheet [facility] OB [address] [place] [address] Monika Figueroa PA 04/22/2025 Abstract [facility] OB [address] [place] [address] Grace Redding, DO 04/20/2025 Abstract [facility] OB [address] [place] [address] Grace Redding, DO 04/20/2025 Clinisync Result Encounter [facility] External Department Unsolicited Grace Redding, DO 04/19/2025 Clinisync Result Encounter [facility]OM[facility] External Department Unsolicited Grace Redding, DO 04/18/2025 Abstract [facility] [address] [place] [address] MiladisGrace, DO 04/18/2025 Abstract [facility] [address] [place] [address] Grace Redding, DO 04/18/2025 Clinisync Result Encounter [facility]OMS External Department Unsolicited Miladis, Grace, DO 04/13/2025 2:10 PM EDT Routine NOM[facility] [address] [place] [address] Grace Redding, DO Third trimester ([facility]); 36 weeks gestation of ([facility]) 04/13/2025 Clinisync Result Encounter [facility]OM[facility] External Department Unsolicited MiladisJby, DO 04/13/2025 Clinisync Result Encounter [facility]OMS External Department Unsolicited Miladis, Grace, DO 04/13/2025 Bamboo flowsheet NOM[facility] [address] [place] [address] MiladisGrace, DO 04/11/2025 Clinisync Result Encounter [facility]S External Department Unsolicited Miladis, Grace, DO 04/04/2025 Clinisync Result Encounter [facility]OMS External Department Unsolicited Miladis, Grace, DO 03/23/2025 3:50 PM EDT Routine NOM[facility] [address] [place] [address] Monika Figueroa PA Third trimester ([facility]); 33 weeks gestation of ([facility]); Multigravida of advanced maternal age in third trimester ([facility]) 03/23/2025 Clinisync Result Encounter [facility]OM[facility] External Department Unsolicited Miladis, Grace, DO 03/23/2025 Clinisync Result Encounter [facility]OMS External Department Unsolicited Miladis, Grace, DO 03/23/2025 Bamboo flowsheet [facility]OM[facility] [address] [place] [address] Monika Figueroa PA 03/07/2025 3:30 PM EDT Routine [facility]OM[facility] [address] [place] [address] Grace Redding DO Upper respiratory tract infection, unspecified type (Primary Dx); Third trimester ([facility]); 31 weeks gestation of ([facility]); Multigravida of advanced maternal age in third trimester ([facility]) 03/07/2025 3:00 PM EDT Ancillary Procedure [facility]OM[facility] [address] [place] [phone] Size of fetus inconsistent with dates in third trimester ([facility]) 02/21/2025 8:30 AM EDT Routine NOM[facility] [address] [place] [address] Grace Redding DO Third trimester ([facility]); 29 weeks gestation of ([facility]); Size of fetus inconsistent with dates in third trimester ([facility]) 02/21/2025 Bamboo flowsheet NOM[facility] [address] [place] [address] Grace Redding DO 02/15/[address] [address] [place] [address] Grace Redding DO from Last 3 Months [...] AM EDT Visit [facility] OB [address] [facility] [address] Monika Figueroa PA [address] [facility] [place] [address] Procedures Procedure Name Priority Date/Time Associated Diagnosis [...] Routine 04/13/2025 2:24 PM EDT Third trimester ([facility]) US OB BPP W NON-STRESS 04/11/2025 3:49 PM EDT US OB BPP W NON-STRESS 04/04/2025 2:52 PM EDT US OB CERVICAL LENGTH 03/23/2025 6:27 PM EDT [facility] UA (CLEAN/CATCH) UROGYNECOLOGY PHYSICIAN/MICRO IF IND. Routine 03/23/2025 4:55 PM EDT POCT URINALYSIS DIPSTICK Routine 03/23/2025 4:29 PM EDT Third trimester ([facility]) POCT URINALYSIS DIPSTICK Routine 03/07/2025 3:51 PM EDT Third trimester ([facility]) US OB FOLLOW UP TRANSABDOMINAL APPROACH Routine 03/07/2025 3:15 PM EDT Size of fetus inconsistent with dates in third trimester ([facility]) POCT URINALYSIS DIPSTICK Routine 02/21/2025 8:43 AM EDT Third trimester ([facility]) from Last 3 Months Results * (ABNORMAL) [...] - 04/20/2025 9:05 AM EDT us Grace Miladis DO CLINISYNC Final Result CLINISYNC TB * TB DRUG SCREEN RAPID (URINE) (04/18/2025 4:45 PM EDT) Pathologist [facility] CANNABINOID SCREEN URINE NEGATIVE NEGATIVE [facility] PHENCYCLIDINE [...] Narrative CLINISYNC - 04/18/2025 5:36 PM EDT us Grace Redding DO CLINISYCHRISTINE Final Result [facility] * US OB BPP W NON-STRESS (04/18/2025 2:55 PM EDT) Only the most recent of3 resultswithin the time period is included. Anatomical Region Laterality Modality Other 04/18/2025 2:55 PM EDT Narrative 04/18/2025 2:57 [place] [address] Ultrasound Report Signed Patient: YESSI LIMON MR#: [id number] : 1985 Acct:[id number] Age/Sex: 40 / F ADM Date: 04/18/25 Loc: [facility] 250-[address]: Grace Redding D.O. Ordering Physician: Grace Redding D.O. Date of Service: 04/18/25 Procedure(s): US OB BPP w non-stress Accession Number(s): [id number] cc: Grace Redding D.O.; Codey Ponce M.D. [address] [address] Patient Name: YESSI LIMON MRN: [id number] date: 1985 Sex: F Assigned Patient Location: [facility] Current Patient Location: [facility] Accession/Order Number: [id number] Exam Date: 04/18/2025 14:54 Report Date: 04/18/2025 14:55 At the request of: GRACE REDDING DO Procedure: US OB BPP w non-stress Ultrasound biophysical profile HISTORY: Advanced maternal age. Multi . Technique: Transabdominal imaging of the gravid uterus was obtained. COMPARISON: BDP 04/11/2025. FINDINGS: Costume Seamstress reports a BPP of 8 out of 8. heart rate 147 bpm. THEO is 8.5 cm. US/US OB BPP w non-stress IMPRESSION: BPP 8 out of 8. Impression dictated by: Luis Alfredo Truong Jr., D.O. 04/18/2025 2:55 PM Dictation Location: [place] [address] Electronically authenticated by: [id number] Y Date: 04/18/2025 14:55 Dictated By: Luis Alfredo Truong M.D. Signed By: 04/18/25 1457 DD/ 54 TD/TT: Assistant Health Educator: Procedure Note Radiology, Radiologist, MD - 04/18/2025 [place] [address] Ultrasound Report Signed Patient: YSESI LIMON#: [id number] : 1985Acct:[id number] Age/Sex: 40 / FADM Date: 04/18/25 Loc: [place] [address]: Grace Redding D.O. Ordering Physician: Grace Redding D.O. Date of Service: 04/18/25 Procedure(s): US OB BPP w non-stress Accession Number(s): [id number] cc: Grace Redding D.O.; Codey Ponce M.D. [place] [phone] Patient Name: YESSI LIMON MRN: [facility]:[id number] date: 1985 Sex: F Assigned Patient Location: [facility] Current Patient Location: [facility] Accession/Order Number: [id number] Exam Date: 04/18/2025 14:54 Report Date: 04/18/2025 14:55 At the request of: GRACE REDDING DO Procedure: US OB BPP w non-stress Ultrasound biophysical profile HISTORY: Advanced maternal age. Multi . Technique: Transabdominal imaging of the gravid uterus was obtained. COMPARISON: BDP 04/11/2025. FINDINGS: Costume Seamstress reports a BPP of 8 out of 8. heart rate 147bpm. THEO is 8.5 cm. US/US OB BPP w non-stress IMPRESSION: BPP 8 out of 8. Impression dictated by: Luis Alfredo Truong Jr., D.O. 04/18/2025 2:55 PM Dictation Location: [place] [address] Electronically authenticated by: [id number] Y Date: 4:55 Dictated By: Luis Alfredo Truong M.D. Signed By:04/18/25 1457 DD/ 54 TD/TT: Assistant Health Educator: us Grace Redding DO CLINISYNC IMAGING Final Result * US OB PLACENTA (04/13/2025 8:14 PM EDT) Anatomical Region Laterality Modality Other 04/13/2025 8:14 PM EDT Narrative 04/13/2025 8:17 [place] [address] Ultrasound Report Signed Patient: YESSI LIMON MR#: [id number] : 1985 Acct:[id number] Age/Sex: 40 / F ADM Date: Loc: [facility] 254- Attending Dr: Grace Redding D.O. Ordering Physician: Grace Redding D.O. Date of Service: 04/13/25 Procedure(s): US OB placenta Accession Number(s): [id number] cc: Grace Redding D.O.; Codey Ponce M.D. [place] [id number] Patient Name: YESSI LIMON MRN: [id number] date: 1985 Sex: F Assigned Patient Location: [facility] Current Patient Location: [facility] Accession/Order Number: [id number] Exam Date: 04/13/2025 20:12 Report Date: 04/13/2025 [...] Gould M.D. 04/13/2025 8:14 PM Dictation Location: [place] Electronically authenticated by: [id number] Y Date: 04/13/2025 20:14 Dictated By: Jhon Gould D.O. Signed By: 04/13/252016 DD/ 13 TD/TT: Assistant Health Educator: Procedure Note Radiology, Radiologist, MD - 04/13/2025 [place] [address] Ultrasound Report Signed Patient: YESSI ILMON#: [id number] : 1985Acct:[id number] Age/Sex: 40 / FADM Date: Loc: [facility] 254-[address]: Grace Redding D.O. Ordering Physician: Grace Redding D.O. Date of Service: 04/13/25 Procedure(s): US OB placenta Accession Number(s): [id number] cc: Grace Redding D.O.; Codey Ponce M.D. [place] [phone] Patient Name: YESSI LIMON MRN: [id number] date: 1985 Sex: F Assigned Patient Location: [facility] Current Patient Location: [facility] Accession/Order Number: [id number] Exam Date: 04/13/2025 20:12 Report Date: 04/13/2025 [...] Gould M.D. 04/13/2025 8:14 PM Dictation Location: [place] Electronically authenticated by: [id number] Y Date: 0:14 Dictated By: Jhon Gould D.O. Signed By:04/13/252016 DD/ 13 TD/TT: Assistant Health Educator: Grace Miladis DO CLINISYNC IMAGING Final Result * AMNISURE (04/13/2025 4:55 PM EDT) Pathologist [facility] AMNISURE NEGATIVE NEGATIVE [facility] 04/13/2025 4:55 PM EDT 04/13/2025 4:57 PM EDT Narrative CLINISYNC - 04/13/2025 5:09 PM EDT Grace Miladis DO LAB BLOOD ORDERABLES Final Resul t [facility] * POCT urinalysis dipstick manually resulted (04/13/2025 2:24 PM EDT) Only the most recent of4 resultswithin the time period is included. Color, [...] - Positive Urine 04/13/2025 2:24 PM EDT Grace Miladis DO POINT OF CARE TEST ENTER/EDIT OR DERABLES Final Result * US OB CERVICAL LENGTH (03/23/2025 6:27 PM EDT) Anatomical Region Laterality Modality Other 03/23/2025 6:27 PM EDT Narrative 03/23/2025 6:29 PM EDT [address] [address] Ultrasound Report Signed Patient: YESSI LIMON MR#: [id number] : 1985 Acct:[id number] Age/Sex: 40 / F ADM Date: 03/23/25 Loc: [facility] 250-[address]: Grace Redding D.O. Ordering Physician: Grace Redding D.O. Date of Service: 03/23/25 Procedure(s): US OB cervical length Accession Number(s): [id number] cc: Grace Redding D.O.; Codey Ponce M.D. [place] [phone] Patient Name: YESSI LIMON MRN: [id number] date: 1985 Sex: F Assigned Patient Location: [facility] Current Patient Location: [facility] Accession/Order Number: [id number] Exam Date: 03/23/2025 18:26 Report Date: 03/23/2025 [...] Gould M.D. 03/23/2025 6:27 PM Dictation Location: [place] [address] Electronically authenticated by: [id number] Y Date: 03/23/2025 18:27 Dictated By: Jhon Gould D.O. Signed By: 03/23/251828 DD/ 26 TD/TT: Assistant Health Educator: Procedure Note Radiology, Radiologist, - 03/23/2025 [place] [address] Ultrasound Report Signed Patient: YESSI LIMON#: [id number] : 1985Acct:[id number] Age/Sex: 40 / FADM Date: 03/23/25 Loc: [facility] 250-[address]: Grace Redding D.O. Ordering Physician: Grace Redding D.O. Date of Service: 03/23/25 Procedure(s): US OB cervical length Accession Number(s): [id number] cc: Grace Redding D.O.; Codey Ponce M.D. [place] [address] Patient Name: YESSI LIMON MRN: [id number] date: 1985 Sex: F Assigned Patient Location: [facility] Current Patient Location: [facility] Accession/Order Number: [id number] Exam Date: 03/23/2025 18:26 Report Date: 03/23/2025 [...] Gould M.D. 03/23/2025 6:27 PM Dictation Location: [place] [address] Electronically authenticated by: [id number] Y Date: 8:27 Dictated By: Jhon Gould D.O. Signed By:03/23/251828 DD/ 26 TD/TT: Assistant Health Educator: us Grace Redding DO CLINISYNC IMAGING Final Result * (ABNORMAL) [facility] UA (CLEAN/CATCH) UROGYNECOLOGY PHYSICIAN/MICRO IF IND. (03/23/2025 4:55 PM EDT) COLOR [...] us Grace Miladis DO CLINISYNC Final Result [facility] * US OB follow up transabdominal approach [...] II, MD, PHD at 09-Mar-2025 08:42:20 AM [facility] Procedure Note Benson Nelson MD - [...] signed by BENSON NELSON II, MD, PHD [id number] 08:42:20 AM [facility] us Grace Miladis DO IMG OB US PROCEDURES Final Resul t from Last 3 Months Insurance [employer] Care Teams Utility Forester Relationship Specialty Start Date End Date Codey Ponce MD [address] [place] [address] PCP - General Family Medicine 10/08/24
--- OUTSIDE RECORDS SUMMARY | 2025-05-10 08:30 | XMS_ITS | Patient Health Record ---
Author Organization [facility] in [place] Address [address] [place] [address] Care Team Providers Care Perinatal Social Worker Name Role Phone Anuj Ponce Primary Care Provider Allergies No Known Allergies Results Component Value Reference Range Notes CBC AUTO DIFF Reviewed date:03/13/2025 05:41:45 PM Interpretation: Performing Lab: Notes/Report: [facility] , White Blood Count 4.7 4.0-11.0 [...] Performing Lab: see note ML - [facility] LB Manual Differential Reviewed date:03/13/2025 05:41:45 PM Interpretation: Performing Lab: Notes/Report: [facility] , Segmented Neutrophils % Manual 60.0 [...] 10 3/uL Performing Lab: see note - [facility] Troponin I High Sensitivity Reviewed date:03/13/2025 05:41:45 PM Interpretation: Performing Lab: Notes/Report: [facility] , Troponin I High Sensitivity <4.0 4.0-51.3 pg/mL CUT-OFF POINTS HAVE BEEN ESTABLISHED BASED ON THE FOURTH 99TH PERCENTILE = 51.4 PG/ML PERCENTILE OF cTnI DISTRIBUTION IN A REFERENCE POPULATION, DIAGNOSIS. WITH OTHER DIAGNOSTIC AND CLINICAL INFORMATION. UNIVERSAL DEFINITION OF MYOCARDIAL INFARCTION. THE UPPER REFERENCE LIMIT (URL) OF TROPONIN, DEFINED THE 99TH HAS BEEN CONFIRMED THE DECISION THRESHOLD FOR [place] NOTE: HIGH-SENSITIVITY TROPONIN ASSAY IS NOT INTENDED TO BE USED IN ISOLATION BUT SHOULD BE INTERPRETED IN CONJUNCTION Performing Lab: see note - [facility] Venous Blood Gas Reviewed date:03/13/2025 05:41:45 PM Interpretation: Performing Lab: Notes/Report: [facility] , pH VBG 7.441 7.330-7.430 PCO2 VBG 37.7 40.0-52.0 mmHg Performing Lab: see note - [facility] US OB cervical length Reviewed date:03/23/2025 06:32:52 PM Interpretation: Performing Lab: Notes/Report: Source Facility: [facility]-[address] [place] [address] [place] [address] Ultrasound Report Signed Patient: YESSI LIMON MR#: [id number] : 1985 Acct:[id number] Age/Sex: 40 / F ADM Date: 03/23/25 Loc: [facility] 250-[address]: Grace Redding D.O. Ordering Physician: Grace Redding D.O. Date of Service: 03/23/25 Procedure(s): US OB cervical length Accession Number(s): [id number] cc: Grace Redding D.O.; Codey Ponce M.D. [address] [id number] Patient Name: YESSI LIMON MRN: [id number] date: 1985 Sex: F Assigned Patient Location: [facility] Current Patient Location: [facility] Accession/Order Number: [id number] Exam Date: 03/23/2025 18:26 Report Date: 03/23/2025 [...] 03/23/2025 6:27 PM Dictation Location: [place] [address] Electronically authenticated by: [id number] Y Date: 03/23/2025 18:27 Dictated By: Jhon Gould D.O. Signed By: 03/23/251828 DD/ 26 TD/TT: Job Analysis Manager: [place] [address] Ultrasound Report Signed Patient: YESSI LIMON MR#: [id number] : 1985 Acct:[id number] Age/Sex: 40 / F ADM Date: 03/23/25 Loc: [place] [address]- Attending Dr: Grace Redding D.O. Ordering Physician: Grace Redding D.O. Date of Service: 03/23/25 Procedure(s): US OB cervical length Accession Number(s): [id number] cc: Grace Redding D.O. ; Codey Ponce M.D. [address] [address] Patient Name: YESSI LIMON MRN: [id number] date: 1985 Sex: F Assigned Patient Location: [facility] Current Patient Location: [facility] Accession/Order Number: [id number] Exam Date: 03/23/2025 18:26 Report Date: 03/23/2025 [...] 03/23/2025 6:27 PM Dictation Location: [place] [address] Electronically authenticated by: [id number] Y Date: 03/23/2025 18:27 Dictated By: Jhon Gould D.O. Signed By: 03/23/251828 DD/ 26 TD/TT: Job Analysis Manager: US OB BPP w non-stress Reviewed date:04/04/2025 08:47:46 PM Interpretation: Performing Lab: Notes/Report: Source Facility: [place] [address] Ultrasound Report Signed Patient: YESSI LIMON MR#: [id number] : 1985 Acct:[id number] Age/Sex: 40 / F ADM Date: 04/04/25 Loc: US Attending Dr: Grace Redding D.O. Ordering Physician: Grace Redding D.O. Date of Service: 04/04/25 Procedure(s): US OB BPP w non-stress Accession Number(s): [id number] cc: Grace Redding D.O.; Codey Ponce M.D. [place] [address] Patient Name: YESSI LIMON MRN: [id number] date: 1985 Sex: F Assigned Patient Location: [facility] Current Patient Location: Accession/Order Number: [id number] Exam Date: 04/04/2025 14:51 Report Date: 04/04/2025 [...] 04/04/2025 2:52 PM Dictation Location: [place] [address] Electronically authenticated by: [id number] Y Date: 04/04/2025 14:52 Dictated By: Jhon Gould D.O. Signed By: 04/04/25 1454 DD/ 1452 TD/TT: Job Analysis Manager: [place] [address] Ultrasound Report Signed Patient: YESSI LIMON MR#: [id number] : 1985 Acct:[id number] Age/Sex: 40 / F ADM Date: 04/04/25 Loc: US Attending Dr: Grace Redding D.O. Ordering Physician: Grace Redding D.O. Date of Service: 04/04/25 Procedure(s): US OB BPP w non-stress Accession Number(s): [id number] cc: Grace Redding D.O. ; Codey Ponce M.D. [place] [phone] Patient Name: YSESI LIMON MRN: [id number] date: 1985 Sex: F Assigned Patient Location: [facility] Current Patient Location: Accession/Order Number: [id number] Exam Date: 04/04/2025 14:51 Report Date: 04/04/2025 [...] Gould M.D. 04/04/2025 2:52 PM Dictation Location: [employer] Electronically authenticated by: [id number] Y Date: 04/04/2025 14:52 Dictated By: Jhon Gould D.O. Signed By: 04/04/25 1454 DD/ 1452 TD/TT: Job Analysis Manager: CBC AUTO DIFF Reviewed date:04/18/2025 06:39:35 PM Interpretation: Performing Lab: Notes/Report: [facility] , White Blood Count 9.2 4.0-11.0 [...] Performing Lab: see note ML - [facility] LB DRUG SCREEN RAPID (URINE) Reviewed date:04/18/2025 06:39:35 PM Interpretation: Performing Lab: Notes/Report: [facility] , Cannabinoid Screen Urine NEGATIVE NEGATIVE Phencyclidine Screen Urine NEGATIVE NEGATIVE Cocaine Screen Urine NEGATIVE NEGATIVE Methamphetamines Screen Urine NEGATIVE NEGATIVE Opiate Screen Urine NEGATIVE NEGATIVE Amphetamine Screen Urine NEGATIVE NEGATIVE Benzodiazepines Screen Urine NEGATIVE NEGATIVE Tricyclic Antidepressant Urine NEGATIVE NEGATIVE Methadone Screen Urine NEGATIVE NEGATIVE Barbiturates Screen Urine NEGATIVE NEGATIVE Oxycodone Screen Urine NEGATIVE NEGATIVE Buprenorphine Screen Urine NEGATIVE NEGATIVE BAR (Barbiturates): 200 ng/mL ZAID (Cocaine): 150 ng/mL BZO (Benzodiazepines): 150 ng/mL FOLLOWS: BUP (Buprenorphine): 10 ng/mL TCA (Trycyclic Antidepressants): 300 ng/mL OXY (Oxycodone): 100 ng/mL DRUG CLASS TEST SYSTEM CUT-OFF CONCENTRATIONS ARE MTD (Methadone): 200 ng/mL mAMP (Methamphetamine): 500 ng/mL PCP (Phencyclidine): 25 ng/mL OPI (Opiates): 100 ng/mL THC (Cannabinoids): 50 ng/mL AMP (Amphetamine): 500 ng/mL Performing Lab: see note ML - [facility] LB Type and Screen Reviewed date:04/18/2025 06:39:35 PM Interpretation: Performing Lab: Notes/Report: [facility] , Blood Type O Positive Antibody Screen NEGATIVE CBC AUTO DIFF Reviewed date:04/20/2025 05:20:47 PM Interpretation: Performing Lab: Notes/Report: [facility] , White Blood Count 9.8 4.0-11.0 [...] 3/uL Performing Lab: see note ML - [facility] US OB BPP w non-stress Reviewed date:04/18/2025 03:02:33 PM Interpretation: Performing Lab: Notes/Report: Source Facility: [place] [address] Ultrasound Report Signed Patient: YESSI LIMON MR#: [id number] : 1985 Acct:[id number] Age/Sex: 40 / F ADM Date: 04/18/25 Loc: [facility] 250-[address]: Grace Redding D.O. Ordering Physician: Grace Redding D.O. Date of Service: 04/18/25 Procedure(s): US OB BPP w non-stress Accession Number(s): [id number] cc: Grace Redding D.O.; Codey Ponce M.D. The [place] [address] Patient Name: YESSI LIMON MRN: [id number] date: 1985 Sex: F Assigned Patient Location: [facility] Current Patient Location: [facility] Accession/Order Number: [id number] Exam Date: 04/18/2025 14:54 Report Date: 04/18/2025 14:55 At the request of: GRACE REDDING DO Procedure: US OB BPP w non-stress Ultrasound biophysical profile HISTORY: Advanced maternal age. Multi . Technique: Transabdominal imaging of the gravid uterus was obtained. COMPARISON: BDP 04/11/2025. FINDINGS: Ditch Rider reports a BPP of 8 out of 8. heart rate 147 bpm. THEO is 8.5 cm. US/US OB BPP w non-stress IMPRESSION: BPP 8 out of 8. Impression dictated by: Luis Alfredo Truong Jr., D.O. 04/18/2025 2:55 PM Dictation Location: [place] [address] Electronically authenticated by: [id number] Y Date: 04/18/2025 14:55 Dictated By: Luis Alfredo Truong M.D. Signed By: 04/18/25 1457 DD/ 54 TD/TT: Job Analysis Manager: [place] [address] Ultrasound Report Signed Patient: YESSI LIMON MR#: [id number] : 1985 Acct:[id number] Age/Sex: 40 / F ADM Date: 04/18/25 Loc: [place] [address]-[address]: Grace Redding D.O. Ordering Physician: Grace Redding D.O. Date of Service: 04/18/25 Procedure(s): US OB BPP w non-stress Accession Number(s): [id number] cc: Grace Redding D.O. ; Codey Ponce M.D. [address] [address] Patient Name: YESSI LIMON MRN: [id number] date: 1985 Sex: F Assigned Patient Location: [facility] Current Patient Location: [facility] Accession/Order Number: [id number] Exam Date: 04/18/2025 14:54 Report Date: 04/18/2025 [...] Jr., D.O. 04/18/2025 2:55 PM Dictation Location: [place] [address] Electronically authenticated by: [id number] Y Date: 04/18/2025 14:55 Dictated By: Luis Alfredo Truong M.D. Signed By: 04/18/25 1457 DD/ 54 TD/TT: Job Analysis Manager: US OB placenta Reviewed date:04/14/2025 12:53:00 PM Interpretation: Performing Lab: Notes/Report: Source Facility: [place] [address] Ultrasound Report Signed Patient: YESSI LIMON MR#: [id number] : 1985 Acct:[id number] Age/Sex: 40 / F ADM Date: Loc: [facility] [address]: Grace Redding D.O. Ordering Physician: Grace Redding D.O. Date of Service: 04/13/25 Procedure(s): US OB placenta Accession Number(s): [id number] cc: Grace Redding D.O.; Codey Ponce M.D. [place] [address] Patient Name: YESSI LIMON MRN: [id number] date: 1985 Sex: F Assigned Patient Location: [facility] Current Patient Location: [facility] Accession/Order Number: [id number] Exam Date: 04/13/2025 20:12 Report Date: 04/13/2025 [...] Gould M.D. 04/13/2025 8:14 PM Dictation Location: [employer] Electronically authenticated by: [id number] Y Date: 04/13/2025 20:14 Dictated By: hJon Gould D.O. Signed By: 04/13/252016 DD/ 13 TD/TT: Job Analysis Manager: [place] [address] Ultrasound Report Signed Patient: YESSI LIMON MR#: [id number] : 1985 Acct:[id number] Age/Sex: 40 / F ADM Date: Loc: [facility] 254-[address]: Grace Redding D.O. Ordering Physician: Grace Redding D.O. Date of Service: 04/13/25 Procedure(s): US OB placenta Accession Number(s): [id number] cc: Grace Reddnig D.O. ; Codey Ponce M.D. [place] [phone] Patient Name: YESSI LIMON MRN: [id number] date: 1985 Sex: F Assigned Patient Location: [facility] Current Patient Location: [facility] Accession/Order Number: [id number] Exam Date: 04/13/2025 20:12 Report Date: 04/13/2025 [...] Gould M.D. 04/13/2025 8:14 PM Dictation Location: [place] [address] Electronically authenticated by: [id number] Y Date: 04/13/2025 20:14 Dictated By: Jhon Gould D.O. Signed By: 04/13/252016 DD/ 13 TD/TT: Job Analysis Manager: [employer]* Reviewed date:04/13/2025 05:46:29 PM Interpretation: Performing Lab: Notes/Report: [facility] , [employer] NEGATIVE NEGATIVE Performing Lab: see note ML - [facility] LB US OB BPP w non-stress Reviewed date:04/11/2025 08:27:45 PM Interpretation: Performing Lab: Notes/Report: Source Facility: [facility]-[address] [place] [address] Ultrasound Report Signed Patient: YESSI LIMON MR#: [id number] : 1985 Acct:[id number] Age/Sex: 40 / F ADM Date: 04/11/25 Loc: US Attending Dr: Grace Redding D.O. Ordering Physician: Grace Redding D.O. Date of Service: 04/11/25 Procedure(s): US OB BPP w non-stress Accession Number(s): [id number] cc: Grace Redding D.O.; Codey Ponce M.D. [place] [address] Patient Name: YESSI LIMON MRN: [id number] date: 1985 Sex: F Assigned Patient Location: [facility] Current Patient Location: Accession/Order Number: [id number] Exam Date: 04/11/2025 15:48 Report Date: 04/11/2025 [...] Gould M.D. 04/11/2025 3:49 PM Dictation Location: [place] [address] Electronically authenticated by: [id number] Y Date: 04/11/2025 15:49 Dictated By: Jhon Gould D.O. Signed By: 04/11/25 1552 DD/ 1549 TD/TT: Job Analysis Manager: [place] [address] Ultrasound Report Signed Patient: YESSI LIMON MR#: [id number] : 1985 Acct:[id number] Age/Sex: 40 / F ADM Date: 04/11/25 Loc: US Attending Dr: Grace Redding D.O. Ordering Physician: Grace Redding D.O. Date of Service: 04/11/25 Procedure(s): US OB BPP w non-stress Accession Number(s): [id number] cc: Grace Redding D.O. ; Codey Ponce M.D. [place] [phone] Patient Name: YESSI LIMON MRN: [id number] date: 1985 Sex: F Assigned Patient Location: [facility] Current Patient Location: Accession/Order Number: [id number] Exam Date: 04/11/2025 15:48 Report Date: 04/11/2025 [...] Gould M.D. 04/11/2025 3:49 PM Dictation Location: [place] [address] Electronically authenticated by: [id number] Y Date: 04/11/2025 15:49 Dictated By: Jhon Gould D.O. Signed By: 04/11/25 1552 DD/ 1549 TD/TT: Job Analysis Manager: [employer]* Reviewed date:04/03/2025 04:08:39 PM Interpretation: Performing Lab: Notes/Report: [facility] , [employer] NEGATIVE NEGATIVE Performing Lab: see note ML - [facility] LB UA (CLEAN or CATCH) TEACHING SUPERVISOR or M ICRO IF IND. Reviewed date:04/03/2025 04:08:39 PM Interpretation: Performing Lab: Notes/Report: [facility] , Color Urine LT. YELLOW YELLOW Clarity Urine CLEAR CLEAR Specific [place] Urine 1.010 1.005-1.025 pH Urine 6.5 5.0-9.0 Protein Urine NEGATIVE NEG/TRACE mg/dL Glucose Urine UA NEGATIVE NEGATIVE mg/dL Bilirubin Urine NEGATIVE NEGATIVE Ketones Urine NEGATIVE NEGATIVE mg/dL Blood Urine NEGATIVE NEGATIVE Nitrite Urine NEGATIVE NEGATIVE Urobilinogen Urine 1.0 0.2-1.0 EU/dL Leukocyte Esterase Urine NEGATIVE NEGATIVE Urine Microscopic Indicated NO Performing Lab: see note ML - [facility] LB UA (CLEAN or CATCH) TEACHING SUPERVISOR or M ICRO IF IND. Reviewed date:03/23/2025 05:42:48 PM Interpretation: Performing Lab: Notes/Report: [facility] , Color Urine LT. YELLOW YELLOW Clarity Urine CLEAR CLEAR Specific [place] Urine <=1.005 1.005-1.025 pH Urine 7.0 5.0-9.0 Protein Urine NEGATIVE NEG/TRACE mg/dL Glucose Urine UA NEGATIVE NEGATIVE mg/dL Bilirubin Urine NEGATIVE NEGATIVE Ketones Urine NEGATIVE NEGATIVE mg/dL Blood Urine NEGATIVE NEGATIVE Nitrite Urine NEGATIVE NEGATIVE Urobilinogen Urine 0.2 0.2-1.0 EU/dL Leukocyte Esterase Urine NEGATIVE NEGATIVE Urine Microscopic Indicated NO Performing Lab: see note ML - [facility] LB PROF 14(COMP METB) Reviewed date:03/13/2025 05:41:45 PM Interpretation: Performing Lab: Notes/Report: [facility] , Sodium 135 136-145 mmol/L Potassium [...] 0.6 Performing Lab: see note ML - [facility] LB BNP Reviewed date:03/13/2025 05:41:45 PM Interpretation: Performing Lab: Notes/Report: [facility] , NT Pro B Type Natriuretic Pept 12.0 <=450.0 pg/mL Performing Lab: see note ML - [facility] LB CBC AUTO DIFF Reviewed date:04/19/2025 08:17:24 AM Interpretation: Performing Lab: Notes/Report: [facility] , White Blood Count 10.8 4.0-11.0 [...] 3/uL Performing Lab: see note ML - [facility] Reason For Referral No Information Medications Medication [...] 09/22/2024 Encounters Encounter Location Date Provider Diagnosis [facility] [address] [place] [address] 09/22/2024 Anuj Ponce Acute bronchitis, unspecified organism J20.9 [facility] [address] [place] [address] 09/22/2024 Anuj Ponce [facility] [address] [facility] [place] [address] 09/22/2024 Anuj Ponce Acute bronchitis, unspecified organism J20.9 [facility] [address] [facility] [place] [address] 09/23/2024 Anuj Ponce [facility] [address] [facility] [place] [address] 09/23/2024 Anuj Ponce Acute bronchitis, unspecified organism J20.9 [facility] [address] [facility] [place] [address] 09/24/2024 Anuj Ponce Acute bronchitis, unspecified organism J20.9 [facility] [address] [facility] [place] [address] 09/28/2024 Anuj Ponce [facility] [address] [facility] [place] [address] 03/11/2025 Anuj Ponce [facility] [address] [facility] [place] [address] 03/13/2025 Anuj Ponce Assessments Encounter Date Diagnosis (ICD Code) Assessment Notes Treatment Notes Treatment Clinical Notes Section Notes 09/22/2024 Acute bronchitis, unspecified organism (ICD-10 - J20.9) Rest and drink more liquids, especially water. You may use a humidifier or vaporizer to help keep the drainage moist. Hqif-xpv-deybsbj Nasal Saline may help the stuffy and runny nose. Use Ibuprofen and or Tylenol as needed for fever, chills, body aches or pain. Children 5 years old should not be given qcjm-lat-ywoxnwu cough and cold medications such as guaifenesin and dextromethorphan. If you're over age 5, you may try jpzy-ytf-tagjzyd cold medications such as guaifenesin and dextromethorphan, [...] Date Coverage End Date [employer] [address] [place] [address] [id number] February Self - patient is the insured Medical (General) History Surgical History Surgery Date(Month/Year) Section and tubal ligation- Dr Redding 04/19/25 left eye surgery 1991 rt knee meniscus repair
--- OUTSIDE RECORDS SUMMARY | 2025-05-10 08:30 | XMS_ITS | Encounter Summary ---
Author Organization [facility] Address [address] [facility] [place] [address] Care Team Providers Care Administrative Assistant Coordinator Name Role Phone Codey Ponce MD Primary Care Provider [phone] Encounter Details Date Type Department Care Team (Late Contact Info) Description 04/18/2025 Abstract [facility] OB [address] [facility] [place] [address] Henry Redding DO [address] [facility] [address] [place], [place] [id number] Social History Tobacco Use Types Packs/Day Years [...] Description 05/31/2025 11:20 AM EDT Visit [facility] OB [address] [facility] [place] [address] Monika Figueroa PA [address] [place] [address] documented as of this encounter Visit Diagnoses Not on filedocumented in this encounter Care Teams Administrative Assistant Coordinator Relationship Specialty Start Date End Date Codey Ponce MD [address] [facility] [place] [address] PCP - General Family Medicine 10/08/24 documented as of this encounter
--- OUTSIDE RECORDS SUMMARY | 2025-05-10 08:30 | XMS_ITS | Encounter Summary ---
Author Organization [facility] Address [address] [facility] [place] [address] Care Team Providers Care Yoke Presser Name Role Phone Codey Ponce MD Primary Care Provider [phone] Encounter Details Date Type Department Care Team (Late Contact Info) Description 04/18/2025 Abstract [facility] OB [address] [place] [address] Henry Redding DO [address] [facility] [address] [place], [place] [phone] Social History Tobacco Use Types Packs/Day Years [...] Description 05/31/2025 11:20 AM EDT Visit [facility] OB [address] [place] [address] Monika Figueroa PA [address] [facility] [place] [address] documented as of this encounter Visit Diagnoses Not on filedocumented in this encounter Care Teams Yoke Presser Relationship Specialty Start Date End Date Codey Ponce MD [address] [facility] [place] [place] [address] PCP - General Family Medicine 10/08/24 documented as of this encounter
--- OUTSIDE RECORDS SUMMARY | 2025-05-10 08:30 | XMS_ITS | Encounter Summary ---
Author Organization [facility] Address [address] [facility] [place] [address] Care Team Providers Care Bumper Operator Name Role Phone Codey Ponce MD Primary Care Provider [phone] Encounter Details Date Type Department Care Team (Late Contact Info) Description 10/08/2024 Abstract [facility] OB [address] [facility] [place] [phone] Henry Redding DO [address] [facility] [address] [place], [place] [address] Social History Tobacco Use Types Packs/Day Years [...] Description 05/31/2025 11:20 AM EDT Visit [facility] OB [address] [facility] [place] [address] Monkia Figueroa PA [address] [facility] [place] [address] documented as of this encounter Visit Diagnoses Not on filedocumented in this encounter Care Teams Bumper Operator Relationship Specialty Start Date End Date Codey Ponce MD [address] [facility] [place] [address] PCP - General Family Medicine 10/08/24 documented as of this encounter
--- OUTSIDE RECORDS SUMMARY | 2025-05-10 08:30 | XMS_ITS | Encounter Summary ---
Author Organization [facility] Address [address] [facility] [place] [address] Care Team Providers Care Operating Room Surgical Technician Name Role Phone Codey Ponce MD Primary Care Provider [phone] Encounter Details Date Type Department Care Team (Late st Contact Info) Description 04/26/2025 Bamboo flowsheet [facility] OB [address] [facility] [place] [address] Monika Figueroa PA [address] [place] [address] [place], [place] [address] Social History Tobacco Use Types Packs/Day Years [...] Description 05/31/2025 11:20 AM EDT Visit [facility] OB [address] [facility] [place] [address] Monika Figueroa PA [address] [place] [address] [place] [address] documented as of this encounter Visit Diagnoses Not on filedocumented in this encounter Care Teams Operating Room Surgical Technician Relationship Specialty Start Date End Date Codey Ponce MD [address] [facility] [place] [address] PCP - General Family Medicine 10/08/24 documented as of this encounter
--- NOTE | 2025-05-10 09:51 | PC.NURSE ---
Yessi and 3 week old Bernice arrive for weight check. Bernice more alert, color pink, rooting on hands. Yessi states she is really nursing better, continues to take up to 2 oz of fortified breast milk after feeds, she even just gets a 2 oz bottle of formula before bed States infant wants to eat every 1.5 hours. Encouraged to let feed when signals and offer the supplemental bottle of fortified breast milk every 3 hours. Currently fortifying her milk to 24 calories with powdered formula. Yessi trujillo is accepting of continueing the supplementation as is more alert, feeds better and is having 8-10 wet diapers and 7 stools daily. Infant weight obtained and up to 5-6.5. Mom pleased with increase. Baby to breast obtains deep latch, more rhythmic sucking noted with multiple swallows noted. Baby slows significantly after 12 minutes and sleeps. Mom states baby nursed other breast in car prior to coming for appointment. Feeding plan includes. Infant to breast as demands, mom to pump every 3 hours and fortify her breast milk with standard powered formula to equal 24 calories per oz. Will return 05/16/2025 for weight check and evaluation of plan. Yessi trujillo is accepting of plan. Pleased with results. Leaves for home wit baby.
== END 2025-05-10 10:35 | disposition home or self-care (01) ==
PROVIDERS: PCP Family Medicine; Visit Provider Obstetrics & Gynecology
DX: Z39.1 Encounter for care and examination of lactating mother (principal)
CPT/HCPCS: G0463

== ENCOUNTER 2025-05-16 13:42 | Outpatient (OUT) | payer BC, SELFPAY ==
--- OUTSIDE RECORDS SUMMARY | 2025-05-16 13:46 | XMS_ITS | Encounter Summary ---
Author Organization [facility] Address [address] [place] [address] Care Team Providers Care Shirt Line Operator Name Role Phone Codey Ponce MD Primary Care Provider [phone] Encounter Details Date Type Department Care Team (Late st Contact Info) Description 10/09/2024 Clinisync Result Encounter [facility] External Department Unsolicited Grace Redding DO [address] [facility] [place] [address] Social History Tobacco Use Types Packs/Day Years [...] AM EDT Visit [facility] BCP OB [address] [facility] [place] [address] Monika Figueroa PA [address] [facility] [place] [address] documented as of this encounter Procedures Procedure Name Priority Date/Time Associated Diagnosis Comments US OB TRANSVAGINAL 10/09/2024 4: 32 AM EST documented in this encounter Results * US OB TRANSVAGINAL (10/09/2024 4:32 AM EST) Anatomical Region Laterality Modality Other 10/09/2024 4:32 AM EST Narrative 10/09/2024 4:35 [place] [address] Ultrasound Report Signed Patient: Yessi Limon MR#: [id number] : 1985 Acct:[id number] Age/Sex: 39 / F ADM Date: 10/08/24 Loc: [facility] Attending Dr: Grace Redding D.O. Ordering Physician: Grace Redding D.O. Date of Service: 10/08/24 Procedure(s): US OB transvaginal Accession Number(s): [id number] cc: Grace Redding D.O.; Physician,Non-Staff [place] [address] Patient Name: YESSI LIMON MRN: [id number] date: 1985 Sex: F Assigned Patient Location: [facility] Current Patient Location: Accession/Order Number: [id number] Exam Date: 10/08/2024 09:07 Report Date: 10/09/2024 [...] M.D. Signed By: 10/09/24434 DD/ 1 TD/TT: Tool And Die Supervisor: Procedure Note Radiology, Radiologist, MD - 10/09/2024 [place] [address] Ultrasound Report Signed Patient: Yessi Limon#: [id number] : 1985Acct:[id number] Age/Sex: 39 / FADM Date: 10/08/24 Loc: [facility] Attending Dr: Grace Redding D.O. Ordering Physician: Grace Redding D.O. Date of Service: 10/08/24 Procedure(s): US OB transvaginal Accession Number(s): [id number] cc: Grace Redding D.O.; Physician,Non-Staff [place] [address] Patient Name: YESSI LIMON MRN: [id number] date: 1985 Sex: F Assigned Patient Location: [facility] Current Patient Location: Accession/Order Number: [id number] Exam Date: 10/08/2024 09:07 Report Date: 10/09/2024 [...] Sanchez M.D. Signed By:10/09/24434 DD/ 1 TD/TT: Tool And Die Supervisor: us Grace Redding DO [facility] Final Result documented in this encounter Visit Diagnoses Not on filedocumented in this encounter Care Teams Shirt Line Operator Relationship Specialty Start Date End Date Codey Ponce MD [address] [place] [address] PCP - General Family Medicine 10/08/24 documented as of this encounter
--- OUTSIDE RECORDS SUMMARY | 2025-05-16 13:46 | XMS_ITS | Clinical Summary ---
Author Organization [facility] Address [address] [place] [address] Care Team Providers Care Nursing Care Attendant Name Role Phone Codey Ponce MD Primary Care Provider [phone] Allergies No known active allergies Medications No known medications Active Problems Problem Noted Date Diagnosed Date Urinary tract infection without hematuria 2023 Encounters Date Type Department Care Team Description 04/26/2025 2:50 PM EDT Office Visit [facility] [employer] [address] [place] [address] Monika Figueroa PA Encounter for visit ([facility]); S/P section; Postop check 04/26/2025 Bamboo flowsheet [facility] [address] [place] [address] Monika Figueroa PA 04/22/2025 Abstract [facility] [place] [address] [place] [address] Grace Redding, DO 04/20/2025 Abstract [facility] OB [address] [place] [address] [place] [address] Graec Redding, DO 04/20/2025 Clinisync Result Encounter [facility]OMS External Department Unsolicited Grace Redding, DO 04/19/2025 Clinisync Result Encounter [facility] External Department Unsolicited Grace Redding, DO 04/18/2025 Abstract [facility] [place] [address] [place] [address] Grace Redding, DO 04/18/2025 Abstract [facility] [address] [place] [address] Miladis, Grace, DO 04/18/2025 Clinisync Result Encounter [facility] External Department Unsolicited Miladis, Grace, DO 04/13/2025 2:10 PM EDT Routine [facility] OB [address] [facility] [place] [address] Miladis, Grace, DO Third trimester ([facility]); 36 weeks gestation of ([facility]) 04/13/2025 Clinisync Result Encounter [facility] External Department Unsolicited Miladis, Grace, DO 04/13/2025 Clinisync Result Encounter [facility] External Department Unsolicited Miladis, Grace, DO 04/13/2025 Bamboo flowsheet [facility] OB [address] [facility] [place] [address] Miladis, Grace, DO 04/11/2025 Clinisync Result Encounter [facility] External Department Unsolicited Miladis, Grace, DO 04/04/2025 Clinisync Result Encounter [facility] External Department Unsolicited Miladis, Grace, DO 03/23/2025 3:50 PM EDT Routine [facility] OB [address] [facility] [place] [address] Monika Figueroa PA Third trimester ([facility]); 33 weeks gestation of ([facility]); Multigravida of advanced maternal age in third trimester ([facility]) 03/23/2025 Clinisync Result Encounter [facility] External Department Unsolicited Miladis, Grace, DO 03/23/2025 Clinisync Result Encounter [facility] External Department Unsolicited Miladis, Grace, DO 03/23/2025 Bamboo flowsheet [facility] BCP OB [address] [place] [address] Monika Figueroa PA 03/07/2025 3:30 PM EDT Routine [facility] OB [address] [facility] [place] [address] MiladisGrace, DO Upper respiratory tract infection, unspecified type (Primary Dx); Third trimester ([facility]); 31 weeks gestation of ([facility]); Multigravida of advanced maternal age in third trimester ([facility]) 03/07/2025 3:00 PM EDT Ancillary Procedure [facility] [address] [place] [phone] Size of fetus inconsistent with dates in third trimester ([facility]) 02/21/2025 8:30 AM EDT Routine [facility] [address] [place] [address] Grace Redding DO Third trimester ([facility]); 29 weeks gestation of ([facility]); Size of fetus inconsistent with dates in third trimester ([facility]) 02/21/2025 Bamboo flowsheet [facility] [address] [place] [address] Grace Redding DO 02/15/[address] [address] [place] [phone] Grace Redding DO from Last 3 Months [...] Description 05/31/2025 11:20 AM EDT Visit [facility] [address] [place] [address] Monika Figueroa PA [address] [place] [address] [place] [address] Procedures Procedure Name Priority Date/Time Associated Diagnosis [...] Routine 04/13/2025 2:24 PM EDT Third trimester ([facility]) US OB BPP W NON-STRESS 04/11/2025 3:49 PM EDT US OB BPP W NON-STRESS 04/04/2025 2:52 PM EDT US OB CERVICAL LENGTH 03/23/2025 6:27 PM EDT [facility] UA (CLEAN/CATCH) MUSIC MINISTER/MICRO IF IND. Routine 03/23/2025 4:55 PM EDT POCT URINALYSIS DIPSTICK Routine 03/23/2025 4:29 PM EDT Third trimester ([facility]) POCT URINALYSIS DIPSTICK Routine 03/07/2025 3:51 PM EDT Third trimester ([facility]) US OB FOLLOW UP TRANSABDOMINAL APPROACH Routine 03/07/2025 3:15 PM EDT Size of fetus inconsistent with dates in third trimester ([facility]) POCT URINALYSIS DIPSTICK Routine 02/21/2025 8:43 AM EDT Third trimester ([facility]) from Last 3 Months Results * (ABNORMAL) [...] us Grace Miladis DO [facility] DRUG SCREEN RAPID (URINE) (04/18/2025 4:45 PM EDT) CANNABINOID SCREEN URINE NEGATIVE NEGATIVE [facility] PHENCYCLIDINE [...] - 04/18/2025 5:36 PM EDT us Grace Miladis DO [facility] Final Result [facility] TB * US OB BPP W NON-STRESS (04/18/2025 2:55 PM EDT) Only the most recent of3 resultswithin the time period is included. Anatomical Region Laterality Modality Other 04/18/2025 2:55 PM EDT Narrative 04/18/2025 2:57 [place] [address] Ultrasound Report Signed Patient: YESSI LIMON MR#: [id number] : 1985 Acct:[id number] Age/Sex: 40 / F ADM Date: 04/18/25 Loc: [facility] 250-[address]: Grace Redding D.O. Ordering Physician: Grace Redding D.O. Date of Service: 04/18/25 Procedure(s): US OB BPP w non-stress Accession Number(s): [id number] cc: Grace Redding D.O.; Codey Ponce M.D. [place] [address] Patient Name: YESSI LIMON MRN: [id number] date: 1985 Sex: F Assigned Patient Location: [facility] Current Patient Location: [facility] Accession/Order Number: [id number] Exam Date: 04/18/2025 14:54 Report Date: 04/18/2025 14:55 At the request of: GRACE REDDING DO Procedure: US OB BPP w non-stress Ultrasound biophysical profile HISTORY: Advanced maternal age. Multi . Technique: Transabdominal imaging of the gravid uterus was obtained. COMPARISON: BDP 04/11/2025. FINDINGS: Watershed Manager reports a BPP of 8 out of 8. heart rate 147 bpm. THEO is 8.5 cm. US/US OB BPP w non-stress IMPRESSION: BPP 8 out of 8. Impression dictated by: Luis Alfredo Truong Jr., D.O. 04/18/2025 2:55 PM Dictation Location: [employer] Electronically authenticated by: [id number] Y Date: 04/18/2025 14:55 Dictated By: Luis Alfredo Truong M.D. Signed By: 04/18/257 DD/ 54 TD/TT: Director Student Union: Procedure Note Radiology, Radiologist, - 04/18/2025 [place] [address] Ultrasound Report Signed Patient: YESSI LIMON#: [id number] : 1985Acct:[id number] Age/Sex: 40 / FADM Date: 04/18/25 Loc: [place] [address]-[address]: Grace Redding D.O. Ordering Physician: Grace Redding D.O. Date of Service: 04/18/25 Procedure(s): US OB BPP w non-stress Accession Number(s): [id number] cc: Grace Redding D.O.; Codey Ponce M.D. [place] [address] Patient Name: YESSI LIMON MRN: [facility]:[id number] date: 1985 Sex: F Assigned Patient Location: [facility] Current Patient Location: [facility] Accession/Order Number: [id number] Exam Date: 04/18/2025 14:54 Report Date: 04/18/2025 14:55 At the request of: GRACE REDDING DO Procedure: US OB BPP w non-stress Ultrasound biophysical profile HISTORY: Advanced maternal age. Multi . Technique: Transabdominal imaging of the gravid uterus was obtained. COMPARISON: BDP 04/11/2025. FINDINGS: Watershed Manager reports a BPP of 8 out of 8. heart rate 147bpm. THEO is 8.5 cm. US/US OB BPP w non-stress IMPRESSION: BPP 8 out of 8. Impression dictated by: Giancarlo Iraheta Jr.OKeaton 04/18/2025 2:55 PM Dictation Location: [employer] Electronically authenticated by: [id number] Y Date: 4:55 Dictated By: Luis Alfredo Truong M.D. Signed By:04/18/257 DD/ 54 TD/TT: Director Student Union: us Grace Redding DO [facility] Final Result * US OB PLACENTA (04/13/2025 8:14 PM EDT) Anatomical Region Laterality Modality Other 04/13/2025 8:14 PM EDT Narrative 04/13/2025 8:17 [place] [address] Ultrasound Report Signed Patient: YESSI LIMON MR#: [id number] : 1985 Acct:[id number] Age/Sex: 40 / F ADM Date: Loc: [facility] 254-[address]: Grace Redding D.O. Ordering Physician: Grace Redding D.O. Date of Service: 04/13/25 Procedure(s): US OB placenta Accession Number(s): [id number] cc: Grace Redding D.O.; Codey Ponce M.D. [place] [id number] Patient Name: YESSI LIMON MRN: [id number] date: 1985 Sex: F Assigned Patient Location: [facility] Current Patient Location: [facility] Accession/Order Number: [id number] Exam Date: 04/13/2025 20:12 Report Date: 04/13/2025 [...] Gould M.D. 04/13/2025 8:14 PM Dictation Location: [employer] Electronically authenticated by: [id number] Y Date: 04/13/2025 20:14 Dictated By: Jhon Gould D.O. Signed By: 04/13/252016 DD/ 13 TD/TT: Director Student Union: Procedure Note Radiology, Radiologist, - 04/13/2025 [place] [address] Ultrasound Report Signed Patient: YESSI LIMON#: [id number] : 1985Acct:[id number] Age/Sex: 40 / FADM Date: Loc: [facility] 254-[address]: Grace Redding D.O. Ordering Physician: Grace Redding D.O. Date of Service: 04/13/25 Procedure(s): US OB placenta Accession Number(s): [id number] cc: Grace Redding D.O.; Codey Ponce M.D. [place] [address] Patient Name: YESSI LIMON MRN: [id number] date: 1985 Sex: F Assigned Patient Location: [facility] Current Patient Location: [facility] Accession/Order Number: [id number] Exam Date: 04/13/2025 20:12 Report Date: 04/13/2025 [...] Gould M.D. 04/13/2025 8:14 PM Dictation [facility] Electronically authenticated by: [id number] Y Date: 0:14 Dictated By: Jhon Gould D.O. Signed By:04/13/252016 DD/ 13 TD/TT: Director Student Union: us Grace Miladis DO [facility] Final Result * AMNISURE (04/13/2025 4:55 PM EDT) Pathologist [facility] AMNISURE NEGATIVE NEGATIVE TB 04/13/2025 4:55 PM EDT 04/13/2025 4:57 PM EDT Narrative [facility] - 04/13/2025 5:09 PM EDT us Grace Miladis DO LAB BLOOD ORDERABLES Final Resul t [facility] * POCT urinalysis dipstick manually resulted (04/13/2025 2:24 PM EDT) Only the most recent of4 resultswithin the time period is included. Pathologist [facility] Color, UA Yellow Clarity, UA Clear Glucose, [...] Urine 04/13/2025 2:24 PM EDT us Grace Miladis DO POINT OF CARE TEST ENTER/EDIT OR DERABLES Final Result * US OB CERVICAL LENGTH (03/23/2025 6:27 PM EDT) Anatomical Region Laterality Modality Other 03/23/2025 6:27 PM EDT Narrative 03/23/2025 6:29 [place] [address] Ultrasound Report Signed Patient: YESSI LIMON MR#: [id number] : 1985 Acct:[id number] Age/Sex: 40 / F ADM Date: 03/23/25 Loc: [facility] 250-[address]: Grace Redding D.O. Ordering Physician: Grace Redding D.O. Date of Service: 03/23/25 Procedure(s): US OB cervical length Accession Number(s): [id number] cc: Grace Redding D.O.; Codey Ponce M.D. [place] [address] Patient Name: YESSI LIMON MRN: [id number] date: 1985 Sex: F Assigned Patient Location: [facility] Current Patient Location: [facility] Accession/Order Number: [id number] Exam Date: 03/23/2025 18:26 Report Date: 03/23/2025 [...] Gould M.D. 03/23/2025 6:27 PM Dictation Location: [place] [address] Electronically authenticated by: [id number] Y Date: 03/23/2025 18:27 Dictated By: Jhon Gould D.O. Signed By: 03/23/25 182 DD/ 26 TD/TT: Director Student Union: Procedure Note Radiology, Radiologist, - 03/23/2025 [place] [address] Ultrasound Report Signed Patient: YESSI LIMON#: [id number] : 1985Acct:[id number] Age/Sex: 40 / FADM Date: 03/23/25 Loc: [facility] [address]: Grace Redding D.O. Ordering Physician: Grace Redding D.O. Date of Service: 03/23/25 Procedure(s): US OB cervical length Accession Number(s): [id number] cc: Grace Redding D.O.; Codey Ponce M.D. [place] [address] Patient Name: YESSI LIMON MRN: [facility]:[id number] date: 1985 Sex: F Assigned Patient Location: [facility] Current Patient Location: [facility] Accession/Order Number: [id number] Exam Date: 03/23/2025 18:26 Report Date: 03/23/2025 [...] Gould M.D. 03/23/2025 6:27 PM Dictation Location: [place] [address] Electronically authenticated by: [id number] Y Date: 8:27 Dictated By: Jhon Gould D.O. Signed By:03/23/259 DD/ 26 TD/TT: Director Student Union: us Grace Redding DO [facility] Final Result * (ABNORMAL) [facility] UA (CLEAN/CATCH) MUSIC MINISTER/MICRO IF IND. (03/23/2025 4:55 PM EDT) COLOR [...] PM EDT 03/23/2025 5:11 PM EDT Narrative [facility] - 03/23/2025 5:26 PM EDT us Grace Miladis DO [facility] Final Result [facility] TB * US OB follow up transabdominal [...] II, MD, PHD at 09-Mar-2025 08:42:20 AM [facility] [facility] Procedure Note Benson Nelson MD - [...] signed by BENSON NELSON II, MD, PHD [id number] 08:42:20 AM [facility] [facility] us Grace Redding DO [facility] [place] US PROCEDURES Final Resul t from Last 3 Months Insurance BCBS Care Teams Nursing Care Attendant Relationship Specialty Start Date End Date Codey Ponce MD [address] [place] [address] PCP - General Family Medicine 10/08/24
--- OUTSIDE RECORDS SUMMARY | 2025-05-16 13:46 | XMS_ITS | Encounter Summary ---
Author Organization [facility] Address [address] [facility] [place] [address] Care Team Providers Care Slater Apprentice Name Role Phone Codey Ponce MD Primary Care Provider [phone] Encounter Details Date Type Department Care Team (Late Contact Info) Description 10/08/2024 Abstract [facility] OB [address] [facility] [address] Henry Redding DO [address] [facility] [address] [place], [place] [address] Social History Tobacco Use Types Packs/Day Years [...] Description 05/31/2025 11:20 AM EDT Visit [facility] OB [address] [facility] [place] [address] Monika Figueroa PA [address] [place] [address] documented as of this encounter Visit Diagnoses Not on filedocumented in this encounter Care Teams Slater Apprentice Relationship Specialty Start Date End Date Codey Ponce MD [address] [facility] [place] [address] PCP - General Family Medicine 10/08/24 documented as of this encounter
--- OUTSIDE RECORDS SUMMARY | 2025-05-16 13:46 | XMS_ITS | Encounter Summary ---
Author Organization [facility] Address [address] [facility] [address] Care Team Providers Care Eyelet Maker Name Role Phone Codey Ponce MD Primary Care Provider [phone] Encounter Details Date Type Department Care Team (Late Contact Info) Description 11/23/2024 Abstract [facility] OB [address] [facility] [place] [address] Henry Redding DO [address] [facility] [address] [place], [place] [phone] Social History Tobacco Use Types Packs/Day Years [...] Description 05/31/2025 11:20 AM EDT Visit [facility] OB [address] [facility] [place] [place] [address] Monika Figueroa PA [address] [facility] [place] [address] documented as of this encounter Visit Diagnoses Not on filedocumented in this encounter Care Teams Eyelet Maker Relationship Specialty Start Date End Date Codey Ponce MD [address] [place] [facility] [place] [address] PCP - General Family Medicine 10/08/24 documented as of this encounter
--- OUTSIDE RECORDS SUMMARY | 2025-05-16 13:46 | XMS_ITS | Encounter Summary ---
Author Organization [facility] Address [address] [facility] [place] [address] Care Team Providers Care Veterinarian Small Animal Name Role Phone Codey Ponce MD Primary Care Provider [phone] Encounter Details Date Type Department Care Team (Late Contact Info) Description 04/20/2025 Abstract [facility] OB [address] [place] [address] Henry Redding DO [address] [facility] [address] [place], [place] [address] Social History Tobacco Use Types Packs/Day Years [...] Description 05/31/2025 11:20 AM EDT Visit [facility] OB [address] [place] [address] Monika Figueroa PA [address] [facility] [place] [address] documented as of this encounter Visit Diagnoses Not on filedocumented in this encounter Care Teams Veterinarian Small Animal Relationship Specialty Start Date End Date Codey Ponce MD [address] [facility] [place] [address] PCP - General Family Medicine 10/08/24 documented as of this encounter
--- OUTSIDE RECORDS SUMMARY | 2025-05-16 13:46 | XMS_ITS | Encounter Summary ---
Author Organization [facility] Address [address] [facility] [place] [address] Care Team Providers Care Scale Balancer Name Role Phone Codey Ponce MD Primary Care Provider [phone] Encounter Details Date Type Department Care Team (Late Contact Info) Description 04/22/2025 Abstract [facility] OB [address] [facility] [place] [address] Henry Redding DO [address] [facility] [address] [place], [place] [address] Social History Tobacco Use Types Packs/Day Years [...] Description 05/31/2025 11:20 AM EDT Visit [facility] OB [address] [facility] [place] [address] Monika Figueroa PA [address] [facility] [place] [address] documented as of this encounter Visit Diagnoses Not on filedocumented in this encounter Care Teams Scale Balancer Relationship Specialty Start Date End Date Codey Ponce MD [address] [facility] [place] [address] PCP - General Family Medicine 10/08/24 documented as of this encounter
--- OUTSIDE RECORDS SUMMARY | 2025-05-16 13:47 | XMS_ITS | Encounter Summary ---
Author Organization [facility] Address [address] [facility] [place] [address] Care Team Providers Care Molded Goods Embossing Press Operator Name Role Phone Codey Ponce MD Primary Care Provider [phone] Encounter Details Date Type Department Care Team (Late st Contact Info) Description 01/18/2025 Orders Only [facility] [address] [place] [id number] Maria Guadalupe Hernandez MA [address] [place] [address] [place] [address] Social History Tobacco Use Types Packs/Day Years [...] Description 05/31/2025 11:20 AM EDT Visit [facility] [address] [place] [address] [place] [id number] Monika Figueroa PA [address] [place] [address] documented as of this encounter Procedures Procedure Name Priority Date/Time Associated Diagnosis Comments PAP SMEAR Routine 01/05/2025 12:00 AM EST documented in this encounter Results * Pap Smear (01/05/2025 12:00 AM EST) Swab Cervical swab / Unknown us Henry Miladis DO LAB CYTOLOGY ORDERABLES Final Re sult EXTERNAL LAB documented in this encounter Visit Diagnoses Not on filedocumented in this encounter Care Teams Molded Goods Embossing Press Operator Relationship Specialty Start Date End Date Codey Ponce MD [address] [place] [address] PCP - General Family Medicine 10/08/24 documented as of this encounter
--- OUTSIDE RECORDS SUMMARY | 2025-05-16 13:47 | XMS_ITS | Encounter Summary ---
Author Organization [facility] Address [address] [facility] [place] [address] Care Team Providers Care Sql Programmer Name Role Phone Codey Ponce MD Primary Care Provider [phone] Encounter Details Date Type Department Care Team (Late Contact Info) Description 04/18/2025 Abstract [facility] [address] [facility] [place] [phone] Henry Redding DO [address] [facility] [address] [place], [place] [id number] Social History Tobacco Use Types Packs/Day Years [...] Description 05/31/2025 11:20 AM EDT Visit [facility] [address] [facility] [place] [phone] Monika Figueroa PA [address] [facility] [place] [address] documented as of this encounter Visit Diagnoses Not on filedocumented in this encounter Care Teams Sql Programmer Relationship Specialty Start Date End Date Codey Ponce MD [address] [place] [address] PCP - General Family Medicine 10/08/24 documented as of this encounter
--- OUTSIDE RECORDS SUMMARY | 2025-05-16 13:47 | XMS_ITS | Encounter Summary ---
Author Organization [facility] Address [address] [facility] [place] [address] Care Team Providers Care Pipe Smoker Machine Operator Name Role Phone Codey Ponce MD Primary Care Provider [phone] Encounter Details Date Type Department Care Team (Late Contact Info) Description 04/18/2025 Abstract [facility] [address] [facility] [place] [phone] Henry Redding DO [address] [facility] [address] [place], [place] [id number] Social History Tobacco Use Types Packs/Day Years [...] 05/31/2025 11:20 AM EDT Visit [facility] [address] [facility] [place] [phone] Monika Figueroa PA [address] [facility] [place] [address] documented as of this encounter Visit Diagnoses Not on filedocumented in this encounter Care Teams Pipe Smoker Machine Operator Relationship Specialty Start Date End Date Codey Ponce MD [address] [facility] [place] [address] PCP - General Family Medicine 10/08/24 documented as of this encounter
== END 2025-05-16 14:26 | disposition home or self-care (01) ==
PROVIDERS: PCP Family Medicine; Visit Provider Obstetrics & Gynecology
DX: Z39.1 Encounter for care and examination of lactating mother (principal)
CPT/HCPCS: G0463

== ENCOUNTER 2025-05-23 08:52 | Outpatient (OUT) | payer BC, SELFPAY ==
--- OUTSIDE RECORDS SUMMARY | 2025-05-23 09:17 | XMS_ITS | CCD ---
Author Organization [facility] Care Team Providers Care Machine Cage Maker Name Role Phone GLENNA MCINTYRE Admitting Unavailable MIGUELINAGLENNA SO Attending Unavailable GLENNA MCINTYRE L Consulting Unavailable NORM PONCE Admitting Unavailable NORM PONCE Attending Unavailable NORM PONCE Consulting Unavailable ANDREA AVERY Consulting Unavailable Norm Ponce MD Primary Care Provider [phone] Norm Ponce MD Primary Care Provider [phone] Norm Ponce MD Primary Care Provider [phone] MONIKA FRIED Attending Unavailable MILADISGRACE DOMÍNGUEZ Attending Unavailable MONIKA FRIED Attending Unavailable MILADISGRACE Hanson Attending Unavailable MILADISGRACE DOMÍNGUEZ Attending Unavailable MILADIS, GRAEC Attending Unavailable MONIKA FRIED Attending Unavailable MILADIS, GRACE Attending Unavailable MONIKA FRIED Attending Unavailable Allergies Allergy Classification Reported Allergen(s) Allergy Type Date of Onset Reaction(s) Facility (1 source) Desonide Drug Allergy [facility] Repository Medications Current Medications Medication Drug Class(es) Dates Sig (Normalized) Sig (Original) codeine phosphate 2 mg/ml / guaiFENesin 20 [...] 9 tablet 10/25/2024 11/09/2024 Discontinued (Therapy completed) Completed/Discontinued Medications Medication Drug Class(es) Dates Sig (Normalized) Sig (Original) azithromycin 250 mg oral tablet (12 sources) Macrolide Antimicrobial Start: 03-07-2025 End: 04-13-2025 azithromycin (Zithromax Z-Francis) 250 MG tablet Indications: Upper respiratory tract infection, unspecified type As directed 6 tablet 03/07/2025 04/13/2025 Discontinued (Therapy completed) Problems Active Problems Problem [...] Translations: [Irregular menstruation, unspecified] 10-08-2024 Chronic Other aftercare (2 sources) Surgical follow-up; Translations: [Encounter for follow-up examination after completed treatment for conditions other than malignant neoplasm] 04-26-2025 Episodic Other complications of (2 sources) size does not accord with dates; Translations: [Uterine size-date discrepancy, third trimester] 02-21-2025 Episodic Other complications of (4 sources) Multigravida of advanced maternal age; Translations: [Supervision of elderly multigravida, third trimester] 03-07-2025 Episodic Other connective tissue disease (4 sources) Pain in left lower leg; Translations: [PAIN IN LEFT LOWER LEG] Onset: 05-15-2020 Episodic Other and delivery including normal (20 sources) ; Translations: [Encounter for supervision of [...] [33 weeks gestation of ] 03-23-2025 Episodic Residual codes; unclassified (2 sources) Gestation period, 36 weeks; Translations: [36 weeks gestation of ] 04-13-2025 Episodic Past or Other Problems Problem Classification Problem Date Documented Date Episodic/Chronic Other female genital disorders (4 sources) Other specified noninflammatory disorders of vagina; Translations: [OTH SPEC NONINFLAMMATORY D/O VAGINA] Onset: 08-06-2019 Episodic Urinary tract infections (20 sources) Urinary tract infectious disease; Translations: [Urinary tract infection, site not specified] Onset: 10-25-2024 10-25-2024 Episodic Results Test Name Value Interpretation Reference Range Facility ALL CBC WITH AUTO DIFFon BASOPHILS ABSOLUTE AUTO 0 [facility] Basophils/100 WBC (Bld) 0.2 % 0.2 - 2.0 % [facility] Eosinophils/100 WBC (Bld) 0.4 % Low 0.9 - 7.0 % [facility] Erythrocyte distribution width (RBC) [Ratio] 15.3 % High 11.0 - 15.0 % [facility] Hematocrit (Bld) [Volume fraction] 26.9 % Low 36.0 - 48.0 % [facility] Hemoglobin (Bld) [Mass/Vol] 8.8 g/dL Low 12.0 - 16.0 g/dL [facility] IMMATURE GRANULOCYTES ABS AUTO 0.1 High [facility] Immature granulocytes/100 WBC (Bld) 1 % High 0.0 - 0.5 % [facility] Interpretation and review of laboratory results Abnormal [facility] LYMPHOCYTES ABSOLUTE AUTO 2 [facility] Lymphocytes/100 WBC (Bld) 20 % Low 20.5 - 60.0 % [facility] MCH (RBC) [Entitic mass] 30.3 pg 26.7 - 34.0 pg [facility] MCHC (RBC) [Mass/Vol] 32.7 g/dL 29.9 - 35.2 g/dL [facility] MCV (RBC) [Entitic vol] 92.8 fL 81.0 - 99.0 fL [facility] MONOCYTES ABSOLUTE AUTO 0.5 [facility] Monocytes/100 WBC (Bld) 4.9 % 1.7 - 12.0 % [facility] NEUTROPHILS ABSOLUTE AUTO 7.2 High [facility] Neutrophils/100 WBC (Bld) 73.5 % 43.0 - 75.0 % [facility] Platelet mean volume (Bld) [Entitic vol] 10 fL 9.5 - 13.5 fL [facility] # 0 [facility] PLT 142 Low [facility] RBC 2.9 Low [facility] WBC 9.8 [facility] ALL CBC WITH AUTO DIFFon BASOPHILS ABSOLUTE AUTO 0 [facility] Basophils/100 WBC (Bld) 0.2 % 0.2 - 2.0 % [facility] Eosinophils/100 WBC (Bld) 0 % Low 0.9 - 7.0 % [facility] Erythrocyte distribution width (RBC) [Ratio] 14.8 % 11.0 - 15.0 % [facility] Hematocrit (Bld) [Volume fraction] 27.8 % Low 36.0 - 48.0 % [facility] Hemoglobin (Bld) [Mass/Vol] 9.3 g/dL Low 12.0 - 16.0 g/dL [facility] IMMATURE GRANULOCYTES ABS AUTO 0.09 High [facility] Immature granulocytes/100 WBC (Bld) 0.8 % High 0.0 - 0.5 % [facility] Interpretation and review of laboratory results Abnormal [facility] LYMPHOCYTES ABSOLUTE AUTO 0.7 Low [facility] Lymphocytes/100 WBC (Bld) 6.6 % Low 20.5 - 60.0 % [facility] MCH (RBC) [Entitic mass] 30.1 pg 26.7 - 34.0 pg [facility] MCHC (RBC) [Mass/Vol] 33.5 g/dL 29.9 - 35.2 g/dL [facility] MCV (RBC) [Entitic vol] 90 fL 81.0 - 99.0 fL [facility] MONOCYTES ABSOLUTE AUTO 0.4 [facility] Monocytes/100 WBC (Bld) 4 % 1.7 - 12.0 % [facility] NEUTROPHILS ABSOLUTE AUTO 9.5 High [facility] Neutrophils/100 WBC (Bld) 88.4 % High 43.0 - 75.0 % [facility] Platelet mean volume (Bld) [Entitic vol] 10.5 fL 9.5 - 13.5 fL [facility] EO # 0 [facility] PLT 164 [facility] RBC 3.09 Low [facility] WBC 10.8 [facility] US OB BPP W NON-STRESS on 04-18-2025 [place] [address] Ultrasound Report Signed Patient: YESSI AGEE MR#: [id number] : 1985 Acct:[id number] Age/Sex: 40 / F ADM Date: 04/18/25 Loc: [facility] 250-[address]: Grace Redding D.O. Ordering Physician: Grace Redding D.O. Date of Service: 04/18/25 Procedure(s): US OB BPP w non-stress Accession Number(s): [id number] cc: Grace Redding D.O.; Norm Ponce M.D. The [address] [address] Patient Name: YESSI AGEE MRN: [facility]:[id number] date: 1985 Sex: F Assigned Patient Location: [facility] Current Patient Location: [facility] Accession/Order Number: [id number] Exam Date: 04/18/2025 14:54 Report Date: 04/18/2025 14:55 At the request of: GRACE REDDING DO Procedure: US OB BPP w non-stress Ultrasound biophysical profile HISTORY: Advanced maternal age. Multi . Technique: Transabdominal imaging of the gravid uterus was obtained. COMPARISON: [facility] 04/11/2025. FINDINGS: Mat Sewer reports a BPP of 8 out of 8. heart rate 147 bpm. THEO is 8.5 cm. US/US OB BPP w non-stress IMPRESSION: BPP 8 out of 8. Impression dictated by: Luis Alfredo Truong Jr., D.O. 04/18/2025 2:55 PM Dictation Location: [place] [address] Electronically authenticated by: [id number] Y Date: 04/18/2025 14:55 Dictated By: Luis Alfredo Truong M.D. Signed By: 04/18/25 1457 DD/ 54 TD/TT: Autocad Designer: [facility] Radiology, Radiologist, MD - 04/18/2025 [place] [address] Ultrasound Report Signed Patient: YESSI AGEE MR#: [id number] : 1985 Acct:[id number] Age/Sex: 40 / F ADM Date: 04/18/25 Loc: [facility] 250-[address]: Grace Redding D.O. Ordering Physician: Grace Redding D.O. Date of Service: 04/18/25 Procedure(s): US OB BPP w non-stress Accession Number(s): [id number] cc: Grace Redding D.O.; Norm Ponce M.D. The [place] [id number] Patient Name: YESSI AGEE MRN: [id number] date: 1985 Sex: F Assigned Patient Location: [facility] Current Patient Location: [facility] Accession/Order Number: [id number] Exam Date: 04/18/2025 14:54 Report Date: 04/18/2025 14:55 At the request of: GRACE REDDING DO Procedure: US OB BPP w non-stress Ultrasound biophysical profile HISTORY: Advanced maternal age. Multi . Technique: Transabdominal imaging of the gravid uterus was obtained. COMPARISON: [facility] 04/11/2025. FINDINGS: Mat Sewer reports a BPP of 8 out of 8. heart rate 147 bpm. THEO is 8.5 cm. US/US OB BPP w non-stress IMPRESSION: BPP 8 out of 8. Impression dictated by: Luis Alfredo Truong Jr., D.O. 04/18/2025 2:55 PM Dictation Location: [place] [address] Electronically authenticated by: [id number] Y Date: 04/18/2025 14:55 Dictated By: Luis Alfredo Truong M.D. Signed By: 04/18/25 1457 DD/ 54 TD/TT: Autocad Designer: [facility] Radiology Study observation (narrative) [facility] US OB BPP W NON-STRESS Ordered By: Radiologist Radiology on 04-18-2025 [facility] Work Phone: AMNISUREon 04-13-2025 [facility] AMNISURE Negative NEGATIVE [facility] are [facility] US OB PLACENTAon 04-13-[address] [address] Ultrasound Report Signed Patient: YESSI AGEE MR#: [id number] : 1985 Acct:[id number] Age/Sex: 40 / F ADM Date: Loc: [facility] 254-[address]: Grace Redding D.O. Ordering Physician: Grace Redding D.O. Date of Service: 04/13/25 Procedure(s): US OB placenta Accession Number(s): [id number] cc: Grace Redding D.O.; Norm Ponce M.D. The [place] [phone] Patient Name: YESSI AGEE MRN: [facility]:[id number] date: 1985 Sex: F Assigned Patient Location: [facility] Current Patient Location: [facility] Accession/Order Number: [id number] Exam Date: 04/13/2025 20:12 Report Date: 04/13/2025 [...] Gould M.D. 04/13/2025 8:14 PM Dictation Location: [place] [address] Electronically authenticated by: [id number] Y Date: 04/13/2025 20:14 Dictated By: Jhon Gould D.O. Signed By: 04/13/252016 DD/ 13 TD/TT: Autocad Designer: [facility] Radiology, Radiologist, MD - 04/13/2025 [place] [address] Ultrasound Report Signed Patient: YESSI AGEE MR#: [id number] : 1985 Acct:[id number] Age/Sex: 40 / F ADM Date: Loc: [facility] 254- Attending Dr: Grace Redding D.O. Ordering Physician: Grace Redding D.O. Date of Service: 04/13/25 Procedure(s): US OB placenta Accession Number(s): [id number] cc: Grace Redding D.O.; Norm Ponce M.D. [place] [id number] Patient Name: YESSI AGEE MRN: [id number] date: 1985 Sex: F Assigned Patient Location: [facility] Current Patient Location: [facility] Accession/Order Number: [id number] Exam Date: 04/13/2025 20:12 Report Date: 04/13/2025 [...] Gould M.D. 04/13/2025 8:14 PM Dictation Location: [place] [address] Electronically authenticated by: [id number] Y Date: 04/13/2025 20:14 Dictated By: Jhon Gould D.O. Signed By: 04/13/252016 DD/ 13 TD/TT: Autocad Designer: [facility] Radiology Study observation (narrative) [facility] OB PLACENTAOrdered By: Ra reynosoogyesenia Radiology on 04-13-2025 [facility] [employer] Work Phone: Urinalysis macro (dipstick) panel (U)on 04-13-2025 Bilirubin, UA Negative Negative - 4(70) +++ mg/dL [facility] Blood, UA Positive Negative - 50 Venu/mcL [facility] Clarity, UA Clear [facility] Color, UA Yellow [facility] Glucose, UA Negative Negative - 1999(110) ++++ mg/dL [facility] Interpretation and review of laboratory results Normal [facility] Ketones, UA Negative Negative - 160(16) ++++ mg/dL [facility] Leukocytes, UA Negative Negative - 500+++ Michael/mcL [facility] Nitrite, UA Negative Negative - Positive [facility] pH, UA 6 5 - 9 [facility] Protein, UA Negative Negative - 1999(20) ++++ mg/dL [facility] Spec Grav, UA 1.015 1 - 1.03 [facility] care Urobilinogen, UA 0.2 0.2 - 12 mg/dL [facility] US OB BPP W NON-STRESS on 04-11-2025 [place] [address] Ultrasound Report Signed Patient: YESSI AGEE MR#: [id number] : 1985 Acct:[id number] Age/Sex: 40 / F ADM Date: 04/11/25 Loc: US Attending Dr: Grace Redding D.O. Ordering Physician: Grace Redding D.O. Date of Service: 04/11/25 Procedure(s): US OB BPP w non-stress Accession Number(s): [id number] cc: Grace Redding D.O.; Norm Ponce M.D. [place] [phone] Patient Name: YESSI AGEE MRN: [id number]:[id number] date: 1985 Sex: F Assigned Patient Location: [facility] Current Patient Location: Accession/Order Number: [id number] Exam Date: 04/11/2025 15:48 Report Date: 04/11/2025 [...] Gould M.D. 04/11/2025 3:49 PM Dictation Location: [place] [address] Electronically authenticated by: [id number] Y Date: 04/11/2025 15:49 Dictated By: Jhon Gould D.O. Signed By: 04/11/25 1552 DD/ 1549 TD/TT: Autocad Designer: [facility] Radiology, Radiologist, - 04/11/2025 The [place] [id number] Ultrasound Report Signed Patient: YESSI AGEE MR#: [id number] : 1985 Acct:[id number] Age/Sex: 40 / F ADM Date: 04/11/25 Loc: US Attending Dr: Grace Redding D.O. Ordering Physician: Grace Redding D.O. Date of Service: 04/11/25 Procedure(s): US OB BPP w non-stress Accession Number(s): [id number] cc: Grace Redding D.O.; Norm Ponce M.D. The [place] [phone] Patient Name: YESSI AGEE MRN: [facility]:[id number] date: 1985 Sex: F Assigned Patient Location: [facility] Current Patient Location: Accession/Order Number: [id number] Exam Date: 04/11/2025 15:48 Report Date: 04/11/2025 [...] Gould M.D. 04/11/2025 3:49 PM Dictation Location: [place] [address] Electronically authenticated by: [id number] Y Date: 04/11/2025 15:49 Dictated By: Jhon Gould D.O. Signed By: 04/11/25 1552 DD/ 1549 TD/TT: Autocad Designer: [facility] Radiology Study observation (narrative) [facility] US OB BPP W NON-STRESS Ordered By: Radiologist Radiology on 04-11-2025 [facility] [employer] Work Phone: US OB BPP W NON-STRESS on 04-04-2025 [place] [address] Ultrasound Report Signed Patient: YESSI AGEE MR#: [id number] : 1985 Acct:[id number] Age/Sex: 40 / F ADM Date: 04/04/25 Loc: US Attending Dr: Grace Redding D.O. Ordering Physician: Grace Redding D.O. Date of Service: 04/04/25 Procedure(s): US OB BPP w non-stress Accession Number(s): [id number] cc: Grace Redding D.O.; Norm Ponce M.D. [place] [phone] Patient Name: YESSI AGEE MRN: [facility]:[id number] date: 1985 Sex: F Assigned Patient Location: [facility] Current Patient Location: Accession/Order Number: [id number] Exam Date: 04/04/2025 14:51 Report Date: 04/04/2025 [...] ultrasound biophysical profile Impression dictated by: Jhon Goudl M.D. 04/04/2025 2:52 PM Dictation Location: [employer] Electronically authenticated by: [id number] Y Date: 04/04/2025 14:52 Dictated By: Jhon Gould D.O. Signed By: 04/04/25 1454 DD/ 145 TD/TT: Autocad Designer: [facility] Radiology, Radiologist, - 04/04/[address] [address] Ultrasound Report Signed Patient: YESSI AGEE MR#: [id number] : 1985 Acct:[id number] Age/Sex: 40 / F ADM Date: 04/04/25 Loc: US Attending Dr: Grace Redding D.O. Ordering Physician: Grace Redding D.O. Date of Service: 04/04/25 Procedure(s): US OB BPP w non-stress Accession Number(s): [id number] cc: Grace Redding D.O.; Norm Ponce M.D. The [place] [phone] Patient Name: YESSI AGEE MRN: [id number] date: 1985 Sex: F Assigned Patient Location: [facility] Current Patient Location: Accession/Order Number: [id number] Exam Date: 04/04/2025 14:51 Report Date: 04/04/2025 [...] ultrasound biophysical profile Impression dictated by: Jhon Guold M.D. 04/04/2025 2:52 PM Dictation Location: [place] [address] Electronically authenticated by: [id number] Y Date: 04/04/2025 14:52 Dictated By: Jhon Gould D.O. Signed By: 04/04/25 1454 DD/ 145 TD/TT: Autocad Designer: [facility] Radiology Study observation (narrative) [facility] US OB BPP W NON-STRESS Ordered By: Radiologist Radiology on 04-04-2025 [facility] Work Phone: [facility] UA (CLEAN/CATCH) VENDING MACHINE FILLER/EILEEN RO IF IND.on 03-23-2025 BILIRUBIN URINE Negative NEGATIVE [facility] BLOOD URINE Negative NEGATIVE [facility] Clarity (U) CLEAR CLEAR [facility] Color (U) LT. YELLOW YELLOW [facility] GLUCOSE URINE UA Negative NEGATIVE mg/dL [facility] Interpretation and review of laboratory results Abnormal [facility] Ketones Ql (U) Negative NEGATIVE mg/dL [facility] Leukocyte esterase Test strip Ql (U) Negative NEGATIVE [facility] NITRITE URINE Negative NEGATIVE [facility] pH (U) 7.0 [pH] 5.0 - 9.0 [facility] PROTEIN URINE Negative NEG/TRACE mg/dL [facility] SPECIFIC GRAVITY URINE <=1.005 Abnormal 1.005 - 1.025 [facility] URINE MICROSCOPIC INDICATED NO [facility] UROBILINOGEN URINE 0.2 EU/dL 0.2 - 1.0 EU/dL [facility] US OB CERVICAL LENGTHon 03-04 [place] [address] Ultrasound Report Signed Patient: YESSI AGEE MR#: [id number] : 1985 Acct:[id number] Age/Sex: 40 / F ADM Date: 03/23/25 Loc: [place] [address]- Attending Dr: Grace Redding D.O. Ordering Physician: Grace Redding D.O. Date of Service: 03/23/25 Procedure(s): US OB cervical length Accession Number(s): [id number] cc: Grace Redding D.O.; Norm Ponce M.D. The [address] [address] Patient Name: YESSI AGEE MRN: [facility]:[id number] date: 1985 Sex: F Assigned Patient Location: [facility] Current Patient Location: [facility] Accession/Order Number: [id number] Exam Date: 03/23/2025 18:26 Report Date: 03/23/2025 18:27 At the request of: GRACE MILADIS DO Procedure: US OB cervical length Limited [...] Gould M.D. 03/23/2025 6:27 PM Dictation Location: [employer] Electronically authenticated by: [id number] Y Date: 03/23/2025 18:27 Dictated By: Jhon Gould D.O. Signed By: 03/23/251828 DD/ 26 TD/TT: Autocad Designer: [facility] Radiology, Radiologist, - 03/23/2025 [place] [address] Ultrasound Report Signed Patient: YESSI AGEE MR#: [id number] : 1985 Acct:[id number] Age/Sex: 40 / F ADM Date: 03/23/25 Loc: [facility] 250-[address]: Grace Redding D.O. Ordering Physician: Grace Redding D.O. Date of Service: 03/23/25 Procedure(s): US OB cervical length Accession Number(s): [id number] cc: Grace Redding D.O.; Norm Ponce M.D. The [place] [phone] Patient Name: YESSI AGEE MRN: [facility]:[id number] date: 1985 Sex: F Assigned Patient Location: [facility] Current Patient Location: [facility] Accession/Order Number: [id number] Exam Date: 03/23/2025 18:26 Report Date: 03/23/2025 [...] Gould M.D. 03/23/2025 6:27 PM Dictation Location: [place] [address] Electronically authenticated by: [id number] Y Date: 03/23/2025 18:27 Dictated By: Jhon Gould D.O. Signed By: 03/23/251828 DD/ 26 TD/TT: Autocad Designer: [facility] Radiology Study observation (narrative) [facility] US OB CERVICAL LENGTHOrdered By: Radiologist Radiology on 03-23-2025 [facility] Work Phone: Urinalysis macro (dipstick) panel (U)on 03-23-2025 Bilirubin, UA Negative Negative - 4(70) +++ mg/dL [facility] Blood, UA Negative Negative - 50 Venu/mcL [facility] Clarity, UA Clear [facility] re Color, UA Yellow [facility] [employer] Glucose, UA Negative Negative - 2000(110) ++++ mg/dL [facility] Interpretation and review of laboratory results Normal [facility] Ketones, UA Negative Negative - 160(16) ++++ mg/dL [facility] Leukocytes, UA Negative Negative - 500+++ Michael/mcL [facility] Nitrite, UA Negative Negative - Positive [facility] pH, UA 7 5 - 9 [facility] [employer] Protein, UA Negative Negative - 2000(20) ++++ mg/dL [facility] Spec Grav, UA 1.015 1 - 1.03 [facility] Urobilinogen, UA 1.0 0.2 - 12 mg/dL [facility] US OB FOLLOW UP TRANSABDOMIN [...] at 09-Mar-2025 08:42:20 AM [facility] Normal Not Available Comment on above: Order Comment: US OB SCAN FOR GROWTH Estimated Date of Delivery: 05/09/25 Gestational Age as of 02/21/2025: 29w0d Urinalysis macro (dipstick) panel (U)on 03-07-2025 Bilirubin, UA Negative Negative - 4(70) +++ mg/dL [facility] Blood, UA Negative Negative - 50 Venu/mcL [facility] Clarity, UA Clear [facility]A Yellow [facility] Glucose, UA Negative Negative - 1999(110) ++++ mg/dL [facility] Interpretation and review of laboratory results Normal [facility] Ketones, UA Negative Negative - 160(16) ++++ mg/dL [facility] Leukocytes, UA Negative Negative - 500+++ Michael/mcL [facility] Nitrite, UA Negative Negative - Positive [facility] pH, UA 6 5 - 9 [facility] e Protein, UA Negative Negative - 1999(20) ++++ mg/dL [facility] Spec Grav, UA 1.015 1 - 1.03 [facility] Urobilinogen, UA 0.2 0.2 - 12 mg/dL [facility] Urinalysis macro (dipstick) panel (U)on 02-21-2025 Bilirubin, UA Negative Negative - 4(70) +++ mg/dL [facility] Blood, UA Negative Negative - 50 Venu/mcL [facility] Clarity, UA Clear [facility] Color, UA Yellow [facility] Glucose, UA Negative Negative - 1999(110) ++++ mg/dL [facility] Interpretation and review of laboratory results Abnormal [facility] Ketones, UA Negative Negative - 160(16) ++++ mg/dL [facility] Leukocytes, UA Trace Negative - 500+++ Michael/mcL [facility] Nitrite, UA Negative Negative - Positive [facility] pH, UA 7 5 - 9 [facility] Protein, UA Positive Negative - 1999(20) ++++ mg/dL [facility] Comment on above: 30mg/dL Spec Grav, UA 1.025 1 - 1.03 [facility] care Urobilinogen, UA 4.0 0.2 - 12 mg/dL [facility] Urinalysis macro (dipstick) panel (U)on 02-02-2025 Bilirubin, UA Negative Negative - 4(70) +++ mg/dL [facility] Blood, UA Negative Negative - 50 Venu/mcL [facility] Clarity, UA Clear [facility] Color, UA Yellow [facility] Glucose, UA Negative Negative - 1999(110) ++++ mg/dL [facility] Interpretation and review of laboratory results Abnormal [facility] Ketones, UA Negative Negative - 160(16) ++++ mg/dL [facility] Leukocytes, UA Trace Negative - 500+++ Michael/mcL [facility] Nitrite, UA Negative Negative - Positive [facility] pH, UA 7 5 - 9 [facility] Protein, UA Negative Negative - 1999(20) ++++ mg/dL [facility] Hospital Spec Grav, UA 1.02 1 - 1.03 [facility] Health care Urobilinogen, UA 1.0 0.2 - 12 mg/dL [facility] IGP,APTIMA HPV,AGE GDLNon AGE GDLN ACOG TESTING Note . [facility] Comment on above: TESTS RESULT FLAG UN ITS REF RANGE LAB Clinician Provided Cytology Information Source.............Cervix No. of containers..01 ThinPrep Vial Age Algo ACOG Sushma... FLAG LEGEND: L-Low Normal,H-High Normal,LL-Alert Low,HH-Alert High <-Panic Low,>-Panic High,A-Abnormal,AA-Critical Abnormal Performed at: 01 =G [facility] [place] [address] Enma Todd MD, HPV APTIMA Negative Negative [facility] Comment on above: This nucleic acid am plification test detects fourteen high- risk HPV types (16,18,31,33,35,39,45,51,52,56,58,59,66,68) without differentiation. Performed at: = - [facility] [id number] Lead Applier: Enma Todd MD, Phone: [phone] Performed at: - [address] [id number] Lead Applier: Enma Todd MD, Phone: [phone] IGP, APTIMA HPV, RFX 16/18,45 Note . [facility] Comment on above: TESTS RESULT FLAG UN ITS REF RANGE LAB DIAGNOSIS: 02 NEGATIVE FOR INTRAEPITHELIAL LESION OR MALIGNANCY. FUNGAL ORGANISMS MORPHOLOGICALLY CONSISTENT WITH COREEN SPECIES ARE PRESENT. Specimen adequacy: 02 Satisfactory for evaluation. No endocervical component is identified. Performed by: 02 Breanna Lucero Timber Repairer . 02 Note: Note 02 The Pap [...] High,A-Abnormal,AA-Critical Abnormal Performed at: 02 [facility] [address] [place] [address] Enma Todd MD, SPATULA-ALONE CERVIX [facility] Urinalysis macro (dipstick) panel (U)on 01-05-2025 Bilirubin, UA Negative Negative - 4(70) +++ mg/dL [facility] Blood, UA Negative Negative - 50 Venu/mcL [facility] Clarity, UA Clear [facility] Color, UA Yellow [facility] e Glucose, UA Negative Negative - 1999(110) ++++ mg/dL [facility] Interpretation and review of laboratory results Normal [facility] Ketones, UA Negative Negative - 160(16) ++++ mg/dL [facility] Leukocytes, UA Negative Negative - 500+++ Michael/mcL [facility] Nitrite, UA Negative Negative - Positive [facility] pH, UA 5.5 5 - 9 [facility] Protein, UA Negative Negative - 1999(20) ++++ mg/dL [facility] Spec Grav, UA 1.01 1 - 1.03 [facility] Urobilinogen, UA 0.2 0.2 - 12 mg/dL [facility] OB ANATOMYon 12-29-2024 [place] [address] Ultrasound Report Signed Patient: YESSI AGEE MR#: [id number] : 1985 Acct:[id number] Age/Sex: 39 / F ADM Date: 12/23/24 Loc: US Attending Dr: Monika Fried Ordering Physician: Monika Fried Date of Service: 12/23/24 Procedure(s): US OB anatomy Accession Number(s): [id number] cc: Monika Fried; Physician,Non-Staff Marielle [address] [address] Patient Name: YESSI AGEE MRN: [id number] date: 1985 Sex: F Assigned Patient Location: US Current Patient Location: US Accession/Order Number: [id number] Exam Date: 12/24/2024 09:49 Report Date: 12/24/2024 [...] all 4 extremities were surveyed by the ash collector. No abnormalities were detected. The stomach, kidneys, [...] Marion Flaherty M.D.12/24/2024 10:03 AM Dictation Location: [employer] Electronically authenticated by: [id number] Y Date: 12/24/2024 10:03 Dictated By: Marion Flaherty M.D. Signed By: 12/29/24 1035 DD/ 1003 TD/TT: Autocad Designer: [facility] Radiology, Radiologist, - 12/29/[address] [address] Ultrasound Report Signed Patient: YESSI AGEE MR#: [id number] : 1985 Acct:[id number] Age/Sex: 39 / F ADM Date: 12/23/24 Loc: US Attending Dr: Monika Fried Ordering Physician: Monika Fried Date of Service: 12/23/24 Procedure(s): US OB anatomy Accession Number(s): [id number] cc: Monika Fried; Physician,Non-Staff Marielle The [address] [address] Patient Name: YESSI AGEE MRN: [facility]:[id number] date: 1985 Sex: F Assigned Patient Location: US Current Patient Location: US Accession/Order Number: [id number] Exam Date: 12/24/2024 09:49 Report Date: 12/24/2024 [...] all 4 extremities were surveyed by the ash collector. No abnormalities were detected. The stomach, kidneys, [...] Marion Flaherty M.D.12/24/2024 10:03 AM Dictation Location: [facility] Electronically authenticated by: [id number] Y Date: 12/24/2024 10:03 Dictated By: Marion Flaherty M.D. Signed By: 12/29/24 1035 DD/ 1003 TD/TT: Autocad Designer: [facility] OB ANATOMYOrdered By: Lul kesslerogyesenia Radiology on 12-29-2024 [facility]icescar e Work Phone: No Panel Informationon 12-24 Radiology Study observation (narrative) [facility] OB CERVICAL LENGTHon 12-[address] [place] [address] Ultrasound Report Signed Patient: YESSI AGEE MR#: [id number] : 1985 Acct:[id number] Age/Sex: 39 / F ADM Date: 12/23/24 Loc: US Attending Dr: Monika Fried Ordering Physician: Monika Fried Date of Service: 12/23/24 Procedure(s): US OB cervical length Accession Number(s): [id number] cc: Monika Fried; Physician,Non-Staff M.DKeaton [place] [id number] Patient Name: YESSI AGEE MRN: [id number] date: 1985 Sex: F Assigned Patient Location: US Current Patient Location: Accession/Order Number: [id number] Exam Date: 12/24/2024 09:49 Report Date: 12/24/2024 [...] all 4 extremities were surveyed by the ash collector. No abnormalities were detected. The stomach, kidneys, [...] Marion Flaherty M.D.12/24/2024 10:03 AM Dictation Location: [place] [address] Electronically authenticated by: [id number] Y Date: 12/24/2024 10:03 Dictated By: Marion Flaherty M.D. Signed By: 12/24/24 1005 DD/ 1003 TD/TT: Autocad Designer: [facility] Radiology, Radiologist, MD - 12/24/2024 [place] [address] Ultrasound Report Signed Patient: YESSI AGEE MR#: [id number] : 1985 Acct:[id number] Age/Sex: 39 / F ADM Date: 12/23/24 Loc: US Attending Dr: Monika Fried Ordering Physician: Monika Fried Date of Service: 12/23/24 Procedure(s): US OB cervical length Accession Number(s): [id number] cc: Monika Fried; Physician,Non-Staff Marielle The [address] [address] Patient Name: YESSI AGEE MRN: [facility]:[id number] date: 1985 Sex: F Assigned Patient Location: Current Patient Location: Accession/Order Number: [id number] Exam Date: 12/24/2024 09:49 Report Date: 12/24/2024 [...] all 4 extremities were surveyed by the ash collector. No abnormalities were detected. The stomach, kidneys, [...] Marion Flaherty M.D.12/24/2024 10:03 AM Dictation Location: [employer] Electronically authenticated by: [id number] Y Date: 12/24/2024 10:03 Dictated By: Marion Flaherty M.D. Signed By: 12/24/24 1005 DD/ 1003 TD/TT: Autocad Designer: [facility] US OB CERVICAL LENGTHOrdered By: Radiologist Radiology on 12-24-2024 [facility] Work Phone: Urinalysis macro (dipstick) panel (U)on 12-08-2024 Bilirubin, UA Negative Negative - 4(70) +++ mg/dL [facility] Blood, UA Negative Negative - 50 Venu/mcL [facility] Clarity, UA Clear [facility] re Color, UA Yellow [facility] e Glucose, UA Negative Negative - 1999(110) ++++ mg/dL [facility] Interpretation and review of laboratory results Normal [facility] Ketones, UA Negative Negative - 160(16) ++++ mg/dL [facility] Leukocytes, UA Negative Negative - 500+++ Michael/mcL [facility] Nitrite, UA Negative Negative - Positive [facility] pH, UA 7 5 - 9 [facility] e Protein, UA Negative Negative - 1999(20) ++++ mg/dL [facility] Spec Grav, UA 1.025 1 - 1.03 [facility] Urobilinogen, UA 1.0 0.2 - 12 mg/dL [facility] Health[facility] e ALL CBC WITH AUTO DIFFon BASOPHILS ABSOLUTE AUTO 0 [facility] Basophils/100 WBC (Bld) 0.2 % 0.2 - 2.0 % [facility] Eosinophils/100 WBC (Bld) 1 % 0.9 - 7.0 % [facility] Erythrocyte distribution width (RBC) [Ratio] 13.6 % 11.0 - 15.0 % [facility] Hematocrit (Bld) [Volume fraction] 37.5 % 36.0 - 48.0 % [facility] e Hemoglobin (Bld) [Mass/Vol] 12.5 g/dL 12.0 - 16.0 g/dL [facility] IMMATURE GRANULOCYTES ABS AUTO 0.15 High [facility] Immature granulocytes/100 WBC (Bld) 1.9 % High 0.0 - 0.5 % [facility] Interpretation and review of laboratory results Abnormal [facility] LYMPHOCYTES ABSOLUTE AUTO 1.7 [facility] Lymphocytes/100 WBC (Bld) 20.4 % Low 20.5 - 60.0 % [facility] MCH (RBC) [Entitic mass] 30.3 pg 26.7 - 34.0 pg [facility] MCHC (RBC) [Mass/Vol] 33.3 g/dL 29.9 - 35.2 g/dL [facility] MCV (RBC) [Entitic vol] 90.8 fL 81.0 - 99.0 fL [facility] MONOCYTES ABSOLUTE AUTO 0.5 [facility] Monocytes/100 WBC (Bld) 5.6 % 1.7 - 12.0 % [facility] NEUTROPHILS ABSOLUTE AUTO 5.8 [facility] Neutrophils/100 WBC (Bld) 70.9 % 43.0 - 75.0 % [facility] Platelet mean volume (Bld) [Entitic vol] 9.9 fL 9.5 - 13.5 fL [facility] EO # 0.1 [facility] PLT 170 [facility] e [facility] RBC 4.[address] [facility] e TB WBC 8.1 [facility] e CLINISYNC [facility] e Urinalysis macro (dipstick) panel (U)on 11-09-2024 Bilirubin, UA Negative Negative - 4(70) +++ mg/dL [facility] Blood, UA Negative Negative - 50 Venu/mcL [facility] Healthcare Clarity, UA Clear [facility] Healthca re Color, UA Yellow [facility] Healthcar e Glucose, UA Negative Negative - 1999(110) ++++ mg/dL [facility] Interpretation and review of laboratory results Normal [facility] Ketones, UA Negative Negative - 160(16) ++++ mg/dL [facility] Leukocytes, UA Negative Negative - 500+++ Michael/mcL [facility] Healthcare Nitrite, UA Negative Negative - Positive [facility] pH, UA 6.5 5 - 9 [facility] Protein, UA Negative Negative - 1999(20) ++++ mg/dL [facility] Healthcare Spec Grav, UA 1.015 1 - 1.03 [facility] Health care Urobilinogen, UA 0.2 0.2 - 12 mg/dL [facility] HCG ( test) Ql (U)o n 10-08-2024 Interpretation and review of laboratory results Abnormal [facility] Preg Test, Ur Positive Negative [facility] Health care [facility] Urinalysis macro (dipstick) panel (U)on 10-08-2024 Bilirubin, UA Negative Negative - (70) +++ mg/dL [facility] Blood, UA Negative Negative - 50 Venu/mcL [facility] Healthcare Clarity, UA Clear [facility] Healthca re Color, UA Yellow [facility] Health[facility] e Glucose, UA Negative Negative - 1999(110) ++++ mg/dL [facility] Interpretation and review of laboratory results Normal [facility] Ketones, UA Negative Negative - 160(16) ++++ mg/dL [facility] Leukocytes, UA Negative Negative - 500+++ Michael/mcL [facility] Nitrite, UA Negative Negative - Positive [facility] pH, UA 5.5 5 - 9 [facility] Healthcar e Protein, UA Negative Negative - 1999(20) ++++ mg/dL [facility] Healthcare Spec Grav, UA 1.01 1 - 1.03 [facility] Urobilinogen, UA 0.2 0.2 - 12 mg/dL [facility] CARROLL DOP LEG LTon 05-15-20 20 US [...] ANDREA AVERY Date: 2020-05-15 15:51 Normal [facility] VAGINITIS/VAGINOSIS DNA PROB Will 08-07-2019 Coreen species Positive Abnormal Negative [facility] Comment on above: Performed By: #### V AGINT #### [facility] [address] [place] [address] Gardnerella vaginalis Negative Normal Negative [facility] Comment on above: Performed By: #### V AGINT #### [facility] [address] [place] [address] Trichomonas vaginalis Negative Normal Negative [facility] Comment on above: Performed By: #### V AGINT #### [facility] [address] [place], [place] [id number] Tolu Schultz Vital Signs Date Time Vital Sign Value Performing Clinician Nighat vee 04-26-2025 15:16-0400 Body mass index (BMI) [Ratio] 28.9 kg/m2 Monika WEEKS Work Phone: [facility] 04-26-2025 15:16-0400 Body weight 73.99 kg Monika WEEKS Work Phone: [facility] 04-26-2025 15:16-0400 Diastolic blood pressure 74 mm[Hg] Monika WEEKS Work Phone: [facility] 04-26-2025 15:16-0400 Systolic blood pressure 120 mm[Hg] Monika Fried PA Work Phone: [facility] 04-13-2025 14:24-040 Body height 160 cm Grace Miladis DO Work Phone: [facility] 04-13-2025 14:24-0400 Body mass index (BMI) [Ratio] 29.76 kg/m2 Grace Miladis DO Work Phone: [facility] 04-13-2025 14:24-0400 Body weight 76.2 kg Grace Miladis DO Work Phone: [facility] 04-13-2025 14:24-0400 Diastolic blood pressure 80 mm[Hg] Grace Miladis DO Work Phone: [facility] 04-13-2025 14:24-0400 Systolic blood pressure 132 mm[Hg] Grace Miladis DO Work Phone: [facility] 03-23-2025 16:22-0400 Body weight 74.39 kg Monika WEEKS Work Phone: [facility] 03-23-2025 16:22-0400 Diastolic blood pressure 80 mm[Hg] Monika WEEKS Work Phone: [facility] 03-23-2025 16:22-0400 Systolic blood pressure 128 mm[Hg] Monika WEEKS Work Phone: [facility] 03-07-2025 15:44-0400 Body weight 73.48 kg Grace Miladis DO Work Phone: [facility] 03-07-2025 15:44-0400 Diastolic blood pressure 72 mm[Hg] Grace Miladis DO Work Phone: [facility] 03-07-2025 15:44-0400 Systolic blood pressure 118 mm[Hg] Grace Miladis DO Work Phone: [facility] 02-21-2025 08:33-0400 Body weight 73.37 kg Grace Miladis DO Work Phone: [facility] 02-21-2025 08:33-0400 Diastolic blood pressure 74 mm[Hg] Grace Miladis DO Work Phone: [facility] 02-21-2025 08:33-0400 Systolic blood pressure 116 mm[Hg] Grace Miladis DO Work Phone: [facility] 02-02-2025 15:42-0400 Body weight 73.14 kg Monika WEEKS Work Phone: [facility] 02-02-2025 15:42-0400 Diastolic blood pressure 76 mm[Hg] Monika WEEKS Work Phone: [facility] 02-02-2025 15:42-0400 Systolic blood pressure 116 mm[Hg] Monika Fried PA Work Phone: [facility] 01-05-2025 16:05-0500 Body weight 71.22 kg Grace Miladis DO Work Phone: [facility] 01-05-2025 16:05-0500 Diastolic blood pressure 72 mm[Hg] Grace Miladis DO Work Phone: [facility] 01-05-2025 16:05-0500 Systolic blood pressure 118 mm[Hg] Grace Miladis DO Work Phone: [facility] 12-08-2024 15:59-0500 Body weight 70.94 kg Monika WEEKS Work Phone: [facility] 12-08-2024 15:59-0500 Diastolic blood pressure 72 mm[Hg] Monika WEEKS Work Phone: [facility] 12-08-2024 15:59-0500 Systolic blood pressure 110 mm[Hg] Monika WEEKS Work Phone: [facility] 11-09-2024 11:10-0500 Body weight 67.13 kg Grace Miladis DO Work Phone: [facility] 11-09-2024 11:10-0500 Diastolic blood pressure 68 mm[Hg] Grace Miladis DO Work Phone: [facility] 11-09-2024 11:10-0500 Systolic blood pressure 108 mm[Hg] Grace Miladis DO Work Phone: [facility] 10-08-2024 10:17-0500 Body weight 64.86 kg [facility] Nurse [facility] Healthcare Encounters Encounter Date Encounter Type Care Provider Facility Start: 04-26-2025 End: 04-26-2025 ambulatory MONIKA FRIED Not Available Start: 04-26-2025 End: 04-26-2025 Postop follow up visit related to original px Monika WEEKS Work Phone: [facility] Comment on above: Encounter for [facility]pa rtum visit ([facility] S/P section; Postop check Start: 04-26-2025 End: 04-26-2025 Bamboo flowsheet Monika WEEKS Work Phone: [facility] Start: 04-26-2025 End: 04-26-2025 Bamboo flowsheet Monika WEEKS Work Phone: [facility] Start: 04-20-2025 End: 04-20-2025 Clinisync Result Encounter Grace Miladis DO Work Phone: [facility] Unsolicited Start: 04-20-2025 End: 04-20-2025 Clinisync Result Encounter Grace Miladis DO Work Phone: [facility] Unsolicited Start: 04-19-2025 End: 04-19-2025 Clinisync Result Encounter Grace Miladis DO Work Phone: [facility] Unsolicited Start: 04-19-2025 End: 04-19-2025 Clinisync Result Encounter Grace Miladis DO Work Phone: [facility] Unsolicited Start: 04-18-2025 End: 04-18-2025 Clinisync Result Encounter Grace Miladis DO Work Phone: [facility] Unsolicited Start: 04-18-2025 End: 04-18-2025 Clinisync Result Encounter Grace Miladis DO Work Phone: [facility] Unsolicited Start: 04-13-2025 End: 04-13-2025 flow sheet Grace Miladis DO Work Phone: [facility] Comment on above: Third trimester preg brody; 36 weeks gestation of Start: 04-13-2025 End: 04-13-2025 Bamboo flowsheet Grace Miladis DO Work Phone: [facility] Start: 04-13-2025 End: 04-13-2025 Bamboo flowsheet Grace Miladis DO Work Phone: [facility] Start: 04-13-2025 End: 04-13-2025 Clinisync Result Encounter Grace Miladis DO Work Phone: [facility] Unsolicited Start: 04-13-2025 End: 04-13-2025 ambulatory GRACE MILADIS Not Available Start: 04-11-2025 End: 04-11-2025 Clinisync Result Encounter Grace Miladis DO Work Phone: [facility] Unsolicited Start: 04-11-2025 End: 04-11-2025 Clinisync Result Encounter Grace Miladis DO Work Phone: [facility] Unsolicited Start: 04-04-2025 End: 04-04-2025 Clinisync Result Encounter Grace Miladis DO Work Phone: [facility] Unsolicited Start: 04-04-2025 End: 04-04-2025 Clinisync Result Encounter Grace Miladis DO Work Phone: [facility] Unsolicited Start: 03-23-2025 End: 03-23-2025 flow sheet Monika WEEKS Work Phone: [facility] [...] flow sheet Grace Miladis DO Work Phone: [facility] Comment on above: Upper respiratory [...] Bamboo flowsheet Grace Miladis DO Work Phone: [facility] Start: 02-21-2025 End: 02-21-2025 flow sheet Grace Miladis DO Work Phone: [facility] Comment on above: Third trimester preg brody; 29 weeks gestation of ; Size of fetus inconsistent with dates in third trimester Start: 02-21-2025 End: 02-21-2025 ambulatory GRACE MILADIS Not Available Start: 02-02-2025 End: 02-02-2025 flow sheet Monika WEEKS Work Phone: [facility] Comment on above: Second trimester pre gnancy; 26 weeks gestation of Start: 02-02-2025 End: 02-02-2025 ambulatory MONIKA FRIED Not Available Start: 02-02-2025 End: 02-02-2025 Bamboo flowsheet Monika WEEKS Work Phone: [facility] Start: 02-02-2025 End: 02-02-2025 Bamboo flowsheet Monika WEEKS Work Phone: [facility] Start: 01-05-2025 End: 01-05-2025 Patient encounter procedure Grace Miladis DO Work Phone: [facility] Healthcare Start: 01-05-2025 End: 01-05-2025 Periodic preventive med est patient 18-39 yrs Grace Miladis DO Work Phone: [facility] Comment on above: Well woman [...] End: 08-06-2019 Patient encounter procedure GLENNA MCINTYRE Facility: Procedures Date Procedure Procedure Detail Performing Clinician Start: 04-20-2025 ALL CBC WITH AUTO DIFF Grace Miladis DO Work Phone: Start: 04-19-2025 ALL CBC WITH AUTO DIFF Grace Miladis DO Work Phone: Start: 04-18-2025 US OB BPP W NON-STRESS Grace Miladis DO Work Phone: Start: 04-13-2025 US OB PLACENTA Grace Fa zio DO Work Phone: Start: 04-13-2025 AMNISURE Grace Fazi o DO Work Phone: Start: 04-13-2025 Urnls dip stick/tabl et rgnt non-auto w/o micrscp Grace Miladis DO Work Phone: Start: 04-11-2025 US OB BPP W NON-STRESS Grace Miladis DO Work Phone: Start: 04-04-2025 US OB BPP W NON-STRESS Grace Miladis DO Work Phone: Start: 03-23-2025 US OB CERVICAL LENGTH C orey Miladis DO Work Phone: Start: 03-23-2025 [facility] UA (CLEAN/CATCH) VENDING MACHINE FILLER/MICRO IF IND. Grace Miladis DO Work Phone: Start: 03-23-2025 Urnls dip stick/tabl et rgnt non-auto w/o micrscp Monika WEEKS Work Phone: Start: 03-07-2025 Urnls dip [...] w/o micrscp Grace Miladis DO Work Phone: H/O: section S/P sectio n Monika WEEKS Work Phone: Plan of Treatment Date Care Activity Detail Author Start: 05-31-2025 End: 05-31-2025 ambulatory 05/31/2025 11:20 AM EDT Visit [facility] [address] [id number] Monika Fried PA [address] [address] [facility] Start: 04-18-2025 End: 04-18-2025 Patient encounter procedure 04/18/2025 4:00 PM EDT Routine [facility] [address] [place] [phone] Grace Redding, DO [address] [place] [address] [facility] Start: 04-13-2025 End: 04-13-2025 Patient encounter procedure [facility] Comment on above: Arrived Start: 04-13-2025 End: 04-13-2026 CULTURE, GROUP B STREP WITH SUSCEPTIBLITY CULTURE, GROUP B STREP WITH SUSCEPTIBLITY Lab Routine Third trimester Expected: 04/13/2025, Expires: 04/13/2026 [facility] Work Phone: Comment on above: Expected: 04/13/2025 , Expires: 04/13/2026 Start: 03-23-2025 End: 03-23-2025 Patient encounter procedure [facility] Comment on above: Arrived Start: 03-07-2025 End: 03-07-2025 Patient encounter procedure 03/07/2025 3:30 PM EDT Routine [facility] [address] [place] [phone] Grace Redding, DO [facility] [place] [address] [facility] Start: 03-07-2025 End: 03-07-2025 Professional / ancillary services management 03/07/2025 3:00 PM EDT Ancillary Procedure [facility] [address] [place] [phone] [facility] Start: 03-07-2025 End: 09-07-2025 [...] Routine [facility] [address] [place] [phone] Grace Redding, DO [facility] [place] [address] [facility] Start: 02-21-2025 End: 06-23-2025 US for US OB follow up transabdominal approach Imaging Routine Size of fetus inconsistent with dates in third trimester Expected: 02/21/2025, Expires: 06/23/2025 [facility] Work Phone: Comment on above: Expected: 02/21/2025 , Expires: 06/23/2025 Start: 02-21-2025 End: 02-21-2025 Patient encounter procedure 02/21/2025 8:30 AM EDT Routine [facility] [address] [place] [address] Grace Redding, [address] [place] [address] Arrived [facility] Comment on above: [...] gestational age Expected: 10/08/2024 (Approximate), Expires: 10/08/2025 [facility] Work Phone: Comment on above: Expected: 10/08/2024 (Approximate), Expires: 10/08/2025 Start: 10-08-2024 End: 10-08-2025 Drugs of abuse panel - Urine by Screen method Rapid drug screen, urine Lab Routine , unspecified gestational age Encounter for supervision of normal first in first trimester Expected: 10/08/2024 (Approximate), Expires: 10/08/2025 [facility] Comment on above: Expected: 10/08/2024 (Approximate), Expires: 10/08/2025 Start: 10-08-2024 End: 10-08-2025 US Pelvis transvaginal US OB transvaginal Imaging Routine Missed menses Expected: 10/08/2024 (Approximate), Expires: 10/08/2025 [facility] Comment on above: Expected: 10/08/2024 (Approximate), Expires: 10/08/2025 Bacteria identified in Urine by Culture Urine culture Microbiology Routine Missed menses Ordered: 10/08/2024 [facility] Comment on above: Ordered: 10/08/2024 CBC W Auto Different ial panel - Blood CBC and differential Lab Routine Missed menses , unspecified gestational age Ordered: 10/08/2024 [facility] Comment on above: Ordered: 10/08/2024 CBC W Auto Different ial panel - Blood CBC and differential Lab Routine Third trimester Multigravida of advanced maternal age in third trimester Ordered: 03/23/2025 [facility] Work Phone: Comment on above: Ordered: 03/23/2025 CHLAMYDIA TRACHOMATI S (GENITO/STI) CHLAMYDIA TRACHOMATIS (GENITO/STI) Lab Routine Exposure to STD Ordered: 01/05/2025 [facility] Comment on above: Ordered: 01/05/2025 Cytology Cervical or vaginal smear or scraping study Pap Smear Pathology and Cytology Routine Well woman exam with routine gynecological exam Ordered: 01/05/2025 [facility] Comment on above: Ordered: 01/05/2025 Hemoglobin A1c/Hemoglobin.total in Blood Hemoglobin A1c Lab Routine Missed menses , unspecified gestational age Ordered: 10/08/2024 [facility] Comment on above: Ordered: 10/08/2024 Hemoglobin A1c/Hemoglobin.total in Blood Hemoglobin A1c Lab Routine Diabetes mellitus screening Ordered: 01/05/2025 [facility] Comment on above: Ordered: 01/05/2025 Hepatitis B virus surface Ag [Presence] in Serum or Plasma by Immunoassay Hepatitis B surface antigen Lab Routine Missed menses , unspecified gestational age Ordered: 10/08/2024 [facility] Comment on above: Ordered: 10/08/2024 Hepatitis C virus Ab [Presence] in Serum or Plasma by Immunoassay Hepatitis C antibody Lab Routine Missed menses , unspecified gestational age Ordered: 10/08/2024 [facility] Comment on above: Ordered: 10/08/2024 HIV-1/HIV-2 antigen/antibody combination immunoassay HIV-1 and HIV-2 antibodies Lab Routine Missed menses , unspecified gestational age Ordered: 10/08/2024 [facility] Comment on above: Ordered: 10/08/2024 Human papilloma viru s DNA [Presence] in Unspecified specimen by Probe with amplification HPV DNA probe, amplified Microbiology Routine Well woman exam with routine gynecological exam Ordered: 01/05/2025 [facility] Comment on above: Ordered: 01/05/2025 Neisseria gonorrhoea e DNA [Presence] in Unspecified specimen by NERIS with probe detection Neisseria gonorrhea DNA probe, direct Lab Routine Exposure to STD Ordered: 01/05/2025 [facility] Comment on above: Ordered: 01/05/2025 Reagin Ab [Presence] in Serum by RPR RPR Lab Routine Missed menses , unspecified gestational age Ordered: 10/08/2024 [facility] Comment on above: Ordered: 10/08/2024 Rubella antibody, IgG Rubella an tibody, IgG Lab Routine Missed menses , unspecified gestational age Ordered: 10/08/2024 [facility] Comment on above: Ordered: 10/08/2024 SURESWAB(R) ADVANCED VAGINITIS PLUS, TMA SURESWAB(R) ADVANCED VAGINITIS PLUS, TMA Pathology and Cytology Routine Exposure to STD Ordered: 01/05/2025 [facility] Work Phone: Comment on above: Ordered: 01/05/2025 Payers Date Payer Category Payer [facility] [id number] 2021 Unknown [id number] 1985 Unknown [id number] [id number] .2.593 1987 Unknown [id number] 2.16.840.1.317390.3.579 .2.593 1987 Unknown [id number] 2.16.840.1.922791.3.579 .2.9 1987 Unknown [id number] 2.16.840.1.038323.3.579 .2.1259 1987 Unknown [id number] 2.16.840.1.045232.3.579 .2.1259 1987 Unknown [id number] 2.16.840.1.128092.3.579 .2.9 1987 Unknown [id number] 2.16.840.1.167553.3.579 .2.9 1987 Unknown [id number] 2.16.840.1.494348.3.579 .2.1259 1987 Unknown [id number] 2.16.840.1.115640.3.579 .2.1259 1987 Unknown [id number] 2.16.840.1.980225.3.579 .2.1259 1987 Unknown [id number] 2.16.840.1.316807.3.579 .2.1259 1987 Unknown [id number] 2.16.840.1.572018.3.579 .2.9 1987 Unknown [id number] 2.16.840.1.228936.3.579 .2.1259 1957 Private Health Insurance [id number] Social History Date Type Detail Facility Tobacco smoking stat [facility] Tobacco smoking consumption unknown [facility] Start: 1985 Sex assigned at Not on file [facility] Gender identity Not [facility] file [facility] Start: 08-16-2024 [facility] Clinical Notes 10-08-2024 to 04-26-2025 DESI Wilson - 04/26/2025 2:50 PM Ana Lerner LPN - 04/13/2025 2:10 PM DESI Rodriguez - 03/23/2025 3:50 PM Madison Camara NP - 03/07/2025 3:30 PM DESI Rodriguez - 12/08/2024 3:20 PM EST Note Date & Type Note Facility 04-26-2025 History of Presen t illness Narrative Reason [...] Vitals: Estimated body mass index is 28.9 kg/m as calculated from the following: Height as of 04/13/25: 5' 3 . Weight as of this encounter: 163 lb 1.9 oz. BP: 120/74 Patient's last menstrual period was 08/02/2024 (exact date). ASSESSMENT & PLAN ICD-10-CM 1. Encounter for visit ([facility]) Z39.2 2. S/P section Z98.891 [...] of: DESI Wilson documented in this encounter [facility] 04-13-2025 History of Presen t illness Narrative Reason [...] nursing note reviewed. Exam conducted with a manager city present. Vitals: Estimated body mass index is 29.76 kg/m as calculated from the following: Height as [...] severe pain pt being sent over to [facility] for evaluation. Pt voiced understanding. Documented by Marion Lerner LPN on behalf of: Grace Redding DO documented in this encounter [facility] 03-23-2025 History of Presen t illness Narrative [...] of: DESI Wilson documented in this encounter [facility] 03-07-2025 History of Presen t illness [...] Grace Redding DO documented in this encounter [facility] 02-21-2025 History of Presen t illness [...] nursing note reviewed. Exam conducted with a manager city present. Vitals: There is no height or [...] Grace Redding DO documented in this encounter [facility] 02-02-2025 History of Presen t illness [...] nursing note reviewed. Exam conducted with a manager city present. Vitals: There is no height or [...] of: DESI Wilson documented in this encounter [facility] 01-05-2025 History of Presen t illness [...] nursing note reviewed. Exam conducted with a manager city present. Vitals: There is no height or [...] Grace Redding DO documented in this encounter [facility] 12-08-2024 History of Presen t illness [...] of: DESI Wilson documented in this encounter [facility] 11-09-2024 History of Presen t illness [...] nursing note reviewed. Exam conducted with a manager city present. Vitals: There is no height or [...] or undercooked meat, and stay away from [facility]. Patient has been consulted regarding any [...] Grace Redding DO documented in this encounter [facility] 10-08-2024 History of Presen t illness Narrative Reason for Appointment: Patient ID: Yessi Petros Agee is a 39 y.o. female who [...] or undercooked meat, and stay away from [facility]. Patient has also been advised to [...] Guadalupe Hernandez MA documented in this encounter [facility] Evaluation note Diagnosis Missed menses , [...] HealthcareEvaluation note* Diagnosis Third trimester state, incidental 36 weeks gestation of documented in this encounter [facility] Diagnosis Encounter for visit ([facility]) S/P section Other postprocedural status Postop check Follow-up examination, following unspecified surgery documented in this encounter [facility] Summary Purpose Family History No Family History Records FoundNo Family History Records Found Advance Directives No Advanced Directives Records FoundNo Advanced Directives Records Found Additional Source Comments INFORMATION SOURCE (unrecogn ized section and content) DATE CREATED AUTHOR 05/26/2020 [facility] DATE CREATED AUTHOR AUTHOR'S ORGANIZ ATION 04/27/2025 [facility] EPIC Reason for Visit (unrecogniz ed section and content) Reason Comments Amenorrhea Reason Comments Routine Visit Reason Comments Care Care Teams (unrecognized sec tion and content) Machine Cage Maker Relationship Specialty Start Date End Date Norm Ponce MD [address] [place] [address] PCP - General Family Medicine 10/08/24 Machine Cage Maker Relationship Specialty Start Date End Date Norm Ponce MD [address] [place] [address] PCP - General Family Medicine 10/08/24 Machine Cage Maker Relationship Specialty Start Date End Date Norm Ponce MD [address] [place] [address] PCP - General Family Medicine 10/08/24 Machine Cage Maker Relationship Specialty Start Date End Date Norm Ponce MD [address] [facility] [place] [address] PCP - General Family Medicine 10/08/24 Machine Cage Maker Relationship Specialty Start Date End Date Norm Ponce MD [address] [facility] [place] [address] PCP - General Family Medicine 10/08/24 Machine Cage Maker Relationship Specialty Start Date End Date Norm Ponce MD [address] [facility] [place] [address] PCP - General Family Medicine 10/08/24 Machine Cage Maker Relationship Specialty Start Date End Date Norm Ponce MD [address] [facility] [place] [address] PCP - General Family Medicine 10/08/24 Machine Cage Maker Relationship Specialty Start Date End Date Norm Ponce MD [address] [facility] [place] [address] PCP - General Family Medicine 10/08/24 Machine Cage Maker Relationship Specialty Start Date End Date Norm Ponce MD PCP - General Family Medicine 10/08/24 Machine Cage Maker Relationship Specialty Start Date End Date Norm Ponce MD PCP - General Family Medicine 10/08/24 Machine Cage Maker Relationship Specialty Start Date End Date Norm Ponce MD PCP - General Family Medicine 10/08/24 Machine Cage Maker Relationship Specialty Start Date End Date Norm Ponce MD PCP - General Family Medicine 10/08/24 Machine Cage Maker Relationship Specialty Start Date End Date Norm Ponce MD [address] [place] [address] PCP - [facility] 10/08/24 Machine Cage Maker Relationship Specialty Start Date End Date Norm Ponce MD [address] [place] [address] PCP - General Family [facility] 10/08/24 FOR RECORDS PERTAINING TO PATIENTS WHO [...] BE BASED ON THE PRIMARY CLINICAL RECORDS. [facility]. provides no warranty or guarantee of the accuracy or completeness of information in this document.
== END 2025-05-23 09:56 | disposition home or self-care (01) ==
LOC: FBCO 08:55
PROVIDERS: PCP Family Medicine; Visit Provider Obstetrics & Gynecology
DX: Z39.1 Encounter for care and examination of lactating mother (principal)

== ENCOUNTER 2025-05-30 08:43 | Outpatient (OUT) | payer BC, SELFPAY ==
--- OUTSIDE RECORDS SUMMARY | 2025-05-30 08:47 | XMS_ITS | Encounter Summary ---
Author Organization [facility] Address [address] [place] [address] Care Team Providers Care Financial Center Manager Name Role Phone Codey Ponce MD Primary Care Provider [phone] Encounter Details Date Type Department Care Team (Late st Contact Info) Description 11/23/2024 Abstract [facility] [address] [place] [phone] Henry Redding DO [address] [place], [facility] Social History Tobacco Use Types Packs/Day [...] Info) Description 05/31/2025 11:20 AM EDT Visit MICHELLE MARK [address] [place] [phone] Monika Figueroa PA [address] [place] [address] documented as of this encounter Visit Diagnoses Not on filedocumented in this encounter Care Teams Financial Center Manager Relationship Specialty Start Date End Date Codey Ponce MD [address] [place] [address] PCP - General Family Medicine 10/08/24 documented as of this encounter
--- OUTSIDE RECORDS SUMMARY | 2025-05-30 08:47 | XMS_ITS | Encounter Summary ---
Author Organization [facility] Address [address] [place] [address] Care Team Providers Care District Engineer Name Role Phone Codey Ponce MD Primary Care Provider [phone] Encounter Details Date Type Department Care Team (Late st Contact Info) Description 10/09/2024 Clinisync Result Encounter [facility] External Department Unsolicited Grace Redding DO [address] [place] [address] Social History Tobacco Use Types Packs/Day Years [...] Info) Description 05/31/2025 11:20 AM EDT Visit [facility] [place] [facility] [address] [place] [address] Monika Figueroa PA [address] [place] [address] documented as of this encounter Procedures Procedure Name Priority Date/Time Associated Diagnosis Comments US OB TRANSVAGINAL 10/09/2024 4: 32 AM EST documented in this encounter Results * US OB TRANSVAGINAL (10/09/2024 4:32 AM EST) Anatomical Region Laterality Modality Other 10/09/2024 4:32 AM EST Narrative 10/09/2024 4:35 [place] [address] Ultrasound Report Signed Patient: Yessi Limon MR#: [id number] : 1985 Acct:[id number] Age/Sex: 39 / F ADM Date: 10/08/24 Loc: [facility] Attending Dr: Grace Redding D.O. Ordering Physician: Grace Redding D.O. Date of Service: 10/08/24 Procedure(s): US OB transvaginal Accession Number(s): [id number] cc: Grace Redding D.O.; Physician,Non-Staff [place] [id number] Patient Name: YESSI LIMON MRN: [id number] date: 1985 Sex: F Assigned Patient Location: [facility] Current Patient Location: Accession/Order Number: [id number] Exam Date: 10/08/2024 09:07 Report Date: 10/09/2024 [...] M.D. Signed By: 10/09/24434 DD/ 1 TD/TT: Dragline Operator Helper: Procedure Note Radiology, Radiologist, MD - 10/09/2024 [place] [address] Ultrasound Report Signed Patient: Yessi Limon#: [id number] : 1985Acct:[id number] Age/Sex: 39 / FADM Date: 10/08/24 Loc: [facility] Attending Dr: Grace Redding D.O. Ordering Physician: Grace Redding D.O. Date of Service: 10/08/24 Procedure(s): US OB transvaginal Accession Number(s): [id number] cc: Grace Redding D.O.; Physician,Non-Staff [place] [address] Patient Name: YESSI LIMON MRN: [id number] date: 1985 Sex: F Assigned Patient Location: [facility] Current Patient Location: Accession/Order Number: [id number] Exam Date: 10/08/2024 09:07 Report Date: 10/09/2024 [...] Sanchez M.D. Signed By:10/09/24434 DD/ 1 TD/TT: Dragline Operator Helper: us Grace Redding DO [facility] Final Result documented in this encounter Visit Diagnoses Not on filedocumented in this encounter Care Teams District Engineer Relationship Specialty Start Date End Date Codey Ponce MD [address] [place] [address] PCP - General Family Medicine 10/08/24 documented as of this encounter
--- OUTSIDE RECORDS SUMMARY | 2025-05-30 08:47 | XMS_ITS | Encounter Summary ---
Author Organization [facility] Address [address] [facility] [place] [address] Care Team Providers Care Airdox Fitter Name Role Phone Codey Ponce MD Primary Care Provider [phone] Encounter Details Date Type Department Care Team (Late st Contact Info) Description 10/08/2024 Abstract [facility] [address] [place] [phone] Henry Redding DO [address] [place], [facility] Social History Tobacco Use Types Packs/Day [...] 11:20 AM EDT Visit MICHELLE MARK [address] [place] [phone] Monika Figueroa PA [address] [place] [address] documented as of this encounter Visit Diagnoses Not on filedocumented in this encounter Care Teams Airdox Fitter Relationship Specialty Start Date End Date Codey Ponce MD [address] [place] [address] PCP - General Family Medicine 10/08/24 documented as of this encounter
--- OUTSIDE RECORDS SUMMARY | 2025-05-30 08:47 | XMS_ITS | Encounter Summary ---
Author Organization [facility] Address [address] [place] [address] Care Team Providers Care Machine Overhauler Name Role Phone Codey Ponce MD Primary Care Provider [phone] Encounter Details Date Type Department Care Team (Late st Contact Info) Description 04/20/2025 Abstract [facility] MARK [address] [place] [phone] Henry Redding DO [address] [place], [facility] Social History Tobacco Use Types Packs/Day Years [...] 11:20 AM EDT Visit MICHELLE MARK [address] [place] [phone] Monika Figueroa PA [address] [facility] [address] [place] [address] documented as of this encounter Visit Diagnoses Not on filedocumented in this encounter Care Teams Machine Overhauler Relationship Specialty Start Date End Date Codey Ponce MD [address] [place] [address] PCP - General Family Medicine 10/08/24 documented as of this encounter
--- OUTSIDE RECORDS SUMMARY | 2025-05-30 08:47 | XMS_ITS | Encounter Summary ---
Author Organization [facility] Address [address] [place] [address] Care Team Providers Care Configuration Manager Name Role Phone Codey Ponce MD Primary Care Provider [phone] Encounter Details Date Type Department Care Team (Late st Contact Info) Description 04/22/2025 Abstract [facility] MARK [address] [place] [phone] Henry Redding DO [address] [place], [facility] Social History Tobacco Use Types Packs/Day Years [...] [address] [place] [phone] Monika Figueroa PA [address] [place] [address] documented as of this encounter Visit Diagnoses Not on filedocumented in this encounter Care Teams Configuration Manager Relationship Specialty Start Date End Date Codey Ponce MD [address] [place] [address] PCP - General Family Medicine 10/08/24 documented as of this encounter
--- OUTSIDE RECORDS SUMMARY | 2025-05-30 08:48 | XMS_ITS | Encounter Summary ---
Author Organization [facility] Address [address] [facility] [place] [address] Care Team Providers Care Technical Fellow Name Role Phone Codey Ponce MD Primary Care Provider [phone] Encounter Details Date Type Department Care Team (Late st Contact Info) Description 04/18/2025 Abstract [facility] MARK [address] [facility] [place] [phone] Henry Redding DO [address] [facility] [address] [place], [facility]11 Social History Tobacco Use Types Packs/Day [...] 11:20 AM EDT Visit MICHELLE MARK [address] [place] [phone] Monika Figueroa PA [address] [facility] [place] [address] documented as of this encounter Visit Diagnoses Not on filedocumented in this encounter Care Teams Technical Fellow Relationship Specialty Start Date End Date Codey Ponce MD [address] [place] [address] PCP - General Family Medicine 10/08/24 documented as of this encounter
--- OUTSIDE RECORDS SUMMARY | 2025-05-30 08:48 | XMS_ITS | Encounter Summary ---
Author Organization [facility] Address [address] [place] [address] Care Team Providers Care Fleecer Name Role Phone Codey Ponce MD Primary Care Provider [phone] Encounter Details Date Type Department Care Team (Late st Contact Info) Description 04/18/2025 Abstract [facility] MARK [address] [facility] [place] [phone] Henry Redding DO [address] [facility] [facility] [address] [place], [facility] Social History Tobacco Use Types Packs/Day Years [...] 11:20 AM EDT Visit MICHELLE MARK [address] [place] [phone] Monika Figueroa PA [address] [place] [address] documented as of this encounter Visit Diagnoses Not on filedocumented in this encounter Care Teams Fleecer Relationship Specialty Start Date End Date Codey Ponce MD [address] [place] [address] PCP - General Family Medicine 10/08/24 documented as of this encounter
--- OUTSIDE RECORDS SUMMARY | 2025-05-30 08:48 | XMS_ITS | Encounter Summary ---
Author Organization [facility] Address [address] [facility] [place] [address] Care Team Providers Care Apparel Pattern Maker Name Role Phone Codey Ponce MD Primary Care Provider [phone] Encounter Details Date Type Department Care Team (Late st Contact Info) Description 01/18/2025 Orders Only MICHELLE MARK [address] [place] [address] [place] [phone] Maria Guadalupe Hernandez MA [address] [place] [address] Social History Tobacco Use Types Packs/Day Years [...] 05/31/2025 11:20 AM EDT Visit MICHELLE MARK [address] [place] [address] [place] [phone] Monika Figueroa PA [address] [place], [facility] documented as of this encounter Procedures Procedure Name Priority Date/Time Associated Diagnosis Comments PAP SMEAR Routine 01/05/2025 12:00 AM EST documented in this encounter Results * Pap Smear (01/05/2025 12:00 AM EST) Swab Cervical swab / Unknown us Henry Escalerao DO LAB CYTOLOGY ORDERABLES Final Re sult EXTERNAL LAB documented in this encounter Visit Diagnoses Not on filedocumented in this encounter Care Teams Apparel Pattern Maker Relationship Specialty Start Date End Date Codey Ponce MD [address] [place] [address] PCP - General Family Medicine 10/08/24 documented as of this encounter
--- OUTSIDE RECORDS SUMMARY | 2025-05-30 08:58 | XMS_ITS | CCD ---
Author Organization [facility] Care Team Providers Care Instructional Support Assistant Name Role Phone GLENNA MCINTYRE Admitting Unavailable MIGUELINAGLENNA SO Attending Unavailable GLENNA MCINTYRE L Consulting Unavailable NORM PONCE Admitting Unavailable NORM PONCE Attending Unavailable NORM PONCE Consulting Unavailable ANDREA AVERY Consulting Unavailable Norm Ponce MD Primary Care Provider [phone] Norm Ponce MD Primary Care Provider [phone] Norm Ponce MD Primary Care Provider [phone] MONIKA FRIED Attending Unavailable MILADISRGACE DOMÍNGUEZ Attending Unavailable MONIKA FRIED Attending Unavailable MILADISGRACE Hanson Attending Unavailable MILADIS, GRACE Attending Unavailable MILADIS, GRACE Attending Unavailable MONIKA FRIED Attending Unavailable MILADIS, GRACE Attending Unavailable MONIKA FRIED Attending Unavailable Allergies Allergy Classification Reported Allergen(s) Allergy Type Date of Onset Reaction(s) Facility (1 source) Desonide Drug Allergy [facility] Repository Medications Current Medications Medication Drug Class(es) [...] (Bld) 0.2 % 0.2 - 2.0 % [facility] Eosinophils/100 WBC (Bld) 0.4 % Low 0.9 - 7.0 % [facility] Erythrocyte distribution width (RBC) [Ratio] 15.3 % High 11.0 - 15.0 % [facility] Hematocrit (Bld) [Volume fraction] 26.9 % Low 36.0 - 48.0 % [facility] Health[facility] e Hemoglobin (Bld) [Mass/Vol] 8.8 g/dL Low 12.0 - 16.0 g/dL [facility] IMMATURE GRANULOCYTES ABS AUTO 0.1 High [facility] Immature granulocytes/100 WBC (Bld) 1 % High 0.0 - 0.5 % [facility] Interpretation and review of laboratory results Abnormal [facility] LYMPHOCYTES ABSOLUTE AUTO 2 [facility] Lymphocytes/100 WBC (Bld) 20 % Low 20.5 - 60.0 % [facility] MCH (RBC) [Entitic mass] 30.3 pg 26.7 - 34.0 pg [facility] MCHC (RBC) [Mass/Vol] 32.7 g/dL 29.9 - 35.2 g/dL [facility] MCV (RBC) [Entitic vol] 92.8 fL 81.0 - 99.0 fL [facility] MONOCYTES ABSOLUTE AUTO 0.5 [facility] Monocytes/100 WBC (Bld) 4.9 % 1.7 - 12.0 % [facility] NEUTROPHILS ABSOLUTE AUTO 7.2 High [facility] Neutrophils/100 WBC (Bld) 73.5 % 43.0 - 75.0 % [facility] Platelet mean volume (Bld) [Entitic vol] 10 fL 9.5 - 13.5 fL [facility] PLT 142 Low [facility] RBC 2.9 Low [facility] WBC 9.8 [facility] ALL CBC WITH AUTO DIFFon BASOPHILS ABSOLUTE AUTO 0 [facility] Basophils/100 WBC (Bld) 0.2 % 0.2 - 2.0 % [facility] Eosinophils/100 WBC (Bld) 0 % Low 0.9 - 7.0 % [facility] Erythrocyte distribution width (RBC) [Ratio] 14.8 % 11.0 - 15.0 % [facility] Hematocrit (Bld) [Volume fraction] 27.8 % Low 36.0 - 48.0 % [facility] Hemoglobin (Bld) [Mass/Vol] 9.3 g/dL Low 12.0 - 16.0 g/dL [facility] IMMATURE GRANULOCYTES ABS AUTO 0.09 High [facility] Immature granulocytes/100 WBC (Bld) 0.8 % High 0.0 - 0.5 % [facility] Interpretation and review of laboratory results Abnormal [facility] LYMPHOCYTES ABSOLUTE AUTO 0.7 Low [facility] Lymphocytes/100 WBC (Bld) 6.6 % Low 20.5 - 60.0 % [facility] MCH (RBC) [Entitic mass] 30.1 pg 26.7 - 34.0 pg [facility] MCHC (RBC) [Mass/Vol] 33.5 g/dL 29.9 - 35.2 g/dL [facility] MCV (RBC) [Entitic vol] 90 fL 81.0 - 99.0 fL [facility] MONOCYTES ABSOLUTE AUTO 0.4 [facility] Monocytes/100 WBC (Bld) 4 % 1.7 - 12.0 % [facility] NEUTROPHILS ABSOLUTE AUTO 9.5 High [facility] Neutrophils/100 WBC (Bld) 88.4 % High 43.0 - 75.0 % [facility] Platelet mean volume (Bld) [Entitic vol] 10.5 fL 9.5 - 13.5 fL [facility] EO # 0 [facility] PLT 164 [facility] RBC 3.09 Low [facility] WBC 10.8 [facility] US OB BPP W NON-STRESS on 04-18-2025 [place] [address] Ultrasound Report Signed Patient: YESSI AGEE MR#: [id number] : 1985 Acct:[id number] Age/Sex: 40 / F ADM Date: 04/18/25 Loc: [facility] 250-[address]: Grace Redding D.O. Ordering Physician: Grace Redding D.O. Date of Service: 04/18/25 Procedure(s): US OB BPP w non-stress Accession Number(s): [id number] cc: Grace Redding D.O.; Norm Ponce M.D. The [address] [address] Patient Name: YESSI AGEE MRN: [facility]:[id number] date: 1985 Sex: F Assigned Patient Location: [facility] Current Patient Location: [facility] Accession/Order Number: [id number] Exam Date: 04/18/2025 14:54 Report Date: 04/18/2025 14:55 At the request of: GRACE REDDING DO Procedure: US OB BPP w non-stress Ultrasound biophysical profile HISTORY: Advanced maternal age. Multi . Technique: Transabdominal imaging of the gravid uterus was obtained. COMPARISON: [facility] 04/11/2025. FINDINGS: Manager Family reports a BPP of 8 out of 8. heart rate 147 bpm. THEO is 8.5 cm. US/US OB BPP w non-stress IMPRESSION: BPP 8 out of 8. Impression dictated by: Luis Alfredo Truong Jr., D.O. 04/18/2025 2:55 PM Dictation Location: [place] [address] Electronically authenticated by: [id number] Y Date: 04/18/2025 14:55 Dictated By: Luis Alfredo Truong M.D. Signed By: 04/18/25 1457 DD/ 54 TD/TT: Program Coordinator For Residence Life: [facility] Radiology, Radiologist, MD - 04/18/2025 [place] [address] Ultrasound Report Signed Patient: YESSI AGEE MR#: [id number] : 1985 Acct:[id number] Age/Sex: 40 / F ADM Date: 04/18/25 Loc: [facility] 250-[address]: Grace Redding D.O. Ordering Physician: Grace Redding D.O. Date of Service: 04/18/25 Procedure(s): US OB BPP w non-stress Accession Number(s): [id number] cc: Grace Redding D.O.; Norm Ponce M.D. The [place] [id number] Patient Name: YESSI AGEE MRN: [facility]:[id number] date: 1985 Sex: F Assigned Patient Location: [facility] Current Patient Location: [facility] Accession/Order Number: [id number] Exam Date: 04/18/2025 14:54 Report Date: 04/18/2025 14:55 At the request of: GRACE REDDING DO Procedure: US OB BPP w non-stress Ultrasound biophysical profile HISTORY: Advanced maternal age. Multi . Technique: Transabdominal imaging of the gravid uterus was obtained. COMPARISON: [facility] 04/11/2025. FINDINGS: Manager Family reports a BPP of 8 out of 8. heart rate 147 bpm. THEO is 8.5 cm. US/US OB BPP w non-stress IMPRESSION: BPP 8 out of 8. Impression dictated by: Luis Alfredo Truong Jr., D.O. 04/18/2025 2:55 PM Dictation Location: [place] [address] Electronically authenticated by: [id number] Y Date: 04/18/2025 14:55 Dictated By: Luis Alfredo Truong M.D. Signed By: 04/18/25 1457 DD/ 54 TD/TT: Program Coordinator For Residence Life: [facility] Radiology Study observation (narrative) [facility] US OB BPP W NON-STRESS Ordered By: Radiologist Radiology on 04-18-2025 [facility] Work Phone: AMNISUREon 04-13-2025 [facility] AMNISURE Negative NEGATIVE [facility] are [facility] US OB PLACENTAon 04-13-[address] [address] Ultrasound Report Signed Patient: YESSI AGEE MR#: [id number] : 1985 Acct:[id number] Age/Sex: 40 / F ADM Date: Loc: [facility] 254-[address]: Garce Redding D.O. Ordering Physician: Grace Redding D.O. Date of Service: 04/13/25 Procedure(s): US OB placenta Accession Number(s): [id number] cc: Grace Redding D.O.; Norm Ponce M.D. The [place] [id number] Patient Name: YESSI AGEE MRN: [facility]:[id number] date: 1985 Sex: F Assigned Patient Location: [facility] Current Patient Location: [facility] Accession/Order Number: [id number] Exam Date: 04/13/2025 20:12 Report Date: 04/13/2025 [...] Gould M.D. 04/13/2025 8:14 PM Dictation Location: [place] [address] Electronically authenticated by: [id number] Y Date: 04/13/2025 20:14 Dictated By: Jhon Gould D.O. Signed By: 04/13/252016 DD/ 13 TD/TT: Program Coordinator For Residence Life: [facility] Radiology, Radiologist, MD - 04/13/2025 [place] [address] Ultrasound Report Signed Patient: YESSI AGEE MR#: [id number] : 1985 Acct:[id number] Age/Sex: 40 / F ADM Date: Loc: [facility] 254- Attending Dr: Grace Redding D.O. Ordering Physician: Grace Redding D.O. Date of Service: 04/13/25 Procedure(s): US OB placenta Accession Number(s): [id number] cc: Grace Redding D.O.; Norm Ponce M.D. [place] [id number] Patient Name: YESSI AGEE MRN: [id number]:[id number] date: 1985 Sex: F Assigned Patient Location: [facility] Current Patient Location: [facility] Accession/Order Number: [id number] Exam Date: 04/13/2025 20:12 Report Date: 04/13/2025 20:14 At the request of: GRACE REDDING DO Procedure: US OB placenta Obstetrical ultrasound of the placenta HISTORY: Contractions. Anterior placenta identified. Normal appearance of the placenta noted. No placental abruption. heart rate 131 bpm. The gestational age 36 weeks 2 days. US/US OB placenta IMPRESSION: Normal-appearing placenta. Impression dictated by: Jhon Guold M.D. 04/13/2025 8:14 PM Dictation Location: [place] [address] Electronically authenticated by: [id number] Y Date: 04/13/2025 20:14 Dictated By: Jhon Gould D.O. Signed By: 04/13/252016 DD/ 13 TD/TT: Program Coordinator For Residence Life: [facility] Radiology Study observation (narrative) [facility] OB PLACENTAOrdered By: Ra reynosoogyesenia Radiology on 04-13-2025 [facility] [employer] [facility] [employer] Work Phone: Urinalysis macro (dipstick) panel (U)on 04-13-2025 Bilirubin, UA Negative Negative - 4(70) +++ mg/dL [facility] Blood, UA Positive Negative - 50 Venu/mcL [facility] Clarity, UA Clear [facility] Healthca re Color, UA Yellow [facility] Health[facility] Glucose, UA Negative Negative - 1999(110) ++++ mg/dL [facility] Interpretation and review of laboratory results Normal [facility] Ketones, UA Negative Negative - 160(16) ++++ mg/dL [facility] Leukocytes, UA Negative Negative - 500+++ Michael/mcL [facility] Nitrite, UA Negative Negative - Positive [facility] pH, UA 6 5 - 9 [facility] Protein, UA Negative Negative - 1999(20) ++++ mg/dL [facility] Spec Grav, UA 1.015 1 - 1.03 [facility] care Urobilinogen, UA 0.2 0.2 - 12 mg/dL [facility] US OB BPP W NON-STRESS on 04-11-2025 [place] [address] Ultrasound Report Signed Patient: YESSI AGEE MR#: [id number] : 1985 Acct:[id number] Age/Sex: 40 / F ADM Date: 04/11/25 Loc: US Attending Dr: Grace Redding D.O. Ordering Physician: Grace Redding D.O. Date of Service: 04/11/25 Procedure(s): US OB BPP w non-stress Accession Number(s): [id number] cc: Grace Redding D.O.; Norm Ponce M.D. [place] [id number] Patient Name: YESSI AGEE MRN: [id number]:[id number] date: 1985 Sex: F Assigned Patient Location: [facility] Current Patient Location: Accession/Order Number: [id number] Exam Date: 04/11/2025 15:48 Report Date: 04/11/2025 [...] Gould M.D. 04/11/2025 3:49 PM Dictation Location: [place] [address] Electronically authenticated by: [id number] Y Date: 04/11/2025 15:49 Dictated By: Jhon Gould D.O. Signed By: 04/11/25 1552 DD/ 1549 TD/TT: Program Coordinator For Residence Life: [facility] Radiology, Radiologist, - 04/11/2025 The [place] [id number] Ultrasound Report Signed Patient: YESSI AGEE MR#: [id number] : 1985 Acct:[id number] Age/Sex: 40 / F ADM Date: 04/11/25 Loc: US Attending Dr: Grace Redding D.O. Ordering Physician: Grace Redding D.O. Date of Service: 04/11/25 Procedure(s): US OB BPP w non-stress Accession Number(s): [id number] cc: Grace Redding D.O.; Norm Ponce M.D. The [place] [phone] Patient Name: YESSI AGEE MRN: [facility]:[id number] date: 1985 Sex: F Assigned Patient Location: [facility] Current Patient Location: Accession/Order Number: [id number] Exam Date: 04/11/2025 15:48 Report Date: 04/11/2025 [...] Gould M.D. 04/11/2025 3:49 PM Dictation Location: [place] [address] Electronically authenticated by: [id number] Y Date: 04/11/2025 15:49 Dictated By: Jhon Gould D.O. Signed By: 04/11/25 1552 DD/ 1549 TD/TT: Program Coordinator For Residence Life: [facility] Radiology Study observation (narrative) [facility] US OB BPP W NON-STRESS Ordered By: Radiologist Radiology on 04-11-2025 [facility] Work Phone: US OB BPP W NON-STRESS on 04-04-2025 [place] [address] Ultrasound Report Signed Patient: YESSI AGEE MR#: [id number] : 1985 Acct:[id number] Age/Sex: 40 / F ADM Date: 04/04/25 Loc: US Attending Dr: Grace Redding D.O. Ordering Physician: Grace Redding D.O. Date of Service: 04/04/25 Procedure(s): US OB BPP w non-stress Accession Number(s): [id number] cc: Grace Redding D.O.; Norm Ponce M.D. [place] [id number] Patient Name: YESSI AGEE MRN: [facility]:[id number] date: 1985 Sex: F Assigned Patient Location: [facility] Current Patient Location: Accession/Order Number: [id number] Exam Date: 04/04/2025 14:51 Report Date: 04/04/2025 [...] Gould M.D. 04/04/2025 2:52 PM Dictation Location: [employer] Electronically authenticated by: [id number] Y Date: 04/04/2025 14:52 Dictated By: Jhon Gould D.O. Signed By: 04/04/25 1454 DD/ 145 TD/TT: Program Coordinator For Residence Life: [facility] Radiology, Radiologist, - 04/04/[address] [address] Ultrasound Report Signed Patient: YESSI AGEE MR#: [id number] : 1985 Acct:[id number] Age/Sex: 40 / F ADM Date: 04/04/25 Loc: US Attending Dr: Grace Redding D.O. Ordering Physician: Grace Redding D.O. Date of Service: 04/04/25 Procedure(s): US OB BPP w non-stress Accession Number(s): [id number] cc: Grace Redding D.O.; Norm Ponce M.D. The [place] [phone] Patient Name: YESSI AGEE MRN: [id number] date: 1985 Sex: F Assigned Patient Location: [facility] Current Patient Location: Accession/Order Number: [id number] Exam Date: 04/04/2025 14:51 Report Date: 04/04/2025 [...] Gould M.D. 04/04/2025 2:52 PM Dictation Location: [place] [address] Electronically authenticated by: [id number] Y Date: 04/04/2025 14:52 Dictated By: Jhon Gould D.O. Signed By: 04/04/25 1454 DD/ 145 TD/TT: Program Coordinator For Residence Life: [facility] Radiology Study observation (narrative) [facility] US OB BPP W NON-STRESS Ordered By: Radiologist Radiology on 04-04-2025 [facility] Work Phone: [facility] UA (CLEAN/CATCH) ACCOUNT SUPPORT MANAGER/EILEEN RO IF IND.on 03-23-2025 BILIRUBIN URINE Negative [...] Health[facility] US OB CERVICAL LENGTHon 03-04 [place] [address] Ultrasound Report Signed Patient: YESSI AGEE MR#: [id number] : 1985 Acct:[id number] Age/Sex: 40 / F ADM Date: 03/23/25 Loc: [place] [address]- Attending Dr: Grace Redding D.O. Ordering Physician: Grace Redding D.O. Date of Service: 03/23/25 Procedure(s): US OB cervical length Accession Number(s): [id number] cc: Grace Redding D.O.; Norm Ponce M.D. The [address] [address] Patient Name: YESSI AGEE MRN: [facility]:[id number] date: 1985 Sex: F Assigned Patient Location: [facility] Current Patient Location: [facility] Accession/Order Number: [id number] Exam Date: 03/23/2025 18:26 Report Date: 03/23/2025 [...] Gould M.D. 03/23/2025 6:27 PM Dictation Location: [employer] Electronically authenticated by: [id number] Y Date: 03/23/2025 18:27 Dictated By: Jhon Gould D.O. Signed By: 03/23/251828 DD/ 26 TD/TT: Program Coordinator For Residence Life: [facility] Radiology, Radiologist, - 03/23/2025 [place] [address] Ultrasound Report Signed Patient: YESSI AGEE MR#: [id number] : 1985 Acct:[id number] Age/Sex: 40 / F ADM Date: 03/23/25 Loc: [facility] 250-[address]: Grace Redding D.O. Ordering Physician: Grace Redding D.O. Date of Service: 03/23/25 Procedure(s): US OB cervical length Accession Number(s): [id number] cc: Grace Redding D.O.; Norm Ponce M.D. The [place] [phone] Patient Name: YESSI AGEE MRN: [facility]:[id number] date: 1985 Sex: F Assigned Patient Location: [facility] Current Patient Location: [facility] Accession/Order Number: [id number] Exam Date: 03/23/2025 18:26 Report Date: 03/23/2025 [...] Gould M.D. 03/23/2025 6:27 PM Dictation Location: [place] [address] Electronically authenticated by: [id number] Y Date: 03/23/2025 18:27 Dictated By: Jhon Gould D.O. Signed By: 03/23/251828 DD/ 26 TD/TT: Program Coordinator For Residence Life: [facility] Radiology Study observation (narrative) [facility] US OB CERVICAL LENGTHOrdered By: Radiologist Radiology on 03-23-2025 [facility] [employer] Work Phone: Urinalysis macro (dipstick) panel (U)on 03-23-2025 Bilirubin, UA Negative Negative - 4(70) +++ mg/dL [facility] Blood, UA Negative Negative - 50 Venu/mcL [facility] Clarity, UA Clear [facility] [employer] re Color, UA Yellow [facility] [employer] [facility] Glucose, UA Negative Negative - 2000(110) ++++ mg/dL [facility] Interpretation and review of laboratory results Normal [facility] Ketones, UA Negative Negative - 160(16) ++++ mg/dL [facility] Leukocytes, UA Negative Negative - 500+++ Michael/mcL [facility] Nitrite, UA Negative Negative - Positive [facility] pH, UA 7 5 - 9 [facility] [employer] [facility] Protein, UA Negative Negative - 2000(20) ++++ mg/dL [facility] Spec Grav, UA 1.015 1 - 1.03 [facility] Urobilinogen, UA 1.0 0.2 - 12 mg/dL [facility] US OB FOLLOW UP TRANSABDOMIN [...] MD, PHD at 09-Mar-2025 08:42:20 AM [facility] Normal Not Available Comment on above: Order Comment: US OB SCAN FOR GROWTH Estimated Date of Delivery: 05/09/25 Gestational Age as of 02/21/2025: 29w0d Urinalysis macro (dipstick) panel (U)on 03-07-2025 Bilirubin, UA Negative Negative - 4(70) +++ mg/dL [facility] Blood, UA Negative Negative - 50 Venu/mcL [facility] Clarity, UA Clear [facility] Color, UA Yellow [facility] Glucose, UA Negative Negative - 1999(110) ++++ mg/dL [facility] Interpretation and review of laboratory results Normal [facility] Ketones, UA Negative Negative - 160(16) ++++ mg/dL [facility] Leukocytes, UA Negative Negative - 500+++ Michael/mcL [facility] Nitrite, UA Negative Negative - Positive [facility] pH, UA 6 5 - 9 [facility] e Protein, UA Negative Negative - 1999(20) ++++ mg/dL [facility] Spec Grav, UA 1.015 1 - 1.03 [facility] Urobilinogen, UA 0.2 0.2 - 12 mg/dL [facility] Urinalysis macro (dipstick) panel (U)on 02-21-2025 Bilirubin, UA Negative Negative - 4(70) +++ mg/dL [facility] Healthcare Blood, UA Negative Negative - 50 Venu/mcL [facility] Healthcare Clarity, UA Clear [facility] Color, UA Yellow [facility] Glucose, UA Negative Negative - 1999(110) ++++ mg/dL [facility] Interpretation and review of laboratory results Abnormal [facility] Ketones, UA Negative Negative - 160(16) ++++ mg/dL [facility] Healthcare Leukocytes, UA Trace Negative - 500+++ Michael/mcL [facility] Healthcare Nitrite, UA Negative Negative - Positive [facility] pH, UA 7 5 - 9 [facility] Health[facility] e Protein, UA Positive Negative - 1999(20) ++++ mg/dL [facility] Comment on above: 30mg/dL Spec Grav, UA 1.025 1 - 1.03 [facility] care Urobilinogen, UA 4.0 0.2 - 12 mg/[facility] Urinalysis macro (dipstick) panel (U)on 02-02-2025 Bilirubin, UA Negative Negative - 4(70) +++ mg/dL [facility] Blood, UA Negative Negative - 50 Venu/mcL [facility] Healthcare Clarity, UA Clear [facility] Color, UA Yellow [facility] Health[facility] e Glucose, UA Negative Negative - 1999(110) ++++ mg/dL [facility] Interpretation and review of laboratory results Abnormal [facility] Ketones, UA Negative Negative - 160(16) ++++ mg/dL [facility] Healthcare Leukocytes, UA Trace Negative - 500+++ Michael/mcL [facility] Healthcare Nitrite, UA Negative Negative - Positive [facility] Healthcare pH, UA 7 5 - 9 [facility] Health[facility] e Protein, UA Negative Negative - 1999(20) ++++ mg/dL [facility] Spec Grav, UA 1.02 1 - 1.03 [facility] Health care Urobilinogen, UA 1.0 0.2 - 12 mg/dL [facility] IGP,APTIMA HPV,AGE GDLNon AGE GDLN ACOG TESTING Note . [facility] Comment on above: TESTS RESULT FLAG UN ITS REF RANGE LAB Clinician Provided Cytology Information Source.............Cervix No. of containers..01 ThinPrep Vial Age Algo ACOG Sushma... FLAG LEGEND: L-Low Normal,H-High Normal,LL-Alert Low,HH-Alert High <-Panic Low,>-Panic High,A-Abnormal,AA-Critical Abnormal Performed at: 01 =G [facility] [employer] [place] [address] Enma Todd MD, HPV APTIMA Negative Negative [facility] Comment on above: This nucleic acid am plification test detects fourteen high- risk HPV types (16,18,31,33,35,39,45,51,52,56,58,59,66,68) without differentiation. Performed at: = - [employer] [employer] [id number] Makeup Sales Consultant: Enma Todd MD, Phone: [phone] Performed at: - [address] [id number] Makeup Sales Consultant: Enma Todd MD, Phone: [phone] IGP, APTIMA HPV, RFX 16/18,45 Note . [facility] Comment on above: TESTS RESULT FLAG UN ITS REF RANGE LAB DIAGNOSIS: 02 NEGATIVE FOR INTRAEPITHELIAL LESION OR MALIGNANCY. FUNGAL ORGANISMS MORPHOLOGICALLY CONSISTENT WITH COREEN SPECIES ARE PRESENT. Specimen adequacy: 02 Satisfactory for evaluation. No endocervical component is identified. Performed by: 02 Breanna Lucero Pesticide Chemist . 02 Note: Note 02 The Pap [...] High,A-Abnormal,AA-Critical Abnormal Performed at: 02 [facility] [address] [place] [address] Enma Todd MD, SPATULA-ALONE CERVIX [facility] Urinalysis macro (dipstick) panel (U)on 01-05-2025 Bilirubin, UA Negative Negative - 4(70) +++ mg/dL [facility] Blood, UA Negative Negative - 50 Venu/mcL [facility] Clarity, UA Clear [facility] Color, UA Yellow [facility] [employer] Glucose, UA Negative Negative - 1999(110) ++++ mg/dL [facility] Interpretation and review of laboratory results Normal [facility] Ketones, UA Negative Negative - 160(16) ++++ mg/dL [facility] Leukocytes, UA Negative Negative - 500+++ Michael/mcL [facility] Nitrite, UA Negative Negative - Positive [facility] pH, UA 5.5 5 - 9 [facility] Protein, UA Negative Negative - 1999(20) ++++ mg/dL [facility] Spec Grav, UA 1.01 1 - 1.03 [facility] Urobilinogen, UA 0.2 0.2 - 12 mg/dL [facility] ANATOMYon 12-29-2024 [place] [address] Ultrasound Report Signed Patient: YESSI AGEE MR#: [id number] : 1985 Acct:[id number] Age/Sex: 39 / F ADM Date: 12/23/24 Loc: US Attending Dr: Monika Fried Ordering Physician: Monika Fried Date of Service: 12/23/24 Procedure(s): US OB anatomy Accession Number(s): [id number] cc: Monika Fried; Physician,Non-Staff Marielle [address] [address] Patient Name: YESSI AGEE MRN: [id number] date: 1985 Sex: F Assigned Patient Location: US Current Patient Location: US Accession/Order Number: [id number] Exam Date: 12/24/2024 09:49 Report Date: 12/24/2024 [...] all 4 extremities were surveyed by the inspector and mender. No abnormalities were detected. The stomach, kidneys, [...] Marion Flaherty M.D.12/24/2024 10:03 AM Dictation Location: [employer] Electronically authenticated by: [id number] Y Date: 12/24/2024 10:03 Dictated By: Marion Flaherty M.D. Signed By: 12/29/24 1035 DD/ 1003 TD/TT: Program Coordinator For Residence Life: [facility] Radiology, Radiologist, - 12/29/[address] [address] Ultrasound Report Signed Patient: YESSI AGEE MR#: [id number] : 1985 Acct:[id number] Age/Sex: 39 / F ADM Date: 12/23/24 Loc: US Attending Dr: Monika Fried Ordering Physician: Monika Fried Date of Service: 12/23/24 Procedure(s): US OB anatomy Accession Number(s): [id number] cc: Monika Fried; Physician,Non-Staff Marielle The [address] [address] Patient Name: YESSI AGEE MRN: [facility]:[id number] date: 1985 Sex: F Assigned Patient Location: US Current Patient Location: US Accession/Order Number: [id number] Exam Date: 12/24/2024 09:49 Report Date: 12/24/2024 [...] all 4 extremities were surveyed by the inspector and mender. No abnormalities were detected. The stomach, kidneys, [...] Marion Flaherty M.D.12/24/2024 10:03 AM Dictation Location: [facility] Electronically authenticated by: [id number] Y Date: 12/24/2024 10:03 Dictated By: Marion Flaherty M.D. Signed By: 12/29/24 1035 DD/ 1003 TD/TT: Program Coordinator For Residence Life: [facility] [employer] OB ANATOMYOrdered By: Lul kesslerogyesenia Radiology on 12-29-2024 [facility] [employer] Work Phone: No Panel Informationon 12-24 Radiology Study observation (narrative) [facility] OB CERVICAL LENGTHon 12-[address] [place] [address] Ultrasound Report Signed Patient: YESIS AGEE MR#: [id number] : 1985 Acct:[id number] Age/Sex: 39 / F ADM Date: 12/23/24 Loc: US Attending Dr: Monika Fried Ordering Physician: Monika Fried Date of Service: 12/23/24 Procedure(s): US OB cervical length Accession Number(s): [id number] cc: Monika Fried; Physician,Non-Staff [place] [id number] Patient Name: YESSI AGEE MRN: [id number] date: 1985 Sex: F Assigned Patient Location: US Current Patient Location: Accession/Order Number: [id number] Exam Date: 12/24/2024 09:49 Report Date: 12/24/2024 [...] all 4 extremities were surveyed by the inspector and mender. No abnormalities were detected. The stomach, kidneys, [...] Marion Flaherty M.D.12/24/2024 10:03 AM Dictation Location: [place] [address] Electronically authenticated by: [id number] Y Date: 12/24/2024 10:03 Dictated By: Marion Flaherty M.D. Signed By: 12/24/24 1005 DD/ 1003 TD/TT: Program Coordinator For Residence Life: [facility] Radiology, Radiologist, MD - 12/24/2024 [place] [address] Ultrasound Report Signed Patient: YESSI AGEE MR#: [id number] : 1985 Acct:[id number] Age/Sex: 39 / F ADM Date: 12/23/24 Loc: US Attending Dr: Monika Fried Ordering Physician: Monika Fried Date of Service: 12/23/24 Procedure(s): US OB cervical length Accession Number(s): [id number] cc: Monika Fried; Physician,Non-Staff Marielle The [address] [address] Patient Name: YESSI AGEE MRN: [facility]:[id number] date: 1985 Sex: F Assigned Patient Location: Current Patient Location: Accession/Order Number: [id number] Exam Date: 12/24/2024 09:49 Report Date: 12/24/2024 [...] all 4 extremities were surveyed by the inspector and mender. No abnormalities were detected. The stomach, kidneys, [...] Marion Flaherty M.D.12/24/2024 10:03 AM Dictation Location: [employer] Electronically authenticated by: [id number] Y Date: 12/24/2024 10:03 Dictated By: Marion Flaherty M.D. Signed By: 12/24/24 1005 DD/ 1003 TD/TT: Program Coordinator For Residence Life: [facility] US OB CERVICAL LENGTHOrdered By: Radiologist Radiology on 12-24-2024 [facility] Work Phone: Urinalysis macro (dipstick) panel (U)on 12-08-2024 Bilirubin, UA Negative Negative - 4(70) +++ mg/dL [facility] Blood, UA Negative Negative - 50 Venu/mcL [facility] Clarity, UA [facility] re Color, UA Yellow [facility] e Glucose, UA Negative Negative - 1999(110) ++++ mg/dL [facility] Interpretation and review of laboratory results Normal [facility] Ketones, UA Negative Negative - 160(16) ++++ mg/dL [facility] Leukocytes, UA Negative Negative - 500+++ Michael/mcL [facility] Nitrite, UA Negative Negative - Positive [facility] pH, UA 7 5 - 9 [facility] e Protein, UA Negative Negative - 1999(20) ++++ mg/dL [facility] Spec Grav, UA 1.025 1 - 1.03 [facility] Urobilinogen, UA 1.0 0.2 - 12 mg/dL [facility] ALL CBC WITH AUTO DIFFon BASOPHILS ABSOLUTE AUTO 0 [facility] Basophils/100 WBC (Bld) 0.2 % 0.2 - 2.0 % [facility] Eosinophils/100 WBC (Bld) 1 % 0.9 - 7.0 % [facility] Erythrocyte distribution width (RBC) [Ratio] 13.6 % 11.0 - 15.0 % [facility] Hematocrit (Bld) [Volume fraction] 37.5 % 36.0 - 48.0 % [facility] e Hemoglobin (Bld) [Mass/Vol] 12.5 g/dL 12.0 - 16.0 g/dL [facility] IMMATURE GRANULOCYTES ABS AUTO 0.15 High [facility] Immature granulocytes/100 WBC (Bld) 1.9 % High 0.0 - 0.5 % [facility] Interpretation and review of laboratory results Abnormal [facility] LYMPHOCYTES ABSOLUTE AUTO 1.7 [facility] Lymphocytes/100 WBC (Bld) 20.4 % Low 20.5 - 60.0 % [facility] MCH (RBC) [Entitic mass] 30.3 pg 26.7 - 34.0 pg [facility] MCHC (RBC) [Mass/Vol] 33.3 g/dL 29.9 - 35.2 g/dL [facility] MCV (RBC) [Entitic vol] 90.8 fL 81.0 - 99.0 fL [facility] MONOCYTES ABSOLUTE AUTO 0.5 [facility] Monocytes/100 WBC (Bld) 5.6 % 1.7 - 12.0 % [facility] NEUTROPHILS ABSOLUTE AUTO 5.8 [facility] Neutrophils/100 WBC (Bld) 70.9 % 43.0 - 75.0 % [facility] Platelet mean volume (Bld) [Entitic vol] 9.9 fL 9.5 - 13.5 fL [facility] EO # 0.1 [facility] PLT 170 [facility] RBC 4.13 Low [facility] TB WBC 8.1 [facility] e Urinalysis macro (dipstick) panel (U)on 11-09-2024 Bilirubin, UA Negative Negative - 4(70) +++ mg/dL [facility] Blood, UA Negative Negative - 50 Venu/mcL [facility] Healthcare Clarity, UA Clear [facility] Health[facility] re Color, UA Yellow [facility] Health[facility] e Glucose, UA Negative Negative - 1999(110) ++++ mg/dL [facility] Interpretation and review of laboratory results Normal [facility] Ketones, UA Negative Negative - 160(16) ++++ mg/dL [facility] Leukocytes, UA Negative Negative - 500+++ Michael/mcL [facility] Healthcare Nitrite, UA Negative Negative - Positive [facility] pH, UA 6.5 5 - 9 [facility] Protein, UA Negative Negative - 1999(20) ++++ mg/dL [facility] Healthcare Spec Grav, UA 1.015 1 - 1.03 [facility] Health care Urobilinogen, UA 0.2 0.2 - 12 mg/dL [facility] HCG ( test) Ql (U)o n 10-08-2024 Interpretation and review of laboratory results Abnormal [facility] Preg Test, Ur Positive Negative [facility] Health care [facility] Urinalysis macro (dipstick) panel (U)on 10-08-2024 Bilirubin, UA Negative Negative - (70) +++ mg/dL [facility] Blood, UA Negative Negative - 50 Venu/mcL [facility] Healthcare Clarity, UA Clear [facility] Healthca re Color, UA Yellow [facility] e Glucose, UA Negative Negative - 1999(110) ++++ mg/dL [facility] Interpretation and review of laboratory results Normal [facility] Ketones, UA Negative Negative - 160(16) ++++ mg/dL [facility] Leukocytes, UA Negative Negative - 500+++ Michael/mcL [facility] Nitrite, UA Negative Negative - Positive [facility] pH, UA 5.5 5 - 9 [facility] Health[facility] e Protein, UA Negative Negative - 1999(20) ++++ mg/dL [facility] Healthcare Spec Grav, UA 1.01 1 - 1.03 [facility] Urobilinogen, UA 0.2 0.2 - 12 mg/dL [facility] CARROLL DOP LEG LTon [...] ANDREA AVERY Date: 2020-05-15 15:51 Normal The [facility] VAGINITIS/VAGINOSIS DNA PROB Will 08-07-2019 Coreen species Positive Abnormal Negative [facility] Comment on above: Performed By: #### V AGINT #### [facility] [address] [place] [address] Gardnerella vaginalis Negative Normal Negative [facility] Comment on above: Performed By: #### V AGINT #### [facility] [address] [place] [address] Trichomonas vaginalis Negative Normal Negative The [facility] Comment on above: Performed By: #### V AGINT #### [facility] [address] [place], [place] [id number] Tolu Schultz Vital Signs Date Time Vital Sign Value Performing Clinician Nighat vee 04-26-2025 15:16-0400 Body mass index (BMI) [Ratio] 28.9 kg/m2 Monika WEEKS Work Phone: [facility] 04-26-2025 15:16-0400 Body weight 73.99 kg Monika WEEKS Work Phone: [facility] 04-26-2025 15:16-0400 Diastolic blood pressure 74 mm[Hg] Monika WEEKS Work Phone: [facility] 04-26-2025 15:16-0400 Systolic blood pressure 120 mm[Hg] Monika Fried PA Work Phone: [facility] 04-13-2025 14:24-040 Body height 160 cm Grace Miladis DO Work Phone: [facility] 04-13-2025 14:24-0400 Body mass index (BMI) [Ratio] 29.76 kg/m2 Grace Miladis DO Work Phone: [facility] 04-13-2025 14:24-0400 Body weight 76.2 kg Grace Miladis DO Work Phone: [facility] 04-13-2025 14:24-0400 Diastolic blood pressure 80 mm[Hg] Grace Miladis DO Work Phone: [facility] 04-13-2025 14:24-0400 Systolic blood pressure 132 mm[Hg] Grace Miladis DO Work Phone: [facility] 03-23-2025 16:22-0400 Body weight 74.39 kg Monika WEEKS Work Phone: [facility] 03-23-2025 16:22-0400 Diastolic blood pressure 80 mm[Hg] Monika WEEKS Work Phone: [facility] 03-23-2025 16:22-0400 Systolic blood pressure 128 mm[Hg] Monika WEEKS Work Phone: [facility] 03-07-2025 15:44-0400 Body weight 73.48 kg Grace Miladis DO Work Phone: [facility] 03-07-2025 15:44-0400 Diastolic blood pressure 72 mm[Hg] Grace Miladis DO Work Phone: [facility] 03-07-2025 15:44-0400 Systolic blood pressure 118 mm[Hg] Grace Miladis DO Work Phone: [facility] 02-21-2025 08:33-0400 Body weight 73.37 kg Grace Miladis DO Work Phone: [facility] 02-21-2025 08:33-0400 Diastolic blood pressure 74 mm[Hg] Grace Miladis DO Work Phone: [facility] 02-21-2025 08:33-0400 Systolic blood pressure 116 mm[Hg] Grace Miladis DO Work Phone: [facility] 02-02-2025 15:42-0400 Body weight 73.14 kg Monika WEEKS Work Phone: [facility] 02-02-2025 15:42-0400 Diastolic blood pressure 76 mm[Hg] Monika WEEKS Work Phone: [facility] 02-02-2025 15:42-0400 Systolic blood pressure 116 mm[Hg] Monika Fried PA Work Phone: [facility] 01-05-2025 16:05-0500 Body weight 71.22 kg Grace Miladis DO Work Phone: [facility] 01-05-2025 16:05-0500 Diastolic blood pressure 72 mm[Hg] Grace Miladis DO Work Phone: [facility] 01-05-2025 16:05-0500 Systolic blood pressure 118 mm[Hg] Grace Miladis DO Work Phone: [facility] 12-08-2024 15:59-0500 Body weight 70.94 kg Monika WEEKS Work Phone: [facility] 12-08-2024 15:59-0500 Diastolic blood pressure 72 mm[Hg] Monika WEEKS Work Phone: [facility] 12-08-2024 15:59-0500 Systolic blood pressure 110 mm[Hg] Monika WEEKS Work Phone: [facility] 11-09-2024 11:10-0500 Body weight 67.13 kg Grace Miladis DO Work Phone: [facility] 11-09-2024 11:10-0500 Diastolic blood pressure 68 mm[Hg] Grace Miladis DO Work Phone: [facility] 11-09-2024 11:10-0500 Systolic blood pressure 108 mm[Hg] Grace Miladis DO Work Phone: [facility] 10-08-2024 10:17-0500 Body weight 64.86 kg [facility] Nurse [facility] Healthcare Encounters Encounter Date Encounter Type Care Provider Facility Start: 04-26-2025 End: 04-26-2025 ambulatory MONIKA FRIED Not Available Start: 04-26-2025 End: 04-26-2025 Postop follow up visit related to original px Monika WEEKS Work Phone: [facility] Comment on above: Encounter for postpa rtum visit ([facility]); S/P section; Postop check Start: 04-26-2025 End: [...] flow sheet Grace Miladis DO Work Phone: [facility] Comment on above: Upper respiratory [...] Bamboo flowsheet Grace Miladis DO Work Phone: [facility] Start: 02-21-2025 End: 02-21-2025 flow sheet Grace Miladis DO Work Phone: [facility] Comment on above: Third trimester preg brody; 29 weeks gestation of ; Size of fetus inconsistent with dates in third trimester Start: 02-21-2025 End: 02-21-2025 ambulatory GRACE MILADIS Not Available Start: 02-02-2025 End: 02-02-2025 flow sheet Monika WEEKS Work Phone: [facility] Comment on above: Second trimester pre gnancy; 26 weeks gestation of Start: 02-02-2025 End: 02-02-2025 ambulatory MONIKA FRIED Not Available Start: 02-02-2025 End: 02-02-2025 Bamboo flowsheet Monika WEEKS Work Phone: [facility] Start: 02-02-2025 End: 02-02-2025 Bamboo flowsheet Monika WEEKS Work Phone: [facility] Start: 01-05-2025 End: 01-05-2025 Patient encounter procedure Grace Miladis DO Work Phone: [facility] Healthcare Start: 01-05-2025 End: 01-05-2025 Periodic preventive med est patient 18-39 yrs Grace Miladis DO Work Phone: [facility] Comment on above: Well woman [...] Work Phone: Start: 03-23-2025 [facility] UA (CLEAN/CATCH) ACCOUNT SUPPORT MANAGER/MICRO IF IND. Grace Miladis DO Work Phone: Start: 03-23-2025 Urnls dip stick/tabl et rgnt non-auto w/o micrscp Monika WEEKS Work Phone: Start: 03-07-2025 Urnls dip stick/tabl et rgnt non-auto w/o micrscp Grace Miladis DO Work Phone: Start: 02-21-2025 Urnls dip stick/tabl et rgnt non-auto w/o micrscp Grace Milaids DO Work Phone: Start: 02-02-2025 Urnls dip [...] AM EDT Visit [facility] [address] [place] [phone] Monika Fried PA [address] [place] [address] [facility] Start: 04-18-2025 End: 04-18-2025 Patient encounter procedure 04/18/2025 4:00 PM EDT Routine [facility] [address] [place] [phone] Grace Redding, DO [address] [place] [address] [facility] Start: 04-13-2025 End: 04-13-2025 [...] Routine [facility] [address] [place] [phone] Grace Redding, DO [facility] [place] [address] [facility] Start: 03-07-2025 End: 03-07-2025 Professional / ancillary services management 03/07/2025 3:00 PM EDT Ancillary Procedure [facility] [address] [place] [id number] [facility] Start: 03-07-2025 End: 09-07-2025 [...] Routine [facility] [address] [place] [phone] Grace Redding, DO [facility] [place] [address] [facility] Start: 02-21-2025 End: 06-23-2025 US for US OB follow up transabdominal approach Imaging Routine Size of fetus inconsistent with dates in third trimester Expected: 02/21/2025, Expires: 06/23/2025 [facility] Work Phone: Comment on above: Expected: 02/21/2025 , Expires: 06/23/2025 Start: 02-21-2025 End: 02-21-2025 Patient encounter procedure 02/21/2025 8:30 AM EDT Routine [facility] [address] [place] [address] Grace Redding, [address] [place] [address] Arrived [facility] Comment on above: [...] gestational age Expected: 10/08/2024 (Approximate), Expires: 10/08/2025 [facility] Healthcare Work Phone: Comment on above: Expected: 10/08/2024 (Approximate), Expires: 10/08/2025 Start: 10-08-2024 End: 10-08-2025 Drugs of abuse panel - Urine by Screen method Rapid drug screen, urine Lab Routine , unspecified gestational age Encounter for supervision of normal first in first trimester Expected: 10/08/2024 (Approximate), Expires: 10/08/2025 [facility] Healthcare Comment on above: Expected: 10/08/2024 (Approximate), Expires: 10/08/2025 Start: 10-08-2024 End: 10-08-2025 US Pelvis transvaginal US OB transvaginal Imaging Routine Missed menses Expected: 10/08/2024 (Approximate), Expires: 10/08/2025 [facility] Healthcare Comment on above: Expected: 10/08/2024 (Approximate), Expires: 10/08/2025 Bacteria identified in Urine by Culture Urine culture Microbiology Routine Missed menses Ordered: 10/08/2024 [facility] Comment on above: Ordered: 10/08/2024 CBC W Auto Different ial panel - Blood CBC and differential Lab Routine Missed menses , unspecified gestational age Ordered: 10/08/2024 [facility] Healthcare Comment on above: Ordered: 10/08/2024 CBC W Auto Different ial panel - Blood CBC and differential Lab Routine Third trimester Multigravida of advanced maternal age in third trimester Ordered: 03/23/2025 [facility] Work Phone: Comment on above: Ordered: 03/23/2025 CHLAMYDIA TRACHOMATI S (GENITO/STI) CHLAMYDIA TRACHOMATIS (GENITO/STI) Lab Routine Exposure to STD Ordered: 01/05/2025 [facility] Healthcare Comment on above: Ordered: 01/05/2025 Cytology Cervical or vaginal smear or scraping study Pap Smear Pathology and Cytology Routine Well woman exam with routine gynecological exam Ordered: 01/05/2025 [facility] Comment on above: Ordered: 01/05/2025 Hemoglobin A1c/Hemoglobin.total in Blood Hemoglobin A1c Lab Routine Missed menses , unspecified gestational age Ordered: 10/08/2024 [facility] Comment on above: Ordered: 10/08/2024 Hemoglobin A1c/Hemoglobin.total in Blood Hemoglobin A1c Lab Routine Diabetes mellitus screening Ordered: 01/05/2025 [facility] Comment on above: Ordered: 01/05/2025 Hepatitis B virus surface Ag [Presence] in Serum or Plasma by Immunoassay Hepatitis B surface antigen Lab Routine Missed menses , unspecified gestational age Ordered: 10/08/2024 [facility] Comment on above: Ordered: 10/08/2024 Hepatitis C virus Ab [Presence] in Serum or Plasma by Immunoassay Hepatitis C antibody Lab Routine Missed menses , unspecified gestational age Ordered: 10/08/2024 [facility] Comment on above: Ordered: 10/08/2024 HIV-1/HIV-2 antigen/antibody combination immunoassay HIV-1 and HIV-2 antibodies Lab Routine Missed menses , unspecified gestational age Ordered: 10/08/2024 [facility] Comment on above: Ordered: 10/08/2024 Human papilloma viru s DNA [Presence] in Unspecified specimen by Probe with amplification HPV DNA probe, amplified Microbiology Routine Well woman exam with routine gynecological exam Ordered: 01/05/2025 [facility] Comment on above: Ordered: 01/05/2025 Neisseria gonorrhoea e DNA [Presence] in Unspecified specimen by NERIS with probe detection Neisseria gonorrhea DNA probe, direct Lab Routine Exposure to STD Ordered: 01/05/2025 [facility] Comment on above: Ordered: 01/05/2025 Reagin Ab [Presence] in Serum by RPR RPR Lab Routine Missed menses , unspecified gestational age Ordered: 10/08/2024 [facility] Comment on above: Ordered: 10/08/2024 Rubella antibody, IgG Rubella an tibody, IgG Lab Routine Missed menses , unspecified gestational age Ordered: 10/08/2024 [facility] Comment on above: Ordered: 10/08/2024 SURESWAB(R) ADVANCED VAGINITIS PLUS, TMA SURESWAB(R) ADVANCED VAGINITIS PLUS, TMA Pathology and Cytology Routine Exposure to STD Ordered: 01/05/2025 [facility] Work Phone: Comment on above: Ordered: 01/05/2025 Payers Date Payer Category Payer [facility] [id number] 2021 Unknown [id number] 1985 Unknown [id number] [id number] .2.593 1985 Unknown [id number] 2.16.840.1.842737.3.579 .2.593 1985 Unknown [id number] 2.16.840.1.085638.3.579 .2.9 1985 Unknown [id number] 2.16.840.1.097562.3.579 .2.1259 1985 Unknown [id number] 2.16.840.1.112618.3.579 .2.1259 1985 Unknown [id number] 2.16.840.1.094042.3.579 .2.9 1985 Unknown [id number] 2.16.840.1.231360.3.579 .2.9 1985 Unknown [id number] 2.16.840.1.119335.3.579 .2.1259 1987 Unknown [id number] 2.16.840.1.121785.3.579 .2.1259 1987 Unknown [id number] 2.16.840.1.758128.3.579 .2.1259 1987 Unknown [id number] 2.16.840.1.203577.3.579 .2.1259 1987 Unknown [id number] 2.16.840.1.004223.3.579 .2.9 1987 Unknown [id number] 2.16.840.1.507405.3.579 .2.1259 1957 Private Health Insurance [id number] Social History Date Type Detail Facility Tobacco smoking stat [facility] Tobacco smoking consumption unknown [facility] [...] & PLAN ICD-10-CM 1. Encounter for visit ([facility]) Z39.2 2. S/P section Z98.891 3. Postop [...] of: DESI Wilson documented in this encounter [facility] 04-13-2025 History of Presen t illness Narrative [...] nursing note reviewed. Exam conducted with a hereditary cancer program coordinator present. Vitals: Estimated body mass index is [...] severe pain pt being sent over to [facility] for evaluation. Pt voiced understanding. Documented by Marion Lerner LPN on behalf of: Grace Redding DO documented in this encounter [facility] 03-23-2025 History of Presen t illness Narrative [...] of: DESI Wilson documented in this encounter [facility] 03-07-2025 History of Presen t illness Narrative [...] Grace Redding DO documented in this encounter [facility] 02-21-2025 History of Presen t illness Narrative [...] nursing note reviewed. Exam conducted with a hereditary cancer program coordinator present. Vitals: There is no height or [...] Grace Redding DO documented in this encounter [facility] 02-02-2025 History of Presen t illness Narrative [...] nursing note reviewed. Exam conducted with a hereditary cancer program coordinator present. Vitals: There is no height or [...] of: DESI Wilson documented in this encounter [facility] 01-05-2025 History of Presen t illness Narrative [...] nursing note reviewed. Exam conducted with a hereditary cancer program coordinator present. Vitals: There is no height or [...] Grace Redding DO documented in this encounter [facility] 12-08-2024 History of Presen t illness Narrative [...] of: DESI Wilson documented in this encounter [facility] 11-09-2024 History of Presen t illness Narrative [...] nursing note reviewed. Exam conducted with a hereditary cancer program coordinator present. Vitals: There is no height or [...] or undercooked meat, and stay away from [facility]. Patient has been consulted regarding any [...] Grace Redding DO documented in this encounter [facility] 10-08-2024 History of Presen t illness Narrative [...] or undercooked meat, and stay away from [facility]. Patient has also been advised to [...] Guadalupe Hernandez MA documented in this encounter [facility] Healthcare Evaluation note Diagnosis Missed menses , [...] [facility]) S/P section Other postprocedural status Postop check Follow-up examination, following unspecified surgery documented in this encounter [facility] Summary Purpose Family History No Family History Records FoundNo Family History Records Found Advance Directives No Advanced Directives Records FoundNo Advanced Directives Records Found Additional Source Comments INFORMATION SOURCE (unrecogn ized section and content) DATE CREATED AUTHOR 05/26/2020 [facility] DATE CREATED AUTHOR AUTHOR'S ORGANIZ ATION 04/27/2025 [facility] Reason for Visit (unrecogniz ed section and content) Reason Comments Amenorrhea Reason Comments Routine Visit Reason Comments Care Care Teams (unrecognized sec tion and content) Instructional Support Assistant Relationship Specialty Start Date End Date Norm Ponce MD [address] [place] [address] PCP - General Family Medicine 10/08/24 Instructional Support Assistant Relationship Specialty Start Date End Date Norm Ponce MD [address] [place] [address] PCP - General Family Medicine 10/08/24 Instructional Support Assistant Relationship Specialty Start Date End Date Norm Ponce MD [address] [place] [address] PCP - General Family Medicine 10/08/24 Instructional Support Assistant Relationship Specialty Start Date End Date Norm Ponce MD [address] [facility] [place] [address] PCP - General Family Medicine 10/08/24 Instructional Support Assistant Relationship Specialty Start Date End Date Norm Ponce MD [address] [facility] [place] [address] PCP - General Family Medicine 10/08/24 Instructional Support Assistant Relationship Specialty Start Date End Date Norm Ponce MD [address] [facility] [place] [address] PCP - General Family Medicine 10/08/24 Instructional Support Assistant Relationship Specialty Start Date End Date Norm Ponce MD [address] [facility] [place] [address] PCP - General Family Medicine 10/08/24 Instructional Support Assistant Relationship Specialty Start Date End Date Norm Ponce MD [address] [facility] [place] [address] PCP - General Family Medicine 10/08/24 Instructional Support Assistant Relationship Specialty Start Date End Date Norm Ponce MD PCP - General Family Medicine 10/08/24 Instructional Support Assistant Relationship Specialty Start Date End Date Norm Ponce MD PCP - General Family Medicine 10/08/24 Instructional Support Assistant Relationship Specialty Start Date End Date Norm Ponce MD PCP - General Family Medicine 10/08/24 Instructional Support Assistant Relationship Specialty Start Date End Date Norm Ponce MD PCP - General Family Medicine 10/08/24 Instructional Support Assistant Relationship Specialty Start Date End Date Norm Ponce MD [address] [place] [address] PCP - [facility] 10/08/24 Instructional Support Assistant Relationship Specialty Start Date End Date Norm Ponce MD [address] [place] [address] PCP - General Family [facility] 10/08/24 FOR RECORDS PERTAINING TO PATIENTS WHO [...] BE BASED ON THE PRIMARY CLINICAL RECORDS. [facility]. provides no warranty or guarantee of the accuracy or completeness of information in this document.
--- NOTE | 2025-05-30 09:29 | PC.NURSE ---
Yessi and 6 weeks old daughter Bernice arrive for follow up appointment. Mom relates baby likes to take a couple long stretches of sleep. one in early AM, mid afternoon and when first going down for the night. Encouraged one long stretch of sleep, and to wake during the day. Yessi replies she is nursing great, just vigorous weight obtained and is 6-9 today 3.5 oz above weight 1 week ago. Yessi irritated with weight, states she weighed 6-[address] Ponce's office. Weight obtained 2nd time and is same. Reiforced need to maintain feeding plan, breast , supplement with fortified breast milk to 24 calories, with each feeding. Continue to pump to maintain supplements. Yessi verbalized understanding. States is tired of all this, and she is fine, just slow to gain Dr Ponce notified of weight and plan of care. Mikey home ambulatory.
== END 2025-05-30 09:42 | disposition home or self-care (01) ==
LOC: FBCO 08:45
PROVIDERS: PCP Family Medicine; Visit Provider Obstetrics & Gynecology
DX: Z39.1 Encounter for care and examination of lactating mother (principal)
CPT/HCPCS: G0463

== ENCOUNTER 2025-06-06 08:23 | Outpatient (OUT) | payer BC, SELFPAY ==
--- NOTE | 2025-06-06 12:44 | PC.NURSE ---
Yessi and Bernice (7 weeks), arrive for weight check. Yessi offers information that Bernice is eating every 3-4 hours. Methods include breast for 30 minutes, bottle of fortified breast milk or formula. Bernice is taking breast milk 3 oz fortified to 24 ke/oz or 4 oz of formula. each feed. fortified milk is paired with time spent at the breast.Mom reports overall having 6 feeds in 24 hours, sometimes seven feeds. Yessi states I am pumping prior to her latching, and obtains 3 oz and then latches baby for 30 minutes. States that is how I gt the 3 oz, and she takes what is left. Reviewed building supply and frequency of feeds. Yessi verifies she understands. Infant weight today is 8 oz up from last weeks weight. Reviewed expected normal range of weight gain for Bernice and need to continue feeding plan . Verbalized understanding. eMrit leaves today for home. No questions voiced.
== END 2025-06-06 12:55 | disposition home or self-care (01) ==
PROVIDERS: PCP Family Medicine; Visit Provider Obstetrics & Gynecology
DX: Z39.1 Encounter for care and examination of lactating mother (principal)
CPT/HCPCS: G0463